=== PATIENT | female | born 2005 | race Caucasian/White ===

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

== ENCOUNTER 2024-06-30 17:25 | Emergency (ER) | payer OTHER, BC, SELFPAY ==
[2024-06-30 17:30] VITALS: BP 133/92; PULSE 93; TEMP 37.2; O2SAT 99; BMI 21.5
--- OUTSIDE RECORDS SUMMARY | 2024-06-30 17:31 | XMS_ITS | CCD ---
Author Organization [facility] Care Team Providers Care Conventions Reservationist Name Role Phone ALEISHA BROWNLEE Consulting Unavailable REQUEST, NONE LISTED Primary Care Unavailable ALEISHA BROWNLEE Admitting Unavailable ALEISHA BROWNLEE Attending Unavailable ALEISHA BROWNLEE Consulting Unavailable REQUEST, NONE LISTED Primary Care Unavailable ALEISHA BROWNLEE Admitting Unavailable ALEISHA BROWNLEE Attending Unavailable GILSON CANO Attending Unavailable REQUEST, NONE LISTED Primary Care Unavailable GILSON CANO Admitting Unavailable WOODROW VASQUEZ V Consulting Unavailable GILSON CANO Consulting Unavailable DELORES MORA Attending Unavailable ALEISHA BROWNLEE Primary Care Unavailable ALEISHA BROWNLEE Referring Unavailable DELORES MORA Attending Unavailable ALEISHA BROWNLEE Primary Care Unavailable ALEISHA BROWNLEE Referring Unavailable Medications Current Medications Medication Drug Class(es) Dates Sig (Normalized) Sig (Original) Levonorgest-Eth.Estr adiol-Iron (1 source) Progestin, Estrogen, Progestin-containin g Intrauterine Device Start: 03-27-2024 take 1 tablet by mouth once daily Levonorgest-Eth.E stradiol-Iron (Balcoltra) 0.1 mg-0.02 mg (21)/iron (7) tablet Active 1 TAB PO Daily March 27, 2024 12:00am midodrine hydrochloride 10 mg oral tablet (1 source) alpha-Adrenergic Agonist Start: 03-27-2024 take 10 mg by mouth three times daily Midodrine Active 10 MG PO Three times daily March 27, 2024 12:00am ondansetron 4 mg oral tablet (1 source) Serotonin-3 Receptor Antagonist Start: 04-06-2024 take 4 mg by mouth every eight hours Ondansetron Hcl Active 4 MG PO Every 8 hours April 06, 2024 12:00am sertraline 25 mg oral tablet (1 source) Serotonin Reuptake Inhibitor Start: 03-27-2024 take 25 mg by mouth once daily Sertraline Active 25 MG PO Daily March 27, 2024 12:00am Problems Problem Classification Problem Date Documented Da te Episodic/Chronic Abdominal pain (4 sources) Pelvic and perineal pain; Translations: [PELVIC AND PERINEAL PAIN] Onset: 02-07-2020 Diabetes mellitus without complication (4 sources) Impaired fasting glucose; Translations: [IMPAIRED FASTING GLUCOSE] Onset: 12-12-2020 Episodic Syncope (1 source) Syncope and collapse; Translations: [SYNCOPE AND COLLAPSE] Onset: 12-16-2020 Episodic Results Test Name Value Interpretation Reference Range Facil ity Progress Noteon 11-25-2023 Insurance Actuary Authentication Interface Message Text [facility] History of Present Illness Davion Umaña is a 18 y.o. female who has been followed in the heart center since 2020, for dizziness and syncope. Her clinical examination and ECG have been normal. She was diagnosed with dysautonomia and initially started on Florinef, which was then switched to midodrine due to no improvement. She is being seen today for follow up. Last visit: 09/23/23 Current cardiac medications: midodrine 2.5 mg TID Vitassium salt supplementation capsules (4 per day) Interim History: Midodrine was increased at last office visit. Since then, Davion has not been passing out as much. She continues with intermittent dizziness and syncope about 1-2 times per week. Her migraines have increased. She was evaluated by neurologist. Had MRI and EEG. Reported as normal. Neurologist suggested decreasing evening dose of midodrine back to 2.5 mg to see if improvement. She denies chest pain, palpitations or shortness of breath. No recent changes in medications. Goes to school at [email or web address] and lives on campus. Is doing well with her fluid intake. Eats well. Review of systems All other systems reviewed and are negative except as detailed above. Prior Cardiac Testing: ECG (07/02/22): normal ECHO (12/13/19-Osman Browning. Read by Gilbert rFanz MD): Normal 30-day loop monitor (03/02/21): Normal Past Medical/Surgical History: History reviewed. No pertinent past medical/surgical history. Patient Active Problem List Diagnosis Syncope and collapse Medications: Current Outpatient Medications Medication Instructions Cranberry-Vitamin C (AZO CRANBERRY URINARY TRACT PO) Oral Elastic Bandages & Supports (MEDICAL COMPRESSION STOCKINGS) MISC Waist high compression stockings 20mmHg-30mmHg. To be worn daily while upright. fludrocortisone (FLORINEF) 0.1 MG tablet TAKE 1 TABLET BY MOUTH EVERY DAY Levonorgest-Eth Estrad-Fe Bisg 0.1-20 MG-MCG(21) TABS Oral midodrine (PROAMATINE) 5 mg, Oral, 3 TIMES DAILY, Last dose to be taken before 5 pm ondansetron (ZOFRAN) 4 mg, Oral, EVERY 8 HOURS PRN Oral Electrolytes (THERMOTABS) TABS 2 Tablets, Oral, 2 TIMES DAILY sertraline (ZOLOFT) 25 MG tablet Oral, DAILY Allergies: No Known Allergies Family History: There is no known congenital heart disease, arrhythmia, sudden or SIDS on the maternal or the paternal side of the family. Social History: Freshman in college at [employer]. Studying education. Physical Exam: The Physical Exam is limited due to Telehealth General: Patient appears healthy, well developed, well nourished, non-toxic, and in no acute distress HEENT: atraumatic and normocephalic Chest: Respirations are easy, non-labored with symmetric chest rise. Skin: [place], without obvious rashes or lesions. Neuro: Awake and alert. Answering questions appropriately and following commands. Impression: Vasovagal syncope Orthostatic intolerance Dysautonomia Davion's syncope and dizziness have improved with increased midodrine, although her headaches have worsened. I am ok with trying to reduce midodrine dosage to see if this helps with headaches. She should continue to follow with neurology. Plan: Medications: Continue midodrine to 5mg 3x/daily, with last dose to be taken prior to 5pm. Can try reducing last dose to 2.5 mg as recommended by neurologist. Increase sodium intake to at least 4,000 milligrams (mg) per day. (1 tsp of table salt =2,325 mg of sodium) Continue Vitassium salt supplementation capsules Increase fluid intake to at least 100 ounces of water/caffeine free liquids per day Restrictions: None from a cardiology perspective Follow up: 6 months; discussed transition to adult care. Total encounter time: 30 minutes Delores Mora, DOCUMENTATION COORDINATOR-[employer]AP[employer] PADDER Pediatric Nurse Practitioner [facility] 11/25/2023 Normal [facility] Progress Noteon 09-23-2023 Insurance Actuary Authentication Interface Message Text [facility] History of Present Illness Davion Umaña is a 17 y.o. female who has been followed in the heart center since 2020, for dizziness and syncope. Her clinical examination and ECG have been normal. She was diagnosed with dysautonomia and initially started on Florinef, which was then switched to midodrine due to no improvement. She is being seen today for follow up. Current cardiac medications: midodrine 2.5 mg TID Vitassium salt supplementation capsules (4 per day) Interim History: Davion had been doing well with midodrine until 1 month ago. She describes current symptoms as: -nausea/vomiting -migraines/headaches (daily for the past 1-2 months, does not respond to ibuprofen) -blurred vision, typically accompanied by dizziness or increased migraine -dizziness (constant recently, does not improve when lying down, uses a cold rag) -syncope (increases more around menstrual cycles) 3-5 times per month. 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 Passed out. LOC < 2 minutes. No head injury. -shortness of breath when she feels like she is going to pass out -sweating without fever -fatigue/ lack of sleep. (Feels her head spinning) No recent changes in medications. Goes to school at [email or web address] and lives on campus. Is doing well with her fluid intake. Eats well. Review of systems All other systems reviewed and are negative except as detailed above. Prior Cardiac Testing: ECG (07/02/22): normal ECHO (12/13/19-Osman Browning. Read by Gilbert Franz MD): Normal 30-day loop monitor (03/02/21): Normal Past Medical/Surgical History: History reviewed. No pertinent past medical/surgical history. Patient Active Problem List Diagnosis Syncope and collapse Medications: Current Outpatient Medications Medication Instructions Cranberry-Vitamin C (AZO CRANBERRY URINARY TRACT PO) Oral Elastic Bandages & Supports (MEDICAL COMPRESSION STOCKINGS) MISC Waist high compression stockings 20mmHg-30mmHg. To be worn daily while upright. fludrocortisone (FLORINEF) 0.1 MG tablet TAKE 1 TABLET BY MOUTH EVERY DAY Levonorgest-Eth Estrad-Fe Bisg 0.1-20 MG-MCG(21) TABS Oral midodrine (PROAMATINE) 5 mg, Oral, 3 TIMES DAILY, Last dose to be taken before 5 pm ondansetron (ZOFRAN) 4 mg, Oral, EVERY 8 HOURS PRN Oral Electrolytes (THERMOTABS) TABS 2 Tablets, Oral, 2 TIMES DAILY sertraline (ZOLOFT) 25 MG tablet Oral, DAILY Allergies: No Known Allergies Family History: There is no known congenital heart disease, arrhythmia, sudden or SIDS on the maternal or the paternal side of the family. Social History: Freshman in college at [employer]. Physical Exam: 1. General: Alert, active, well developed, in no acute distress. 2. BP 113/74 (BP Site: Right Arm, Patient Position: Sitting, BP Cuff Size: Adult) Pulse 79 Resp 20 Ht 172 cm Wt 72.1 kg BMI 24.37 kg/m 3. Neck supple without masses or thyromegaly. 4. Cardiovascular: Regular rate and rhythm, normal S1 and S2 with normal splitting, no S3 or S4. No murmurs clicks, or rubs. No chest wall tenderness. Normal precordium. Upper and lower extremity pulses equal. 5. Respiratory: Lungs clear and equal. No retractions, wheezing, coughing,grunting, or nasal flaring. 6. Abdomen: Soft, non-tender, and non-distended. No hepatosplenomegaly. 7. Integumentary: Warm and well perfused, no clubbing/cyanosis/silvio ma. Pulses are 2+ and symmetric in the radial and dorsalis pedis locations. Impression: Vasovagal syncope Orthostatic intolerance Dysautonomia Davion's syncope has increased over the last 1-2 months. Initially saw great results with midodrine. Also, having increased headaches/migraines. I have recommended she see a neurologist. For now, she can start on Vitamin B2 and Magnesium for headache prevention. We reviewed red flags that would warrant a brain MRI. Davion or mom will call office with worsening symptoms. For syncope, we will increase midodrine to 5mg, TID. She should continue with increased fluid and salt supplementation capsules. We reviewed potential need for tilt table test in the future, if syncope does not respond to medication and potential consult for cardioneuroablation. Plan: Medications: Increase midodrine to 5mg 3x/daily, with last dose to be taken prior to 5pm. For headaches: Start riboflavin (Vitamin B2) 400 mg daily; Start magnesium 400mg every evening (these can be purchased over the counter) Increase sodium intake to at least 4,000 milligrams (mg) per day. (1 tsp of table salt =2,325 mg of sodium) Continue Vitassium salt supplementation capsules Increase fluid intake to at least 100 ounces of water/caffeine free liquids per day Restrictions: None from a cardiology perspective Follow up: 2 months via telehealth Total encounter time: 60 minutes Delores Mora, DOCUMENTATION COORDINATOR-[employer] Pediatric N (more content not included)... Normal [facility] CBC AUTO DIFFon 12-12-2020 Basophils (Bld) [#/Vol] 0.0 103/ul Normal 0.0-0.1 [facility] Comment on above: Performed By: #### C BC #### [facility] [place] [facility] [address], [place] [address] Steve Alyssia Basophils/100 WBC (Bld) 0.4 % Normal 0.2-2.0 [facility] [place] Comment on above: Performed By: #### C BC #### [facility] [place] [facility] [address], [place] [address] Steve Alyssia Eosinophils (Bld) [#/Vol] 0.1 103/ul Normal 0.0-0.7 [facility] [place] Comment on above: Performed By: #### C BC #### [facility] [place] [facility] [address], [place] [address] Steve Alyssia Eosinophils/100 WBC (Bld) 2.0 % Normal 0.9-7.0 [facility] [place] Comment on above: Performed By: #### C BC #### [facility] [place] [facility] [address], [place] [address] Steve Alyssia Erythrocyte distribution width (RBC) [Ratio] 14.6 % Normal 11.0-15.0 [facility] Comment on above: Performed By: #### C BC #### [facility] [place] [facility] [address] [id number] Steverosy Cade Hematocrit (Bld) [Volume fraction] 36.7 % Normal 36.0-48.0 [facility] [place] Comment on above: Performed By: #### C BC #### [facility] [place] [facility] [address] [place], [place] [address] Steve Alyssia Hemoglobin (Bld) [Mass/Vol] 11.5 g/dL Critically low 12.0-16.0 [facility] [place] Comment on above: Performed By: #### C BC #### [facility] [place] [facility] [address] [place], [place] [address] Steve Alyssia IG # 0.03 10e3/ul Normal 0.00-0.03 [facility] [place] Comment on above: Performed By: #### C BC #### [facility] [place] [facility] [address] [place] [address] Steve Alyssia IG % 0.4 % Normal 0.0-0.5 [facility] Comment on above: Performed By: #### C BC #### [facility] [place] [facility] [address] [place], [place] [address] Steve Alyssia Lymphocytes (Bld) [#/Vol] 2.1 103/ul Normal 1.2-3.8 [facility] [place] Comment on above: Performed By: #### C BC #### [facility] [place] [facility] [address] [place], [place] [address] Steve Alyssia Lymphocytes/100 WBC (Bld) 31.0 % Normal 20.5-60.0 [facility] [place] Comment on above: Performed By: #### C BC #### [facility] [place] [facility] [address] [place], [place] [address] Steve Cade MANUAL DIFF REQ NO Normal [facility] Comment on above: Performed By: #### C BC #### [facility] [place] [facility] [address] [place], [place] [address] Steve Guerraen MCH (RBC) [Entitic mass] 26.6 pg Critically low 26.7-34.0 [facility] [place] Comment on above: Performed By: #### C BC #### [facility] [place] [facility] [address] [place], [place] [address] Steve Alyssia MCHC (RBC) [Mass/Vol] 31.3 g/dL Normal 29.9-35.2 [facility] [place] Comment on above: Performed By: #### C BC #### [facility] [place] [facility] [address] [id number] Steve Alyssia MCV (RBC) [Entitic vol] 85.0 fL Normal 79.1-95.6 [facility] [place] Comment on above: Performed By: #### C BC #### [facility] [place] [facility] [address] [id number] Steve Alyssia Monocytes (Bld) [#/Vol] 0.5 103/ul Normal 0.3-0.8 [facility] [place] Comment on above: Performed By: #### C BC #### [facility] [place] [facility] [address] [place] [address] Steve Alyssia Monocytes/100 WBC (Bld) 7.6 % Normal 1.7-12.0 [facility] [place] Comment on above: Performed By: #### C BC #### [facility] [place] [facility] [address] [place] [address] Steve Alyssia Neutrophils (Bld) [#/Vol] 4.0 103/ul Normal 1.4-6.5 [facility] [place] Comment on above: Performed By: #### C BC #### [facility] [place] [facility] [address] [place] [address] Steve Alyssia Neutrophils/100 WBC (Bld) 58.6 % Normal 43.0-75.0 [facility] [place] Comment on above: Performed By: #### C BC #### [facility] [place] [facility] [address] [place], [place] [address] Steve Alyssia Platelet mean volume (Bld) [Entitic vol] 11.9 fL Normal 9.5-13.5 [facility] [place] Comment on above: Performed By: #### C BC #### [facility] [place] [facility] [address] [place], [place] [address] Steve Alyssia Platelets (Bld) [#/Vol] 300 103/ul Normal 150-450 [facility] [place] Comment on above: Performed By: #### C BC #### [facility] [place] [facility] [address] [place], [place] [address] Steve Alyssia RBC (Bld) [#/Vol] 4.32 106/ul Normal 3.40-5.30 [facility] Comment on above: Performed By: #### C BC #### [facility] [place] [facility] [address] [place], [place] [address] Steve Alyssia WBC (Bld) [#/Vol] 6.9 103/ul Normal 4.0-11.0 [facility] Comment on above: Performed By: #### C BC #### [facility] [place] [facility] [address] [place], [place] [address] Steve Alyssia GLYCOHEMOGLOBIN A1Con 2020 ADA RECOMMENDATION ADA THERAPEUTIC TARGET 6.0 - 7.0 ACTION SUGGESTED > 7.0 Normal [facility] Comment on above: Performed By: #### A 1C #### [facility] [place] [facility] [address] [place], [place] [address] Steve Alyssia Glucose [Mass/Vol] 117 mg/dL Normal [facility] Comment on above: Performed By: #### A 1C #### [facility] [place] [facility] [address] [place], [place] [address] Steve Alyssia HbA1c (Bld) [Mass fraction] 5.7 % Normal <=6.0 [facility] Comment on above: Performed By: #### A 1C #### [facility] [place] [facility] [address] [place], [place] [address] Steve Cade PROF CHEM 8 (BAS METB)on Anion gap [Moles/Vol] 13.2 mmol/L Normal [facility] Comment on above: Performed By: #### T DARRYL, BMP #### [facility] [place] [facility] [address] [place], [place] [address] Steve Alyssia Calcium [Mass/Vol] 9.0 mg/dL Normal 8.4-10.2 [facility] Comment on above: Performed By: #### T DARRYL, BMP #### [facility] [place] [facility] [address] [place], [place] [address] Steve Alyssia Chloride [Moles/Vol] 102 mmol/L Normal 98-107 [facility] [place] Comment on above: Performed By: #### T DARRYL, BMP #### [facility] [place] [facility] [address], [place] [address] Steve Alyssia CO2 [Moles/Vol] 28.1 mmol/L Normal 22.0-30.0 [facility] Comment on above: Performed By: #### T SH, BMP #### [facility] [place] [facility] [address] [id number] Steve Alyssia Creatinine [Mass/Vol] 0.70 mg/dL Normal 0.52-1.04 [facility] Comment on above: Performed By: #### T SH, BMP #### [facility] [place] [facility] [address] [id number] Steve Alyssia Glucose [Mass/Vol] 89 mg/dL Normal 74-106 [facility] Comment on above: Performed By: #### T SH, BMP #### [facility] [place] [facility] [address] [place] [address] Steve Alyssia Potassium [Moles/Vol] 4.3 mmol/L Normal 3.4-5.0 [facility] Comment on above: Performed By: #### T DARRYL, BMP #### [facility] [place] [facility] [address] [place], [place] [address] Steve Alyssia Sodium [Moles/Vol] 139 mmol/L Normal 137-145 [facility] Comment on above: Performed By: #### T DARRYL, BMP #### [facility] [place] [facility] [address] [id number] Steve Alyssia Urea nitrogen [Mass/Vol] 12.0 mg/dL Normal 6.4-19.3 [facility] Comment on above: Performed By: #### T SH, BMP #### [facility] [place] [facility] [address] [id number] Steve Alyssia Urea nitrogen/Creatinine [Mass ratio] 17.1 mg/mg Normal [facility] Comment on above: Performed By: #### T SH, BMP #### [facility] [place] [facility] [address], [place] [address] Steve Alyssia TSHon 12-12-2020 TSH Qn 0.468 uIU/mL Normal 0.430-3.750 [facility] Comment on above: Performed By: #### T DARRYL, NORBERT #### [facility] [place] [facility] [address], [place] [address] Steve Cade TSH Qn SEE BELOW Normal [facility] Comment on above: Result Comment: <0.3 4 UIU/ml HYPERTHYROID 0.34-5.60 UIU/ml EUTHYROID >5.60 UIU/ml HYPOTHYROID Performed By: #### T DARRYL, NORBERT #### [facility] [place] [facility] [address], [place] [address] Steve Cade US PELVISon 02-07-2020 US PELVIS EXAMINATION: US PELVIS HISTORY: Pelvic and perineal pain COMPARISON: No relevant comparison available. FINDINGS: Transabdominal images The uterus is normal in size, contour and myometrial echotexture with no focal mass. The uterus measures 6.6 x 3.5 x 5.0 cm a volume of 61.3 mL. The endometrium measures 7.6 mm, normal The right ovary is normal in size, contour and echotexture measuring 2.6 x 1.3 x 2.4 cm with a volume of 4.2 mL The left ovary is normal in size, contour and echotexture measuring 4.1 x 1.2 x 2.7 cm with a volume of 7.1 mL. No free fluid IMPRESSION: Normal transabdominal pelvic ultrasound Electronically authenticated by: WOODROW VASQUEZ Date: 2020-02-07 10:08 Normal [facility] Coding Summary.on 12-13-2019 Coding Summary. CODING DATE: 12/13/2019 FINAL [facility] STATUS: Home (Routine DC) PAYOR: [facility] [place] [facility] DESCRIPTION 5524 Level 4 Imaging without Contrast ADMIT DX: REASON FOR VISIT DX: R55 Syncope and collapse FINAL DX: PRINCIPAL: R55 Syncope and collapse SECONDARY: PYMT PROC APC STAT DESCRIPTION DOCTOR NAME DATE NOTE: The code number assigned matches the documented diagnosis and / or procedure in the patient's chart. However, the narrative phrase printed from the coding software may appear abbreviated, or result in slightly different terminology. Coded By: Sophie Rueda CphT Date Saved: 12/13/2019 09:32 am Normal [facility] EC Pediatric Echo Transthora cic Completeon 12-13-2019 EC Pediatric Echo Transthoracic Complete Echocardiology Procedure Exam Date/Time Accession # Ordering Dr. EC Pediatric Echo 12/12/2019 16:02 EST [id number] ALEISHA BROWNLEE MD Transthoracic Complete CPT code 98490 Reason for Exam ( Pediatric Echo Transthoracic Complete) R55 SYNCOPE AND COLLAPSE Report Patient Height: 67 (110 cm) Patient Weight: 120 (54 kg) Blood Pressure: 116/76 1. LVIDd 4.6 cm 2. LVIDs 3.1 cm 3. IVSd 0.75 cm 4. LVPWd 0.72 cm 5. LAs 3.0 cm 7. AOd Root (3.0-3.4cm) 2.6 cm 9. AO Sinus of Valsalva 2.4 cm 10. AO Sinotubular Junction 2.0 cm 11. Ascending Aorta 2.5 cm INDICATIONS : Syncope. M-MODE/2D/DOPPLER REPORT : Situs, veins, atria: Levocardia, atrial situs solitus with D looped ventricles and normally related great arteries. The SVC and IVC are seen connecting normally to the right atrium. One left and one right pulmonary vein are seen connecting normally to the left atrium. There is no evidence of a significant atrial septal defect. The atria are normal in size. AV valves: No tricuspid stenosis and trivial regurgitation. No mitral valve prolapse, stenosis or regurgitation. Ventricles: Normal right ventricular size, wall thickness and systolic function. Normal left ventricular size, wall thickness and systolic function. There is no evidence of a significant ventricular septal defect. Outflow tracts: The subaortic and subpulmonary outflow tracts are unobstructed. Tricommissural aortic valve with no stenosis or insufficiency. There is no pulmonary stenosis and trivial insufficiency. The coronary artery origin not well seen. Great arteries: Normal appearing aortic arch without coarctation. Normal appearing main pulmonary artery. No patent ductus arteriosus seen. Other: No pericardial effusion seen. SUMMARY/CONCLUSION: Echocardiology Report Normal segmental cardiac anatomy. Normal left and right ventricular size and systolic function. FINAL REPORT Signed (Electronic Signature): 12/13/2019 12:00 pm Signed by: Frederic Franz MD Transcribed by: elo Technologist: DAVIN Brewer [facility] Vital Signs Date Time Vital Sign Value Performing Clinician Faci lity 04-06-2024 10:150400 Body height 175.26 cm [facility] 04-06-2024 10:15-0400 Body mass index (BMI) [Percentile] Per age and sex 76.3 % [facility] 04-06-2024 10:15040 Body mass index (BMI) [Ratio] 24.5 kg/m2 [facility] 04-06-2024 10:15040 Body weight 75.46 kg [facility] 04-06-2024 10:15040 Diastolic blood pressure 79 mm[Hg] [facility] 04-06-2024 10:15040 Heart rate 70 /min [facility] 04-06-2024 10:15040 Systolic blood pressure 115 mm[Hg] [facility] Encounters Encounter Date Encounter Type Care Provider Facility Start: 04-06-2024 End: 04-06-2024 ambulatory [facility] Work Phone: Start: 04-06-2024 End: 04-06-2024 Patient encounter procedure Count Includes [facility] Physician [facility] Work Phone: Start: 03-27-2024 Non-patient / Non-visit Count Includes [facility] Physician [facility] Work Phone: Start: 11-25-2023 End: 11-25-2023 ambulatory [facility] Start: 09-23-2023 End: 09-23-2023 ambulatory [facility] Start: 12-19-2020 End: 12-20-2020 Patient encounter procedure ALEISHA BROWNLEE Facility:[facility] Start: 12-12-2020 End: 12-13-2020 Patient encounter procedure ALEISHA BROWNLEE Facility:[facility] Start: 02-07-2020 End: 02-08-2020 Patient encounter procedure GILSON CANO Facility:[facility] Immunizations Immunization Date Immunization Notes Care Provider Fa cili 06-07-2022 meningococcal oligosaccharide (groups A, C, Y and W-135) diphtheria toxoid conjugate vaccine (MCV4O) [facility] 06-06-2017 meningococcal oligosaccharide (groups A, C, Y and W-135) diphtheria toxoid conjugate vaccine (MCV4O) [facility] 02-09-2017 diphtheria, tetanus toxoids and acellular pertussis vaccine, unspecified formulation [facility] Payers Date Payer Category Payer Unknown [id number] 2005 Unknown [id number] 2004 Unknown [id number]. [id number] 1973 Unknown [id number] 1973 Unknown [id number] 1973 Unknown [id number] Unknown [id number] Social History Date Type Detail Facility Start: 04-06-2024 Tobacco smoking stat [facility] Never smoked tobacco (finding) [facility] Start: 2005 Sex Assigned At F [facility] Evaluation note Note Date & Type Note Facility Evaluation note No assessment information availa [facility] Work Phone: Summary Purpose Family History Relationship Condition Age at Onset Recorded Date/T yomi family member Hypertension Unknown grandparent Hypertension Unknown Malignant neoplasm Unknown Advance Directives Advance Directive Response Recorded Date/ Time Advance Directives No April 06 10:09am Chief Complaint and Reason for Visit Chief Complaint Amb Documentation wellness Additional Source Comments INFORMATION SOURCE (unrecogn ized section and content) DATE CREATED AUTHOR 12/13/2019 Brewer Trinean [facility] DATE CREATED AUTHOR AUTHOR'S ORGANIZ ATION 12/20/2020 [facility] DATE CREATED AUTHOR AUTHOR'S ORGANIZ ATION 11/28/2023 [facility] Care Teams (unrecognized sec tion and content) Team Status: Active Member Role Status Dates Aleisha Brownlee MD Primary Care Provider Active Team Status: Active Member Role Status Dates Aleisha Brownlee MD Primary Care Provider Active Start: March 27, 2024 Regina Jordan LPN Attending Provider Active St art: Magy 4th, 2024 Team Status: Inactive Member Role Status Dates Aleisha Brownlee MD Primary Care Provide r, Attending Provider Active Start: April 06, 2024 End: April 06, 2024 Goals (unrecognized section and content) Goals may be documented in a n alternate section FOR RECORDS PERTAINING TO PATIENTS WHO ARE OR HAVE BEEN ENROLLED IN A CHEMICAL DEPENDENCY/SUBSTANCEABUSE PROGRAM, SOME INFORMATION MAY BE OMITTED. This clinical summary was aggregated from multiple sources. Caution should be exercised in using it in the provision of clinical care. This summary normalizes information from multiple sources, and as a consequence, information in this document may materially change the coding, format and clinical context of patient data. In addition, data may be omitted in some cases. CLINICAL DECISIONS SHOULD BE BASED ON THE PRIMARY CLINICAL RECORDS. [facility] [employer] provides no warranty or guarantee of the accuracy or completeness of information in this document.
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
[2024-06-30 18:10] LABS: HCG Qualitative Urine* NEGATIVE (NEGATIVE); Internal Control Within Normal Limits
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
== END 2024-06-30 19:57 | disposition home or self-care (01) ==
PROVIDERS: Emergency Medicine; Emergency Provider Internal Medicine; PCP Family Medicine
DX: S40.012A Contusion of left shoulder, initial encounter (principal); S70.02XA Contusion of left hip, initial encounter; S00.83XA Contusion of other part of head, initial encounter; V43.52XA Car driver injured in collision with other type car in traffic accident, initial encounter
CPT/HCPCS: 70486; 73030; 73502; 84703; 99285

== ENCOUNTER 2024-08-13 07:56 | Outpatient (OUT) | payer BC, SELFPAY ==
--- NOTE | 2024-08-13 | ECG_ITS ---
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
--- OUTSIDE RECORDS SUMMARY | 2024-08-13 07:59 | XMS_ITS | CCD ---
Author Organization [facility] Care Team Providers Care Sonoscope Operator Name Role Phone ALEISHA ACKERMAN Consulting Unavailable REQUEST, NONE LISTED Primary Care Unavailable ALEISHA ACKERMAN Admitting Unavailable ALEISHA ACKERMAN Attending Unavailable ALEISHA ACKERMAN Consulting Unavailable REQUEST, NONE LISTED Primary Care Unavailable ALEISHA ACKERMAN Admitting Unavailable ALEISHA ACKERMAN Attending Unavailable GILSON CANO Attending Unavailable REQUEST, NONE LISTED Primary Care Unavailable GILSON CANO Admitting Unavailable WOODROW VASQUEZ V Consulting Unavailable GILSON CANO Consulting Unavailable DELORES MORA Attending Unavailable ALEISHA ACKERMAN Primary Care Unavailable ALEISHA ACKERMAN Referring Unavailable DELORES MORA Attending Unavailable ALEISHA ACKERMAN Primary Care Unavailable ALEISHA ACKERMAN Referring Unavailable PIPE TRAVIS Referring Unavailable PIPE TRAVIS Attending Unavailable Medications Current Medications Medication Drug Class(es) [...] Translations: [IMPAIRED FASTING GLUCOSE] Onset: 12-12-2020 Episodic Nervous system congenital anomalies (2 sources) 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]; Translations: [Familial dysautonomia (evette-day)] Onset: 07-02-2024 Chronic Other circulatory disease (2 sources) Postural orthostatic tachycardia syndrome ; Translations: [Postural orthostatic tachycardia syndrome (POTS)] Onset: 07-02-2024 Episodic Syncope (3 sources) Syncope and collapse; Translations: [SYNCOPE AND COLLAPSE] Onset: 12-16-2020 Episodic Results Test Name Value Interpretation Reference Range Facility 29on 07-02-2024 29 Addended by: PIPE TRAVIS on: 07/02/2024 11:16 AM Modules accepted: Orders Normal [facility] Documentationon 07-02-2024 Documentation [id number] Davion Umaña 2005 F Date Provider Department Center 07/02/2024 [id number], [facility] Spe Pha Comprehensiv Family History Problem Relation Age of Onset No Known Problems Mother Hypertension Father No Known Problems Mother's Sister Hypertension Maternal Grandfather Heart attack Paternal Grandmother Arrhythmia Paternal Grandmother Stroke Paternal Grandmother 40 Autoimmune disease Neg Hx Sudden Neg Hx Aneurysm Neg Hx Family Status - Relation Status Age at Mother Father Mother's Sister Maternal Grandfather Paternal Grandmother Neg Hx Reason for Visit and Comments: Specialty Pharmacy Note: ivabradine [Other] Normal [facility] Office Visiton 07-02-2024 Follow-up visit [id number] Davion Umaña 2005 F Date Provider Department Center 07/02/2024 135-PIPE TRAVIS HVC CARD [facility] Family History Problem Relation Age of Onset No Known Problems Mother Hypertension Father No Known Problems Mother's Sister Hypertension Maternal Grandfather Heart attack Paternal Grandmother Arrhythmia Paternal Grandmother Stroke Paternal Grandmother 40 Autoimmune disease Neg Hx Sudden Neg Hx Aneurysm Neg Hx Family Status - Relation Status Age at Mother Father Mother's Sister Maternal Grandfather Paternal Grandmother Neg Hx Level of Service:78979 HI OFFICE/OUTPATIENT NEW LOW MDM 30 MINUTES Reason for Visit and Comments: New Patient [632] - Patient in our office for Dysautonomia. Patient light headed, palpitations and edema when about to have episodes Normal [facility] Progress Noteon 11-25-2023 [employer] As[employer] Authentication Interface Message Text [facility]- Syncope Clinic History of Present [...] changes in medications. Goes to school at [employer] and lives on campus. Is doing well [...] family. Social History: Freshman in college at [employer]. Studying education. Physical Exam: The Physical Exam is limited due to Telehealth General: Patient appears healthy, well developed, well nourished, non-toxic, and in no acute distress HEENT: atraumatic and normocephalic Chest: Respirations are easy, non-labored with symmetric chest rise. Skin: [place], without obvious rashes or lesions. Neuro: Awake and alert. Answering questions appropriately and following commands. Impression: Vasovagal syncope Orthostatic intolerance Dysautonomia Kennethin's syncope and dizziness have improved with increased [...] Total encounter time: 30 minutes Delores Mora, GURJIT-CNC GRINDER Pediatric Nurse Practitioner [facility] 11/25/2023 Normal [facility] Progress Noteon 12-01-2023 [employer] As[employer]er Authentication Interface Message Text [facility]- Syncope Clinic History of Present [...] month. 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 Passed out. LOC < 2 minutes. No head injury. -shortness of breath when she feels like she is going to pass out -sweating without fever -fatigue/ lack of sleep. (Feels her head spinning) No recent changes in medications. Goes to school at [employer] and lives on campus. Is doing well with her fluid intake. Eats well. Review of systems All other systems reviewed and are negative except as detailed above. Prior Cardiac Testing: ECG (07/02/22): normal ECHO (12/13/19-[facility] [place]. Read by Gilbert Franz MD): Normal 30-day [...] family. Social History: Freshman in college at [employer]. Physical Exam: 1. General: Alert, active, well [...] 7. Integumentary: Warm and well perfused, no clubbing/cyanosis/[place]. Pulses are 2+ and symmetric in the [...] Total encounter time: 60 minutes Delores Mora, PICTURE FRAME MAKER-CNC GRINDER Pediatric N (more content not included)... Normal [facility] CBC AUTO DIFFon 12-12-2020 Basophils (Bld) [#/Vol] 0.0 103/ul Normal 0.0-0.1 [facility] Comment on above: Performed By: #### C BC #### [facility] [address] [place] [address] Steve Alyssia Basophils/100 WBC (Bld) 0.4 % Normal 0.2-2.0 [facility] Comment on above: Performed By: #### C BC #### [facility] [address] [place] [address]13 Steve Alyssia Eosinophils (Bld) [#/Vol] 0.1 103/ul Normal 0.0-0.7 [facility] Comment on above: Performed By: #### C BC #### [facility] [address] [place] [address]28 Steve Alyssia Eosinophils/100 WBC (Bld) 2.0 % Normal 0.9-7.0 [facility] Comment on above: Performed By: #### C BC #### [facility] [address] [place] [address]15 Steve Alyssia Erythrocyte distribution width (RBC) [Ratio] 14.6 % Normal 11.0-15.0 [facility] Comment on above: Performed By: #### C BC #### [facility] [address] [place] [address] 12761 Steve Alyssia Hematocrit (Bld) [Volume fraction] 36.7 % Normal 36.0-48.0 [facility] Comment on above: Performed By: #### C BC #### [facility] [address] [place] [address] Steve Cade Hemoglobin (Bld) [Mass/Vol] 11.5 g/dL Critically low 12.0-16.0 [facility] Comment on above: Performed By: #### C BC #### [facility] [address] [place] [address] Steverosy Cade IG # 0.03 10e3/ul Normal 0.00-0.03 [facility] Comment on above: Performed By: #### C BC #### [facility] [address] [place] [address] Steve Cade IG % 0.4 % Normal 0.0-0.5 [facility] Comment on above: Performed By: #### C BC #### [facility] [address] [place] [address] Steve Cade Lymphocytes (Bld) [#/Vol] 2.1 103/ul Normal 1.2-3.8 [facility] Comment on above: Performed By: #### C BC #### [facility] [address] [place] [address] Steve Cade Lymphocytes/100 WBC (Bld) 31.0 % Normal 20.5-60.0 [facility] Comment on above: Performed By: #### C BC #### [facility] [address] [place] [address] Steve Cade MANUAL DIFF REQ NO Normal [facility] Comment on above: Performed By: #### C BC #### [facility] [address] [place], [place] [id number] Steve Cade MCH (RBC) [Entitic mass] 26.6 pg Critically low 26.7-34.0 [facility] Comment on above: Performed By: #### C BC #### [facility] [address] [place] [address] Steve Cade MCHC (RBC) [Mass/Vol] 31.3 g/dL Normal 29.9-35.2 [facility] Comment on above: Performed By: #### C BC #### [facility] [address] [place], [place] [id number] Steve Alyssia MCV (RBC) [Entitic vol] 85.0 fL Normal 79.1-95.6 [facility] Comment on above: Performed By: #### C BC #### [facility] [address] [place], [place] [id number] Steve Alyssia Monocytes (Bld) [#/Vol] 0.5 103/ul Normal 0.3-0.8 [facility] Comment on above: Performed By: #### C BC #### [facility] [address] [place], [place] [id number] Steve Alyssia Monocytes/100 WBC (Bld) 7.6 % Normal 1.7-12.0 [facility] Comment on above: Performed By: #### C BC #### [facility] [address] [place], [place] [id number] Steve Alyssia Neutrophils (Bld) [#/Vol] 4.0 103/ul Normal 1.4-6.5 [facility] Comment on above: Performed By: #### C BC #### [facility] [address] [place], [place] [id number] Steve Alyssia Neutrophils/100 WBC (Bld) 58.6 % Normal 43.0-75.0 [facility] Comment on above: Performed By: #### C BC #### [facility] [address] [place], [place] [phone] Steve Alyssia Platelet mean volume (Bld) [Entitic vol] 11.9 fL Normal 9.5-13.5 [facility] Comment on above: Performed By: #### C BC #### [facility] [address] [place], [place] [id number] Steve Alyssia Platelets (Bld) [#/Vol] 300 103/ul Normal 150-450 [facility] Comment on above: Performed By: #### C BC #### [facility] [address] [place], [place] [address] Steve Alyssia RBC (Bld) [#/Vol] 4.32 106/ul Normal 3.40-5.30 [facility] Comment on above: Performed By: #### C BC #### [facility] [address] [place], [place] [phone] Steverosy Cade WBC (Bld) [#/Vol] 6.9 103/ul Normal 4.0-11.0 [facility] Comment on above: Performed By: #### C BC #### [facility] [address] [place], [place] [phone] Steve Cade GLYCOHEMOGLOBIN A1Con 2020 ADA RECOMMENDATION ADA THERAPEUTIC TARGET 6.0 - 7.0 ACTION SUGGESTED > 7.0 Normal [facility] Comment on above: Performed By: #### A 1C #### [facility] [address] [place] [address] Steve Alyssia Glucose [Mass/Vol] 117 mg/dL Normal [facility] Comment on above: Performed By: #### A 1C #### [facility] [address] [place] [address] Steverosy Cade HbA1c (Bld) [Mass fraction] 5.7 % Normal <=6.0 [facility] Comment on above: Performed By: #### A 1C #### [facility] [address] [place], [place] [phone] Steve Alyssia PROF CHEM 8 (BAS METB)on Anion gap [Moles/Vol] 13.2 mmol/L Normal [facility] Comment on above: Performed By: #### T DARRYL, BMP #### [facility] [address] [place] [address] Steve Alyssia Calcium [Mass/Vol] 9.0 mg/dL Normal 8.4-10.2 [facility] Comment on above: Performed By: #### T DARRYL, BMP #### [facility] [address] [place], [place] [id number] Steve Alyssia Chloride [Moles/Vol] 102 mmol/L Normal 98-107 [facility] Comment on above: Performed By: #### T DARRYL, BMP #### [facility] [address] [id number] Steve Alyssia CO2 [Moles/Vol] 28.1 mmol/L Normal 22.0-30.0 [facility] Comment on above: Performed By: #### T DARRYL, BMP #### [facility] [address] [id number] Steve Alyssia Creatinine [Mass/Vol] 0.70 mg/dL Normal 0.52-1.04 [facility] Comment on above: Performed By: #### T DARRYL, BMP #### [facility] [address] [id number] Steve Alyssia Glucose [Mass/Vol] 89 mg/dL Normal 74-106 [facility] Comment on above: Performed By: #### T DARRYL, BMP #### [facility] [address] [address] Steve Alyssia Potassium [Moles/Vol] 4.3 mmol/L Normal 3.4-5.0 [facility] Comment on above: Performed By: #### T DARRYL, BMP #### [facility] [address] [id number] Steve Alyssia Sodium [Moles/Vol] 139 mmol/L Normal 137-145 [facility] Comment on above: Performed By: #### T DARRYL, BMP #### [facility] [address] [address] Steve Alyssia Urea nitrogen [Mass/Vol] 12.0 mg/dL Normal 6.4-19.3 [facility] Comment on above: Performed By: #### T DARRYL, BMP #### [facility] [address] [address] Steve Alyssia Urea nitrogen/Creatinine [Mass ratio] 17.1 mg/mg Normal [facility] Comment on above: Performed By: #### T DARRYL, BMP #### [facility] [address] [place], [place] [address] Steve Alyssia TSHon 12-12-2020 TSH Qn 0.468 uIU/mL Normal 0.430-3.750 [facility] Comment on above: Performed By: #### T DARRYL, BMP #### [facility] [address] [place], [place] [address] Steve Cade TSH Qn SEE BELOW Normal [facility] Comment on above: Result Comment: <0.3 4 UIU/ml HYPERTHYROID 0.34-5.60 UIU/ml EUTHYROID >5.60 UIU/ml HYPOTHYROID Performed By: #### T DARRYL, NORBERT #### [facility] [address] [place], [place] [address] Steve Cade US PELVISon 02-07-2020 US PELVIS [...] 10:08 Normal [facility] Coding Summary.on 12-13-2019 Coding Summary. CODING DATE: 12/13/2019 FINAL [facility] STATUS: Home (Routine DC) PAYOR: [facility] [place] [facility] DESCRIPTION 5524 Level 4 Imaging without [...] CphT Date Saved: 12/13/2019 09:32 am Normal [facility] EC Pediatric Echo Transthora cic Completeon 12-13-2019 EC Pediatric Echo Transthoracic Complete Echocardiology Procedure Exam Date/Time Accession # Ordering Dr. GALVAN Pediatric Echo 12/12/2019 16:02 EST [id number] ALEISHA ACKERMAN MD Transthoracic Complete CPT code 94173 Reason for Exam ( Pediatric Echo Transthoracic [...] MD Transcribed by: elo Technologist: DAVIN Brewer [facility] Vital Signs Date Time Vital Sign Value Performing Clinician Rowena singh 04-06-2024 10:15-0400 Body height 175.26 cm [facility] 04-06-2024 10:15-0400 Body mass index (BMI) [Percentile] Per age and sex 76.3 % [facility] 04-06-2024 10:150400 Body mass index (BMI) [Ratio] 24.5 kg/m2 [facility] 04-06-2024 10:150400 Body weight 75.46 kg [facility] 04-06-2024 10:15-0400 Diastolic blood pressure 79 mm[Hg] [facility] 04-06-2024 10:150400 Heart rate 70 /min [facility] 04-06-2024 10:15-0400 Systolic blood pressure 115 mm[Hg] [facility] Encounters Encounter Date Encounter Type Care Provider Facility Start: 07-02-2024 End: 07-02-2024 ambulatory PIPE TRAVIS [facility] Start: [facility]-02[facility]: 04-06-2024 End: 04-06-2024 ambulatory [facility] Work Phone: Start: 04-06-2024 End: 04-06-2024 Patient encounter procedure [facility] Work Phone: Start: 03-27-2024 [facility] Start: 11-25-2023 End: 11-25-2023 ambulatory [facility] Start: 09-23-2023 End: 09-23-2023 ambulatory [facility] Start: 12-19-2020 End: 12-20-2020 Patient encounter procedure ALEISHA ACKERMAN Facility:[facility] Start: 12-12-2020 End: 12-13-2020 Patient encounter procedure ALEISHA ACKERMAN Facility:[facility] Start: 02-07-2020 End: 02-08-2020 Patient encounter procedure GILSON CANO Facility:[facility] Immunizations Immunization Date Immunization Notes Care Provider Fa cili 06-07-2022 meningococcal oligosaccharide (groups A, C, Y and W-135) diphtheria toxoid conjugate vaccine (MCV4O) [facility] 06-06-2017 meningococcal oligosaccharide (groups A, C, Y and W-135) diphtheria toxoid conjugate vaccine (MCV4O) [facility] 02-09-2017 diphtheria, tetanus toxoids and acellular pertussis vaccine, unspecified formulation [facility] Payers Date Payer Category Payer Unknown [id number] 2019 Unknown [id number] 2005 Unknown [id number] [id number]. [id number] 2004 Unknown [id number] 2.16. [id number] 1973 Unknown [id number] 2.16.84 [id number] 1973 Unknown [id number] 2.16.84 [id number] 1973 Unknown [id number] 2.16.84 [id number] Social History Date Type Detail Facility Start: 04-06-2024 Tobacco smoking stat us WVIS Never smoked tobacco (finding) [facility] Start: 2005 Sex Assigned At [facility] Clinical Notes 07-02-2024 Note Date & Type Note Facility 07-02-2024 Note Received representat ion forms for appeal. Scanning in faxes for que. Venu Kothari [facility]T [facility] 07/31/24 2:21 PM [facility] 07-02-2024 Note Prior Authorization for Corlanor Appeal has been denied. Case ID/Authorization Number:[id number] Called patient and LVM we will need signatures on representation forms in order to appeal any further if patient wants to pursue 2nd level appeal. Scanned in full denial and scanned appeal forms seperately as well. Venu Kothari CPhT [facility] 07/26/24 1:40 PM [facility] 07-02-2024 Note Insurance received t he appeal. F/U in 15 business days per document. Kanwal Morales PharmD, [facility] Outpatient Clinical Pharmacist [facility] [phone] 07/13/24 8:29 AM [facility] 07-02-2024 Note The prior authorizat ion for the ivabradine has been denied. We do have an option to appeal, but the patient will need to sign an Authorized Resource Development Manager Form before we can proceed. I have emailed the forms to the patient. The appeal letter has been written and is saved in the appeals folder. We will submit the appeal once we receive the signed forms back from the patient. Carley Gao [facility] 07/11/24 10:58 AM [facility] 07-02-2024 Note We received a new iv abradine prescription for this patient and it is requiring a prior authorization. Carley Gao [facility] 07/02/24 12:55 PM [facility] 07-02-2024 Note We received a fax st ating that [employer] has a received our appeal and it can take up to 15 days. Jenifer Farrell, [facility] 08/02/24 2:35 PM [facility] 07-02-2024 Note Submitted second lev el appeal to insurance with signed representation forms awaiting determination. M saying we are awaiting the determination and will call when we hear from insurance. Venu Kothari , [facility] 08/02/24 11:26 AM [facility] 07-02-2024 Note PA initiated via CMM . Called and spoke with pt. She is aware of PA process, will wait for updates from us. F/U upon determination. Parrish Calvin, [facility] [phone] 07/02/24 at 3:15 PM [facility] 07-02-2024 Note ------ Attestation signed by Tish Killian PharmD, ARJUNCP at 07/05/2024 1:28 PM Tish Killian PharmD, JENNIFER 07/05/24 1:28 PM [facility] [phone] ------ Checked on PA status, no response as of yet. Follow up early next week. LATESHA WesleyS PharmD Candidate 202407/05/24 10:51 AM [facility] [phone] [facility] 07-02-2024 Note LM for mom to make s ure she received our email with the consent forms. Asked she let us know if she didn't receive. Tish Killian PharmD, ARJUN 07/30/24 2:47 PM [facility] [phone] [facility] 07-02-2024 Note Consent forms emaile d to mom @ [email or web address] Fani Arroyo PharmD Outpatient Clinical Pharmacist [facility] [phone] 07/26/24 4:27 PM [facility] 07-02-2024 Note Mom called back- she would like to pursue 2nd level appeal. We will email consent forms to [email or web address]. Once signed and returned, we can submit 2nd level appeal. Fani Arroyo PharmD Outpatient Clinical Pharmacist [facility] [phone] 07/26/24 4:05 PM [facility] 07-02-2024 Note The appeal has been faxed to [employer]. We will continue to follow up for a determination. Also faxed with the appeal was the clinic note and Corlanor studies. I have the signatures saved in my email just in case insurance says they don't receive them and the one's scanned in are illegible. [facility] 07-02-2024 Note Called [employer] an d they stated that the appeal was received and has a determination date of 08/17. Follow up then for determination. 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 Mother, who attends the visit reports Davion Srivastava section . No delays, met all milestones. No childhood seizures, syncope. Good exercise tolerance. Travel softball.No migraines, asthma. Menses age 13. No PCOS no endometriosis. HPI: September 2019, very ill with Covid suspected illness. Cough caused severe rib subluxation. Viral pneumonia . Then developed lightheaded, short of breath. Trying out for softball, exercise intolerance, near syncope. Diagnostic evaluation: Osman Browning: child care provider: no evaluation. Then referred to Syncope Clinic. Echocardiogram, EKG reported normal. No tilt. Treated based on symptoms. Fludrocortisone: not effective Midodrine: headaches (continues the medication). Helped initially with syncope. Improved. Review of Systems Constitutional: Positive for malaise/fatigue. Cardiovascular: Positive for dyspnea on exertion, near-syncope and syncope. Bassam syncope several times a month, previous several days a week Triggers: menses, activity High heart rates. Sustained. Gastrointestinal: Positive for constipation. Genitourinary: Urgency. Neurological: Positive for dizziness and light-headedness. Brain fog Psychiatric/Behavioral: Negative for depression. The patient is not nervous/anxious. Lying HR 60-70bpm Upright; 190bpm High heart rates cause syncope. Objective Vitals reviewed. Cardiovascular: PMI at left midclavicular line. Normal rate. Regular rhythm. Normal S1. Normal S2. Murmurs: There is no murmur. No gallop. No click. No rub. Pulses: Intact distal pulses. Edema: Peripheral edema absent. Assessment/Plan The primary encounter diagnosis was Dysautonomia (CMS/HCC). Diagnoses of POTS (postural orthostatic tachycardia syndrome) and Syncope and collapse were also pertinent to this visit. Problem List Items Addressed This Visit Syncope and collapse Other Visit Diagnoses Dysautonomia (CMS/HCC) - Primary POTS (postural orthostatic tachycardia syndrome) The autonomic nervous system (ANS) is responsible for a number of body processes that are not under voluntary control including heart rate and blood pressure regulation, GI regulation, sweating, breathing, function and temperature regulation- to name the most important processes. With that said, we know a number of patients develop ANS dysregulation post exposure to pathogens including viruses, bacteria, sepsis, inoculations, surgeries, trauma. We believe this exposure likely results in an autoinflammatory or autoimmune type response which effects the ANS. Our research (Anup et. al, 2019 JAHA) and others have identified autoantibodies to autonomic receptors. Indeed, in the aforementioned study we evaluated 75 patients with postural orthostatic tachycardia syndrome (POTS), orthostatic intolerance (OI), dysautonomia and found that 92% of the sample had high circulating levels of a previously unidentified auto antibody to alpha-1 adrenergic smooth muscle receptors. In the positive participants, over 50% had ANS Mu receptor antibodies. We are currently enrolling patients with autonomic dysfunction (postural orthostatic tachycardia syndrome POTS/ orthostatic intolerance OI) which developed [id number] infection. We postulate that these patients possess similar autoantibodies to autonomic receptors. Likely these Covid long haulers develop an inflammatory/autoimmune response that effects the ANS. Additionally, we have recently reported in patients with POTS and exacerbation post Covid-19 infection and/ or post Covid vaccine. Results of the unpublished data demonstrate that apart from the respiratory symptoms from the infection, about 92.31% of them reported having worsening of their baseline POTS symptoms during active infection phase which were commonly syncope, palpitations, orthostatic dizziness and intolerance, inappropriate tachycardia and worsening of migraine. About 28 (57 %) of them experienced worsening of their dysautonomia symptoms for at least 6 months post infection, 15 (30.6%) of them for less than a month and only 6 (12.4%) for more than 6 months. We found no association to severity of their autonomic symptoms and the duration of their illness post infection to the duration of the POTS diagnosis and their underlying autoimmune disease. Nearly 76.92% of patients needed additional therapy for their symptom control and improvement. We discussed mechanisms and management of postural orthostatic tachycardia syndrome or POTS at length including fluids (2-3 liters/ 24 hours), sodium 3-5 grams/24 hours, recumbent reconditioning and weight training, compression (waist high compressi (more content not included)... [facility] Evaluation note No assessment information availa ble [facility] Work Phone: Summary Purpose Family History No Family History Records Found Relationship Condition Age at Onset Recorded Date/T yomi family member Hypertension Unknown grandparent Hypertension Unknown Malignant neoplasm Unknown Advance Directives No Advanced Directives Records Found Advance Directive Response Recorded Date/ Time Advance Directives No April 06 10:09am Chief Complaint and Reason for Visit Chief Complaint Amb Documentation wellness Additional Source Comments INFORMATION SOURCE (unrecogn ized section and content) DATE CREATED AUTHOR 12/13/2019 [facility] DATE CREATED AUTHOR AUTHOR'S ORGANIZ ATION [facility]20[facility] DATE CREATED AUTHOR AUTHOR'S ORGANIZ ATION 11/28/2023 [facility] DATE CREATED AUTHOR AUTHOR'S ORGANIZ ATION 08/09/2024 [facility] Care Teams (unrecognized sec tion and content) Team Status: Active Member Role Status Dates Aleisha Ackerman MD Primary Care Provider Active Team Status: Active Member Role Status Dates Aleisha Ackerman MD Primary Care Provider Active Start: March 27, 2024 Regina Jordan LPN Attending Provider Active St art: March 27, 2024 Team Status: Inactive Member Role Status Dates Aleisha Ackerman MD Primary Care Provide r, Attending Provider [...] BE BASED ON THE PRIMARY CLINICAL RECORDS. [employer] provides no warranty or guarantee of the accuracy or completeness of information in this document.
== END 2024-08-13 07:57 | disposition home or self-care (01) ==
LOC: CARD 07:57
PROVIDERS: PCP Family Medicine
DX: G90.A Postural orthostatic tachycardia syndrome [POTS] (principal)
CPT/HCPCS: 93005

== ENCOUNTER 2024-12-08 07:58 | Outpatient (OUT) | payer BC, SELFPAY ==
--- OUTSIDE RECORDS SUMMARY | 2024-12-08 08:08 | XMS_ITS | CCD ---
Author Organization [facility] Care Team Providers Care Kinesiology Professor Name Role Phone ALEISHA ACKERMAN Consulting Unavailable [...] Primary Care Unavailable ALEISHA ACKERMAN Referring Unavailable LAURA TRAVIS Referring Unavailable LAURA TRAVIS Attending Unavailable Medications Current Medications Medication [...] PO Daily March 27, 2024 12:00am Problems Active Problems Problem Classification Problem Date Documented Da te Episodic/Chronic Abdominal pain (4 sources) Pelvic and perineal pain; Translations: [PELVIC AND PERINEAL PAIN] Onset: 02-07-2020 Diabetes mellitus without complication (4 sources) Impaired fasting glucose; Translations: [IMPAIRED FASTING GLUCOSE] Onset: 12-12-2020 Episodic Nervous system congenital anomalies (2 sources) 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]; Translations: [Familial dysautonomia (evette-day)] Onset: 07-02-2024 Chronic Past or Other Problems Problem Classification Problem Date Documented Da te Episodic/Chronic Other circulatory disease (2 sources) Postural orthostatic tachycardia syndrome ; Translations: [Postural orthostatic tachycardia syndrome (POTS)] Onset: 07-02-2024 Episodic Syncope (3 sources) Syncope and collapse; Translations: [SYNCOPE AND COLLAPSE] Onset: 12-16-2020 Episodic Results Test Name Value Interpretation Reference Range Facility 29on 07-02-2024 29 Addended by: LAURA TRAVIS on: 07/02/2024 11:16 AM Modules accepted: Orders Normal [facility] Documentationon 07-02-2024 Documentation [id number] Davion Umaña 2005 F Date Provider Department Center 07/02/2024 [id number], [facility] Spe Pha Comprehensiv Family History Problem Relation [...] Comments: Specialty Pharmacy Note: ivabradine [Other] Normal [facility] Office Visiton 07-02-2024 Follow-up visit [id number] Davion Umaña 2005 F Date Provider Department Center 07/02/2024 135-LAURA TRAVIS C CARD [facility] Family History Problem Relation [...] Grandfather Paternal Grandmother Neg Hx Level of Service:87011 [place] OFFICE/OUTPATIENT NEW LOW MDM 30 MINUTES Reason for Visit and Comments: New Patient [632] - Patient in our office for Dysautonomia. Patient light headed, palpitations and edema when about to have episodes Normal [facility] Progress Noteon 11-25-2023 Paper Sorter And Counter Authentication Interface Message Text [facility] History of Present [...] changes in medications. Goes to school at [employer] and lives on campus. Is doing well [...] family. Social History: Freshman in college at [employer]. Studying education. Physical Exam: The Physical Exam is limited due to Telehealth General: Patient appears healthy, well developed, well nourished, non-toxic, and in no acute distress HEENT: atraumatic and normocephalic Chest: Respirations are easy, non-labored with symmetric chest rise. Skin: [place], without obvious rashes or lesions. Neuro: Awake [...] Total encounter time: 30 minutes Delores Mora, GURJIT-EDUCATIONAL TECHNOLOGIST Pediatric Nurse Practitioner [facility] 11/25/2023 Normal [facility] [place] Progress Noteon 09-23-2023 Paper Sorter And Counter Authentication Interface Message Text [facility] History of Present Illness [...] month. Last episode September 10, at work ([employer]). 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 Passed out. LOC < 2 minutes. No head injury. -shortness of breath when she feels like she is going to pass out -sweating without fever -fatigue/ lack of sleep. (Feels her head spinning) No recent changes in medications. Goes to school at [employer] and lives on campus. Is doing well [...] family. Social History: Freshman in college at [employer]. Physical Exam: 1. General: Alert, active, well [...] telehealth Total encounter time: 60 minutes Delores Mroa, FILLER SHREDDING MACHINE LOADER-EDUCATIONAL TECHNOLOGIST Pediatric N (more content not included)... Normal [facility] [place] CBC AUTO DIFFon 12-12-2020 Basophils (Bld) [#/Vol] 0.0 103/ul Normal 0.0-0.1 [facility] Comment on above: Performed By: #### C BC #### [facility] [address], [place] [address] Steve Alyssia Basophils/100 WBC (Bld) 0.4 % Normal 0.2-2.0 [facility] Comment on above: Performed By: #### C BC #### [facility] [address], [place] [address] Steve Alyssia Eosinophils (Bld) [#/Vol] 0.1 103/ul Normal 0.0-0.7 [facility] Comment on above: Performed By: #### C BC #### [facility] [address], [place] [address] Steve Alyssia Eosinophils/100 WBC (Bld) 2.0 % Normal 0.9-7.0 [facility] Comment on above: Performed By: #### C BC #### [facility] [address], [place] [address] Steve Alyssia Erythrocyte distribution width (RBC) [Ratio] 14.6 % Normal 11.0-15.0 [facility] Comment on above: Performed By: #### C BC #### [facility] [address] [place] [id number] Setve Alyssia Hematocrit (Bld) [Volume fraction] 36.7 % Normal 36.0-48.0 [facility] Comment on above: Performed By: #### C BC #### [facility] [address] [place], [place] [id number] Steve Alyssia Hemoglobin (Bld) [Mass/Vol] 11.5 g/dL Critically low 12.0-16.0 [facility] Comment on above: Performed By: #### C BC #### [facility] [address] [place], [place] [address] Steve Alyssia IG # 0.03 10e3/ul Normal 0.00-0.03 [facility] Comment on above: Performed By: #### C BC #### [facility] [address] [place] [address] Steve Alyssia IG % 0.4 % Normal 0.0-0.5 [facility] Comment on above: Performed By: #### C BC #### [facility] [address] [place], [place] [id number] Steve Alyssia Lymphocytes (Bld) [#/Vol] 2.1 103/ul Normal 1.2-3.8 [facility] Comment on above: Performed By: #### C BC #### [facility] [address] [place], [place] [address] Steve Alyssia Lymphocytes/100 WBC (Bld) 31.0 % Normal 20.5-60.0 [facility] Comment on above: Performed By: #### C BC #### [facility] [address] [place], [place] [address] Steve Guerraen MANUAL DIFF REQ NO Normal [facility] Comment on above: Performed By: #### C BC #### [facility] [address] [place], [place] [id number] Steve Alyssia MCH (RBC) [Entitic mass] 26.6 pg Critically low 26.7-34.0 [facility] Comment on above: Performed By: #### C BC #### [facility] [address] [place], [place] [id number] Steve Alyssia MCHC (RBC) [Mass/Vol] 31.3 g/dL Normal 29.9-35.2 [facility] Comment on above: Performed By: #### C BC #### [facility] [address] [place] [id number] Steverosy Guerraen MCV (RBC) [Entitic vol] 85.0 fL Normal 79.1-95.6 [facility] Comment on above: Performed By: #### C BC #### [facility] [address] [place] [id number] Steve Alyssia Monocytes (Bld) [#/Vol] 0.5 103/ul Normal 0.3-0.8 [facility] Comment on above: Performed By: #### C BC #### [facility] [address] [place], [place] [address] Steve Alyssia Monocytes/100 WBC (Bld) 7.6 % Normal 1.7-12.0 [facility] Comment on above: Performed By: #### C BC #### [facility] [address] [place], [place] [address] Steve Alyssia Neutrophils (Bld) [#/Vol] 4.0 103/ul Normal 1.4-6.5 [facility] Comment on above: Performed By: #### C BC #### [facility] [address] [place], [place] [address] Steve Alyssia Neutrophils/100 WBC (Bld) 58.6 % Normal 43.0-75.0 [facility] Comment on above: Performed By: #### C BC #### [facility] [address] [place], [place] [address] Steve Alyssia Platelet mean volume (Bld) [Entitic vol] 11.9 fL Normal 9.5-13.5 [facility] Comment on above: Performed By: #### C BC #### [facility] [address] [place], [place] [id number] Steve Alyssia Platelets (Bld) [#/Vol] 300 103/ul Normal 150-450 [facility] Comment on above: Performed By: #### C BC #### [facility] [address] [place] [address] Steve Alyssia RBC (Bld) [#/Vol] 4.32 106/ul Normal 3.40-5.30 [facility] Comment on above: Performed By: #### C BC #### [facility] [address] [place], [place] [address] Steve Alyssia WBC (Bld) [#/Vol] 6.9 103/ul Normal 4.0-11.0 [facility] Comment on above: Performed By: #### C BC #### [facility] [address] [place], [place] [address] Steve Alyssia GLYCOHEMOGLOBIN A1Con 2020 ADA RECOMMENDATION ADA THERAPEUTIC TARGET 6.0 - 7.0 ACTION SUGGESTED > 7.0 Normal [facility] Comment on above: Performed By: #### A 1C #### [facility] [address] [place], [place] [address] Steve Alyssia Glucose [Mass/Vol] 117 mg/dL Normal [facility] Comment on above: Performed By: #### A 1C #### [facility] [address] [place], [place] [address] Steve Alyssia HbA1c (Bld) [Mass fraction] 5.7 % Normal <=6.0 [facility] Comment on above: Performed By: #### A 1C #### [facility] [address] [place], [place] [address] Steverosy Cade PROF CHEM 8 (BAS METB)on Anion gap [Moles/Vol] 13.2 mmol/L Normal [facility] Comment on above: Performed By: #### T DARRYL BMP #### [facility] [address] [place], [place] [address] Steve Alyssia Calcium [Mass/Vol] 9.0 mg/dL Normal 8.4-10.2 [facility] Comment on above: Performed By: #### T DARRYL, BMP #### [facility] [address] [place], [place] [address] Steve Alyssia Chloride [Moles/Vol] 102 mmol/L Normal 98-107 [facility] Comment on above: Performed By: #### T DARRYL, BMP #### [facility] [address] [place], [place] [address] Steve Alyssia CO2 [Moles/Vol] 28.1 mmol/L Normal 22.0-30.0 [facility] Comment on above: Performed By: #### T SH, BMP #### [facility] [address] [place] [id number] Steve Alyssia Creatinine [Mass/Vol] 0.70 mg/dL Normal 0.52-1.04 [facility] Comment on above: Performed By: #### T SH, BMP #### [facility] [address] [place] [id number] Steve Alyssia Glucose [Mass/Vol] 89 mg/dL Normal 74-106 [facility] Comment on above: Performed By: #### T SH, BMP #### [facility] [address] [place] [address] Steve Alyssia Potassium [Moles/Vol] 4.3 mmol/L Normal 3.4-5.0 [facility] Comment on above: Performed By: #### T DARRYL, BMP #### [facility] [address] [place] [id number] Steve Alyssia Sodium [Moles/Vol] 139 mmol/L Normal 137-145 [facility] Comment on above: Performed By: #### T DARRYL, BMP #### [facility] [address] [place] [id number] Steve Alyssia Urea nitrogen [Mass/Vol] 12.0 mg/dL Normal 6.4-19.3 [facility] Comment on above: Performed By: #### T DARRYL, BMP #### [facility] [address] [place] [id number] Steve Alyssia Urea nitrogen/Creatinine [Mass ratio] 17.1 mg/mg Normal [facility] Comment on above: Performed By: #### T SH, BMP #### [facility] [address] [place], [place] [address] Steve Alyssia TSHon 12-12-2020 TSH Qn 0.468 uIU/mL Normal 0.430-3.750 [facility] Comment on above: Performed By: #### T DARRYL, BMP #### [facility] [address] [place], [place] [address] Steve Cade TSH Qn SEE BELOW Normal [facility] Comment on above: Result Comment: <0.3 4 UIU/ml HYPERTHYROID 0.34-5.60 UIU/ml EUTHYROID >5.60 UIU/ml HYPOTHYROID Performed By: #### T DARRYL, BMP #### [facility] [address] [place], [place] [address] Steve Cade US PELVISon 02-07-2020 US PELVIS [...] by: WOODROW VASQUEZ Date: 2020-02-07 10:08 Normal [facility] Coding Summary.on 12-13-2019 Coding Summary. CODING DATE: 12/13/2019 FINAL [facility] STATUS: Home (Routine DC) PAYOR: [facility] [place] [facility] DESCRIPTION 5524 Level 4 Imaging without [...] CphT Date Saved: 12/13/2019 09:32 am Normal [facility] EC Pediatric Echo Transthora cic Completeon 12-13-2019 EC Pediatric Echo Transthoracic Complete Echocardiology Procedure Exam Date/Time Accession # Ordering Dr. EC Pediatric Echo 12/12/2019 16:02 EST [id number] ALEISHA ACKERMAN MD Transthoracic Complete CPT code 74530 Reason for Exam ( Pediatric Echo Transthoracic [...] MD Transcribed by: elo Technologist: DAVIN Brewer [facility] Vital Signs Date Time Vital Sign Value Performing Clinician Faci lity 04-06-2024 10:15-0400 Body height 175.26 cm [facility] 04-06-2024 10:150400 Body mass index (BMI) [Percentile] Per age and sex 76.3 % [facility] 04-06-2024 10:15040 Body mass index (BMI) [Ratio] 24.5 kg/m2 [facility] 04-06-2024 10:15040 Body weight 75.46 kg [facility] 04-06-2024 10:150400 Diastolic blood pressure 79 mm[Hg] [facility] 04-06-2024 10:150400 Heart rate 70 /min [facility] 04-06-2024 10:15040 Systolic blood pressure 115 mm[Hg] [facility] Encounters Encounter Date Encounter Type Care Provider Facility Start: 07-02-2024 End: 07-02-2024 ambulatory LAURA TRAVIS [facility] Start: 07-02-2024 ambulatory LAURA TRAVIS [facility] Start: 04-06-2024 End: 04-06-2024 ambulatory [facility] Work Phone: Start: 04-06-2024 End: 04-06-2024 Patient encounter procedure [facility] Work Phone: Start: 03-27-2024 Non-patient / Non-visit [facility] Start: 11-25-2023 End: 11-25-2023 ambulatory [facility] Start: 09-23-2023 End: 09-23-2023 ambulatory [facility] Start: 12-19-2020 End: 12-20-2020 Patient encounter procedure ALEISHA ACKERMAN Facility:[facility]1 Start: 12-12-2020 End: 12-13-2020 Patient encounter procedure ALEISHA ACKERMAN Facility:[facility] Start: 02-07-2020 End: 02-08-2020 Patient encounter procedure GILSON CANO Facility:[facility]1 Immunizations Immunization Date Immunization Notes Care Provider [facility] 06-07-2022 meningococcal oligosaccharide (groups A, C, Y and W-135) diphtheria toxoid conjugate vaccine (MCV4O) [facility] 06-06-2017 meningococcal oligosaccharide (groups A, C, Y and W-135) diphtheria toxoid conjugate vaccine (MCV4O) [facility] 02-09-2017 diphtheria, tetanus toxoids and acellular pertussis vaccine, unspecified formulation [facility] Payers Date Payer Category Payer Unknown [id number] 2019 Unknown [id number] 2004 Unknown [id number] [id number] 2004 Unknown [id number] 2.16. [id number] 1973 Unknown [id number] 2.16.84 [id number] 1973 Unknown [id number] [id number] [id number] 1973 Unknown [id number] 2.16.84 [id number] Social History Date Type Detail Facility Start: 04-06-2024 Tobacco smoking stat us MNIS Never smoked tobacco (finding) [facility] Start: 2005 Sex Assigned At F [facility] Clinical Notes 07-02-2024 Note Date & Type Note Facility 07-02-2024 Note Received needed docu ments. Faxed to external review. Follow-up to make sure they received and for determination. Tish Killian, TrevorD, BCACP 09/11/24 4:27 PM [facility] [phone] [facility] 07-02-2024 Note I tried reaching the patient again to verify if she received the external review forms that we emailed her - no answer, LVMTCB. Carley Gao CPhT [facility] 08/24/24 2:57 PM [facility] 07-02-2024 Note Second level appeal for ivabradine has been denied due to not medically necessary, pt does not have heart failure (HFrEF). Case ID/Authorization Number:[id number] Filling out attached external review form, will need 3 pt signatures. Called pt, emailing form to pt at [email or web address]. Insurance company info: Fax [phone] F/U upon signed external review form, fax form with updated appeal packet in media tab, clinic notes, and [employer] literature. Parrish Calvin [facility] [id number] 08/17/24 at 9:22 AM [facility] 07-02-2024 Note Received representat ion forms for appeal. Scanning in faxes for que. Venu Kothari [facility] 07/31/24 2:21 PM [facility] 07-02-2024 Note Prior Authorization for [employer] Appeal has been denied. Case ID/Authorization Number:[id number] Called patient and LVM we will need signatures on representation forms in order to appeal any further if patient wants to pursue 2nd level appeal. Scanned in full denial and scanned appeal forms seperately as well. Venu Kothari [facility] 07/26/24 1:40 PM [facility] 07-02-2024 Note Insurance received t he appeal. F/U in 15 business days per document. Kanwal Morales, TrevorD, [facility] Outpatient Clinical Pharmacist [facility] [phone] 07/13/24 8:29 AM [facility] 07-02-2024 Note We received a new iv abradine prescription for this patient and it is requiring a prior authorization. Carley Gao, [facility] 07/02/24 12:55 PM [facility] 07-02-2024 Note We received a fax st ating that [employer] has a received our appeal and it can take up to 15 days. Jenifer Farrell [facility] 08/02/24 2:35 PM [facility] 07-02-2024 Note Submitted second lev el appeal to insurance with signed representation forms awaiting determination. LVM saying we are awaiting the determination and will call when we hear from insurance. Venu Kothari [facility] 08/02/24 11:26 AM [facility] 07-02-2024 Note PA initiated via CMM . Called and spoke with pt. She is aware of PA process, will wait for updates from us. F/U upon determination. Parrish Calvin, renewal specialist [facility] [phone] 07/02/24 at 3:15 PM [facility] 07-02-2024 Note ------ Attestation signed by Tish Killian PharmD, JENNIFER at 07/05/2024 1:28 PM Tish Killian PharmD, JENNIFER 07/05/24 1:28 PM [facility] [phone] ------ Checked on PA status, no response as of yet. Follow up early next week. BENITEZ Wesley PharmD Candidate 202407/05/24 10:51 AM [facility] [phone] [facility] 07-02-2024 Note We received a copy o f the letter that was sent to Laura Travis in the mail from the clinic. I wanted to attach it to the patient's note for record keeping purposes. Angela Armenta, TrevorD, ARJUNCP, CSP 11/08/24 11:11 AM [facility] [phone] [facility] 07-02-2024 Note I called Iftikhar shaikh nd was told our external review had been denied. I requested that they fax us the determination, but was told they can't because a separate company handled it. The provider service representative did read me the denial letter and the next step would be a lawsuit, which we do not handle. I contacted the patient and provided her an update. I advised that she reach out to the office to discuss obtaining the medication from [facility]. Carley Gao [facility] 11/01/24 3:38 PM [facility] 07-02-2024 Note I contacted the Janrain at to verify if our external review was received. I was told our external review has been received and a determination will be made by 10/26/2024. Carley Gao [facility] 09/18/24 3:17 PM [facility] 07-02-2024 Note Mom called to verify we had received the form. I told her we hadn't and gave her our fax and email. I told her to call to make sure they were received. Tish Killian PharmD, BCACP 09/10/24 4:25 PM [facility] [phone] [facility] 07-02-2024 Note I called the patient and left her the final message, we will no longer follow-up. Jenifer Farrell, [facility] 09/07/24 9:39 AM [facility] 07-02-2024 Note LVM to make sure pat ient received the e-mail with the form she needed to sign to proceed with external review, or if she had any issues getting it back to us. Follow up later in week. Cuco Livingston [facility] 08/21/24 11:05 AM [facility] 07-02-2024 Note Called [employer] an d they stated that the appeal was received and has a determination date of 08/17. Follow up then for determination. Cuco Livingston [facility] 08/07/24 1:10 PM [facility] 07-02-2024 Note LM for mom to make s ure she received our email with the consent forms. Asked she let us know if she didn't receive. Tish Killian PharmD, BCACP 07/30/24 2:47 PM [facility] [phone] [facility] 07-02-2024 Note Consent forms emaile d to mom @ [email or web address] Fani Arroyo PharmD Outpatient Clinical Pharmacist [facility] [phone] 07/26/24 4:27 PM [facility] 07-02-2024 Note Mom called back- she would like to pursue 2nd level appeal. We will email consent forms to [email or web address]. Once signed and returned, we can submit 2nd level appeal. Fani Arroyo PharmD Outpatient Clinical Pharmacist [facility] [phone] 07/26/24 4:05 PM [facility] 07-02-2024 Note The appeal has been faxed to [employer]. We will continue to follow up for a determination. Also faxed with the appeal was the clinic note and [employer] studies. I have the signatures saved in my email just in case insurance says they don't receive them and the one's scanned in are illegible. [facility] 07-02-2024 Note The prior authorizat ion for the ivabradine has been denied. We do have an option to appeal, but the patient will need to sign an Authorized Artist Color Separation Form before we can proceed. I have emailed the forms to the patient. The appeal letter has been written and is saved in the appeals folder. We will submit the appeal once we receive the signed forms back from the patient. Carley Gao CPhT [facility] 07/11/24 10:58 AM [facility] 07-02-2024 Note I contacted the Janrain at to check status. I was told a determination will be made by 10/26/2024. 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 Mother, who attends the visit reports Davion shaikh C section . No delays, met all milestones. No childhood seizures, syncope. Good exercise tolerance. Travel softball.No migraines, asthma. Menses age 13. No PCOS no endometriosis. HPI: September 2019, very ill with Covid suspected illness. Cough caused severe rib subluxation. Viral pneumonia . Then developed lightheaded, short of breath. Trying out for softball, exercise intolerance, near syncope. Diagnostic evaluation: Osman Browning: special agent [employer]: no evaluation. Then referred to Syncope Clinic. [...] ANS. Our research (Anup et. al, 2019 JA) and others have identified autoantibodies to autonomic [...] syndrome POTS/ orthostatic intolerance OI) which developed [id number] infection. We postulate that these patients possess [...] (waist high compressi (more content not included)... [facility] Evaluation note No assessment information availa [facility] Work Phone: Summary Purpose Family History No [...] section and content) DATE CREATED AUTHOR 12/13/2019 [employer] [facility] DATE CREATED AUTHOR AUTHOR'S ORGANIZ ATION 12/20/2020 [facility] DATE CREATED AUTHOR AUTHOR'S ORGANIZ ATION 11/28/2023 [facility] DATE CREATED AUTHOR AUTHOR'S ORGANIZ ATION 11/11/2024 [facility] Care Teams (unrecognized sec tion and content) [...] BE BASED ON THE PRIMARY CLINICAL RECORDS. [facility] [employer] provides no warranty or guarantee of the accuracy or completeness of information in this document.
[2024-12-08 08:34] LABS: Basophils Percent Auto 0.5 % (0.2-2.0); Eosinophils Absolute Auto 0.3 10^3/uL (0.0-0.7); Eosinophils Percent Auto 3.9 % (0.9-7.0); Hematocrit 42.4 % (36.0-48.0); Hemoglobin 14.2 g/dL (12.0-16.0); Immature Granulocytes Abs Auto 0.07 10^3/uL (0.00-0.03); Immature Granulocytes Pct Auto 0.9 % (0.0-0.5); Lymphocytes Absolute Auto 3.1 10^3/uL (1.2-3.8); Lymphocytes Percent Auto 38.6 % (20.5-60.0); Mean Corpuscular HGB Conc 33.5 g/dL (29.9-35.2); Mean Corpuscular Hemoglobin 29.7 pg (26.7-34.0); Mean Corpuscular Volume 88.7 fL (81.0-99.0); Mean Platelet Volume 11.5 fL (9.5-13.5); Monocytes Absolute Auto 0.6 10^3/uL (0.3-0.8); Monocytes Percent Auto 7.4 % (1.7-12.0); Neutrophils Percent Auto 48.7 % (43.0-75.0); Platelet Count 253 10^3/uL (150-450); Red Blood Count 4.78 10^6/uL (4.20-5.40); Red Cell Distribution Width 12.1 % (11.0-15.0); White Blood Count 8.1 10^3/uL (4.0-11.0)
[2024-12-08 08:44] LABS: Estimated Average Glucose 103 mg/dL; Glycohemoglobin A1C 5.2 % (4.5-6.2)
[2024-12-08 09:26] LABS: Free T4 0.95 ng/dL (0.76-1.46)
[2024-12-08 09:29] LABS: Calcium 9.4 mg/dL (8.5-10.1); Carbon Dioxide 26.6 mmol/L (21.0-32.0); Chloride 102 mmol/L (98-107); Glucose 90 mg/dL (74-106); Magnesium 1.8 mg/dL (1.8-2.4); Potassium 3.9 mmol/L (3.5-5.1); Sodium 139 mmol/L (136-145)
[2024-12-08 09:35] LABS: HCG Quantitative <1 mIU/mL
== END 2024-12-08 07:59 | disposition home or self-care (01) ==
LOC: LAB 08:04
PROVIDERS: PCP Family Medicine; Visit Provider Obstetrics & Gynecology
DX: E16.2 Hypoglycemia, unspecified (principal); G90.A Postural orthostatic tachycardia syndrome [POTS]
CPT/HCPCS: 36415; 82310; 82374; 82435; 82947; 83036; 83735; 84132; 84295; 84439; 84443; 84702; 85025

== ENCOUNTER 2024-12-25 09:43 | Outpatient (OUT) | payer BC, SELFPAY ==
--- OUTSIDE RECORDS SUMMARY | 2024-12-25 09:52 | XMS_ITS | CCD ---
Author Organization [facility] Care Team Providers Care Endocrinology Specialist Name Role Phone ALEISHA ACKERMAN Consulting Unavailable REQUEST, NONE LISTED Primary Care Unavailable ALEISHA ACKERMAN Admitting Unavailable ALEISHA ACKERMAN Attending Unavailable ALEISHA ACKERMAN Consulting Unavailable REQUEST, NONE LISTED Primary Care Unavailable ALEISHA ACKERMAN Admitting Unavailable ALEISHA ACKERMAN Attending Unavailable GILSON GARZA Attending Unavailable REQUEST, NONE LISTED Primary Care Unavailable GILSON GARZA Admitting Unavailable WOODROW VASQUEZ V Consulting Unavailable GILSON GARZA Consulting Unavailable DELORES MORA Attending Unavailable ALEISHA ACKERMAN Primary Care Unavailable ALEISHA ACKERMAN Referring Unavailable DELORES MORA Attending Unavailable ALEISHA ACKERMAN Primary Care Unavailable ALEISHA ACKERMAN Referring Unavailable LAURA TRAVIS Attending Unavailable LAURA TRAVIS Attending Unavailable LAURA TRAVIS Referring Unavailable Unavailable Primary Care Provider Unavailyuri villarreal Medications Current Medications Medication Drug Class(es) Dates Sig (Normalized) Sig (Original) Levonorgest-Eth.Es tradiol-Iron (2 sources) Progestin, Estrogen, Progestin-containin g Intrauterine Device Start: 03-27-2024 take 1 tablet by mouth once daily Levonorgest-Eth.E stradiol-Iron (Balcoltra) 0.1 mg-0.02 mg (21)/iron (7) tablet Active 1 TAB PO Daily March 26, 2024 11:00pm Start: 03-27-2024 take 1 tablet by kristie th once daily Levonorgest-Eth.Estradiol-Iron (Balcoltr a) 0.1 mg-0.02 mg (21)/iron (7) tablet Active 1 TAB PO Daily March 27, 2024 12:00am ivabradine 5 mg oral tablet (1 source) Hyperpolarization-activated Cyclic Nucleotide-gated Channel Hunter Start: 12-25-2024 take 1 tablet by mouth twice daily at mealtime Ivabradine 5 mg tablet Active 5 MG PO Twice daily December 25, 2024 12:00am must administer with a meal/food midodrine hydrochloride 10 mg oral tablet (2 sources) alpha-Adrenergic Agonist Start: 03-27-2024 take 1 tablet by mouth three times daily Midodrine 10 mg tablet Active 10 MG PO Three times daily March 26, 2024 11:00pm ondansetron 4 mg oral tablet (2 sources) Serotonin-3 Receptor Antagonist Start: 04-06-2024 take 1 tablet by mouth every eight hours Ondansetron Hcl 4 mg tablet Active 4 MG PO Every 8 hours April 05, 2024 11:00pm sertraline 25 mg oral tablet (5 sources) Serotonin Reuptake Inhibitor Start: 07-24-2024 End: 10-22-2024 take 1 tablet by mouth once daily Sertraline 25 mg tablet Active 0 .ROUTE .COMPLEX October 22, 2024 1:09pm TAKE 1 TABLET BY MOUTH EVERY DAY Start: 03-27-2024 End: 07-24-2024 take 1 tablet by mouth once daily Sertraline 25 mg tablet Discontinued 25 MG PO Daily April 23, 2024 8:34am July 24, 2024 9:58am Problems Active Problems Problem Classification Problem Date Documented Da te Episodic/Chronic Abdominal pain (4 sources) Pelvic and perineal pain; Translations: [PELVIC AND PERINEAL PAIN] Onset: 02-07-2020 Deficiency and other anemia (1 source) Anemia; Translations: [Anemia, unspecified] 12-25-2024 Episodic Deficiency and other anemia (1 source) Anemia, unspecified; Translations: [Anemia, unspecified] 12-25-2024 Episodic Diabetes mellitus without complication (4 sources) Impaired fasting glucose; Translations: [IMPAIRED FASTING GLUCOSE] Onset: 12-12-2020 Episodic Malaise and fatigue (2 sources) Fatigue; Translations: [Other fatigue] 12-25-2024 Episodic Nervous system congenital anomalies (4 sources) Familial dysautonomia []; Translations: [Disorder of autonomic nervous system] Onset: 07-02-2024 Chronic Syncope (4 sources) Syncope and collapse; Translations: [Syncope] Onset: 12-16-2020 Episodic Past or Other Problems Problem Classification Problem Date Documented Da te Episodic/Chronic Other circulatory disease (2 sources) Postural orthostatic tachycardia syndrome ; Translations: [Postural orthostatic tachycardia syndrome (POTS)] Onset: 07-02-2024 Episodic Results Test Name Value Interpretation Reference Range Facility ALL CBC WITH AUTO DIFFon BASOPHILS ABSOLUTE AUTO 0 [facility] Basophils/100 WBC (Bld) 0.5 % 0.2 - 2.0 % [facility] Eosinophils/100 WBC (Bld) 3.9 % 0.9 - 7.0 % [facility] Erythrocyte distribution width (RBC) [Ratio] 12.1 % 11.0 - 15.0 % [facility] Hematocrit (Bld) [Volume fraction] 42.4 % 36.0 - 48.0 % [facility] (Bld) [Mass/Vol] 14.2 g/dL 12.0 - 16.0 g/dL [facility] IMMATURE GRANULOCYTES ABS AUTO 0.07 High [facility] Immature granulocytes/100 WBC (Bld) 0.9 % High 0.0 - 0.5 % [facility] Interpretation and review of laboratory results Abnormal [facility] LYMPHOCYTES ABSOLUTE AUTO 3.1 [facility] Lymphocytes/100 WBC (Bld) 38.6 % 20.5 - 60.0 % [facility] MCH (RBC) [Entitic mass] 29.7 pg 26.7 - 34.0 pg [facility] MCHC (RBC) [Mass/Vol] 33.5 g/dL 29.9 - 35.2 g/dL [facility] MCV (RBC) [Entitic vol] 88.7 fL 81.0 - 99.0 fL [facility] MONOCYTES ABSOLUTE AUTO 0.6 [facility] Monocytes/100 WBC (Bld) 7.4 % 1.7 - 12.0 % [facility] NEUTROPHILS ABSOLUTE AUTO 4 [facility] Neutrophils/100 WBC (Bld) 48.7 % 43.0 - 75.0 % [facility] Platelet mean volume (Bld) [Entitic vol] 11.5 fL 9.5 - 13.5 fL [facility] PLT 253 [facility] TB RBC 4.78 [facility] TB WBC 8.1 [facility] Basophils Auto (Bld) [#/Vol] on 12-08-2024 Basophils (Bld) [#/Vol] Automated basophil count 0.0-0.1 [facility] Basophils/100 WBC Auto (Bld) on 12-08-2024 Basophils/100 WBC (Bld) Automated basophil % 0.2-2.0 [facility] Eosinophils/100 WBC Auto (Bl d)on 12-08-2024 Eosinophils/100 WBC (Bld) Automated eosinophil % 0.9-7.0 [facility] Erythrocyte distribution wid th Auto (RBC) [Ratio]on 12-08-2024 Erythrocyte distribution width (RBC) [Ratio] Erythrocyte distribution width [Ratio] by Automated count 11.0-15.0 [facility] Glucose mean value [Mass/vol ume] in Blood Estimated from glycated hemoglobinon 12-08-2024 Average glucose Estimated from glycated hemoglobin (Bld) [Mass/Vol] Glucose mean value [Mass/volume] in Blood Estimated from glycated hemoglobin [facility] Hematocrit Auto (Bld) [Volum e fraction]on 12-08-2024 Hematocrit (Bld) [Volume fraction] Hematocrit [Volume Fraction] of Blood by Automated count 36.0-48.0 [facility] Hemoglobin A1c percentageon 12-08-2024 HbA1c (Bld) [Mass fraction] Hemoglobin A1c percentage 4.5-6.2 [facility] Comment on above: ADA RECOMMENDED LIMI T 4.0 - 6.0ADA THERAPEUTIC TARGET < 7.0ACTION SUGGESTED> 7.0 Hemoglobin [Mass/volume] in Bloodon 12-08-2024 Hemoglobin (Bld) [Mass/Vol] Hemoglobin [Mass/volume] in Blood 12.0-16.0 [facility] Laboratory - Chemistry and C hemistry - challengeon 12-08-2024 Calcium [Mass/Vol] 9.4 mg/dL 8.5-10.1 [facility] Chloride [Moles/Vol] 102 mmol/L 98-107 [facility] [place] CO2 [Moles/Vol] 26.6 mmol/L 21.0-32.0 [facility] Free T4 [Mass/Vol] 0.95 ng/dL 0.76-1.46 [facility] Glucose [Mass/Vol] 90 mg/dL 74-106 [facility] Magnesium [Mass/Vol] 1.8 mg/dL 1.8-2.4 [facility] [place] Potassium [Moles/Vol] 3.9 mmol/L 3.5-5.1 [facility] Sodium [Moles/Vol] 139 mmol/L 136-145 [facility] TSH Qn 1.090 m[IU]/L 0.358-3.740 [facility] Laboratory - Hematology and Cell countson 12-08-2024 Immature granulocytes/100 WBC (Bld) 0.9 % High 0.0-0.5 [facility] Leukocytes [#/volume] correc arnel for nucleated erythrocytes in Blood by Automated counon 12-08-2024 WBC corrected for nucl RBC Auto (Bld) [#/Vol] Leukocytes [#/volume] corrected for nucleated erythrocytes in Blood by Automated coun 4.0-11.0 [facility] Lymphocytes Auto (Bld) [#/Vo l]on 12-08-2024 Lymphocytes (Bld) [#/Vol] Lymphocytes [#/volume] in Blood by Automated count 1.2-3.8 [facility] Lymphocytes/100 WBC Auto (Bl d)on 12-08-2024 Lymphocytes/100 WBC (Bld) Lymphocytes/100 leukocytes in Blood by Automated count 20.5-60.0 [facility] MCH Auto (RBC) [Entitic mass ]on 12-08-2024 MCH (RBC) [Entitic mass] MCH [Entitic mass] by Automated count 26.7-34.0 [facility] MCHC Auto (RBC) [Mass/Vol]on 12-08-2024 MCHC (RBC) [Mass/Vol] MCHC [Mass/volume] by Automated count 29.9-35.2 [facility] MCV Auto (RBC) [Entitic vol] on 12-08-2024 MCV (RBC) [Entitic vol] MCV [Entitic volume] by Automated count 81.0-99.0 [facility] Monocytes Auto (Bld) [#/Vol] on 12-08-2024 Monocytes (Bld) [#/Vol] Automated blood monocyte count 0.3-0.8 [facility] Monocytes/100 WBC Auto (Bld) on 12-08-2024 Monocytes/100 WBC (Bld) Automated monocyte % 1.7-12.0 [facility] Neutrophils Auto (Bld) [#/Vo l]on 12-08-2024 Neutrophils (Bld) [#/Vol] Neutrophils [#/volume] in Blood by Automated count 1.4-6.5 [facility] Neutrophils/100 WBC Auto (Bl d)on 12-08-2024 Neutrophils/100 WBC (Bld) Automated neutrophil % 43.0-75.0 [facility] No Panel Informationon 12-08 Eosinophils # (Auto) 0.3 10 3/uL 0.0-0.7 [facility] Human Chorionic Gonadotropin, Quant <1 mIU/mL [facility] Comment on above: 5-50 0.2-1 [id number] 0 1-2 CYVCF495-8,000 2-3 DYZVU674-14,000 3-4 WEEKS1,000-50,000 4-5 WEEKS10,000-100,000 5-6 WEEKS15,000-200,000 6-8 WEEKS10,000-100,000 2-3 MONTHS Immature Granulocyte # (Auto) 0.07 10 3/uL High 0.00-0.03 [facility] Platelet mean volume Auto (B ld) [Entitic vol]on 12-08-2024 Platelet mean volume (Bld) [Entitic vol] Platelet mean volume [Entitic volume] in Blood by Automated count 9.5-13.5 [facility] Platelets Auto (Bld) [#/Vol] on 12-08-2024 Platelets (Bld) [#/Vol] Platelets [#/volume] in Blood by Automated count 150-450 [facility] RBC Auto (Bld) [#/Vol]on RBC (Bld) [#/Vol] Erythrocytes [#/volume] in Blood by Automated count 4.20-5.40 [facility] Patient Messageon 11-27-2024 Patient Message [id number] ChasidyRoneltal Villarreal 2005 F Date Provider Department Center 11/27/2024 LAURA VALLADARES [facility] Family History Problem Relation Age of Onset No Known Problems Mother Hypertension Father No Known Problems Mother's Sister Hypertension Maternal Grandfather Heart attack Paternal Grandmother Arrhythmia Paternal Grandmother Stroke Paternal Grandmother 40 Autoimmune disease Neg Hx Sudden Neg Hx Aneurysm Neg Hx Family Status - Relation Status Age at Mother Father Mother's Sister Maternal Grandfather Paternal Grandmother Neg Hx Normal [facility] Telemedicineon 11-16-2024 Telemedicine [id number] Davion Umaña 2005 Provider Department Center 11/16/2024 LAURA VALLADARES [facility] Family History Problem Relation [...] Grandfather Paternal Grandmother Neg Hx Level of Service:72737 CT OFFICE/OUTPATIENT ESTABLISHED SF MDM 10 MIN Reason for Visit and Comments: Telehealth Audio/video Visit [871] [facility] 29on 07-02-2024 29 Addended by: LAURA TRAVIS on: 07/02/2024 11:16 AM Modules accepted: Orders Normal [facility] Documentationon 07-02-2024 Documentation [id number] Davion Umaña 2005 Provider Department Center 07/02/2024 [id number], [facility]ARY [facility] Spe Pha Comprehensiv Family History Problem [...] and Comments: Specialty Pharmacy Note: ivabradine [Other] [facility] Office Visiton 07-02-2024 Follow-up visit [id number] Davion Umaña 2005 Provider Department Center 07/02/2024 LAURA VALLADARES [facility] Family History Problem Relation [...] Grandfather Paternal Grandmother Neg Hx Level of Service:21246 CT OFFICE/OUTPATIENT NEW LOW MDM 30 MINUTES Reason for Visit and Comments: New Patient [632] - Patient in our office for Dysautonomia. Patient light headed, palpitations and edema when about to have episodes Normal [facility] Progress Noteon 11-25-2023 Spd Tech Authentication Interface Message Text [facility] History [...] changes in medications. Goes to school at [employer] and lives on campus. Is doing well [...] family. Social History: Freshman in college at [employer]. Studying education. Physical Exam: The Physical Exam is limited due to Telehealth General: Patient appears healthy, well developed, well nourished, non-toxic, and in no acute distress HEENT: atraumatic and normocephalic Chest: Respirations are easy, non-labored with symmetric chest rise. Skin: [place], without obvious rashes or lesions. Neuro: Awake and alert. Answering questions appropriately and following commands. Impression: Vasovagal syncope Orthostatic intolerance Dysautonomia Ronelckin's syncope and dizziness have improved with increased [...] Total encounter time: 30 minutes Delores Mora, COMMERCIAL HVAC TECHNICIAN-POND TENDER Pediatric Nurse Practitioner [facility] 11/25/2023 [facility] Progress Noteon 09-23-2023 Spd Tech Authentication Interface Message Text [facility] History [...] month. 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 Passed out. LOC < 2 minutes. No head injury. -shortness of breath when she feels like she is going to pass out -sweating without fever -fatigue/ lack of sleep. (Feels her head spinning) No recent changes in medications. Goes to school at [employer] and lives on campus. Is doing well with her fluid intake. Eats well. Review of systems All other systems reviewed and are negative except as detailed above. Prior Cardiac Testing: ECG (07/02/22): normal ECHO (12/13/19-Brewer Nma. Read by Gilbert Franz MD): Normal 30-day [...] family. Social History: Freshman in college at [employer]. Physical Exam: 1. General: Alert, active, well [...] Total encounter time: 60 minutes Delores Mora, COMMERCIAL HVAC TECHNICIAN-POND TENDER Pediatric N (more content not included)... Normal [facility] CBC AUTO DIFFon 12-12-2020 Basophils (Bld) [#/Vol] 0.0 103/ul Normal 0.0-0.1 [facility] Comment on above: Performed By: #### C BC #### [facility] [address] [place], [place] [id number] Steve Alyssia Basophils/100 WBC (Bld) 0.4 % Normal 0.2-2.0 [facility] Comment on above: Performed By: #### C BC #### [facility] [address] [place] [id number] Steve Alyssia Eosinophils (Bld) [#/Vol] 0.1 103/ul Normal 0.0-0.7 [facility] Comment on above: Performed By: #### C BC #### [facility] [address] [place], [place] [id number] Steve Alyssia Eosinophils/100 WBC (Bld) 2.0 % Normal 0.9-7.0 [facility] Comment on above: Performed By: #### C BC #### [facility] [address] [place], [place] [id number] Steve Alyssia Erythrocyte distribution width (RBC) [Ratio] 14.6 % Normal 11.0-15.0 [facility] Comment on above: Performed By: #### C BC #### [facility] [address] [place], [place] [id number] Steev Alyssia Hematocrit (Bld) [Volume fraction] 36.7 % Normal 36.0-48.0 [facility] Comment on above: Performed By: #### C BC #### [facility] [address] [place], [place] [id number] Steve Cade Hemoglobin (Bld) [Mass/Vol] 11.5 g/dL Critically low 12.0-16.0 [facility] Comment on above: Performed By: #### C BC #### [facility] [address] [place], [place] [id number] Steverosy Cade IG # 0.03 10e3/ul Normal 0.00-0.03 [facility] Comment on above: Performed By: #### C BC #### [facility] [address] [place] [address] Steve Cade IG % 0.4 % Normal 0.0-0.5 [facility] Comment on above: Performed By: #### C BC #### [facility] [address] [place] [address] Steve Cade Lymphocytes (Bld) [#/Vol] 2.1 103/ul Normal 1.2-3.8 [facility] Comment on above: Performed By: #### C BC #### [facility] [address] [place], [place] [id number] Steve Cade Lymphocytes/100 WBC (Bld) 31.0 % Normal 20.5-60.0 [facility] Comment on above: Performed By: #### C BC #### [facility] [address] [place], [place] [id number] Steve Cade MANUAL DIFF REQ NO Normal [facility] Comment on above: Performed By: #### C BC #### [facility] [address] [place], [place] [id number] Steve Cade MCH (RBC) [Entitic mass] 26.6 pg Critically low 26.7-34.0 [facility] Comment on above: Performed By: #### C BC #### [facility] [address] [place], [place] [id number] Steve Cade MCHC (RBC) [Mass/Vol] 31.3 g/dL Normal 29.9-35.2 [facility] Comment on above: Performed By: #### C BC #### [facility] [address] [id number] Steve Alyssia MCV (RBC) [Entitic vol] 85.0 fL Normal 79.1-95.6 [facility] Comment on above: Performed By: #### C BC #### [facility] [address] [place], [place] [id number] Steve Alyssia Monocytes (Bld) [#/Vol] 0.5 103/ul Normal 0.3-0.8 [facility] Comment on above: Performed By: #### C BC #### [facility] [address] [place], [place] [id number] Steve Alyssia Monocytes/100 WBC (Bld) 7.6 % Normal 1.7-12.0 [facility] Comment on above: Performed By: #### C BC #### [facility] [address] [place] [address] Steve Alyssia Neutrophils (Bld) [#/Vol] 4.0 103/ul Normal 1.4-6.5 [facility] Comment on above: Performed By: #### C BC #### [facility] [address] [place], [place] [id number] Steve Alyssia Neutrophils/100 WBC (Bld) 58.6 % Normal 43.0-75.0 [facility] Comment on above: Performed By: #### C BC #### [facility] [address] [place], [place] [id number] Steve Alyssia Platelet mean volume (Bld) [Entitic vol] 11.9 fL Normal 9.5-13.5 [facility] Comment on above: Performed By: #### C BC #### [facility] [address] [place], [place] [id number] Steve Alyssia Platelets (Bld) [#/Vol] 300 103/ul Normal 150-450 [facility] Comment on above: Performed By: #### C BC #### [facility] [address] [place], [place] [id number] Steve Alyssia RBC (Bld) [#/Vol] 4.32 106/ul Normal 3.40-5.30 [facility] Comment on above: Performed By: #### C BC #### [facility] [address] [place] [address] Steverosy Cade WBC (Bld) [#/Vol] 6.9 103/ul Normal 4.0-11.0 [facility] Comment on above: Performed By: #### C BC #### [facility] [address] [place], [place] [id number] Steverosy Cade GLYCOHEMOGLOBIN A1Con 2020 ADA RECOMMENDATION ADA THERAPEUTIC TARGET 6.0 - 7.0 ACTION SUGGESTED > 7.0 Normal [facility] Comment on above: Performed By: #### A 1C #### [facility] [address] [place] [address] Steve Alyssia Glucose [Mass/Vol] 117 mg/dL Normal [facility] Comment on above: Performed By: #### A 1C #### [facility] [address] [place] [address] Steve Alyssia HbA1c (Bld) [Mass fraction] 5.7 % Normal <=6.0 [facility] Comment on above: Performed By: #### A 1C #### [facility] [address] [place] [address] Steve Alyssia PROF CHEM 8 (BAS METB)on Anion gap [Moles/Vol] 13.2 mmol/L Normal [facility] Comment on above: Performed By: #### T DARRYL, BMP #### [facility] [address] [place] [address] Steve Alyssia Calcium [Mass/Vol] 9.0 mg/dL Normal 8.4-10.2 [facility] Comment on above: Performed By: #### T DARRYL, BMP #### [facility] [address] [place] [address] Steve Alyssia Chloride [Moles/Vol] 102 mmol/L Normal 98-107 [facility] Comment on above: Performed By: #### T DARRYL, BMP #### [facility] [address] [address] Steve Alyssia CO2 [Moles/Vol] 28.1 mmol/L Normal 22.0-30.0 [facility] Comment on above: Performed By: #### T DARRYL, BMP #### [facility] [address] [address] Steve Alyssia Creatinine [Mass/Vol] 0.70 mg/dL Normal 0.52-1.04 [facility] Comment on above: Performed By: #### T DARRYL, BMP #### [facility] [address] [id number] Steve Aylssia Glucose [Mass/Vol] 89 mg/dL Normal 74-106 [facility] Comment on above: Performed By: #### T DARRYL, BMP #### [facility] [address] [address] Steve Alyssia Potassium [Moles/Vol] 4.3 mmol/L Normal 3.4-5.0 [facility] Comment on above: Performed By: #### T DARRYL, BMP #### [facility] [address] [place] [address] Steve Alyssia Sodium [Moles/Vol] 139 mmol/L Normal 137-145 [facility] Comment on above: Performed By: #### T DARRYL, BMP #### [facility] [address] [place] [address] Steve Alyssia Urea nitrogen [Mass/Vol] 12.0 mg/dL Normal 6.4-19.3 [facility] Comment on above: Performed By: #### T DARRYL, BMP #### [facility] [address] [place] [address] Steve Alyssia Urea nitrogen/Creatinine [Mass ratio] 17.1 mg/mg Normal [facility] Comment on above: Performed By: #### T DARRYL, BMP #### [facility] [address] [place], [place] [id number] Steve Alyssia TSHon 12-12-2020 TSH Qn 0.468 uIU/mL Normal 0.430-3.750 [facility] [place] [facility] Comment on above: Performed By: #### T DARRYL, BMP #### [facility] [address] [place], [place] [address] Steve Cade TSH Qn SEE BELOW Normal [facility] Comment on above: Result Comment: <0.3 4 UIU/ml HYPERTHYROID 0.34-5.60 UIU/ml EUTHYROID >5.60 UIU/ml HYPOTHYROID Performed By: #### T , [facility] #### [facility] [address] [place], [place] [address] Steve Cade US PELVISon 02-07-2020 US PELVIS [...] by: WOODROW VASQUEZ Date: 2020-02-07 10:08 Normal [facility] Coding Summary.on 12-13-2019 Coding Summary. CODING DATE: 12/13/2019 [facility] STATUS: Home (Routine DC) PAYOR: Medical [facility] APC DESCRIPTION 5524 Level 4 Imaging without [...] CphT Date Saved: 12/13/2019 09:32 am Normal [facility] EC Pediatric Echo Transthora cic Completeon 12-13-2019 EC Pediatric Echo Transthoracic Complete Echocardiology Procedure Exam Date/Time Accession # Ordering Dr. GALVAN Pediatric Echo 12/12/2019 16:02 EST [id number] ALEISHA ACKERMAN MD Transthoracic Complete CPT code 46851 Reason for Exam ( Pediatric Echo Transthoracic [...] MD Transcribed by: elo Technologist: DAVIN Brewer [facility] Vital Signs Date Time Vital Sign Value Performing Clinician Faci francisco 12-25-2024 09:02-0500 Body height 175.26 cm [facility] 12-25-2024 09:02-0500 Body mass index (BMI) [Ratio] 26.7 kg/m2 [facility] 12-25-2024 09:02-0500 Body weight 82.1 kg [facility] 12-25-2024 09:02-0500 Diastolic blood pressure 79 mm[Hg] [facility] 12-25-2024 09:02-0500 Heart rate 79 /min [facility] 12-25-2024 09:02-0500 Systolic blood pressure 118 mm[Hg] [facility] 04-06-2024 10:15-0400 Body height 175.26 cm [facility] 04-06-2024 10:15-0400 Body mass index (BMI) [Percentile] Per age and sex 76.3 % [facility] 04-06-2024 10:15-0400 Body mass index (BMI) [Ratio] 24.5 kg/m2 [facility] 04-06-2024 10:15-0400 Body weight 75.46 kg [facility] 04-06-2024 10:15-0400 Diastolic blood pressure 79 mm[Hg] [facility] 04-06-2024 10:15-0400 Heart rate 70 /min [facility] 04-06-2024 10:15-0400 Systolic blood pressure 115 mm[Hg] [facility] Encounters Encounter Date Encounter Type Care Provider Facility Start: 12-25-2024 End: 12-25-2024 ambulatory [facility] Work Phone: Start: 12-25-2024 End: 12-25-2024 Patient encounter procedure [facility] Work Phone: Start: 12-08-2024 End: 12-08-2024 Clinis[facility] Result Encounter Gilson Kyala DO Work Phone: [facility] External [facility] Unsolicited Start: 12-08-2024 End: 12-08-2024 Clinisync Result Encounter Gilson Kayla DO Work Phone: [facility] External Department Unsolicited Start: 12-08-2024 Non-patient / Non-visit [facility] Work Phone: Start: 11-16-2024 End: 11-16-2024 ambulatory [facility] Start: 07-02-2024 End: 07-02-2024 ambulatory [facility] Start: 07-02-2024 ambulatory LAURACHRISTEN TRAVIS [facility] Start: 04-06-2024 End: 04-06-2024 ambulatory [facility] Work Phone: Start: 04-06-2024 End: 04-06-2024 Patient encounter procedure [facility] Work Phone: Start: 03-27-2024 Non-patient / [facility] Phone: Start: 11-25-2023 End: 11-25-2023 ambulatory [facility] Start: 09-23-2023 End: 09-23-2023 ambulatory [facility] Start: 12-19-2020 End: 12-20-2020 Patient encounter procedure ALEISHA ACKERMAN Facility:[facility]1 Start: 12-12-2020 End: 12-13-2020 Patient encounter procedure ALEISHA ACKERMAN Facility:[facility] Start: 02-07-2020 End: 02-08-2020 Patient encounter procedure GILSON GARZA Facility:[facility]1 Procedures Date Procedure Procedure Detail Performing Clinician Start: 12-08-2024 ALL CBC WITH AUTO DIFF Gilson Garza DO Work Phone: Plan of Treatment Date Care Activity Detail Author Cefuroxime free [Mas s/volume] in Serum or Plasma [facility] enter Insulin [Units/volum e] in Serum or Plasma [facility] enter [facility] Immunizations Immunization Date Immunization Notes Care Provider Fa edda 06-07-2022 meningococcal oligosaccharide (groups A, C, Y and W-135) diphtheria toxoid conjugate vaccine (MCV4O) [facility] 06-06-2017 meningococcal oligosaccharide (groups A, C, Y and W-135) diphtheria toxoid conjugate vaccine (MCV4O) [facility] 02-09-2017 diphtheria, tetanus toxoids and acellular pertussis vaccine, unspecified formulation [facility] Payers Date Payer Category Payer Unknown [id number] 2019 Unknown [id number] 2004 Unknown [id number] [id number] 2004 Unknown [id number] 2.16. [id number] 1973 Unknown [id number] [id number] [id number] 1973 Unknown [id number] 2.16.84 [id number] 1973 Unknown [id number] 2.16.84 [id number] Social History Date Type Detail Facility Start: 04-06-2024 End: 12-04-2024 Tobacco smoking status SDIS Never smoked tobacco (finding) [facility] Start: 2005 Sex Assigned At [facility] Tobacco smoking status [facility] Tobacco smoking consumption unknown [facility] Start: 2005 Sex assigned at Not on file [facility] Start: 12-25-2024 Sex Female (finding) [facility] Start: 2005 Sex Assigned At Female [facility] Clinical Notes 07-02-2024 to 11-16-2024 Note Date & Type Note Facility 11-16-2024 Note Davion Umaña is a pleasant 19 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 I copied and pasted my last visit with patient several months ago: Mother, who attends the visit reports Davion [...] intolerance, near syncope. 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 Then referred to [facility]. Echocardiogram, EKG reported normal. No tilt. Treated based on symptoms. Fludrocortisone: not effective Midodrine: headaches (continues the medication). Helped initially with syncope. Improved. Chief Complaint: Telemedicine visit. Patient located in [place], [place]. Telemed follow up for ivabradine. Added last visit. Alisson has worked wonders . Only 4 episodes of syncope since June. Previous multiple times weekly. No side effects. Four episodes from stress, menses . LOC brief. No trauma. Last episode mid September 2025. [facility] Attends all classes. 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 Review of Systems Constitutional: Negative for malaise/fatigue. Cardiovascular: Positive for syncope. Marked reduction in syncope frequency with Corlanor 5mg bid. No side effects. Respiratory: Negative. Neurological: Positive for dizziness and light-headedness. Negative for headaches. Objective Constitutional: Appearance: Healthy appearance. Not in distress. Neurological: Mental Status: Alert and oriented to person, place and time. Assessment/Plan The primary encounter diagnosis was Syncope and collapse. A diagnosis of POTS (postural orthostatic tachycardia syndrome) was also pertinent to this visit. Problem List Items Addressed This Visit Syncope and collapse - Primary Other Visit Diagnoses POTS (postural orthostatic tachycardia syndrome) Date of Telehealth Visit: 11/16/2024 The visit was conducted [id number] with the use of audio and video technology using HIPAA approved L3EX between patient and the provider for a virtual visit. Verbal consent to provide and bill this service was obtained on: 11/10/24 Patient Location: Patient Home I spent 15 minutes of total time on the day of the visit. This time was spent preparing for the visit, obtaining and reviewing any outside history/data, taking a history, performing an exam/evaluation, counseling and educating patient/family about the diagnosis and plan, performing medical decision making, referring to and communicating with other health care referrals, independently interpreting results and documenting in the EMR, and coordinating care. Please see the additional documentation in this note for specific details. 1. Syncope and collapse Chronic. Stable. Marked reduction in episodes with Corlanor. Continue present dose. No driving. Last episode September 2024- February 2025. Discussed. } Discussed no with Corlanor. 2. POTS (postural orthostatic tachycardia syndrome) Continue midodrine. Midodrine is a potent alpha-1 adrenergic agonist used for BP augmentation. It has a quick mechanism of action and short duration of action thus is usually given at least three times daily. This medication should be given while upright in the am, noon and dinner. It should not be given four hours before lying supine. Precaution is for supine hypertension. Patient should monitor orthostatic HR and BP in seated and standing positions (5 minutes each) and note any excessive BP response. Dosing begins at 2.5mg tid to 20mg tid. Most patients typically titrate to 5-10mg tid. Side effects include scalp goosebumps , headaches, nausea. Some patients use this PRN prior to upright activity or exercise. A patient should be instructed to carry this medication with them to use if they experience sudden episodes of hypotension. Laura Travis APRN PhD [facility] Nurse Practitioner Division of Cardiovascular Medicine [facility]. [facility] 07-02-2024 Note Received needed docu ments. Faxed to external review. Follow-up to make sure they received and for determination. Tish Killian, TrevorD, BCACP 09/11/24 4:27 PM [facility] [phone] [facility] 07-02-2024 Note I tried reaching the patient again to verify if she received the external review forms that we emailed her - no answer, LVMTCB. Carley Radha [facility]ao [facility] 08/24/24 2:57 PM [facility] 07-02-2024 Note Second level appeal for ivabradine has been denied due to not medically necessary, pt does not have heart failure (HFrEF). Case ID/Authorization Number:[id number] Filling out attached external review form, will need 3 pt signatures. Called pt, emailing form to pt at [email or web address]. Insurance company info: Fax [phone] F/U upon signed external review form, fax form with updated appeal packet in media tab, clinic notes, and Corlanor literature. Parrish Calvin [facility] [id number] 08/17/24 at 9:22 AM [facility] 07-02-2024 Note Received representat ion forms for appeal. Scanning in faxes for que. Venu Kothari [facility] 07/31/24 2:21 PM [facility] 07-02-2024 Note Prior Authorization for Corlanor Appeal has been denied. Case ID/Authorization Number:[id number] Called patient and LVM we will need signatures on representation forms in order to appeal any further if patient wants to pursue 2nd level appeal. Scanned in full denial and scanned appeal forms seperately as well. Venu Kothari [facility] 07/26/24 1:40 PM [facility] 07-02-2024 Note Insurance received t he appeal. F/U in 15 business days per document. Kanwal Morales, TrevorD, [facility] Outpatient Clinical Pharmacist [facility] [phone] 07/13/24 8:29 AM [facility] 07-02-2024 Note We received a new iv abradine prescription for this patient and it is requiring a prior authorization. Carley Gao, [facility] 07/02/24 12:55 PM [facility] 07-02-2024 Note We received a fax st ating that [employer] has a received our appeal and it can take up to 15 days. Jenifer Farrell [facility] 08/02/24 2:35 PM [facility] 07-02-2024 Note Submitted second lev el appeal to insurance with signed representation forms awaiting determination. LVM saying we are awaiting the determination and will call when we hear from insurance. Venu Kothari [facility] 08/02/24 11:26 AM [facility] 07-02-2024 Note PA initiated via CMM . Called and spoke with pt. She is aware of PA process, will wait for updates from us. F/U upon determination. Parrish Calvin [facility] [phone] 07/02/24 at 3:15 PM [facility] 07-02-2024 Note ------ Attestation signed by Tish Killian PharmD, JENNIFER at 07/05/2024 1:28 PM Tish Killian PharmD, JENNIFER 07/05/24 1:28 PM [facility] [phone] ------ Checked on PA status, no response as of yet. Follow up early next week. BENITEZ Wesley PharmD Candidate 202407/05/24 10:51 AM [facility] [phone] [facility] 07-02-2024 Note The appeal has been faxed to [employer]. We will continue to follow up for a determination. Also faxed with the appeal was the clinic note and Corlanor studies. I have the signatures saved in my email just in case insurance says they don't receive them and the one's scanned in are illegible. [facility] 07-02-2024 Note We received a copy o f the letter that was sent to Laura Travis in the mail from the clinic. I wanted to attach it to the patient's note for record keeping purposes. Angela Armenta, Kathi, ARJUNCP, CSP 11/08/24 11:11 AM [facility] [phone] [facility] 07-02-2024 Note I called [employer] a nd was told our external review had been denied. I requested that they fax us the determination, but was told they can't because a separate company handled it. The videotape sales representative did read me the denial letter and the next step would be a lawsuit, which we do not handle. I contacted the patient and provided her an update. I advised that she reach out to the office to discuss obtaining the medication from [facility]. Carely Gao [facility] 11/01/24 3:38 PM [facility] 07-02-2024 Note I contacted the [employer] at to verify if our external review was received. I was told our external review has been received and a determination will be made by 10/26/2024. Carley Gao [facility] 09/18/24 3:17 PM [facility] 07-02-2024 Note Mom called to verify we had received the form. I told her we hadn't and gave her our fax and email. I told her to call to make sure they were received. Tish Killian PharmD, ARJUNCP 09/10/24 4:25 PM [facility] [phone] [facility] 07-02-2024 Note I called the patient and left her the final message, we will no longer follow-up. Jenifer Farrell [facility] 09/07/24 9:39 AM [facility] 07-02-2024 Note LVM to make sure pat ient received the e-mail with the form she needed to sign to proceed with external review, or if she had any issues getting it back to us. Follow up later in week. Cuco Livingston [facility] 08/21/24 11:05 AM [facility] 07-02-2024 Note Called [employer] an d they stated that the appeal was received and has a determination date of 08/17. Follow up then for determination. Cuco Livingston [facility] 08/07/24 1:10 PM [facility] 07-02-2024 Note LM for mom to make s ure she received our email with the consent forms. Asked she let us know if she didn't receive. Tish Killian PharmD, BCACP 07/30/24 2:47 PM [facility] [phone] [facility] 07-02-2024 Note Consent forms emaile d to mom @ [email or web address] Fani Arroyo PharmD Outpatient Clinical Pharmacist [facility] [phone] 07/26/24 4:27 PM [facility] 07-02-2024 Note Mom called back- she would like to pursue 2nd level appeal. We will email consent forms to [email or web address]. Once signed and returned, we can submit 2nd level appeal. Fani Arroyo PharmD Outpatient Clinical Pharmacist [facility] [phone] 07/26/24 4:05 PM [facility] 07-02-2024 Note The prior authorizat ion for the ivabradine has been denied. We do have an option to appeal, but the patient will need to sign an Authorized Embedded Systems Developer Form before we can proceed. I have emailed the forms to the patient. The appeal letter has been written and is saved in the appeals folder. We will submit the appeal once we receive the signed forms back from the patient. Carley Gao CPhT [facility] 07/11/24 10:58 AM [facility] 07-02-2024 Note I contacted the [employer] at to check status. I was told a determination will be made by 10/26/2024. 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 Mother, who [...] intolerance, near syncope. 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 Then referred to Syncope Clinic. [...] syndrome POTS/ orthostatic intolerance OI) which developed [id number] infection. We postulate that these patients possess [...] (waist high compressi (more content not included)... [facility] Evaluation note No assessment information availa [facility] Work Phone: Evaluation note Diagnosis Onset Date Resolution Anemia acute December 25 8:54am Dysautonomia acute December 25 025 8:54am Fatigue acute December 25 8:54am [facility] Work Phone: Summary Purpose Family History Relationship Condition Age at Onset Recorded Date/T yomi family member Hypertension Unknown grandparent Hypertension Unknown Malignant neoplasm Unknown Relationship Condition Age at Onset Recorded Date/T yomi aunt Hypertension Unknown grandparent Hypertension Unknown Malignant neoplasm Unknown Advance Directives Advance Directive Response Recorded Date/ Time Advance Directives No April 06 10:09am Advance Directive Response Recorded Date/ Time Advance Directives No November 1:22pm Chief Complaint and Reason for Visit Chief Complaint Amb Documentation wellness Chief Complaint Admit Date POTS/Low Blood Sugar December 25, 2024 8:5 4am Reason for Visit Admit Date Anemia December 25, 2024 8:54 am Dysautonomia December 25, 2024 8:54 am Fatigue December 25, 2024 8:54 am Additional Source Comments INFORMATION SOURCE (unrecogn ized section and content) DATE CREATED AUTHOR 12/13/2019 [facility] DATE CREATED AUTHOR AUTHOR'S ORGANIZ ATION 12/20/2020 [facility] DATE CREATED AUTHOR AUTHOR'S ORGANIZ ATION 11/28/2023 [facility] DATE CREATED AUTHOR AUTHOR'S ORGANIZ ATION 12/08/2024 [facility] Care Teams (unrecognized sec tion and [...] April 06, 2024 End: April 06, 2024 Team Status: Active Member Role Status Dates Aleisha Ackerman MD Primary Care Provider Active Start: December 08, 2024 Gilson Garza DO Attending Provider Active Start : December 08, 2024 Team Status: Inactive Member Role Status Dates Aleisha Ackerman MD Primary Care Provide r, Attending Provider Active Start: December 25, 2024 End: December 25, 2024 Goals (unrecognized section and content) Goals may be documented in a n alternate sectionGoals may be documented in an alternate section FOR RECORDS PERTAINING TO PATIENTS [...] BE BASED ON THE PRIMARY CLINICAL RECORDS. [facility] [employer] provides no warranty or guarantee of the accuracy or completeness of information in this document.
[2024-12-25 10:43] LABS: Anion Gap 11.3; BUN Creatinine Ratio 9.1; Calcium 9.3 mg/dL (8.5-10.1); Carbon Dioxide 28.1 mmol/L (21.0-32.0); Chloride 103 mmol/L (98-107); Estimated GFR (African America >60 (>=60 mL/min/1.73m^2); Estimated GFR (Non-African Ame >60 (>=60 mL/min/1.73m^2); Glucose 87 mg/dL (74-106); Potassium 4.4 mmol/L (3.5-5.1); Sodium 138 mmol/L (136-145)
[2024-12-25 10:46] LABS: Internal Control Within Normal Limits; Mono Screen NEGATIVE (NEGATIVE)
[2024-12-26 02:08] LABS: Vitamin B12 340 pg/mL (232-1245)
[2024-12-26 03:07] LABS: Insulin 16.7 uIU/mL (2.6-24.9)
[2024-12-26 15:08] LABS: ANA Direct Negative (Negative)
== END 2024-12-25 09:44 | disposition home or self-care (01) ==
LOC: LAB 09:45
PROVIDERS: PCP Family Medicine; Visit Provider Family Medicine
DX: R53.83 Other fatigue (principal); D64.9 Anemia, unspecified; G90.1 Familial dysautonomia [Riley-Day]
CPT/HCPCS: 36415; 80048; 82607; 82728; 82746; 83525; 85598; 85610; 85613; 85670; 85730; 85732; 86038; 86146; 86147; 86308

== ENCOUNTER 2025-01-21 07:55 | Outpatient (RCR) | payer BC, SELFPAY | END 2025-03-28 15:20 | disposition home or self-care (01) | LOC: OT 07:55 | PROVIDERS: PCP Family Medicine; Visit Provider Family Medicine | DX: G90.A Postural orthostatic tachycardia syndrome [POTS] (principal) | CPT/HCPCS: 97140; 97166 ==

== ENCOUNTER 2025-01-22 07:28 | Outpatient (RCR) | payer BC, SELFPAY | END 2025-01-23 08:03 | disposition home or self-care (01) | LOC: HEMC 07:28 | PROVIDERS: PCP Family Medicine; Visit Provider Internal Medicine Hematology & Oncology | DX: D68.62 Lupus anticoagulant syndrome (principal); G90.A Postural orthostatic tachycardia syndrome [POTS] | CPT/HCPCS: G0463 ==

== ENCOUNTER 2025-03-13 09:25 | Outpatient (OUT) | payer BC, SELFPAY ==
--- NOTE | 2025-03-13 09:30 | US_ITS ---
The [place] [id number] Patient Name: DEB VILLA MRN: [id number] date: 2005 Sex: F Assigned Patient Location: US Current Patient Location: [place] Accession/Order Number: [id number] Exam Date: 03/13/2025 10:23 Report Date: 03/13/2025 10:26 At the request of: SUKHDEEP BARLOW MD Procedure: US abdomen limited LIMITED ULTRASOUND - LUMBOSACRAL REGION: CLINICAL HISTORY: Lump in the midline lumbosacral region for the past 5 months. COMPARISON: None Real-time ultrasound evaluation of the area of patient's lump was performed. The available images show no cystic or solid subcutaneous masses. US/US abdomen limited IMPRESSION: NO ULTRASOUND ABNORMALITIES IN THE AREA OF PALPABLE CONCERN. CLINICAL FOLLOW-UP IS RECOMMENDED. IF ADDITIONAL IMAGING EVALUATION IS STILL WARRANTED, CT COULD BE CONSIDERED. Impression dictated by: Alyssia Oliva M.D. 03/13/2025 10:26 AM Dictation Location: [place] [address] Electronically authenticated by: [id number] Y Date: 03/13/2025 10:26
--- OUTSIDE RECORDS SUMMARY | 2025-03-13 09:31 | XMS_ITS | CCD ---
Author Organization [facility] Care Team Providers Care Forensic Locksmith Name Role Phone JUAN JOSE ACKERMAN Consulting Unavailable REQUEST, NONE LISTED Primary Care Unavailable JUAN JOSE ACKERMAN Admitting Unavailable JUAN JOSE ACKERMAN Attending Unavailable JUAN JOSE ACKERMAN Consulting Unavailable REQUEST, NONE LISTED Primary Care Unavailable JUAN JOSE ACKERMAN Admitting Unavailable JUAN JOSE ACKERMAN Attending Unavailable PAPITO GARZA Attending Unavailable REQUEST, NONE LISTED Primary Care Unavailable PAPITO GARZA Admitting Unavailable WOODROW VASQUEZ V Consulting Unavailable PAPITO GARZA Consulting Unavailable DELORES MORA Attending Unavailable JUAN JOSE ACKERMAN Primary Care Unavailable JUAN JOSE ACKERMAN Referring Unavailable DELORES MORA Attending Unavailable JUAN JOSE ACKERMAN Primary Care Unavailable JUAN JOSE ACKERMAN Referring Unavailable Unavailable Primary Care Provider UnavailJUAN JOSE Cordova Primary Care Physician Fredi BARLOW Attending Unavailable PIPE TRAVIS Attending Unavailable PIPE TRAVIS Referring Unavailable PIPE TRAVIS Referring Unavailable PIPE TRAVIS Attending Unavailable PIPE TRAVIS Attending Unavailable Allergies Allergy Classification Reported Allergen(s) Allergy Type Date of Onset Reaction(s) Facility (1 source) No Known Medication Allergies; Translations: [No Known Medication Allergies] Propensity to adverse reactions (disorder) [facility] Repository Medications Current Medications Medication Drug Class(es) Dates Sig (Normalized) Sig (Original) Blood-Glucose Meter,Continuous misc (1 source) Start: 01-21-2025 Blood-Glucose Meter,Continuous misc Active 0 .Route January 21, 2025 12:00am As directed Blood-Glucose Sensor (Dexcom G7 Sensor) device (1 source) Start: 01-25-2025 Blood-Glucose Sensor (Dexcom G7 Sensor) device Active 0 .Route January 25, 2025 12:00am As directed Levonorgest-Eth.Es tradiol-Iron (4 sources) Progestin, Estrogen, Progestin-containin g Intrauterine Device [...] Daily March 27, 2024 12:00am midodrine hydrochloride 5 mg oral tablet (5 sources) alpha-Adrenergic Agonist Start: 03-01-2025 take 1 tablet by mouth three times daily midodrine 5 mg Tab 5 mg = 1 tab(s), Oral, TID, Refills(s) 0 Start Date: 03/01/25 Status: Ordered Repeat number: 1 Start: 03-27-2024 take 1 tablet by kristie th three times daily Midodrine 10 mg tablet Active 10 MG PO Three times daily March 27, 2024 12:00am ondansetron 4 mg oral tablet (4 sources) Serotonin-3 Receptor Antagonist Start: 04-06-2024 take 1 tablet by mouth every eight hours Ondansetron Hcl 4 mg tablet Active 4 MG PO Every 8 hours April 06, 2024 12:00am sertraline 25 mg oral tablet (16 sources) Serotonin Reuptake Inhibitor Start: 03-01-2025 take 1 tablet by mouth once daily sertraline 25 mg Tab 25 mg = 1 tab(s), Oral, Daily, Refills(s) 0 Start Date: 03/01/25 Status: Ordered Repeat number: 1 Start: 07-24-2024 End: 01-21-2025 take 1 tablet by mouth once daily Sertraline 25 mg tablet Discontinued 0 .ROUTE .COMPLEX October 22, 2024 2:09pm January 21, 2025 9:28am TAKE 1 TABLET BY MOUTH EVERY DAY Start: 03-27-2024 End: 07-24-2024 take 1 tablet by mouth once daily Sertraline 25 mg tablet Discontinued 25 MG PO Daily April 23, 2024 9:34am July 24, 2024 10:58am {21 (ethinyl estradiol 0.02 MG / levonorgestrel 0.1 MG Oral Tablet) / 7 (inert ingredients 1 MG Oral Tablet) } Pack [Joyeaux 28 Day] (1 source) Start: 03-01-2025 take 1 tablet by mouth once daily Joyeaux with iron 20 mcg-100 mcg oral tablet 1 tab(s), Oral, Daily, Refill(s) 0 Start Date: 03/01/25 Status: Ordered Repeat number: 1 Completed/Discontinued Medications Medication Drug Class(es) Dates Sig (Normalized) Sig (Original) Blood-Glucose,Rece iver,Cont (Dexcom G7 Filter Changer) misc (1 source) Start: 01-25-2025 End: 02-19-2025 Blood-Glucose,Recei pavel,Cont (Dexcom G7 Filter Changer) misc Discontinued 0 .Route 1 January 25, 2025 12:00am February 19, 2025 9:22am As directed Blood-Glucose,Rece iver,Cont misc (1 source) Start: 01-21-2025 End: 01-23-2025 Blood-Glucose,Recei pavel,Cont misc Discontinued 0 .Route 1 January 21, 2025 12:00am January 23, 2025 11:03am As directed ivabradine 5 mg oral tablet (3 sources) Hyperpolarization -activated Cyclic Nucleotide-gated Channel Hunter Start: 12-25-2024 End: 01-21-2025 take 1 tablet by mouth twice daily at mealtime Ivabradine 5 mg tablet Discontinued 5 MG PO Twice daily December 25, 2024 1:00am January 21, 2025 9:26am must administer with a meal/food Problems Active Problems Problem Classification Problem Date Documented Date Episodic/Chronic Abdominal pain (4 sources) Pelvic and perineal pain; Translations: [PELVIC AND PERINEAL PAIN] Onset: 02-07-2020 Anxiety disorders (2 sources) Anxiety; Translations: [Anxiety disorder, unspecified] 01-21-2025 Chronic Cardiac dysrhythmias (2 sources) Postural orthostatic tachycardia syndrome ; Translations: [Postural orthostatic tachycardia syndrome] 02-19-2025 Chronic Coagulation and hemorrhagic disorders (2 sources) Lupus anticoagulant syndrome; Translations: [Lupus anticoagulant syndrome] Onset: 01-24-2025 Chronic Deficiency and other anemia (3 sources) Anemia; Translations: [Anemia, unspecified] 12-25-2024 Episodic Deficiency and other anemia (3 sources) Anemia, unspecified; Translations: [Anemia, unspecified] 12-25-2024 Episodic Diabetes mellitus without complication (4 sources) Impaired fasting glucose; Translations: [IMPAIRED FASTING GLUCOSE] Onset: 12-12-2020 Episodic Malaise and fatigue (6 sources) Fatigue; Translations: [Other fatigue] 12-25-2024 Episodic Nervous system congenital anomalies (11 sources) Disorder of autonomic nervous system; 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]] Onset: 07-02-2024 04-13-2024 Chronic Other endocrine disorders (2 sources) Hypoglycemia; Translations: [Hypoglycemia, unspecified] 01-21-2025 Chronic Other endocrine disorders (2 sources) Hypoglycemia, unspecified; Translations: [Hypoglycemia, unspecified] 01-21-2025 Chronic Other lower respiratory disease (2 sources) Shortness of breath; Translations: [Shortness of breath] Onset: 03-06-2025 Episodic Other nutritional; endocrine; and metabolic disorders (1 source) Overweight 03-06-2025 Episodic Other nutritional; endocrine; and metabolic disorders (1 source) Overweight in adulthood with body mass index of 25 or more but less than 30 03-06-2025 Episodic Other screening for suspected conditions (not mental disorders or infectious disease) (2 sources) Coag./bleeding tests abnormal; Translations: [Abnormal coagulation profile] 01-11-2025 Episodic Other skin disorders (1 source) Mass of trunk; Translations: [Localized swelling, mass and lump, trunk] Onset: 03-06-2025 Episodic Other skin disorders (1 source) Mass of subcutaneous tissue of back 03-06-2025 Episodic Past or Other Problems Problem Classification Problem Date Documented Da te Episodic/Chronic Other circulatory disease (3 sources) Postural orthostatic tachycardia syndrome ; Translations: [Postural orthostatic tachycardia syndrome (POTS)] Onset: 11-16-2024 03-06-2025 Episodic Syncope (8 sources) Syncope and collapse; Translations: [Syncope] Onset: 12-16-2020 04-13-2024 Episodic Results Test Name Value Interpretation Reference Range Facility Ambulatory Visit Summaryon 0 03-06-2025 Ambulatory Visit Summary Ambulatory Visit Summary TRAVIS UMAÑA:2005 Visit Date:03/06/2025 Ambulatory Visit Instructions Your Diagnosis Mass of subcutaneous tissue of back Your Care Team Attending Physician - CAIN PATRICK, Fredi Metcalf Primary Care Physician - TYRON PATRICK, JUAN JOSE This Is Your Medications List Contact prescribing physician if questions or concerns ethinyl estradiol-levonorgestrel (Joyeaux with iron 20 mcg-100 mcg oral tablet) midodrine (midodrine 5 mg Tab) sertraline (sertraline 25 mg Tab) Procedures Performed Tonsillectomy and adenoidectomy. Discharge Vitals Heart Rate (Peripheral) 72 Respiratory Rate 16 Blood Pressure 126/76 Height 177.8 cm Height 70 in Weight 86.7 kg Weight 191.141 lb BMI 27.43 Medications What How Much When Instructions Unchanged ethinyl estradiol-levonorgestrel (Joyeaux with iron 20 mcg-100 mcg oral tablet) 1 Tablets By Mouth Every day Contact prescribing physician if questions or concerns Unchanged midodrine (midodrine 5 mg Tab) 1 Tablets By Mouth 3 times a day Contact prescribing physician if questions or concerns Unchanged sertraline (sertraline 25 mg Tab) 1 Tablets By Mouth Every day Contact prescribing physician if questions or concerns Allergies No Known Allergies No Known Medication Allergies Problems Ongoing - Any problem that you are currently receiving treatment for. BMI 27.0-27.9,adult Mass of subcutaneous tissue of back Overweight POTS (postural orthostatic tachycardia syndrome) Patient Survey You may receive a survey via text or e-mail asking about your office visit. Please share your experience with us by completing your survey. We appreciate your feedback and thank you for choosing us for your care. Normal [facility] BETA-2 GLYCOPROTEIN ANTIBODY IGG AND IGMon 01-24-2025 BETA 2 GLYCOPROTEIN 1 IGG AB (SGU) IN SERUM 1.0 SGU Normal <=19.9 [facility] Comment on above: Performed By: #### L [id number] ####[facility] (KRISTA)[address] [place] [address] BETA 2 GLYCOPROTEIN 1 IGM ANTIBODY (SMU) IN SERUM 12.1 SMU Normal <=19.9 [facility] Comment on above: Performed By: #### L [id number] ####[facility] (BEAKER)[address] [facility] [place] [address] CARDIOLIPIN ANTIBODY, IGG AN D IGMon 01-24-2025 ANTICARDIOLIPIN IGG ANTIBODY 6.0 GPL Normal <=22.9 [facility] Comment on above: Performed By: #### L [id number] ####[facility] (BEAKER)[address] [facility] [address] ANTICARDIOLIPIN IGM ANTIBODY 11.0 MPL High <10.9 [facility] Comment on above: Performed By: #### L [id number] ####[facility] (BEAKER)[address] [place] [address] LUPUS ANTICOAGULANTon 2024 LUPUS ANTICOAGULANT Negative Normal Negative Unive [facility] Comment on above: Order Comment: Posit titus results should be repeated after 12 weeks to confirm persistence of LA. The presence of DOAC drugs such as apixaban or rivaroxaban, or Vitamin K antagonists, heparin, and acute phase proteins at time of sample collection may interfere with the validity of results. Performed By: #### L [id number] #### [facility] (BEAKER) [address] [place] [address] Labon 01-24-2025 Lab [id number] Dell Umaña 2005 F Date Provider Department Center 01/24/2025 2[facility] LAB RESOURCE [facility] Medical C Family History Problem Relation Age of Onset No Known Problems Mother Hypertension Father No Known Problems Mother's Sister Hypertension Maternal Grandfather Heart attack Paternal Grandmother Arrhythmia Paternal Grandmother Stroke Paternal Grandmother 40 Diabetes type I Other Comments: paternal great uncle. Autoimmune disease Neg Hx Sudden Neg Hx Aneurysm Neg Hx Family Status - Relation Status Age at Mother Father Mother's Sister Maternal Grandfather Paternal Grandmother Other Alive Neg Hx Normal [facility] PHOSPHATIDYLSERINE ANTIBODIE Son 01-24-2025 PHOSPHATIDYLSERINE ANTIBODY IGG 0 GPS Normal 0-15 [facility] Comment on above: Result Comment: INTE RPRETIVE INFORMATION: Phosphatidylserine Ab, IgG IgG and/or IgM antibodies to phosphatidylserine (aPS) may be associated with a positive test for anti-cardiolipin autoantibodies (aCL) and risk for obstetric antiphospholipid syndrome (APS). Strong clinical correlation is recommended in the absence of lupus anticoagulant, IgG and/or IgM cardiolipin and/or beta2 glycoprotein antibodies. Isolated presence of IgM or IgG antibodies to aPS may have questionable clinical significance for APS and/or SLE. If results are positive, repeat testing with two or more specimens drawn at least 12 weeks apart to demonstrate persistence of antibodies. Results should not be used alone for diagnosis and must be interpreted in light of APS-specific clinical manifestations and/or other criteria phospholipid antibody tests. Performed By: #### L [id number] ####[facility] (Infor)[address] [place] [address] PHOSPHATIDYLSERINE ANTIBODY IGM 6 MPS Normal 0-21 [facility] Comment on above: Result Comment: INTE RPRETIVE INFORMATION: Phosphatidylserine Ab, IgM The presence of IgG and/or IgM antibodies to phosphatidylserine (aPS) may be associated with a positive test for anti-cardiolipin autoantibodies (aCL) and risk for obstetric antiphospholipid syndrome (APS). Strong clinical correlation is recommended in the absence of lupus anticoagulant, IgG and/or IgM cardiolipin and/or beta2 glycoprotein antibodies. Isolated presence of IgM or IgG antibodies to aPS may have questionable clinical significance for APS and/or SLE. If results are positive, repeat testing with two or more specimens drawn at least 12 weeks apart to demonstrate persistence of antibodies. Results should not be used alone for diagnosis and must be interpreted in light of APS-specific clinical manifestations and/or other criteria phospholipid antibody tests. Performed By: [employer] [address] [place] [address] [facility] Specialist: Asa Tiwari MD, PhD CLIA Number: [id number] Performed By: #### L [id number] ####[facility] (Infor)[address] [place] [address] Telemedicineon 01-16-2025 Telemedicine [id number] Dell Umaña 2005 F Date Provider Department Center 01/16/2025 PIPE VALLADARES [facility] Family History Problem Relation Age of Onset No Known Problems Mother Hypertension Father No Known Problems Mother's Sister Hypertension Maternal Grandfather Heart attack Paternal Grandmother Arrhythmia Paternal Grandmother Stroke Paternal Grandmother 40 Diabetes type I Other Comments: paternal great uncle. Autoimmune disease Neg Hx Sudden Neg Hx Aneurysm Neg Hx Family Status - Relation Status Age at Mother Father Mother's Sister Maternal Grandfather Paternal Grandmother Other Alive Neg Hx Level of Service:80934 [place] OFFICE/OUTPATIENT ESTABLISHED LOW MDM 20 MIN Reason for Visit and Comments: Telehealth Audio/video Visit [871] Normal [facility] Estimated glomerular filtrat ion rate (GFR) non- Americanon 12-25-2024 GFR/1.73 sq M.predicted among non-blacks MDRD (S/P/Bld) [Vol rate/Area] Estimated glomerular filtration rate (GFR) non- >=60 mL/min/1.73 m 2 [facility] Laboratory - Chemistry and C hemistry - challengeon 12-25-2024 Calcium [Mass/Vol] 9.3 mg/dL 8.5-10.1 [facility] Chloride [Moles/Vol] 103 mmol/L 98-107 [facility] CO2 [Moles/Vol] 28.1 mmol/L 21.0-32.0 [facility] Cobalamin (Vitamin B12) [Mass/Vol] 340 pg/mL [id number] [facility] Comment on above: Performed at: [place] [id number] Director: Tristan Dean PhD, Phone: [phone] Creatinine [Mass/Vol] 0.77 mg/dL 0.55-1.02 [facility] Ferritin [Mass/Vol] 17.0 ng/mL 8.0-252.0 [facility] GFR/1.73 sq M.predicted MDRD (S/P/Bld) [Vol rate/Area] mL/min/{1.73_m2} >=60 mL/min/1.73 m 2 [facility] Glucose [Mass/Vol] 87 mg/dL 74-106 [facility] Potassium [Moles/Vol] 4.4 mmol/L 3.5-5.1 [facility] Sodium [Moles/Vol] 138 mmol/L 136-145 [facility] Urea nitrogen [Mass/Vol] 7.0 mg/dL 7.0-18.0 [facility] Urea nitrogen/Creatinine [Mass ratio] 9.1 mg/mg [facility] No Panel Informationon 12-25 Folate 17.50 ng/mL 8.60-58.90 [facility] Miscellaneous Test COMMENT . [facility] Comment on above: Test Ordered: [id number] Lupus Anticoag/Cardiolipin AbProthrombin Time 10.3 sec UY Reference Range: .Reference Range:18 years and older: 9.1 - 12.0INR 0.9 ratio UY Reference Range: .Reference Range:>1 month: 0.9 - 1.2APTT 28.7 sec UY Reference Range: .This test has not been validated for monitoringunfractionated heparin therapy. aPTT-based therapeuticranges for unfractionated heparin therapy have not beenestablished. Consider ordering Heparin anti-Xa(unfractionated).Reference Range:18 years and older: 22.9 - 30.2APTT 1:1 DIRECTOR OF VOCATIONAL GUIDANCE sec UY Reference Range: .Testing Not IndicatedThis test was developed and its performance characteristicsdetermined by [employer]. It has not been cleared or approvedby the [place] Food and Drug Administration.APTT 1:1 Saline sec UY Reference Range: .Testing Not IndicatedThis test was developed and its performance characteristicsdetermined by [employer]. It has not been cleared or approvedby the [place] Food and Drug Administration.Thrombin Time 17.0 sec UY Reference Range: .Reference Range:0.0 - 23.0DRVVT Screen Seconds 57.2 [H ] sec UY Reference Range: .Reference Range:<= 47.0DRVVT Confirm Seconds 33.6 sec UY Reference Range: .DRVVT Ratio 1.6 [H ] ratio UY Reference Range: .Testing while the patient is on anticoagulant therapy,including warfarin, dabigatran, or a direct Xa inhibitor maycause a false positive result.Reference Range:0.8 - 1.2Hexagonal Phospholipid Neutral 9 sec UY Reference Range: .This value is NEGATIVE.This is a qualitative assay and is therefore reported aspositive for lupus anticoagulant or negative. Thequantitative value is provided as an aid in diagnosis.Reference Range:0 - 11Anticardiolipin Ab, IgG <10 GPL UY Reference Range: .Reference Range:Negative: <15Indeterminate: 15 - 20Low to medium positive: >20 - 80High positive: >80Anticardiolipin Ab, IgM <10 MPL UY Reference Range: .Reference Range:Negative: <13Indeterminate: 13 - 20Low to medium positive: >20 - 80High positive: >80Beta-2 Glycoprotein I, IgG <10 SGU UY Reference Range: .The reference interval reflects a 3SD or 99th percentileinterval.Reference Range:Negative: <21Beta-2 Glycoprotein I, IgM <10 SMU UY Reference Range: .The reference interval reflects a 3SD or 99th percentileinterval.Reference Range:Negative: <33Beta-2 Glycoprotein I, IgA <10 KARLI UY Reference Range: .The reference interval reflects a 3SD or 99th percentileinterval.Reference Range:Negative: <26LAC Interpretation Comment UY Reference Range: .A lupus anticoagulant is detected. This interpretation ismade based on ISTH guidelines for LA diagnosis (J ThrombHaemost. 2009; 7: 1737-40). Laboratory testing does notsuggest interference from anticoagulant therapy andclinical correlation is recommended. Repeat evaluation in12 or more weeks to confirm or refute persistence should beconsidered. All REBECCA-based antiphospholipid antibodiesevaluated are normal. Please contact [employer] Coagulationif further clarification is needed.Performed at: [id number] [id number] Director: Nabil Corrales MD, Phone: [phone] at: CB - [facility] [address] [id number] Director: Tristan Dean PhD, Phone: [phone] Monoscreen Negative NEGATIVE [facility] Serum or plasma anion gap de terminationon 12-25-2024 Anion gap [Moles/Vol] Serum or plasma anion gap determination [facility] Serum or plasma free cefurox yomi measurement (mass/volume)on 12-25-2024 Cefuroxime free [Mass/Vol] Serum or plasma free cefuroxime measurement (mass/volume) Negative [facility] Comment on above: Performed at: CB - L joni [address] [id number] Director: Tristan Dean PhD, Phone: [phone] Serum or plasma insulin marina urement (units/volume)on 12-25-2024 Insulin Qn Serum or plasma insu jaz measurement (units/volume) 2.6-24.9 [facility] Comment on above: Performed at: - [address] [id number] Director: Tristan Dean PhD, Phone: [phone] ALL CBC WITH AUTO DIFFon BASOPHILS ABSOLUTE AUTO 0 [facility] Basophils/100 WBC (Bld) 0.5 % 0.2 - 2.0 % [facility] Eosinophils/100 WBC (Bld) 3.9 % 0.9 - 7.0 % [facility] Erythrocyte distribution width (RBC) [Ratio] 12.1 % 11.0 - 15.0 % [facility] Hematocrit (Bld) [Volume fraction] 42.4 % 36.0 - 48.0 % [facility] Hemoglobin (Bld) [Mass/Vol] 14.2 g/dL 12.0 - 16.0 g/dL [facility] IMMATURE GRANULOCYTES ABS AUTO 0.07 High [facility] Immature granulocytes/100 WBC (Bld) 0.9 % High 0.0 - 0.5 % [facility] Interpretation and review of laboratory results Abnormal [facility] LYMPHOCYTES ABSOLUTE AUTO 3.1 [facility] Lymphocytes/100 WBC (Bld) 38.6 % 20.5 - 60.0 % [facility] MCH (RBC) [Entitic mass] 29.7 pg 26.7 - 34.0 pg [facility] MCHC (RBC) [Mass/Vol] 33.5 g/dL 29.9 - 35.2 g/dL [facility] MCV (RBC) [Entitic vol] 88.7 fL 81.0 - 99.0 fL [facility] MONOCYTES ABSOLUTE AUTO 0.6 [facility] Monocytes/100 WBC (Bld) 7.4 % 1.7 - 12.0 % [facility] NEUTROPHILS ABSOLUTE AUTO 4 [facility] Neutrophils/100 WBC (Bld) 48.7 % 43.0 - 75.0 % [facility] Platelet mean volume (Bld) [Entitic vol] 11.5 fL 9.5 - 13.5 fL [facility] TBH EO # 0.3 [facility] TBH PLT 253 [facility] TB RBC 4.78 [facility] TBH WBC 8.1 [facility] Basophils Auto (Bld) [#/Vol] on 12-08-2024 Basophils (Bld) [#/Vol] Automated basophil count 0.0-0.1 [facility] Basophils/100 WBC Auto (Bld) on 12-08-2024 Basophils/100 WBC (Bld) Automated basophil % 0.2-2.0 [facility] Eosinophils/100 WBC Auto (Bl d)on 12-08-2024 Eosinophils/100 WBC (Bld) Automated eosinophil % 0.9-7.0 [facility] Erythrocyte distribution wid th Auto (RBC) [Ratio]on 12-08-2024 Erythrocyte distribution width (RBC) [Ratio] Erythrocyte distribution width [Ratio] by Automated count 11.0-15.0 [facility] Glucose mean value [Mass/vol ume] in Blood Estimated from glycated hemoglobinon 12-08-2024 Average glucose Estimated from glycated hemoglobin (Bld) [Mass/Vol] Glucose mean value [Mass/volume] in Blood Estimated from glycated hemoglobin [facility] Hematocrit Auto (Bld) [Volum e fraction]on 12-08-2024 Hematocrit (Bld) [Volume fraction] Hematocrit [Volume Fraction] of Blood by Automated count 36.0-48.0 [facility] Hemoglobin A1c percentageon 12-08-2024 HbA1c (Bld) [Mass fraction] Hemoglobin A1c percentage 4.5-6.2 [facility] Comment on above: ADA RECOMMENDED LIMI T 4.0 - 6.0ADA THERAPEUTIC TARGET < 7.0ACTION SUGGESTED> 7.0 Hemoglobin [Mass/volume] in Bloodon 12-08-2024 Hemoglobin (Bld) [Mass/Vol] Hemoglobin [Mass/volume] in Blood 12.0-16.0 [facility] Laboratory - Chemistry and C hemistry - challengeon 12-08-2024 Calcium [Mass/Vol] 9.4 mg/dL 8.5-10.1 [facility] Chloride [Moles/Vol] 102 mmol/L 98-107 [facility] CO2 [Moles/Vol] 26.6 mmol/L 21.0-32.0 [facility] Free T4 [Mass/Vol] 0.95 ng/dL 0.76-1.46 [facility] Glucose [Mass/Vol] 90 mg/dL 74-106 [facility] Magnesium [Mass/Vol] 1.8 mg/dL 1.8-2.4 [facility] Potassium [Moles/Vol] 3.9 mmol/L 3.5-5.1 [facility] Sodium [Moles/Vol] 139 mmol/L 136-145 [facility] TSH Qn 1.090 m[IU]/L 0.358-3.740 [facility] Laboratory - Hematology and Cell countson 12-08-2024 Immature granulocytes/100 WBC (Bld) 0.9 % High 0.0-0.5 [facility] Leukocytes [#/volume] correc arnel for nucleated erythrocytes in Blood by Automated counon 12-08-2024 WBC corrected for nucl RBC Auto (Bld) [#/Vol] Leukocytes [#/volume] corrected for nucleated erythrocytes in Blood by Automated coun 4.0-11.0 [facility] Lymphocytes Auto (Bld) [#/Vo l]on 12-08-2024 Lymphocytes (Bld) [#/Vol] Lymphocytes [#/volume] in Blood by Automated count 1.2-3.8 [facility] Lymphocytes/100 WBC Auto (Bl d)on 12-08-2024 Lymphocytes/100 WBC (Bld) Lymphocytes/100 leukocytes in Blood by Automated count 20.5-60.0 [facility] MCH Auto (RBC) [Entitic mass ]on 12-08-2024 MCH (RBC) [Entitic mass] MCH [Entitic mass] by Automated count 26.7-34.0 [facility] MCHC Auto (RBC) [Mass/Vol]on 12-08-2024 MCHC (RBC) [Mass/Vol] MCHC [Mass/volume] by Automated count 29.9-35.2 [facility] MCV Auto (RBC) [Entitic vol] on 12-08-2024 MCV (RBC) [Entitic vol] MCV [Entitic volume] by Automated count 81.0-99.0 [facility] Monocytes Auto (Bld) [#/Vol] on 12-08-2024 Monocytes (Bld) [#/Vol] Automated blood monocyte count 0.3-0.8 [facility] Monocytes/100 WBC Auto (Bld) on 12-08-2024 Monocytes/100 WBC (Bld) Automated monocyte % 1.7-12.0 [facility] Neutrophils Auto (Bld) [#/Vo l]on 12-08-2024 Neutrophils (Bld) [#/Vol] Neutrophils [#/volume] in Blood by Automated count 1.4-6.5 [facility] Neutrophils/100 WBC Auto (Bl d)on 12-08-2024 Neutrophils/100 WBC (Bld) Automated neutrophil % 43.0-75.0 [facility] No Panel Informationon 12-08 Eosinophils # (Auto) 0.3 10 3/uL 0.0-0.7 [facility] Human Chorionic Gonadotropin, Quant <1 mIU/mL [facility] Comment on above: 5-50 0.2-1 EVDZ52-17 0 1-2 EZLAZ443-0,000 2-3 PWHDB143-29,000 3-4 WEEKS1,000-50,000 4-5 WEEKS10,000-100,000 5-6 WEEKS15,000-200,000 6-8 WEEKS10,000-100,000 2-3 MONTHS Immature Granulocyte # (Auto) 0.07 10 3/uL High 0.00-0.03 [facility] Platelet mean volume Auto (B ld) [Entitic vol]on 12-08-2024 Platelet mean volume (Bld) [Entitic vol] Platelet mean volume [Entitic volume] in Blood by Automated count 9.5-13.5 [facility] Platelets Auto (Bld) [#/Vol] on 12-08-2024 Platelets (Bld) [#/Vol] Platelets [#/volume] in Blood by Automated count 150-450 [facility] RBC Auto (Bld) [#/Vol]on RBC (Bld) [#/Vol] Erythrocytes [#/volu me] in Blood by Automated count 4.20-5.40 [facility] Patient Messageon 11-27-2024 Patient Message [id number] Dell Umaña E 2005 F Date Provider Department Center 11/27/2024 PIPE VALLADARES [facility] HeartVAS Family History Problem Relation Age of Onset No Known Problems Mother Hypertension Father No Known Problems Mother's Sister Hypertension Maternal Grandfather Heart attack Paternal Grandmother Arrhythmia Paternal Grandmother Stroke Paternal Grandmother 40 Autoimmune disease Neg Hx Sudden Neg Hx Aneurysm Neg Hx Family Status - Relation Status Age at Mother Father Mother's Sister Maternal Grandfather Paternal Grandmother Neg Hx Normal [facility] Telemedicineon 11-16-2024 Telemedicine [id number] Dell Umaña E 2005 F Date Provider Department Center 11/16/2024 PIPE VALLADARES [facility] [place] HeartVAS Family History Problem Relation Age of Onset No Known Problems Mother Hypertension Father No Known Problems Mother's Sister Hypertension Maternal Grandfather Heart attack Paternal Grandmother Arrhythmia Paternal Grandmother Stroke Paternal Grandmother 40 Autoimmune disease Neg Hx Sudden Neg Hx Aneurysm Neg Hx Family Status - Relation Status Age at Mother Father Mother's Sister Maternal Grandfather Paternal Grandmother Neg Hx Level of Service:39273 [place] OFFICE/OUTPATIENT ESTABLISHED [facility] 10 MIN Reason for Visit and Comments: Telehealth Audio/video Visit [871] [facility] 29on 07-02-2024 29 Addended by: PIPE TRAVIS on: 07/02/2024 11:16 AM Modules accepted: Orders Normal [facility] Documentationon 07-02-2024 Documentation [id number] Dell Umaña Tricia 2005 F Date Provider Department Center 07/02/2024 [id number], JANUARY [facility] Spe Pha Comprehensiv Family History Problem [...] Comments: Specialty Pharmacy Note: ivabradine [Other] Normal [facility] Office Visiton 07-02-2024 Follow-up visit [id number] Dell Umaña 2005 F Date Provider Department Center 07/02/2024 ZoeCHRISSIEPIPE Sullivan [facility] [place] HeartVAS Family History Problem [...] Grandfather Paternal Grandmother Neg Hx Level of Service:72658 [place] OFFICE/OUTPATIENT NEW LOW MDM 30 MINUTES Reason for Visit and Comments: New Patient [632] - Patient in our office for Dysautonomia. Patient light headed, palpitations and edema when about to have episodes Normal [facility] Progress Noteon 11-25-2023 Cherry Cutter Authentication Interface Message Text [facility] [place] History of Present Illness Davion [...] changes in medications. Goes to school at [employer] and lives on campus. Is doing well with her fluid intake. Eats well. Review of systems All other systems reviewed and are negative except as detailed above. Prior Cardiac Testing: ECG (07/02/22): normal ECHO (12/13/19-[place]. Read by Gilbert Franz MD): Normal 30-day loop monitor (03/02/21): Normal Past Medical/Surgical History: History reviewed. No pertinent past medical/surgical history. Patient Active Problem List Diagnosis Syncope and collapse Medications: Current Outpatient Medications Medication Instructions Cranberry-Vitamin C (AZO CRANBERRY URINARY TRACT PO) Oral Elastic Bandages & Supports (MEDICAL COMPRESSION STOCKINGS) [facility] Waist high compression stockings 20mmHg-30mmHg. To be [...] family. Social History: Freshman in college at [employer]. Studying education. Physical Exam: The Physical Exam is limited due to Telehealth General: Patient appears healthy, well developed, well nourished, non-toxic, and in no acute distress HEENT: atraumatic and normocephalic Chest: Respirations are easy, non-labored with symmetric chest rise. Skin: [place], without obvious rashes or lesions. Neuro: Awake [...] care. Total encounter time: 30 minutes Delores Mora APRN-FRONT DESK ASSISTANT Pediatric Nurse Practitioner [facility] 11/25/2023 Normal [facility] Progress Noteon 09-23-2023 Cherry Cutter Authentication Interface Message Text [facility] History of Present Illness Davion Umaña is a 17 y.o. female who has been followed in [facility] [place] since 2020, for dizziness and syncope. Her [...] month. 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 Passed out. LOC < 2 minutes. No head injury. -shortness of breath when she feels like she is going to pass out -sweating without fever -fatigue/ lack of sleep. (Feels her head spinning) No recent changes in medications. Goes to school at [employer] and lives on campus. Is doing well [...] Elastic Bandages & Supports (MEDICAL COMPRESSION STOCKINGS) [facility] Waist high compression stockings 20mmHg-30mmHg. To be [...] family. Social History: Freshman in college at [employer]. Physical Exam: 1. General: Alert, active, well [...] 7. Integumentary: Warm and well perfused, no clubbing/cyanosis/edema. Pulses are 2+ and symmetric in the radial and dorsalis pedis locations. Impression: Vasovagal syncope Orthostatic intolerance Dysautonomia Kennethin's syncope has increased over the last 1-2 [...] Total encounter time: 60 minutes Delores Mora, CLIENT ADVISOR-FRONT DESK ASSISTANT Pediatric N (more content not included)... Normal [facility] CBC AUTO DIFFon 12-12-2020 Basophils (Bld) [#/Vol] 0.0 103/ul Normal 0.0-0.1 [facility] Comment on above: Performed By: #### C BC #### [facility] [address] [place] [address] Steve Alyssia Basophils/100 WBC (Bld) 0.4 % Normal 0.2-2.0 [facility] Comment on above: Performed By: #### C BC #### [facility] [address], [place] [address] Steve Alyssia Eosinophils (Bld) [#/Vol] 0.1 103/ul Normal 0.0-0.7 [facility] Comment on above: Performed By: #### C BC #### [facility] [address], [place] [address] Steve Alyssia Eosinophils/100 WBC (Bld) 2.0 % Normal 0.9-7.0 [facility] Comment on above: Performed By: #### C BC #### [facility] [address], [place] [address] Steve Alyssia Erythrocyte distribution width (RBC) [Ratio] 14.6 % Normal 11.0-15.0 [facility] Comment on above: Performed By: #### C BC #### [facility] [address] [place] [address] Steve Cade Hematocrit (Bld) [Volume fraction] 36.7 % Normal 36.0-48.0 [facility] Comment on above: Performed By: #### C BC #### [facility] [address] [place] [address] Steve Alyssia Hemoglobin (Bld) [Mass/Vol] 11.5 g/dL Critically low 12.0-16.0 [facility] Comment on above: Performed By: #### C BC #### [facility] [address] [place] [address] Steverosy Cade IG # 0.03 10e3/ul Normal 0.00-0.03 [facility] Comment on above: Performed By: #### C BC #### [facility] [address] [place] [address] Steve Alyssia IG % 0.4 % Normal 0.0-0.5 [facility] Comment on above: Performed By: #### C BC #### [facility] [address] [place] [address] Steverosy Cade Lymphocytes (Bld) [#/Vol] 2.1 103/ul Normal 1.2-3.8 [facility] Comment on above: Performed By: #### C BC #### [facility] [address] [place] [address] Steve Cade Lymphocytes/100 WBC (Bld) 31.0 % Normal 20.5-60.0 [facility] Comment on above: Performed By: #### C BC #### [facility] [address] [place], [place] [address] Steve Cade MANUAL DIFF REQ NO Normal [facility] Comment on above: Performed By: #### C BC #### [facility] [address] [place], [place] [address] Steve Cade MCH (RBC) [Entitic mass] 26.6 pg Critically low 26.7-34.0 [facility] Comment on above: Performed By: #### C BC #### [facility] [address] [place], [place] [address] Steverosy Guerraen MCHC (RBC) [Mass/Vol] 31.3 g/dL Normal 29.9-35.2 [facility] Comment on above: Performed By: #### C BC #### [facility] [address] [place], [place] [address] Steve Alyssia MCV (RBC) [Entitic vol] 85.0 fL Normal 79.1-95.6 [facility] Comment on above: Performed By: #### C BC #### [facility] [address] [place], [place] [address] Steve Alyssia Monocytes (Bld) [#/Vol] 0.5 103/ul Normal 0.3-0.8 [facility] Comment on above: Performed By: #### C BC #### [facility] [address] [place], [place] [address] Steve Alyssia Monocytes/100 WBC (Bld) 7.6 % Normal 1.7-12.0 [facility] Comment on above: Performed By: #### C BC #### [facility] [address] [place], [place] [address] Steve Alyssia Neutrophils (Bld) [#/Vol] 4.0 103/ul Normal 1.4-6.5 [facility] Comment on above: Performed By: #### C BC #### [facility] [address] [place], [place] [address] Steve Alyssia Neutrophils/100 WBC (Bld) 58.6 % Normal 43.0-75.0 [facility] Comment on above: Performed By: #### C BC #### [facility] [address] [place], [place] [address] Steve Alyssia Platelet mean volume (Bld) [Entitic vol] 11.9 fL Normal 9.5-13.5 [facility] Comment on above: Performed By: #### C BC #### [facility] [address] [place], [place] [address] Steve Alyssia Platelets (Bld) [#/Vol] 300 103/ul Normal 150-450 [facility] Comment on above: Performed By: #### C BC #### [facility] [address] [place] [address] Steve Cade RBC (Bld) [#/Vol] 4.32 106/ul Normal 3.40-5.30 [facility] Comment on above: Performed By: #### C BC #### [facility] [address] [place], [place] [address] Steve Cade WBC (Bld) [#/Vol] 6.9 103/ul Normal 4.0-11.0 [facility] Comment on above: Performed By: #### C BC #### [facility] [address] [place], [place] [address] Steve Cade GLYCOHEMOGLOBIN A1Con 2020 ADA RECOMMENDATION ADA THERAPEUTIC TARG ET 6.0 - 7.0 ACTION SUGGESTED > 7.0 Normal [facility] Comment on above: Performed By: #### A 1C #### [facility] [address] [place] [address] Steve Alyssia Glucose [Mass/Vol] 117 mg/dL Normal [facility] Comment on above: Performed By: #### A 1C #### [facility] [address] [place] [address] Steve Cade HbA1c (Bld) [Mass fraction] 5.7 % Normal <=6.0 [facility] Comment on above: Performed By: #### A 1C #### [facility] [address] [place], [place] [address] Steve Cade PROF CHEM 8 (BAS METB)on Anion gap [Moles/Vol] 13.2 mmol/L Normal [facility] Comment on above: Performed By: #### T DARRYL, BMP #### [facility] [address] [place] [address] Steve Cade Calcium [Mass/Vol] 9.0 mg/dL Normal 8.4-10.2 [facility] Comment on above: Performed By: #### T DARRYL, BMP #### [facility] [address] [id number] Steve Alyssia Chloride [Moles/Vol] 102 mmol/L Normal 98-107 [facility] Comment on above: Performed By: #### T DARRYL, BMP #### [facility] [address] [id number] Steve Alyssia CO2 [Moles/Vol] 28.1 mmol/L Normal 22.0-30.0 [facility] Comment on above: Performed By: #### T DARRYL, BMP #### [facility] [address] [id number] Steve Alyssia Creatinine [Mass/Vol] 0.70 mg/dL Normal 0.52-1.04 [facility] Comment on above: Performed By: #### T DARRYL, BMP #### [facility] [address] [address] Steve Alyssia Glucose [Mass/Vol] 89 mg/dL Normal 74-106 [facility] Comment on above: Performed By: #### T DARRYL, BMP #### [facility] [address] [address] Steve Alyssia Potassium [Moles/Vol] 4.3 mmol/L Normal 3.4-5.0 [facility] Comment on above: Performed By: #### T DARRYL, BMP #### [facility] [address] [id number] Steve Alyssia Sodium [Moles/Vol] 139 mmol/L Normal 137-145 [facility] Comment on above: Performed By: #### T DARRYL, BMP #### [facility] [address] [address] Steve Alyssia Urea nitrogen [Mass/Vol] 12.0 mg/dL Normal 6.4-19.3 [facility] Comment on above: Performed By: #### T DARRYL, BMP #### [facility] [address] [address] Steve Alyssia Urea nitrogen/Creatinine [Mass ratio] 17.1 mg/mg Normal [facility] Comment on above: Performed By: #### T DARRYL, BMP #### [facility] [address], [place] [address] Steve Cade TSHon 12-12-2020 TSH Qn 0.468 uIU/mL Normal 0.430-3.750 [facility] Comment on above: Performed By: #### T SH, NORBERT #### [facility] [address], [place] [address] Steve Cade TSH Qn SEE BELOW Normal [facility] Comment on above: Result Comment: <0.3 4 UIU/ml HYPERTHYROID 0.34-5.60 UIU/ml EUTHYROID >5.60 UIU/ml HYPOTHYROID Performed By: #### T DARRYL, NORBERT #### [facility] [address] [phone] Steve Cade US PELVISon 02-07-2020 US PELVIS EXAMINATION: US PELV IS HISTORY: Pelvic and perineal pain COMPARISON: No [...] by: WOODROW VASQUEZ Date: 2020-02-07 10:08 Normal [facility] Vital Signs Date Time Vital Sign Value Performing Clinician Faci lity 03-06-2025 15:01-0400 Blood Pressure Location Fredi BARLOW [facility] 03-06-2025 15:01-0400 Diastolic blood pressure 76 mm[Hg] Fredi BARLOW [facility] 03-06-2025 15:01-0400 Heart rate 72 /min [facility] 03-06-2025 15:01-0400 Respiratory rate 16 /min Fredi BARLOW [facility] [place] 03-06-2025 15:01-0400 Systolic blood pressure 126 mm[Hg] Fredi BARLOW [facility] [place] 02-19-2025 09:05-0400 Body height 175.26 cm [facility] 02-19-2025 09:05-0400 Body mass index (BMI) [Ratio] 27.8 kg/m2 [facility] 02-19-2025 09:05-0400 Body weight 85.72 kg [facility] 02-19-2025 09:05-0400 Diastolic blood pressure 81 mm[Hg] [facility] 02-19-2025 09:05-0400 Heart rate 73 /min [facility] 02-19-2025 09:05-0400 Systolic blood pressure 126 mm[Hg] [facility] 01-21-2025 09:06-0400 Body height 175.26 cm [facility] 01-21-2025 09:06-0400 Body mass index (BMI) [Ratio] 27.3 kg/m2 [facility] 01-21-2025 09:06-0400 Body weight 83.91 kg [facility] 01-21-2025 09:06-0400 Diastolic blood pressure 81 mm[Hg] [facility] 01-21-2025 09:06-0400 Heart rate 81 /min [facility] 01-21-2025 09:06-0400 Systolic blood pressure 123 mm[Hg] [facility] 12-25-2024 09:02-0500 Body height 175.26 cm [facility] 12-25-2024 09:02-0500 Body mass index (BMI) [Ratio] 26.7 kg/m2 [facility] 12-25-2024 09:02-0500 Body weight 82.1 kg [facility] 12-25-2024 09:02-0500 Diastolic blood pressure 79 mm[Hg] [facility] 12-25-2024 09:02-0500 Heart rate 79 /min [facility] 12-25-2024 09:02-0500 Systolic blood pressure 118 mm[Hg] [facility] 04-06-2024 10:15-0400 Body height 175.26 cm [facility] 04-06-2024 10:15-0400 Body mass index (BMI) [Percentile] Per age and sex 76.3 % [facility] 04-06-2024 10:15-0400 Body mass index (BMI) [Ratio] 24.5 kg/m2 [facility] 04-06-2024 10:15-0400 Body weight 75.46 kg [facility] 04-06-2024 10:15-0400 Diastolic blood pressure 79 mm[Hg] [facility] 04-06-2024 10:15-0400 Heart rate 70 /min [facility] 04-06-2024 10:15-0400 Systolic blood pressure 115 mm[Hg] [facility] Encounters Encounter Date Encounter Type Care Provider Facility Start: 03-06-2025 End: 03-06-2025 ambulatory Fredi BARLOW Facility:[facility] Start: 03-06-2025 End: 03-06-2025 Patient encounter procedure Fredi BARLOW [facility] [place] Start: 03-06-2025 End: 03-06-2025 ambulatory PIPE TRAVIS [facility] Start: 03-04-2025 ambulatory Fredi BARLOW Facility:[facility] Start: 02-19-2025 End: 02-19-2025 ambulatory [facility] Work Phone: Start: 02-19-2025 End: 02-19-2025 [facility] encounter [facility] Work Phone: Start: 01-24-2025 ambulatory PIPE TRAVIS [facility] Start: 01-21-2025 End: 01-21-2025 ambulatory [facility] Work Phone: Start: 01-21-2025 End: 01-21-2025 Patient encounter procedure [facility] Work Phone: Start: 01-16-2025 Non-patient / Non-visit [facility] Work Phone: Start: 01-16-2025 End: 01-16-2025 ambulatory [facility] Start: 12-25-2024 End: 12-25-2024 ambulatory [facility] Work Phone: Start: 12-25-2024 End: 12-25-2024 Patient encounter procedure [facility] Work Phone: Start: 12-08-2024 End: 12-08-2024 Clinisync Result Encounter Papito Kayla DO Work Phone: [facility] External [facility] Unsolicited Start: 12-08-2024 End: 12-08-2024 Clinisync Result Encounter Papito Kayla DO Work Phone: [facility] External [facility] Unsolicited Start: 12-08-2024 Non-patient / Non-visit [facility] Work Phone: Start: 11-16-2024 End: 11-16-2024 ambulatory [facility] Start: 07-02-2024 End: 07-02-2024 ambulatory [facility] Start: 07-02-2024 ambulatory [facility] Start: 04-06-2024 End: 04-06-2024 ambulatory [facility] Work Phone: Start: 04-06-2024 End: 04-06-2024 Patient encounter procedure [facility] Work Phone: Start: 03-27-2024 Non-patient / Non-visit [facility] Work Phone: Start: 11-25-2023 End: 11-25-2023 ambulatory [facility] Start: 09-23-2023 End: 09-23-2023 ambulatory [place] Jana [facility] Start: 12-19-2020 End: 12-20-2020 Patient encounter procedure JUAN JOSEJSOS ACEKRMAN Facility:[facility] Start: 12-12-2020 End: 12-13-2020 Patient encounter procedure JUAN JOSE Tricia TYRON Facility:[facility] Start: 02-07-2020 End: 02-08-2020 Patient encounter procedure PAPITO GARZA Facility:[facility] Procedures Date Procedure Procedure Detail Performing Clinician Start: 12-08-2024 ALL CBC WITH AUTO DIFF Papito Garza DO Work Phone: Tonsillectomy and adenoidectomy Fredi BARLOW Plan of Treatment Date Care Activity Detail Author Start: 02-19-2025 Patient referral [facility] Work Phone: Cefuroxime free [Mas s/volume] in Serum or Plasma [facility] Insulin [Units/volum e] in Serum or Plasma [facility] Patient referral [facility] Work Phone: [facility] Immunizations Immunization Date Immunization Notes Care Provider Fa cility 06-07-2022 meningococcal oligosaccharide (groups A, C, Y and W-135) diphtheria toxoid conjugate vaccine (MCV4O) [facility] 06-06-2017 meningococcal oligosaccharide (groups A, C, Y and W-135) diphtheria toxoid conjugate vaccine (MCV4O) [facility] 02-09-2017 diphtheria, tetanus toxoids and acellular pertussis vaccine, unspecified formulation [facility] Payers Date Payer Category Payer Unknown [id number] 2022 Unknown [id number] 2019 Unknown [id number] 2004 Unknown [id number] 2.16. [id number] 2004 Unknown [id number] 2.16. [id number] 2004 Unknown [id number] 2.16.8 [id number] 1973 Unknown [id number] 2.16.84 [id number] 1973 Unknown [id number] 2.16.84 [id number] 1973 Unknown [id number] 2.16.84 [id number] Social History Date Type Detail Facility Start: 04-06-2024 End: 03-06-2025 Tobacco smoking status NJIS Never smoked tobacco (finding) [facility] Start: 2005 Sex Assigned At F [facility] Tobacco smoking stat [facility] Tobacco smoking consumption unknown [facility] Start: 2005 Sex assigned at Not on file N [facility] Start: 12-07-2019 End: 12-25-2024 Sex Female (finding) [facility] Start: 2005 Sex Assigned At Female F [facility] Tobacco smoking status [facility] [place] Sexual Orientation [facility] [place] Functional Status Date Assessment Result Facility 03-06-2025 Functional Status N/A [facility] General Surgery [place] Clinical Notes 07-02-2024 to 03-06-2025 Note Date & Type Note Facility 03-06-2025 Note General Surgery Offi ce/Clinic Note Chief Complaint consultation for soft tissue mass HPI Staff 19 year old female presents on self referral consultation for soft tissue mass. Reports noting mass to central lower back several months ago. Reports gradual increase in size of mass. Denies soreness but reports mass feels numb when pressure is applied. No imaging completed. History of Present Illness 19 yo female with h/o POTS, presents for evaluation of subcutaneous mass in sacral area; began several months ago, increasing in size; no injury to area, no skin changes, ecchymosis or erythema, nontender; no h/o other similar swellings; no imaging; no tobacco use. Review of Systems PHQ Score Initial Depression Screen Score: 0 SCORE ROS - Provider Constitutional: no fever, no sweats, no weight loss. Eyes: no glasses, no blurred vision, no visual loss. ENMT: no dentures, no hoarseness, no swallowing difficulties, no hearing loss, no ear infection(s), no nose bleeds. Cardiovascular: normal blood pressure, no chest pain, regular heartbeat, no heart murmur. Respiratory: no shortness of breath, no cough, no asthma, no wheezing. Gastrointestinal: no nausea, no vomiting, no diarrhea, no constipation, no blood in stool, no change in bowel habits, no abdominal pain, no hepatitis. Genitourinary: no kidney stones, no urine infection, no dysuria. Musculoskeletal: no pain, no weakness. Skin: no changing moles, no rash, no skin lumps. Neurologic: no seizures, no epilepsy, no headache. Psychiatric: no emotional or psychiatric problem. Heme/Lymph: no bleeding problems, no anemia, no blood clots, no transfusions. Allergy/Immunologic: no swollen lymph nodes/glands, no IV drug abuse. Other: Additional ROS info: Except as noted in the above Review of Systems and in the History of Present Illness, all other systems have been reviewed and are negative or noncontributory. Physical Exam Vitals & Measurements HR: 72(Peripheral) RR: 16 BP: 126/76 HT: 177.8 cm HT: 70 in WT: 191.141 lb WT: 86.7 kg BMI: 27.43 skin: lower midline back with subcutaneous fullness, soft, nonmobile, 7 cm diameter, nontender, no overlying skin changes. Assessment/Plan 1. Mass of subcutaneous tissue of back (R22.2: Localized swelling, mass and lump, trunk) unclear etiology, may be deep lipoma; will obtain US of area for further evaluation; will call patient with results, call sooner if problems/questions. Ordered: US Chest or Upper Back, Limited Follow-up No qualifying data available Problem List/Past Medical History Ongoing BMI 27.0-27.9,adult Mass of subcutaneous tissue of back Overweight POTS (postural orthostatic tachycardia syndrome) Historical No qualifying data Procedure/Surgical History Tonsillectomy and adenoidectomy. Medications Joyeaux with iron 20 mcg-100 mcg oral tablet, 1 tab(s), Oral, Daily midodrine 5 mg Tab, 5 mg= 1 tab(s), Oral, TID sertraline 25 mg Tab, 25 mg= 1 tab(s), Oral, Daily Allergies No Known Allergies No Known Medication Allergies Social History Alcohol - Denies Alcohol Use, 03/06/2025 Substance Abuse - Denies Substance Abuse, 03/06/2025 Tobacco Never (less than 100 in lifetime) Tobacco Use:. Never Smokeless Tobacco Use:., 03/06/2025 Family History Hypertension: Father. 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 She had commenced ivabradine and a marked reduction in syncope. Chief Complaint: Last evaluated in October 2024. More recently complained of bradycardia with HR dropping into the 40's with entire body going numb . We decreased the dose in November 2024. Continues midodrine 5mg tid and ivabradine 2.5mg bid. Since November: numbness, chronic joint pain, headaches, short of breath. Syncope once to twice weekly. Feel like my body is attacking itself HR now is OK HR 60-70's. ED visit last . Bloodwork. Lupus antibodies high. Lupus testing negative . PCP visit on Tuesday and the registered nursing professor (January 29, 2025). SRIKANTH negative. Possible drug induced lupus? Objective Constitutional: Appearance: Healthy appearance. Not in distress. Neurological: Mental Status: Alert and oriented to person, place and time. Assessment/Plan Diagnoses of POTS (postural orthostatic tachycardia syndrome), Syncope and collapse, and Shortness of breath were pertinent to this visit. Problem List Items Addressed This Visit Syncope and collapse Other Visit Diagnoses POTS (postural orthostatic tachycardia syndrome) Shortness of breath Relevant Orders Transthoracic Echo (TTE) Complete Date of Telehealth Visit: 01/16/2025 The visit was conducted [id number] with the use of audio and video technology using HIPAA approved Dropcam WebEX between patient and the provider for a virtual visit. Verbal consent to provide and bill this service was obtained on: 01/16/25 Patient Location: Patient Home I spent 15 [...] in this note for specific details. 1. POTS (postural orthostatic tachycardia syndrome) POTS. Chronic. Unstable. Possible underlying illness. 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 We reviewed this note found on line: While ivabradine is generally not known as a common cause of drug-induced lupus (DIL), some reports suggest a lupus-like syndrome or drug fever with prolonged use, and the FDA has updated labeling for ivabradine to include this possibility. Drug-induced lupus (DIL) is an autoimmune phenomenon where a drug exposure leads to the development of systemic lupus erythematosus (SLE) like clinical features. DIL is a clear example of an environmental trigger leading to the development of lupus in a genetically susceptible individual. Will stop ivabradine for now. The data and management suggests to remove offending agent. She has been on ivabradine as a new medication for one month, about the time her symptoms started. 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 Dr. Rodrigues, January, She will call registered nursing professor to determine if any monitoring for now. SOB. Will order echocardiogram to r/o pericarditis. 2. Syncope and collapse Chronic. Unstable. Possible underlying illness. Rtc one month Pipe Travis APRN PhD [facility] Nurse Practitioner Division of Cardiovascular Medicine [facility]. ' [facility] 12-25-2024 Evaluation note Diagnosis Onset Date Resolution Anemia acute December 25 8:54am Dysautonomia acute December 25, 025 8:54am Fatigue acute December 25 8:54am Dysautonomia acute January 21, 2025 9:06am Hypoglycemia acute January 21, 2025 9:06am Syncopal episodes acute December 242024 9:06am [facility] Work Phone: 1(613) 495-866003-04-2025 Evaluation note* Diagnosis Onset Date Resolution Status Admit Date Anemia acute December 25 8:54am Dysautonomia acute December 25, 2 025 8:54am Fatigue acute December 25 8:54am Anxiety acute January 21 9:06am Dysautonomia acute January 21, 2025 9:06am Hypoglycemia acute January 21, 2025 9:06am Syncopal episodes acute December 242024 9:06am Dysautonomia acute February 19, 2025 8:56am POTS (postural orthostatic tachycardia syndrome) acute January 8:56am [facility] Work Phone: 1(462) 674-815801-24-2025 Vickie Umaña is a pleasant 19 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 I copied and pasted my last visit with patient several months ago: Mother, who attends the visit reports Kenenthin a C section . No delays, met all milestones. No childhood seizures, syncope. Good exercise tolerance. Travel softball.No migraines, asthma. Menses age 13. No PCOS no endometriosis. HPI: September 2019, very ill with Covid suspected illness. Cough caused severe rib subluxation. Viral pneumonia . Then developed lightheaded, short of breath. Trying out for softball, exercise intolerance, near syncope. 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 Then referred to [facility]. Echocardiogram, EKG reported normal. No tilt. Treated based on symptoms. Fludrocortisone: not effective Midodrine: headaches (continues the medication). Helped initially with syncope. Improved. Chief Complaint: Telemedicine visit. Patient located in [place], [place]. Telemed follow up for ivabradine. Added last visit. Alisson has worked wonders . Only 4 episodes of syncope since June. Previous multiple times weekly. No side effects. Four episodes from stress, menses . LOC brief. No trauma. Last episode mid September 2025. Replaced By [facility]. Attends all classes. 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 Pipe Travis APRN PhD [facility] Nurse Practitioner Division of Cardiovascular Medicine [facility] 07-02-2024 Umair received a new ivabradine prescription for this patient and it is requiring a prior authorization. Carley Gao [facility] 07/02/24 12:55 PMUnAvita Health System09-09-2024 Umair received a copy of the letter that was sent to Pipe Travis in the mail from the clinic. I wanted to attach it to the patient's note for record keeping purposes. Angela Armenta, Kathi, JENNIFER, [facility] 11/08/24 11:11 AM [place] [facility] [id number] Health System09-09-2024 NotePA initiated via CM. Called and spoke with pt. She is aware of PA process, will wait for updates from us. F/U upon determination. Parrish Calvin [facility] [id number] 07/02/24 at 3:15 PMUnAvita Health System09-09-2024 Note Attestation signed by Tish Killian PharmD, JENNIFER at 07/05/2024 1:28 PM Tish Killian PharmD, BCACP 07/05/24 1:28 PM [facility] [phone] Checked on PA status, no response as of yet. Follow up early next week. BENITEZ Wesley PharmD Candidate 202407/05/24 10:51 AM [facility] [phone] [facility]09-09-2024 NoteI called [employer] and was told our external review had been denied. I requested that they fax us the determination, but was told they can't because a separate company handled it. The data entry representative did read me the denial letter and the next step would be a lawsuit, which we do not handle. I contacted the patient and provided her an update. I advised that she reach out to the office to discuss obtaining the medication from Carla. Carley Gao [facility] 11/01/24 3:38 PM[facility]09-09-2024 NoteMom called to verify we had received the form. I told her we hadn't and gave her our fax and email. I told her to call to make sure they were received. Tish Killian PharmD, ARJUN 09/10/24 4:25 PM [facility] [phone] Medical Specialty Hospital [facility]09-09-2024 NoteI called the patient and left her the final message, we will no longer follow-up. Jenifer Farrell, [facility] 09/07/24 9:39 AM[facility]-2024 NoteLM for mom to make sure she received our email with the consent forms. Asked she let us know if she didn't receive. Tish Killian PharmD, BCACP 07/30/24 2:47 PM [facility] [phone] Medical Specialty Hospital [facility]09-09-2024 NoteConsent forms emailed to mom @ [email or web address] Fani Arroyo PharmD Outpatient Clinical Pharmacist [facility] [phone] 07/26/24 4:27 PM[facility]09-09-2024 NoteMom called back- she would like to pursue 2nd level appeal. We will email consent forms to [email or web address]. Once signed and returned, we can submit 2nd level appeal. Fani Arroyo PharmD Outpatient Clinical Pharmacist [facility] [phone] 07/26/24 4:05 PMUnAvita Health System09-09-2024 NoteThe appeal has been faxed to [employer]. We will continue to follow up for a determination. Also faxed with the appeal was the clinic note and Corlanor studies. I have the signatures saved in my email just in case insurance says they don't receive them and the one's scanned in are illegible.[facility] 07-02-2024 NoteThe prior authorization for the ivabradine has been denied. We do have an option to appeal, but the patient will need to sign an Authorized Window Machine Operator Form before we can proceed. I have emailed the forms to the patient. The appeal letter has been written and is saved in the appeals folder. We will submit the appeal once we receive the signed forms back from the patient. Carley Gao [facility] 07/11/24 10:58 [facility]09-09-2024 NoteI contacted the insurance company at to verify if our external review was received. I was told our external review has been received and a determination will be made by 10/26/2024. Carley Gao [facility] 09/18/24 3:17 PM[facility]09-09-2024 NoteReceived needed documents. Faxed to external review. Follow-up to make sure they received and for determination. Tish Killian PharmD, BCA 09/11/24 4:27 PM [facility] [phone] Medical Specialty Hospital [facility]09-09-2024 NoteLVM to make sure patient received the e-mail with the form she needed to sign to proceed with external review, or if she had any issues getting it back to us. Follow up later in week. Cuco Livingston, [facility] 08/21/24 11:05 [facility]09-09-2024 NoteSecond level appeal for ivabradine has been denied due to not medically necessary, pt does not have heart failure (HFrEF). Case ID/Authorization Number:[id number] Filling out attached external review form, will need 3 pt signatures. Called pt, emailing form to pt at [email or web address]. Insurance company info: Fax [phone] F/U upon signed external review form, fax form with updated appeal packet in media tab, clinic notes, and Corlanor literature. Parrish Calvin, [facility] [id number] 08/17/24 at 9:22 [facility]09-09-2024 NoteCalled [employer] and they stated that the appeal was received and has a determination date of 08/17. Follow up then for determination. Cuco Livingston, [facility] 08/07/24 1:10 PM[facility]09-09-2024 NoteReceived representation forms for appeal. Scanning in faxes for que. Venu Kothari [facility] 07/31/24 2:21 [facility]09-09-2024 NotePrior Authorization for Cor[employer]or Appeal has been denied. Case ID/Authorization Number:[id number] Called patient and LVM we will need signatures on representation forms in order to appeal any further if patient wants to pursue 2nd level appeal. Scanned in full denial and scanned appeal forms seperately as well. Venu Kothari [facility] 07/26/24 1:40 PM[facility]09-09-2024 NoteInsurance received the appeal. F/U in 15 business days per document. Kanwal Morales PharmD, [facility] Outpatient Clinical Pharmacist [facility] [id number] 07/13/24 8:29 [facility]09-09-2024 NoteI contacted the insurance company at to check status. I was told a determination will be made by 10/26/2024. Saige Santizo PharmD, [facility] Outpatient Clinical Pharmacist [place] [facility] [id number] 10/02/24 4:06 PM[facility]09-09-2024 NoteI tried reaching the patient again to verify if she received the external review forms that we emailed her - no answer, LVMTCB. Carley Gao, [facility] 08/24/24 2:57 PM[facility]09-09-2024 NoteWe received a fax stating that [employer] has a received our appeal and it can take up to 15 days. Jeniferkailash Farrell, [facility] 08/02/24 2:35 PM[facility]09-09-2024 NoteSubmitted second level appeal to insurance with signed representation forms awaiting determination. LVM saying we are awaiting the determination and will call when we hear from insurance. 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 Mother, who attends the visit reports Breckin a C section . No delays, met all milestones. No childhood seizures, syncope. Good exercise tolerance. Travel softball.No migraines, asthma. Menses age 13. No PCOS no endometriosis. HPI: September 2019, very ill with Covid suspected illness. Cough caused severe rib subluxation. Viral pneumonia . Then developed lightheaded, short of breath. Trying out for softball, exercise intolerance, near syncope. 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 Then referred to [facility]. [...] syndrome POTS/ orthostatic intolerance OI) which developed [id number] infection. We postulate that these patients possess [...] compression (waist high compressi (more content not included)...[facility] Evaluation + Plan note No data available for this section [facility] [place] Evaluation noteNo assessment information available [facility] Work Phone: Evaluation note* Diagnosis Onset Date Resolution Status Admit Date Anemia acute December 25 8:54am Dysautonomia acute December 25, 2 025 8:54am Fatigue acute December 25 8:54am [facility] Work Phone: Hospital Discharge instructionsAmbulatory Orders* Referral to Cardiology Location: None Selected * Referral to Cardiology Location: None Selected [facility] Work Phone: Hospital Discharge instructions No data available for this section [facility] Progress note No data available for this section [facility] Summary Purpose Family History No Family History [...] Response Recorded Date/ Time Advance Directives No February 11th , 2025 1:22pm Advance Directive Response Recorded Date/ Time Advance Directives No November 2:22pm Advance Directive Response Recorded Date/ Time Advance Directives No February 11 9:54am Chief Complaint and Reason for Visit Chief Complaint Amb Documentation wellness Chief Complaint Admit Date POTS/Low Blood Sugar December 25, 2024 8:5 4am Reason for Visit Admit Date Anemia December 25, 2024 8:54 am Dysautonomia December 25, 2024 8:54 am Fatigue December 25, 2024 8:54 am Chief Complaint Admit Date POTS/Low Blood Sugar December 25, 2024 8:5 4am Amb Documentation January 16, 2025 11: 40am BG ER/POTS January 21, 2025 9:0 6am Reason for Visit Admit Date Anemia December 25, 2024 8:54 am Dysautonomia December 25, 2024 8:54 am Fatigue December 25, 2024 8:54 am Dysautonomia January 21, 2025 9:0 6am Hypoglycemia January 21, 2025 9:0 6am Syncopal episodes January 21, 2025 9:0 6am Chief Complaint Admit Date POTS/Low Blood Sugar December 25, 2024 8:5 4am Amb Documentation January 16, 2025 11: 40am BG ER/POTS January 21, 2025 9:0 6am POTS, referrals, Blood Sugar February 19, 2025 8:56am Reason for Visit Admit Date Anemia December 25, 2024 8:54 am Dysautonomia December 25, 2024 8:54 am Fatigue December 25, 2024 8:54 am Anxiety January 21, 2025 9:0 6am Dysautonomia January 21, 2025 9:0 6am Hypoglycemia January 21, 2025 9:0 6am Syncopal episodes January 21, 2025 9:0 6am Dysautonomia February 19, 2025 8:5 6am POTS (postural orthostatic tachycardia s yndrome) February 19, 2025 8:56am Additional Source Comments INFORMATION SOURCE (unrecogn ized section and content) DATE CREATED AUTHOR 12/20/2020 [facility] DATE CREATED AUTHOR AUTHOR'S ORGANIZ ATION 11/28/2023 [facility] DATE CREATED AUTHOR AUTHOR'S ORGANIZ ATION 03/08/2025 [facility] DATE CREATED AUTHOR AUTHOR'S ORGANPOLLO ATION 03/10/2025 [facility] Care Teams (unrecognized sec tion and content) Team Status: Active Member Role Status Dates Juan Jose Ackerman MD Primary Care Provider Active Team Status: Active Member Role Status Dates Juan Jose Ackerman MD Primary Care Provider Active Start: March 27, 2024 Regina Jordan LPN Attending Provider Active St art: March 27, 2024 Team Status: Inactive Member Role Status Dates Juan Jose Ackerman MD Primary Care Provide r, Attending Provider Active Start: April 06, 2024 End: April 06, 2024 Team Status: Active Member Role Status Dates Juan Jose Ackerman MD Primary Care Provider Active Start: December 08, 2024 Papito Garza DO Attending Provider Active Start : December 08, 2024 Team Status: Inactive Member Role Status Dates Juan Jose Ackerman MD Primary Care Provide r, Attending Provider Active Start: December 25, 2024 End: December 25, 2024 Team Status: Active Member Role Status Dates Juan Jose Ackerman MD Primary Care Provider Active Start: January 16, 2025 Iman Merrill CMA Attending Provider Active Start: January 16, 2025 Team Status: Inactive Member Role Status Dates Juan Jose Ackerman MD Primary Care Provide r, Attending Provider Active Start: January 21, 2025 End: January 21, 2025 Team Status: Inactive Member Role Status Dates Juan Jose Ackerman MD Primary Care Provide r, Attending Provider Active Start: February 19, 2025 End: February 19, 2025 Goals (unrecognized section and content) Goals may be documented in a n alternate sectionGoals may be documented in an alternate sectionGoals may be documented in an alternate sectionGoals may be documented in an alternate section No data available for this section FOR RECORDS PERTAINING TO PATIENTS WHO [...] BE BASED ON THE PRIMARY CLINICAL RECORDS. [facility] [employer] [facility]. provides no warranty or guarantee of the accuracy or completeness of information in this document.
== END 2025-03-13 09:26 | disposition home or self-care (01) ==
LOC: US 09:26
PROVIDERS: PCP Family Medicine; Visit Provider Surgery
DX: R22.2 Localized swelling, mass and lump, trunk (principal)
CPT/HCPCS: 76705

== ENCOUNTER 2025-04-02 09:22 | Outpatient (RCR) | payer BC, SELFPAY | END 2025-04-03 08:08 | disposition home or self-care (01) | LOC: HEMC 09:22 | PROVIDERS: PCP Family Medicine; Visit Provider Internal Medicine Hematology & Oncology | DX: D68.62 Lupus anticoagulant syndrome (principal); G90.A Postural orthostatic tachycardia syndrome [POTS] | CPT/HCPCS: G0463 ==

== ENCOUNTER 2025-04-03 07:22 | Outpatient (OUT) | payer BC, SELFPAY ==
--- OUTSIDE RECORDS SUMMARY | 2025-03-12 09:15 | XMS_ITS ---
Author Organization [facility] [place] Address [address] [place] [address] Care Team Providers Care Concession Stand Attendant Name Role Phone Aleisha Brownlee Primary Care Provider UnavailKyra Garcia Unavailable [phone] REASON FOR VISIT MD Encounters Encounter Location Date Provider Diagnosis [facility] [address] [place] [address] 03/12/2025 Kyra Rodrigues Plan Of Treatment Next Appt Details Provider Name:Marli Pascal, 04/24/2025 10:15:00 AM, [address] [place] [address], [phone], Progress Notes * CARLOS VILLAISABELINDOB: 4 (19 yo F)Acc No.[id number]:03/12/2025 UNLOCKED PROGRESS NOTE Progress Notes Patient: DEB SMITH Provider: Lizbeth Rodrigues M.D. :2005 A ge:19 Y S ex:Female Date:03/12/2025 Address:[address] [place], [place] [id number] Pcp:Aleisha Brownlee Subjective: * Chief Complaints: * 1 . MD. * Medical History: Objective: * Vitals: Assessment: Plan: * Treatment: * * Electronic signature of Leslie Rodrigues MD, [id number] on 04/03/2025 at 07:27 AM EDT Sign off status: Pending Visit Status: C ANC (Cancelled) * Provider: Lizbeth Rodrigues M.D. Date: 0 03/12/2025 Generated for Jane Lilly/Renetta on: 0 04/03/2025 07:27 AM EDT
--- OUTSIDE RECORDS SUMMARY | 2025-03-26 04:45 | XMS_ITS ---
Author Organization The [facility] in [place] Address [address] [place] [address] Care Team Providers Care Assistant Front Desk Manager Name Role Phone Aleisha Brownlee Primary Care Provider UnavailKyra Garcia Unavailable [phone] REASON FOR VISIT MD Encounters Encounter Location Date Provider Diagnosis [facility] Oncology [address] [place] [address] 03/26/2025 Kyra Rodrigues Plan Of Treatment Next Appt Details Provider Name:Marli Pascal, 04/24/2025 10:15:00 AM, [address] [place] [address], [phone], Progress Notes * CARLSO VILLAISABELINDOB: 4 (19 yo F)Acc No.[id number]:03/26/2025 UNLOCKED PROGRESS NOTE Progress Notes Patient: DEB SMITH Provider: Lizbeth Rodrigues M.D. :2005 A ge:19 Y S ex:Female Date:03/26/2025 Address:[address] [place], [place] [id number] Pcp:Aleisha Brownlee Subjective: * Chief Complaints: * 1 . MD. * Medical History: Objective: * Vitals: Assessment: Plan: * Treatment: * * Electronic signature of Leslie Rodrigues MD, [id number] on 04/03/2025 at 07:27 AM EDT Sign off status: Pending Visit Status: C ANC (Cancelled) * Provider: Lizbeth Rodrigues M.D. Date: 03/26/2025 Generated for Jane Lilly/Renetta on: 04/03/2025 07:27 AM EDT
--- OUTSIDE RECORDS SUMMARY | 2025-03-26 14:30 | XMS_ITS | Encounter Summary ---
Author Organization [facility] Address [address] [place] [address] Care Team Providers Care Fishing Tool Supervisor Name Role Phone Aleisha Brownlee MD Unavailable [phone] Source Comments In the event this information is protected by the Federal Confidentiality of Alcohol and Drug AbusePatient Records regulations: The Federal rules restrict any use of the information to criminally investigate or prosecute any alcohol or drug abuse patient.[facility] Reason for Visit * Reason Comments New Patient Encounter Details Date Type Department Care Team (Late st Contact Info) Description 03/26/2025 2:30 PM EDT Office Visit Endocrinology [address] [place] [address] Jane Hastings MD [address] [place] [address] Autonomic dysfunction (Primary Dx); Hyperglycemia; Malaise and fatigue; Arthralgia, unspecified joint Social History Tobacco Use Types Packs/Day Years Used Date Smoking Tobacco: Never Assessed Area Deprivation Index Answer Date Keon rded National Score (1-100), lower number is lower ri sk 59 03/26/2025 State Score (1-10), lower number is lower risk 4 03/26/2025 Data from: https://www.neighborhoodatlas.[facility]/. Last address used for calculation [address] [address] 03/26/2025 Comments Unknown Sex and Gender Information Value Date Recorded Sex Assigned at Not on file Legal Sex Female 10:10 AM EDT Gender Identity Not on file Sexual Orientation Not on file documented as of this encounter Last Filed Vital Signs Vital Sign Reading Time Taken Comments Blood Pressure 132/76 03/26/2025 2:16 PM EDT Pulse 80 03/26/2025 2:16 PM EDT Temperature - - Respiratory Rate - - Oxygen Saturation - - Inhaled Oxygen Concentration - - Weight 87.1 kg (192 lb 0.3 oz) 03/26/2025 2:16 P M EDT Height - - Body Mass Index - - documented in this encounter Progress Notes * Jane Hastings MD - 03/26/2025 3:06 PM EDT This note was created using NoteWriter. Subjective Davion Umaña is a 19 year old female present for hyperglycemia concerns HPI Hypoglycemic Episodes: - Diagnosed with POTS in 2020, with symptoms reportedly starting after a COVID- 19 infection. - Previously managed with Midodrine 5 mg TID, Florinef, and salt tablets. - Recent episodes of hypoglycemia, with the lowest recorded blood glucose level at 80 mg/dL after consuming a full-sugar Coke. - Highest recorded blood glucose level was 198 mg/dL, often occurring at night. - Noted fluctuations in blood glucose levels during periods of stress. - Family history of type 1 diabetes in paternal uncle and cousin. - Currently taking multiple vitamins and supplements, including vitamin B2, electrolytes, fish oil,vitamin C, biotin, vitamin D3, probiotic, magnesium, Claritin, vitamin B1, and vitamin B12. I personally reviewed her CGM from 03/13-03/26 TIR 99 % Low 1 % Fatigue: - Significant decrease in energy levels since October, with difficulty walking to class and experiencing dyspnea. - Reports severe brain fog and difficulty concentrating. - Previously able to predict and manage POTS symptoms, but now experiencing more frequent and severe episodes. Joint Pain: - Onset of joint pain in October, with episodes occurring monthly. - Reports numbness and tingling in fingers. - Recently started wearing compression leggings to work, with no significant improvement in symptoms. - Taking riboflavin for migraines, which have been severe. Menstrual Irregularities: - On oral contraceptives since 2019, with regular menstrual cycles until recently. - Missed last menstrual period, which is unusual for Davion. - Reports that POTS symptoms were previously cyclic with menstrual cycle. Review of Systems Objective BP 132/76 Pulse 80 Wt 87.1 kg (192 lb 0.3 oz) Physical Exam Constitutional: Appearance: Normal appearance. Cardiovascular: Rate and Rhythm: Normal rate and regular rhythm. Pulmonary: Effort: Pulmonary effort is normal. Breath sounds: Normal breath sounds. Neurological: General: No focal deficit present. Mental Status: She is alert. Psychiatric: Mood and Affect: Mood normal. Assessment and Plan 1. Autonomic dysfunction (G90.9) - Diagnosed with POTS in 2020, symptoms previously manageable with Midodrine 5 mg TID. - Recent exacerbation of symptoms including syncope, joint pain, and severe fatigue since October. - Previous treatments included Fludrocortisone and Ivabradine; both discontinued due to side effects. - Wearing compression stockings; advised to continue. -follows at [facility] TFT and TPO ordered 2. Hyperglycemia (R73.9) - Noted fluctuations in blood glucose levels, with highs up to 198 mg/dL, particularly at night andduring stress. - Discussed dietary modifications to stabilize blood glucose: recommended complex carbohydrates, protein-rich snacks, and avoiding simple sugars. -- Advised to maintain a food and glucose journal to identify patterns. - Ordered morning fasting insulin and glucose levels - check cortisol , ACTH - GENIE and islet antibodies ordered * Jane Hastings MD - 03/26/2025 2:38 PM EDT documented in this encounter Plan of Treatment Scheduled Orders Name Type Priority Associated Diagnoses Orde r Schedule CORTISOL, SERUM Lab Routine Autonomic dysfunction Hyperglycemia Malaise and fatigue Arthralgia, unspecified joint Expected: 03/26/2025, Expires: 06/25/2025 ACTH BLD Lab Routine Autonomic dysfunction Hyperglycemia Malaise and fatigue Arthralgia, unspecified joint Expected: 03/26/2025, Expires: 06/25/2025 DHEA-S BLD Lab Routine Autonomic dysfunction Hyperglycemia Malaise and fatigue Arthralgia, unspecified joint Expected: 03/26/2025, Expires: 06/25/2025 INSULIN, TOTAL, SERUM Lab Routine Autonomic dysfunction Hyperglycemia Malaise and fatigue Arthralgia, unspecified joint Expected: 03/26/2025, Expires: 06/25/2025 GLUCOSE, FASTING Lab Routine Autonomic dysfunction Hyperglycemia Malaise and fatigue Arthralgia, unspecified joint Expected: 03/26/2025, Expires: 06/25/2025 ISLET CELL AB Lab Routine Autonomic dysfunction Hyperglycemia Malaise and fatigue Arthralgia, unspecified joint Expected: 03/26/2025, Expires: 06/25/2025 THYROID STIMULATING HORMONE Lab Routine Autonomic dysfunction Hyperglycemia Malaise and fatigue Arthralgia, unspecified joint Expected: 03/26/2025, Expires: 06/25/2025 T4 FREE/FREE THYROXINE Lab Routine Autonomic dysfunction Hyperglycemia Malaise and fatigue Arthralgia, unspecified joint Expected: 03/26/2025, Expires: 06/25/2025 THYROID PEROXIDASE ANTIBODY Lab Routine Autonomic dysfunction Hyperglycemia Malaise and fatigue Arthralgia, unspecified joint Expected: 03/26/2025, Expires: 06/25/2025 GLUTAMIC AC DECARBOXYLASE AB Lab Routine Autonomic dysfunction Hyperglycemia Malaise and fatigue Arthralgia, unspecified joint Expected: 03/26/2025, Expires: 06/25/2025 documented as of this encounter Procedures Procedure Name Priority Date/Time Associated Diagnosis Comments HEMOGLOBIN A1C (POC) Routine 03/26/2025 2:26 PM EDT Autonomic dysfunction Hyperglycemia documented in this encounter Results * HEMOGLOBIN A1C (POC) (03/26/2025 2:26 PM EDT) [facility] Signature Hemoglobin A1C (POCT) 5.4 4.3 - 5.6 % [facility] Comment: Location:[facility], [address] [place] [address], [address] Point of care (POC) Hemoglobin A1c (HGBA1C) testing is intended to assess glucose control and provide a management tool for patients known to have diabetes and their healthcare providers. Target HGBA1C levels may depend on specific clinical circumstances. POC HGBA1C is not intended for use as a diagnostic or screening test; laboratory-based testing should be used for diagnostic purposes. The following information is supplemental and may not be applicable to specific diabetes management situations: The POC device director motion picture provides a normal range of 4.2% to 6.5% for the HGBA1C POC test. However, the [place] [employer] guidelines indicate that patients with HGBA1C in the range of 5.7% to 6.4% are at increased risk for development of diabetes and that intervention by lifestyle modification may be beneficial. A HGBA1C level greater than or equal to 6.5% is considered diagnostic of diabetes, pending confirmatory testing. Use of HGBA1C testing to evaluate glucose control may not be appropriate for patients with hemoglobin variants or other conditions (e.g. anemia) that alter red blood cell lifespan. 03/26/2025 2:26 PM EDT us Jane Hastings MD POC TESTING Final Result [facility] POINT OF CARE [address] documented in this encounter Visit Diagnoses Diagnosis Autonomic dysfunction- Primary Unspecified disorder of autonomic nervous system Hyperglycemia Other abnormal glucose Malaise and fatigue Other malaise and fatigue Arthralgia, unspecified joint documented in this encounter Care Teams Fishing Tool Supervisor Relationship Specialty Start Date End Date Aleisha Brownlee MD [address] [place] [address] Referring Family Medicine 02/22/25 documented as of this encounter
--- OUTSIDE RECORDS SUMMARY | 2025-04-02 09:30 | XMS_ITS ---
Author Organization [facility] in [place] Address [address] [place] [address] Care Team Providers Care Linderman Machine Operator Name Role Phone Aleisha Brownlee Primary Care Provider UnavailKyra Garcia Unavailable [phone] REASON FOR VISIT MD Encounters Encounter Location Date Provider Diagnosis [facility] On[facility] [address] [place] [address] 04/02/2025 Kyra Rodrigues Plan Of Treatment Next Appt Details Provider Name:Marli Pascal, 04/24/2025 10:15:00 AM, [address] [place] [address], [phone], Progress Notes * CARLOS VILLAISABELINDOB: 4 (19 yo F)Acc No.[id number]:04/02/2025 UNLOCKED PROGRESS NOTE Progress Notes Patient: DEB SMITH Provider: Lizbeth Rodrigues M.D. :2005 A ge:19 Y S ex:Female Date:04/02/2025 Address:[address] [place], [place] [phone] Pcp:Aleisha Brownlee Subjective: * Chief Complaints: * 1 . MD. * Medical History: Objective: * Vitals: Assessment: Plan: * Treatment: * * Electronic signature of Leslie Rodrigues MD, [id number] on 04/03/2025 at 07:27 AM EDT Sign off status: Pending Visit Status: A [facility] (Voice) * Provider: Lizbeth Rodrigues M.D. Date: 0 04/02/2025 Generated for Jane yost/Hussein/Renetta on: 04/03/2025 07:27 AM EDT
--- OUTSIDE RECORDS SUMMARY | 2025-04-03 07:27 | XMS_ITS | Patient Health Record ---
Author Organization The [facility] in [place] Address [address] [place] [address] Care Team Providers Care Market Research Analyst Name Role Phone Aleisha Brownlee Primary Care Provider Kyra Salinas Unavailable [phone] Reason For Referral No Information Encounters Encounter Location Date Provider Diagnosis [facility] On[facility] [address] [place] [address] 01/22/2025 Kyra Rodrigues [facility] Oncology [address] [place] [address] 04/02/2025 Kyra Rodrigues Plan Of Treatment Next Appt Details Provider Name:Marli Pascal, 04/24/2025 10:15:00 AM, [address] [place] [address], [phone], Insurance Providers Payer Name Payer Address Payer Phone Subscriber Number Group Number Insured Name Patient Relationship to Insured Coverage Start Date Coverage End Date BCBS OUT OF STATE [address] [place] [address] [id number] [id number] WU Parent
--- OUTSIDE RECORDS SUMMARY | 2025-04-03 07:27 | XMS_ITS | Clinical Summary ---
Author Organization [facility] Address [address] [place] [address] Care Team Providers Care Senior Asic Engineer Name Role Phone Unavailable Primary Care Provider Unavailabl e Social History Tobacco Use Types Packs/Day Years Used Date Smoking Tobacco: Never Assessed Comments Unknown Sex and Gender Information Value Date Recorded Sex Assigned at Not on file Legal Sex Female 10:31 AM EST Gender Identity Not on file Sexual Orientation Not on file Plan of Treatment Not on file Insurance [employer]
--- OUTSIDE RECORDS SUMMARY | 2025-04-03 07:27 | XMS_ITS | Encounter Summary ---
Author Organization [facility] Address [address] [place] [address] Care Team Providers Care Scientific Research Associate Name Role Phone Unavailable Primary Care Provider Unavailabl e Encounter Details Date Type Department Care Team (Late st Contact Info) Description 03/09/2024 Abstract [facility] [address] [place] [id number] Shell Mcmahan LPN [address] [place] [address] [place] [address] Social History Tobacco Use Types Packs/Day Years Used Date Smoking Tobacco: Never Assessed Comments Unknown Sex and Gender Information Value Date Recorded Sex Assigned at Not on file Legal Sex Female 7:02 PM EDT Gender Identity Not on file Sexual Orientation Not on file documented as of this encounter Plan of Treatment Not on file documented as of this encounter Visit Diagnoses Not on filedocumented in this encounter
--- OUTSIDE RECORDS SUMMARY | 2025-04-03 07:27 | XMS_ITS | Encounter Summary ---
Author Organization [facility] Address [address] [place] [address] Care Team Providers Care Middle School History Teacher Name Role Phone Aleisha Brownlee MD Unavailable [phone] Source Comments In the event this information is protected by the Federal Confidentiality of Alcohol and Drug AbusePatient Records regulations: The Federal rules restrict any use of the information to criminally investigate or prosecute any alcohol or drug abuse patient.[facility] Encounter Details Date Type Department Care Team (Latest Contact Info) Description 03/26/2025 Travel Social History Tobacco Use Types Packs/Day Years Used Date Smoking Tobacco: Never Assessed Area Deprivation Index Answer Date Keon rded National Score (1-100), lower number is lower ri sk 59 03/26/2025 State Score (1-10), lower number is lower risk 4 03/26/2025 Data from: https://www.neighborhoodatlas.medicine.[facility].edu/. Last address used for calculation [address] [...] Diagnoses Not on filedocumented in this encounter Care Teams Middle School History Teacher Relationship Specialty Start Date End Date Aleisha Brownlee MD [address] [place] [address] Referring Family Medicine 02/22/25 documented as of this encounter
--- OUTSIDE RECORDS SUMMARY | 2025-04-03 07:27 | XMS_ITS | CCD ---
Author Organization [facility] Care Team Providers Care Kiln Maintenance Name Role Phone JUAN JOSE ACKERMAN Consulting [...] ACKERMAN Referring Unavailable Unavailable Primary Care Provider JUAN JOSE Louis Primary Care Physician Fredi BARLOW Attending Unavailable PIPE TRAVIS Attending Unavailable PIPE TRAVIS Referring Unavailable PIPE TRAVIS Referring Unavailable PIPE TRAVIS Attending Unavailable PIPE TRAVIS Attending Unavailable OMID HASTINGS Attending Unavailable JUAN JOSE ACKERMAN Referring Unavailable Allergies Allergy Classification Reported Allergen(s) Allergy Type Date of Onset Reaction(s) Facility (1 source) No Known Medication Allergies; Translations: [No Known Medication Allergies] Propensity to adverse reactions (disorder) [facility] Repository Medications Current Medications Medication Drug Class(es) Dates Sig (Normalized) Sig (Original) Blood-Glucose Meter,Continuous misc (1 source) Start: 01-21-2025 Blood-Glucose Meter,Continuous misc Active 0 .Route 1 January 21, 2025 12:00am As directed Blood-Glucose Sensor (Dexcom G7 Sensor) device (2 sources) Start: 01-25-2025 Blood-Glucose Sensor (Dexcom G7 Sensor) device Active 0 .Route 3 January 25, 2025 12:00am As directed Levonorgest-Eth.Es tradiol-Iron (5 sources) Progestin, Estrogen, Progestin-containin g Intrauterine Device [...] 12:00am midodrine hydrochloride 5 mg oral tablet (6 sources) alpha-Adrenergic Agonist Start: 03-01-2025 take 1 [...] 2024 12:00am ondansetron 4 mg oral tablet (5 sources) Serotonin-3 Receptor Antagonist Start: 04-06-2024 take 1 tablet by mouth every eight hours Ondansetron Hcl 4 mg tablet Active 4 MG PO Every 8 hours April 06, 2024 12:00am sertraline 25 mg oral tablet (20 sources) Serotonin Reuptake Inhibitor Start: 03-01-2025 take 1 tablet by mouth once daily sertraline 25 mg Tab 25 mg = 1 tab(s), Oral, Daily, Refills(s) 0 Start Date: 03/01/25 Status: Ordered Repeat number: 1 Start: 07-24-2024 End: 01-21-2025 take 1 tablet by mouth once daily Sertraline 25 mg tablet Discontinued 0 .ROUTE .COMPLEX 90 October 22, 2024 2:09pm January 21, 2025 9:28am TAKE 1 TABLET BY MOUTH EVERY DAY Start: 03-27-2024 End: 07-24-2024 take 1 tablet by mouth once daily Sertraline 25 mg tablet Discontinued 25 MG PO Daily 90 April 23, 2024 9:34am July 24, 2024 10:58am {21 (ethinyl estradiol 0.02 MG / levonorgestrel 0.1 MG Oral Tablet) / 7 (inert ingredients 1 MG Oral Tablet) } Pack [[place]airayeaux 28 Day] (1 source) Start: 03-01-2025 take 1 tablet by mouth once daily Joyeaux with iron 20 mcg-100 mcg oral tablet 1 tab(s), Oral, Daily, Refill(s) 0 Start Date: 03/01/25 Status: Ordered Repeat number: 1 Completed/Discontinued Medications Medication Drug Class(es) Dates Sig (Normalized) Sig (Original) Blood-Glucose,Rece iver,Cont (Dexcom G7 Pricing Clerk) misc (2 sources) Start: 01-25-2025 End: 02-19-2025 Blood-Glucose,Recei pavel,Cont (Dexcom G7 Pricing Clerk) misc Discontinued 0 .Route 1 January 25, 2025 12:00am February 19, 2025 9:22am As directed Blood-Glucose,Rece iver,Cont misc (2 sources) Start: 01-21-2025 End: 01-23-2025 Blood-Glucose,Recei pavel,Cont misc Discontinued 0 .Route 1 January 21, 2025 12:00am January 23, 2025 11:03am As directed ivabradine 5 mg oral tablet (4 sources) Hyperpolarization -activated Cyclic Nucleotide-gated Channel Hunter [...] AND PERINEAL PAIN] Onset: 02-07-2020 Anxiety disorders (4 sources) Anxiety; Translations: [Anxiety disorder, unspecified] 01-21-2025 Chronic Cardiac dysrhythmias (4 sources) Postural orthostatic tachycardia syndrome ; Translations: [Postural orthostatic tachycardia syndrome] 02-19-2025 Chronic Coagulation and hemorrhagic disorders (2 sources) Lupus anticoagulant syndrome; Translations: [Lupus anticoagulant syndrome] Onset: 01-24-2025 Chronic Deficiency and other anemia (4 sources) Anemia; Translations: [Anemia, unspecified] 12-25-2024 Episodic Deficiency and other anemia (4 sources) Anemia, unspecified; Translations: [Anemia, unspecified] 12-25-2024 Episodic Diabetes mellitus without complication (8 sources) Impaired fasting glucose; Translations: [Hyperglycemia] Onset: 12-12-2020 02-19-2025 Episodic Malaise and fatigue (10 sources) Fatigue; Translations: [Other fatigue] Onset: 03-26-2025 12-25-2024 Episodic Nervous system congenital anomalies (15 sources) Disorder of autonomic nervous system; 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]] Onset: 07-02-2024 04-13-2024 Chronic Other endocrine disorders (3 sources) Hypoglycemia; Translations: [Hypoglycemia, unspecified] 01-21-2025 Chronic Other endocrine disorders (4 sources) Hypoglycemia, unspecified; Translations: [Hypoglycemia, unspecified] 01-21-2025 Chronic Other lower respiratory disease (2 sources) Shortness of breath; Translations: [Shortness of breath] Onset: 03-06-2025 Episodic Other nervous system disorders (1 source) Disorder of the autonomic nervous system, unspecified; Translations: [Autonomic dysfunction] Onset: 03-26-2025 Chronic Other non-traumatic joint disorders (1 source) Pain in unspecified joint; Translations: [Arthralgia, unspecified joint] Onset: 03-26-2025 Episodic Other nutritional; endocrine; and metabolic disorders (1 source) Overweight 03-06-2025 Episodic Other nutritional; endocrine; and metabolic disorders (1 source) Overweight in adulthood with body mass index of 25 or more but less than 30 03-06-2025 Episodic Other screening for suspected conditions (not mental disorders or infectious disease) (3 sources) Coag./bleeding tests abnormal; Translations: [Abnormal coagulation profile] 01-11-2025 Episodic Other skin disorders (1 source) Mass of trunk; Translations: [Localized swelling, mass and lump, trunk] Onset: 03-06-2025 Episodic Other skin disorders (1 source) Mass of subcutaneous tissue of back 05-14-2025 Episodic Syncope (10 sources) Syncope and collapse; Translations: [Syncope] Onset: 12-16-2020 04-13-2024 Episodic Past or Other Problems Problem Classification Problem Date Documented Da te Episodic/Chronic Other circulatory disease (3 sources) Postural orthostatic tachycardia syndrome ; Translations: [Postural orthostatic tachycardia syndrome (POTS)] Onset: 11-16-2024 03-06-2025 Episodic Results Test Name Value Interpretation Reference [facility] (ENDOLN ) DAVION UMAÑA ([id number]) 3 F Date Time Provider Department 03/26/25 2:30 PM OMID HASTINGS ENDOLN During your visit today, we recorded the following information about you: Pulse Blood pressure Weight 80/minute 132/76 87.1 kg Omid Hastings MD 03/26/2025 3:14 PM Signed Omid Hastings MD 03/26/2025 3:14 PM Signed This note was created using NoteWriter. Subjective Davion Umaña is a 19 year old female present for hyperglycemia concerns HPI Hypoglycemic Episodes: - Diagnosed with POTS in 2020, with symptoms reportedly starting after a COVID-19 infection. - Previously managed with Midodrine 5 [...] and supplements, including vitamin B2, electrolytes, fish oil, vitamin C, biotin, vitamin D3, probiotic, magnesium, Claritin, [...] compression stockings; advised to continue. -follows at [facility] TFT and TPO ordered 2. Hyperglycemia (R73.9) - Noted fluctuations in blood glucose levels, with highs up to 198 mg/dL, particularly at night and during stress. - Discussed dietary modifications to stabilize blood glucose: recommended complex carbohydrates, protein-rich snacks, and avoiding simple sugars. -- Advised to maintain a food and glucose journal to identify patterns. - Ordered morning fasting insulin and glucose levels - check cortisol , ACTH - GENIE and islet antibodies ordered Referring Provider: JUAN JOSE ACKERMAN [[id number]] Allergies As of Date: 03/26/2025 (Not on File) Date Reviewed: Never Reviewed Reason for Visit: New Patient [172] Primary Visit Diagnosis:Autonomic dysfunction [G90.9] Other Visit Diagnoses:Hyperglycemia [R73.9] Malaise and fatigue [R53.81, R53.83] Arthralgia, unspecified joint [M25.50] Order(s):HEMOGLOBIN A1C (POC) [0182041] Order #: [id number]. #:[id number] -LAB CORTISOL, SERUM [SQCOR] Order #: [id number] FUTURE ACTH BLD [SQACTH] Order #: [id number] FUTURE DHEA-S BLD [SQDHEAS] Order #: [id number] FUTURE INSULIN, TOTAL, SERUM [SQINSULN] Order #: [id number] FUTURE GLUCOSE, FASTING [SQGLF] Order #: [id number] FUTURE ISLET CELL AB [SQISLET] Order #: [id number] FUTURE THYROID STIMULATING HORMONE [SQTSH] Order #: [id number] FUTURE T4 FREE/FREE THYROXINE [SQFT4] Order #: [id number] FUTURE THYROID PEROXIDASE ANTIBODY [SQMICRO] Order #: [id number] FUTURE GLUTAMIC AC DECARBOXYLASE AB [SQGADCAB] Order #: [id number] FUTURE Prescriptions as of 03/26/2025 - Bookigee G7 SENSOR jose as directed. - sertraline (ZOLOFT) 25 mg tablet Take 25 mg by mouth once daily. - JOYEAUX 0.1 mg-0.02 mg (21)/iron (7) tab take 1 tablet by mouth daily for 28 days Problem List As Of Date: 03/26/2025 (None) Level of Service: OFFICE/OUTPATIENT NEW MODERATE MDM (more content not included)... Normal [facility] Ambulatory Visit Summaryon 0 03-06-2025 Ambulatory Visit Summary Ambulatory Visit Summary TRAVIS UMAÑA :2005 Visit Date:03/06/2025 Ambulatory Visit Instructions Your Diagnosis Mass of subcutaneous tissue of back Your Care Team Attending Physician - CAIN PATRICK, Fredi Metcalf Primary Care Physician - JUAN JOSE ACKERMAN MD This Is Your Medications List Contact prescribing [...] for choosing us for your care. Normal [facility] BETA-2 GLYCOPROTEIN ANTIBODY IGG AND IGMon 01-24-2025 BETA 2 GLYCOPROTEIN 1 IGG AB (SGU) IN SERUM 1.0 SGU Normal <=19.9 [facility] Comment on above: Performed By: #### L [id number] ####[facility] ([facility])[address] [place] [address] BETA 2 GLYCOPROTEIN 1 IGM ANTIBODY (SMU) IN SERUM 12.1 SMU Normal <=19.9 [facility] Comment on above: Performed By: #### L [id number] ####[facility] ([facility])[address] [place] [address] CARDIOLIPIN ANTIBODY, IGG AN D IGMon 01-24-2025 ANTICARDIOLIPIN IGG ANTIBODY 6.0 GPL Normal <=22.9 [facility] Comment on above: Performed By: #### L [id number] ####[facility] ([facility])[address] [place] [address] ANTICARDIOLIPIN IGM ANTIBODY 11.0 MPL High <10.9 [facility] Comment on above: Performed By: #### L [id number] ####[facility] ([facility])[address] [place] [address] LUPUS ANTICOAGULANTon 2024 LUPUS ANTICOAGULANT Negative Normal Negative Unive [facility] Comment on above: Order Comment: Posit titus results should be repeated after 12 weeks to confirm persistence of LA. The presence of DOAC drugs such as apixaban or rivaroxaban, or Vitamin K antagonists, heparin, and acute phase proteins at time of sample collection may interfere with the validity of results. Performed By: #### L [id number] #### [facility] ([facility]) [address] [place] [address] Labon 01-24-2025 Lab [id number] Dell Umaña E 2005 F Date Provider Department Center 01/24/2025 2245-[facility] OPD LAB RESOURCE [facility]PD [place] Medical C Family History Problem Relation Age [...] Paternal Grandmother Other Alive Neg Hx Normal [facility] PHOSPHATIDYLSERINE ANTIBODIE Son 01-24-2025 PHOSPHATIDYLSERINE ANTIBODY IGG 0 GPS Normal 0-15 [facility] Comment on above: Result Comment: INTE RPRETIVE [...] phospholipid antibody tests. Performed By: #### L [id number] ####[facility] ([facility])[address] [place] [address] PHOSPHATIDYLSERINE ANTIBODY IGM 6 MPS Normal 0-21 [facility] Comment on above: Result Comment: INTE RPRETIVE [...] other criteria phospholipid antibody tests. Performed By: [facility] [address] [place] [address] Warehouse Director: Asa Tiwari MD, PhD CLIA Number: [id number] Performed By: #### L [id number] ####[facility] ([facility]AKER)[address] [place] [address] Telemedicineon 01-16-2025 Telemedicine [id number] Ronel Umañasánchez kin E 2005 F Date Provider Department Center 01/16/2025 PIPE VALLADARES [facility] [place] [facility] Family History Problem Relation [...] Grandmother Other Alive Neg Hx Level of Service:90224 DE OFFICE/OUTPATIENT ESTABLISHED LOW MDM 20 MIN Reason for Visit and Comments: Telehealth Audio/video Visit [871] Normal [facility] Estimated glomerular filtrat ion rate (GFR) non- Americanon 12-25-2024 GFR/1.73 sq M.predicted among non-blacks MDRD (S/P/Bld) [Vol rate/Area] Estimated glomerular filtration rate (GFR) non- >=60 mL/min/1.73 m 2 [facility] Laboratory - Chemistry and C hemistry - challengeon 12-25-2024 Calcium [Mass/Vol] 9.3 mg/dL 8.5-10.1 [facility] Chloride [Moles/Vol] 103 mmol/L 98-107 [facility] CO2 [Moles/Vol] 28.1 mmol/L 21.0-32.0 [facility] Cobalamin (Vitamin B12) [Mass/Vol] 340 pg/mL 232-1245 [facility] Comment on above: Performed at: [facility] [address] [id number] Director: Tristan Dean PhD, Phone: [phone] Creatinine [Mass/Vol] 0.77 mg/dL 0.55-1.02 [facility] Ferritin [Mass/Vol] 17.0 ng/mL 8.0-252.0 [facility] GFR/1.73 sq M.predicted MDRD (S/P/Bld) [Vol rate/Area] mL/min/{1.73_m2} >=60 mL/min/1.73 m 2 [facility] Glucose [Mass/Vol] 87 mg/dL 74-106 [facility] Potassium [Moles/Vol] 4.4 mmol/L 3.5-5.1 [facility] Sodium [Moles/Vol] 138 mmol/L 136-145 [facility] Urea nitrogen [Mass/Vol] 7.0 mg/dL 7.0-18.0 [facility] Urea nitrogen/Creatinine [Mass ratio] 9.1 mg/mg [facility] No Panel Informationon 12-25 Folate 17.50 ng/mL 8.60-58.90 [facility] Miscellaneous Test COMMENT . [facility] Comment on above: Test Ordered: [id number] Lupus Anticoag/Cardiolipin AbProthrombin Time 10.3 sec UY [...] years and older: 22.9 - 30.2APTT 1:1 IV TECHNICIAN sec UY Reference Range: .Testing Not IndicatedThis test was developed and its performance characteristicsdetermined by [facility] [facility]. It has not been cleared or approvedby the [place] Food and Drug Administration.APTT 1:1 Saline sec UY Reference Range: .Testing Not IndicatedThis test was developed and its performance characteristicsdetermined by [employer]. It has not been cleared or approvedby [...] REBECCA-based antiphospholipid antibodiesevaluated are normal. Please contact [facility] Coagulationif further clarification is needed.Performed at: [facility] [place] [address] [id number] Director: Nabil Corrales MD, Phone: [phone] at: [facility] [address] [id number] Director: Tristan Dean PhD, Phone: [phone] Monoscreen Negative NEGATIVE [facility] Serum or plasma anion gap de terminationon 12-25-2024 Anion gap [Moles/Vol] Serum or plasma anion gap determination [facility] Serum or plasma free cefurox yomi measurement (mass/volume)on 12-25-2024 Cefuroxime free [Mass/Vol] Serum or plasma free cefuroxime measurement (mass/volume) Negative [facility] Comment on above: Performed at: [facility] [address] [id number] Director: Tristan Dean PhD, Phone: [phone] Serum or plasma insulin marina urement (units/volume)on 12-25-2024 Insulin Qn Serum or plasma insu jaz measurement (units/volume) 2.6-24.9 [facility] Comment on above: Performed at: [facility] [address] [id number] Director: Tristan Dean PhD, Phone: [phone] ALL CBC WITH AUTO DIFFon BASOPHILS ABSOLUTE AUTO 0 [facility] Basophils/100 WBC (Bld) 0.5 % 0.2 - 2.0 % [facility] Eosinophils/100 WBC (Bld) 3.9 % 0.9 - 7.0 % [facility] Erythrocyte distribution width (RBC) [Ratio] 12.1 % 11.0 - 15.0 % [facility] Hematocrit (Bld) [Volume fraction] 42.4 % 36.0 - 48.0 % [facility] Hemoglobin (Bld) [Mass/Vol] 14.2 g/dL 12.0 - 16.0 g/dL [facility] IMMATURE GRANULOCYTES ABS AUTO 0.07 High [facility] Immature granulocytes/100 WBC (Bld) 0.9 % High 0.0 - 0.5 % [facility] Interpretation and review of laboratory results Abnormal [facility] LYMPHOCYTES ABSOLUTE AUTO 3.1 [facility] Lymphocytes/100 WBC (Bld) 38.6 % 20.5 - 60.0 % [facility] MCH (RBC) [Entitic mass] 29.7 pg 26.7 - 34.0 pg [facility] MCHC (RBC) [Mass/Vol] 33.5 g/dL 29.9 - 35.2 g/dL [facility] MCV (RBC) [Entitic vol] 88.7 fL 81.0 - 99.0 fL [facility] MONOCYTES ABSOLUTE AUTO 0.6 [facility] Monocytes/100 WBC (Bld) 7.4 % 1.7 - 12.0 % [facility] NEUTROPHILS ABSOLUTE AUTO 4 [facility] Neutrophils/100 WBC (Bld) 48.7 % 43.0 - 75.0 % [facility] Platelet mean volume (Bld) [Entitic vol] 11.5 fL 9.5 - 13.5 fL [facility] RBC 4.78 [facility] WBC 8.1 [facility] Basophils Auto (Bld) [#/Vol] on 12-08-2024 Basophils (Bld) [#/Vol] Automated basophil count 0.0-0.1 [facility] Basophils/100 WBC Auto (Bld) on 12-08-2024 Basophils/100 WBC (Bld) Automated basophil % 0.2-2.0 [facility] Eosinophils/100 WBC Auto (Bl d)on 12-08-2024 Eosinophils/100 WBC (Bld) Automated eosinophil % 0.9-7.0 [facility] Erythrocyte distribution wid th Auto (RBC) [Ratio]on 12-08-2024 Erythrocyte distribution width (RBC) [Ratio] Erythrocyte distribution width [Ratio] by Automated count 11.0-15.0 [facility] Glucose mean value [Mass/vol ume] in Blood Estimated from glycated hemoglobinon 12-08-2024 Average glucose Estimated from glycated hemoglobin (Bld) [Mass/Vol] Glucose mean value [Mass/volume] in Blood Estimated from glycated hemoglobin [facility] Hematocrit Auto (Bld) [Volum e fraction]on 12-08-2024 Hematocrit (Bld) [Volume fraction] Hematocrit [Volume Fraction] of Blood by Automated count 36.0-48.0 [facility] Hemoglobin A1c percentageon 12-08-2024 HbA1c (Bld) [Mass fraction] Hemoglobin A1c percentage 4.5-6.2 [facility] Comment on above: ADA RECOMMENDED LIMI T 4.0 - 6.0ADA THERAPEUTIC TARGET < 7.0ACTION SUGGESTED> 7.0 Hemoglobin [Mass/volume] in Bloodon 12-08-2024 Hemoglobin (Bld) [Mass/Vol] Hemoglobin [Mass/volume] in Blood 12.0-16.0 [facility] Laboratory - Chemistry and C hemistry - challengeon 12-08-2024 Calcium [Mass/Vol] 9.4 mg/dL 8.5-10.1 [facility] Chloride [Moles/Vol] 102 mmol/L 98-107 [facility] CO2 [Moles/Vol] 26.6 mmol/L 21.0-32.0 [facility] Free T4 [Mass/Vol] 0.95 ng/dL 0.76-1.46 [facility] Glucose [Mass/Vol] 90 mg/dL 74-106 [facility] Magnesium [Mass/Vol] 1.8 mg/dL 1.8-2.4 [facility] Potassium [Moles/Vol] 3.9 mmol/L 3.5-5.1 [facility] Sodium [Moles/Vol] 139 mmol/L 136-145 [facility] TSH Qn 1.090 m[IU]/L 0.358-3.740 [facility] Laboratory - Hematology and Cell countson 12-08-2024 Immature granulocytes/100 WBC (Bld) 0.9 % High 0.0-0.5 [facility] Leukocytes [#/volume] correc arnel for nucleated erythrocytes in Blood by Automated counon 12-08-2024 WBC corrected for nucl RBC Auto (Bld) [#/Vol] Leukocytes [#/volume] corrected for nucleated erythrocytes in Blood by Automated coun 4.0-11.0 [facility] Lymphocytes Auto (Bld) [#/Vo l]on 12-08-2024 Lymphocytes (Bld) [#/Vol] Lymphocytes [#/volume] in Blood by Automated count 1.2-3.8 [facility] Lymphocytes/100 WBC Auto (Bl d)on 12-08-2024 Lymphocytes/100 WBC (Bld) Lymphocytes/100 leukocytes in Blood by Automated count 20.5-60.0 [facility] MCH Auto (RBC) [Entitic mass ]on 12-08-2024 MCH (RBC) [Entitic mass] MCH [Entitic mass] by Automated count 26.7-34.0 [facility] MCHC Auto (RBC) [Mass/Vol]on 12-08-2024 MCHC (RBC) [Mass/Vol] MCHC [Mass/volume] by Automated count 29.9-35.2 [facility] MCV Auto (RBC) [Entitic vol] on 12-08-2024 MCV (RBC) [Entitic vol] MCV [Entitic volume] by Automated count 81.0-99.0 [facility] Monocytes Auto (Bld) [#/Vol] on 12-08-2024 Monocytes (Bld) [#/Vol] Automated blood monocyte count 0.3-0.8 [facility] Monocytes/100 WBC Auto (Bld) on 12-08-2024 Monocytes/100 WBC (Bld) Automated monocyte % 1.7-12.0 [facility] Neutrophils Auto (Bld) [#/Vo l]on 12-08-2024 Neutrophils (Bld) [#/Vol] Neutrophils [#/volume] in Blood by Automated count 1.4-6.5 [facility] Neutrophils/100 WBC Auto (Bl d)on 12-08-2024 Neutrophils/100 WBC (Bld) Automated neutrophil % 43.0-75.0 [facility] No Panel Informationon 12-08 Eosinophils # (Auto) 0.3 10 3/uL 0.0-0.7 [facility] Human Chorionic Gonadotropin, Quant <1 mIU/mL [facility] Comment on above: 5-50 0.2-1 AZXB75-94 0 1-2 TQXCC662-7,000 2-3 ROAGL928-36,000 3-4 WEEKS1,000-50,000 4-5 WEEKS10,000-100,000 5-6 WEEKS15,000-200,000 6-8 WEEKS10,000-100,000 2-3 MONTHS Immature Granulocyte # (Auto) 0.07 10 3/uL High 0.00-0.03 [facility] Platelet mean volume Auto (B ld) [Entitic vol]on 12-08-2024 Platelet mean volume (Bld) [Entitic vol] Platelet mean volume [Entitic volume] in Blood by Automated count 9.5-13.5 [facility] Platelets Auto (Bld) [#/Vol] on 12-08-2024 Platelets (Bld) [#/Vol] Platelets [#/volume] in Blood by Automated count 150-450 [facility] RBC Auto (Bld) [#/Vol]on RBC (Bld) [#/Vol] Erythrocytes [#/volu me] in Blood by Automated count 4.20-5.40 [facility] Patient Messageon 11-27-2024 Patient Message [id number] Dell Umaña kin E 2005 F Date Provider Department Center 11/27/2024 PIPE VALLADARES [facility] Family History Problem Relation Age of Onset No Known Problems Mother Hypertension Father No Known Problems Mother's Sister Hypertension Maternal Grandfather Heart attack Paternal Grandmother Arrhythmia Paternal Grandmother Stroke Paternal Grandmother 40 Autoimmune disease Neg Hx Sudden Neg Hx Aneurysm Neg Hx Family Status - Relation Status Age at Mother Father Mother's Sister Maternal Grandfather Paternal Grandmother Neg Hx Normal [facility] Telemedicineon 11-16-2024 Telemedicine [id number] Dell Umaña E 2005 F Date Provider Department Center 11/16/2024 PIPE VALLADARES [facility] Family History Problem Relation [...] Grandfather Paternal Grandmother Neg Hx Level of Service:79408 DE OFFICE/OUTPATIENT ESTABLISHED SF MDM 10 MIN Reason for Visit and Comments: Telehealth Audio/video Visit [871] [facility] 29on 07-02-2024 29 Addended by: PIPE TRAVIS on: 07/02/2024 11:16 AM Modules accepted: Orders [facility] Documentationon 07-02-2024 Documentation [id number] Dell Umaña E 2005 F Date Provider Department Center 07/02/2024 [facility] Spe Pha Comprehensiv Family History Problem [...] Comments: Specialty Pharmacy Note: ivabradine [Other] Normal [facility] Office Visiton 07-02-2024 Follow-up visit [id number] Dell Umaña E 2005 F Date Provider Department Center 07/02/2024 135-PIPE TRAVIS [facility] Family History Problem Relation [...] Grandfather Paternal Grandmother Neg Hx Level of Service:86360 DE OFFICE/OUTPATIENT NEW LOW MDM 30 MINUTES Reason for Visit and Comments: New Patient [632] - Patient in our office for Dysautonomia. Patient light headed, palpitations and edema when about to have episodes Normal [facility] Progress Noteon 11-25-2023 Customer Trainer Authentication Interface Message Text [facility] History of Present [...] changes in medications. Goes to school at [employer] and lives on campus. Is doing well [...] family. Social History: Freshman in college at [employer]. Studying education. Physical Exam: The Physical Exam is limited due to Telehealth General: Patient appears healthy, well developed, well nourished, non-toxic, and in no acute distress HEENT: atraumatic and normocephalic Chest: Respirations are easy, non-labored with symmetric chest rise. Skin: [place], without obvious rashes or lesions. Neuro: Awake [...] Total encounter time: 30 minutes Delores Mora, ASSEMBLER INSTALLER STRUCTURES-BALING MACHINE OPERATOR Pediatric Nurse Practitioner [facility] 11/25/2023 Normal [facility] Progress Noteon 09-23-2023 Customer Trainer Authentication Interface Message Text [facility] History of Present [...] month. Last episode September 10, at work ([email or web address]). 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 Passed out. LOC < 2 minutes. No head injury. -shortness of breath when she feels like she is going to pass out -sweating without fever -fatigue/ lack of sleep. (Feels her head spinning) No recent changes in medications. Goes to school at [employer] and lives on campus. Is doing well [...] Elastic Bandages & Supports (MEDICAL COMPRESSION STOCKINGS) [facility] Waist high compression stockings 20mmHg-30mmHg. To be [...] family. Social History: Freshman in college at [employer]. Physical Exam: 1. General: Alert, active, well [...] Total encounter time: 60 minutes Delores Mora, ASSEMBLER INSTALLER STRUCTURES-BALING MACHINE OPERATOR Pediatric N (more content not included)... Normal [facility] CBC AUTO DIFFon 12-12-2020 Basophils (Bld) [#/Vol] 0.0 103/ul Normal 0.0-0.1 [facility] Comment on above: Performed By: #### C BC #### [facility] [address] [place], [place] [id number] Steve Alyssia Basophils/100 WBC (Bld) 0.4 % Normal 0.2-2.0 [facility] Comment on above: Performed By: #### C BC #### [facility] [address] [place] [address] Steve Alyssia Eosinophils (Bld) [#/Vol] 0.1 103/ul Normal 0.0-0.7 [facility] Comment on above: Performed By: #### C BC #### [facility] [address] [place], [place] [id number] Steve Alyssia Eosinophils/100 WBC (Bld) 2.0 % Normal 0.9-7.0 [facility] Comment on above: Performed By: #### C BC #### [facility] [address] [place], [place] [id number] Steve Alyssia Erythrocyte distribution width (RBC) [Ratio] 14.6 % Normal 11.0-15.0 [facility] Comment on above: Performed By: #### C BC #### [facility] [address] [place], [place] [id number] Steve Alyssia Hematocrit (Bld) [Volume fraction] 36.7 % Normal 36.0-48.0 [facility] Comment on above: Performed By: #### C BC #### [facility] [address] [place], [place] [id number] Steve Alyssia Hemoglobin (Bld) [Mass/Vol] 11.5 g/dL Critically low 12.0-16.0 [facility] Comment on above: Performed By: #### C BC #### [facility] [address] [place], [place] [address] Steve Alysisa IG # 0.03 10e3/ul Normal 0.00-0.03 [facility] Comment on above: Performed By: #### C BC #### [facility] [address] [place], [place] [address] Steve Alyssia IG % 0.4 % Normal 0.0-0.5 [facility] Comment on above: Performed By: #### C BC #### [facility] [address] [place], [place] [id number] Steve Alyssia Lymphocytes (Bld) [#/Vol] 2.1 103/ul Normal 1.2-3.8 [facility] Comment on above: Performed By: #### C BC #### [facility] [address] [place] [address] Steve Alyssia Lymphocytes/100 WBC (Bld) 31.0 % Normal 20.5-60.0 [facility] Comment on above: Performed By: #### C BC #### [facility] [address] [place], [place] [id number] Steve Alyssia MANUAL DIFF REQ NO [facility] Comment on above: Performed By: #### C BC #### [facility] [address] [place], [place] [id number] Steve Alyssia MCH (RBC) [Entitic mass] 26.6 pg Critically low 26.7-34.0 [facility] Comment on above: Performed By: #### C BC #### [facility] [address] [place], [place] [id number] Steve Alyssia MCHC (RBC) [Mass/Vol] 31.3 g/dL Normal 29.9-35.2 [facility] Comment on above: Performed By: #### C BC #### [facility] [address] [place], [place] [id number] Steve Alyssia MCV (RBC) [Entitic vol] 85.0 fL Normal 79.1-95.6 [facility] Comment on above: Performed By: #### C BC #### [facility] [address], [place] [address] Steve Alyssia Monocytes (Bld) [#/Vol] 0.5 103/ul Normal 0.3-0.8 [facility] Comment on above: Performed By: #### C BC #### [facility] [address], [place] [address] Steve Alyssia Monocytes/100 WBC (Bld) 7.6 % Normal 1.7-12.0 [facility] Comment on above: Performed By: #### C BC #### [facility] [address], [place] [address] Steve Alyssia Neutrophils (Bld) [#/Vol] 4.0 103/ul Normal 1.4-6.5 [facility] Comment on above: Performed By: #### C BC #### [facility] [address], [place] [address] Steve Alyssia Neutrophils/100 WBC (Bld) 58.6 % Normal 43.0-75.0 [facility] Comment on above: Performed By: #### C BC #### [facility] [address], [place] [address] Steve Alyssia Platelet mean volume (Bld) [Entitic vol] 11.9 fL Normal 9.5-13.5 [facility] Comment on above: Performed By: #### C BC #### [facility] [address], [place] [address] Steve Alyssia Platelets (Bld) [#/Vol] 300 103/ul Normal 150-450 [facility] Comment on above: Performed By: #### C BC #### [facility] [address], [place] [address] Steve Alyssia RBC (Bld) [#/Vol] 4.32 106/ul Normal 3.40-5.30 [facility] Comment on above: Performed By: #### C BC #### [facility] [address], [place] [address] Steve Alyssia WBC (Bld) [#/Vol] 6.9 103/ul Normal 4.0-11.0 [facility] Comment on above: Performed By: #### C BC #### [facility] [address] [place], [place] [id number] Steve Alyssia GLYCOHEMOGLOBIN A1Con 2020 ADA RECOMMENDATION ADA THERAPEUTIC TARG ET 6.0 - 7.0 ACTION SUGGESTED > 7.0 Normal [facility] Comment on above: Performed By: #### A 1C #### [facility] [address] [place], [place] [id number] Steve Alyssia Glucose [Mass/Vol] 117 mg/dL Normal [facility] Comment on above: Performed By: #### A 1C #### [facility] [address] [place], [place] [id number] Steve Alyssia HbA1c (Bld) [Mass fraction] 5.7 % Normal <=6.0 [facility] Comment on above: Performed By: #### A 1C #### [facility] [address] [place] [address] Steverosy Guerraen PROF CHEM 8 (BAS METB)on Anion gap [Moles/Vol] 13.2 mmol/L Normal [facility] Comment on above: Performed By: #### T DARRYL, BMP #### [facility] [address] [place] [address] Steve Alyssia Calcium [Mass/Vol] 9.0 mg/dL Normal 8.4-10.2 [facility] Comment on above: Performed By: #### T DARRYL, BMP #### [facility] [address] [place] [address] Steve Alyssia Chloride [Moles/Vol] 102 mmol/L Normal 98-107 [facility] Comment on above: Performed By: #### T DARRYL, BMP #### [facility] [address] [place], [place] [address] Steve Alyssia CO2 [Moles/Vol] 28.1 mmol/L Normal 22.0-30.[address] [facility] Comment on above: Performed By: #### T DARRYL, BMP #### [facility] [address] [place], [place] [address] Steve Alyssia Creatinine [Mass/Vol] 0.70 mg/dL Normal 0.52-1.04 [facility] Comment on above: Performed By: #### T DARRYL, BMP #### [facility] [address] [address] Steve Alyssia Glucose [Mass/Vol] 89 mg/dL Normal 74-106 [facility] Comment on above: Performed By: #### T DARRYL, BMP #### [facility] [address] [address] Steve Alyssia Potassium [Moles/Vol] 4.3 mmol/L Normal 3.4-5.0 [facility] Comment on above: Performed By: #### T DARRYL, BMP #### [facility] [address] [place] [address] Steve Alyssia Sodium [Moles/Vol] 139 mmol/L Normal 137-145 [facility] Comment on above: Performed By: #### Jeremy ANDREWS, BMP #### [facility] [address] [address] Steve Alyssia Urea nitrogen [Mass/Vol] 12.0 mg/dL Normal 6.4-19.3 [facility] Comment on above: Performed By: #### Jeremy ANDREWS, BMP #### [facility] [address] [place] [address] Steve Alyssia Urea nitrogen/Creatinine [Mass ratio] 17.1 mg/mg Normal [facility] Comment on above: Performed By: #### Jeremy ANDREWS, BMP #### [facility] [address] [place] [address] Steve Alyssia TSHon 12-12-2020 TSH Qn 0.468 uIU/mL Normal 0.430-3.750 [facility] Comment on above: Performed By: #### Jeremy ANDREWS, BMP #### [facility] [address] [place] [address] Steve Alyssia TSH Qn SEE BELOW Normal [facility] Comment on above: Result Comment: <0.3 4 UIU/ml HYPERTHYROID 0.34-5.60 UIU/ml EUTHYROID >5.60 UIU/ml HYPOTHYROID Performed By: #### T , [facility] #### [facility] [address] [place] [address] Steve Cade US PELVISon 02-07-2020 US PELVIS [...] WOODROW VASQUEZ Date: 2020-02-07 10:08 Normal [facility] Vital Signs Date Time Vital Sign Value Performing Clinician Rowena singh 03-06-2025 15:01-0400 Blood Pressure Location [email or web address] [facility] [place] 03-06-2025 15:01-0400 Diastolic blood pressure 76 mm[Hg] Fredi STUARTL [facility] [place] 03-06-2025 15:01-0400 Heart rate 72 /min Fredi STUARTL [facility] [place] 03-06-2025 15:01-0400 Respiratory rate 16 /min Fredi STUARTL [facility] [place] 03-06-2025 15:01-0400 Systolic blood pressure 126 mm[Hg] Fredi STUARTL [facility] [place] 02-19-2025 09:05-0400 Body height 175.26 cm [facility] 02-19-2025 09:05-0400 Body mass index (BMI) [Ratio] 27.8 kg/m2 [facility] 02-19-2025 09:05-0400 Body weight 85.72 kg [facility] 02-19-2025 09:05-0400 Diastolic blood pressure 81 mm[Hg] [facility] 02-19-2025 09:05-0400 Heart rate 73 /min [facility] 02-19-2025 09:05-0400 Systolic blood pressure 126 mm[Hg] [facility] 01-21-2025 09:06-0400 Body height 175.26 cm [facility] 01-21-2025 09:06-0400 Body mass index (BMI) [Ratio] 27.3 kg/m2 [facility] 01-21-2025 09:06-0400 Body weight 83.91 kg [facility] 01-21-2025 09:06-0400 Diastolic blood pressure 81 mm[Hg] [facility] 01-21-2025 09:06-0400 Heart rate 81 /min [facility] 01-21-2025 09:06-0400 Systolic blood pressure 123 mm[Hg] [facility] 12-25-2024 09:02-0500 Body height 175.26 cm [facility] 12-25-2024 09:02-0500 Body mass index (BMI) [Ratio] 26.7 kg/m2 [facility] 12-25-2024 09:02-0500 Body weight 82.1 kg [facility] 12-25-2024 09:02-0500 Diastolic blood pressure 79 mm[Hg] [facility] 12-25-2024 09:02-0500 Heart rate 79 /min [facility] 12-25-2024 09:02-0500 Systolic blood pressure 118 mm[Hg] [facility] 04-06-2024 10:15-0400 Body height 175.26 cm [facility] 04-06-2024 10:15-0400 Body mass index (BMI) [Percentile] Per age and sex 76.3 % [facility] 04-06-2024 10:15-0400 Body mass index (BMI) [Ratio] 24.5 kg/m2 [facility] 04-06-2024 10:15-0400 Body weight 75.46 kg [facility] 04-06-2024 10:15-0400 Diastolic blood pressure 79 mm[Hg] [facility] 04-06-2024 10:15-0400 Heart rate 70 /min [facility] 04-06-2024 10:15-0400 Systolic blood pressure 115 mm[Hg] [facility] Encounters Encounter Date Encounter Type Care Provider Facility Start: 03-26-2025 End: 03-26-2025 ambulatory OMID HASTINGS Facility:[facility] Start: 03-20-2025 End: 03-20-2025 ambulatory [facility] Work Phone: Start: 03-20-2025 End: 03-20-2025 Patient encounter procedure [facility] Work Phone: Start: 03-06-2025 End: 03-06-2025 ambulatory Fredi STUARTL Facility:[facility] Start: 03-06-2025 End: 03-06-2025 Patient encounter procedure Fredi STUARTL [facility] Start: 03-06-2025 End: 03-06-2025 ambulatory PIPE TRAVIS [facility] Start: 03-04-2025 ambulatory Fredi STUARTL Facility:[facility] Start: 02-19-2025 End: 02-19-2025 ambulatory [facility] Work Phone: Start: 02-19-2025 End: 02-19-2025 [facility]: Start: 01-24-2025 ambulatory PIPE TRAVIS [facility] Start: 01-21-2025 End: 01-21-2025 ambulatory [facility] Work Phone: Start: 01-21-2025 End: 01-21-2025 Patient encounter procedure [facility] Work Phone: Start: 01-16-2025 Non-patient / Non-visit [facility] Work Phone: Start: 01-16-2025 End: 01-16-2025 ambulatory [facility] Start: 12-25-2024 End: 12-25-2024 ambulatory [facility] Work Phone: Start: 12-25-2024 End: 12-25-2024 Patient encounter procedure [facility] Work Phone: Start: 12-08-2024 End: 12-08-2024 Clinisync Result Encounter Papito Kayla DO Work Phone: [facility] External Department Unsolicited Start: 12-08-2024 End: 12-08-2024 Clinisync Result Encounter Papito Kayla DO Work Phone: [facility] External Department Unsolicited Start: 12-08-2024 Non-patient / Non-visit [facility] Work Phone: Start: 11-16-2024 End: 11-16-2024 ambulatory [facility] Start: 07-02-2024 End: 07-02-2024 ambulatory [facility] Start: 07-02-2024 ambulatory [facility] Start: 04-06-2024 End: 04-06-2024 ambulatory [facility] Work Phone: Start: 04-06-2024 End: 04-06-2024 Patient encounter procedure [facility] Work Phone: Start: 03-27-2024 Non-patient / Non-visit [facility] Work Phone: Start: 11-25-2023 End: 11-25-2023 ambulatory DELORES MORA [facility] Start: 09-23-2023 End: 09-23-2023 ambulatory DELORES MORA [facility] Start: 12-19-2020 End: 12-20-2020 Patient encounter procedure JUAN JOSE Tricia TYRON Facility:[facility] Start: 12-12-2020 End: 12-13-2020 Patient encounter procedure JUAN JOSE E TYRON Facility:[facility] Start: 02-07-2020 End: 02-08-2020 Patient encounter procedure PAPITO GARZA Facility:[facility] Procedures Date Procedure Procedure Detail Performing Clinician Start: 12-08-2024 ALL CBC WITH AUTO DIFF Papito Garza DO Work Phone: Tonsillectomy and adenoidectomy Fredi STUARTArthur Plan of Treatment Date Care Activity Detail Author Start: 02-19-2025 Patient referral [facility] Work Phone: Cefuroxime free [Mas s/volume] in Serum or Plasma [facility] Insulin [Units/volum e] in Serum or Plasma [facility] Patient referral [facility] Work Phone: [facility] Immunizations Immunization Date Immunization Notes Care Provider Fa edda 06-07-2022 meningococcal oligosaccharide (groups A, C, Y and W-135) diphtheria toxoid conjugate vaccine (MCV4O) [facility] 06-06-2017 meningococcal oligosaccharide (groups A, C, Y and W-135) diphtheria toxoid conjugate vaccine (MCV4O) [facility] 02-09-2017 diphtheria, tetanus toxoids and acellular pertussis vaccine, unspecified formulation [facility] Payers Date Payer Category Payer Unknown [id number] 2022 Unknown [id number] 2019 Unknown [id number] 2004 Unknown [id number] 2.16. [id number] 2004 Unknown [id number] 2.16. [id number] 2004 Unknown [id number] [id number] 1973 Unknown [id number] [id number] [id number] 1973 Unknown [id number] [id number] [id number] 1973 Unknown [id number] [id number] [id number] Social History Date Type Detail Facility Start: 04-06-2024 End: 02-11-2025 Tobacco smoking status CAIS Never smoked tobacco (finding) [facility] Start: 2005 Sex Assigned At F [facility] Tobacco smoking stat us CAIS Tobacco smoking consumption unknown [facility] Start: 2004 Sex assigned at Not on file N [facility] Start: 12-25-2024 End: 03-20-2025 Sex Female (finding) [facility] Start: 2005 Sex Assigned At Female F [facility] Tobacco smoking status Never [facility] [place] Sexual Orientation [facility] [place] Functional Status Date Assessment Result Facility 03-06-2025 Functional Status N/A [facility] [place] Clinical Notes 07-02-2024 to 03-26-2025 Note Date & Type Note Facility 03-26-2025 Note HNO ID: [id number] Author: OMID HASTINGS MD Service: ? Author Type: Physician Type: Progress Notes Filed: 03/26/2025 15:14 Note Text: This note was created using YES.TAPriter. Hortensia Umaña is a 19 year old female present for hyperglycemia concerns HPI Hypoglycemic Episodes: - Diagnosed with POTS in 2020, with symptoms reportedly starting after a COVID-19 infection. - Previously managed with Midodrine 5 [...] and supplements, including vitamin B2, electrolytes, fish oil, vitamin C, biotin, vitamin D3, probiotic, magnesium, Claritin, [...] compression stockings; advised to continue. -follows at [facility] TFT and TPO ordered 2. Hyperglycemia (R73.9) - Noted fluctuations in blood glucose levels, with highs up to 198 mg/dL, particularly at night and during stress. - Discussed dietary modifications to stabilize blood glucose: recommended complex carbohydrates, protein-rich snacks, and avoiding simple sugars. -- Advised to maintain a food and glucose journal to identify patterns. - Ordered morning fasting insulin and glucose levels - check cortisol , ACTH - GENIE and islet antibodies ordered [facility] 03-26-2025 Note HNO ID: [id number] Author: OMID HASTINGS MD Service: ? Author Type: Physician Type: Progress Notes Filed: 03/26/2025 15:14 Note Text: [facility] 03-06-2025 Note General Surgery Offi ce/Clinic Note [...] Tobacco Use:., 03/06/2025 Family History Hypertension: Father. 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 She had commenced ivabradine and a marked [...] . PCP visit on Tuesday and the recording clerk (January 29, 2025). SRIKANTH negative. Possible drug [...] Telehealth Visit: 01/16/2025 The visit was conducted [id number] with the use of audio and video technology using HIPAA approved Int[employer] between patient and the provider for a [...] the time her symptoms started. Follow with recording clerk. Dr. Rodrigues, January, She will call recording clerk to determine if any monitoring for now. SOB. Will order echocardiogram to r/o pericarditis. 2. Syncope and collapse Chronic. Unstable. Possible underlying illness. Rtc one month Pipe Travis APRN PhD [facility] Nurse Practitioner Division of Cardiovascular Medicine [facility]. ' [facility] 12-25-2024 Evaluation note Diagnosis Onset Date Resolution Anemia acute December 25 8:54am Dysautonomia acute December 25 8:54am Fatigue acute December 25 8:54am Dysautonomia acute January 21, 2025 9:06am Hypoglycemia acute January 21, 2025 9:06am Syncopal episodes acute December 242024 9:06am [facility] Work Phone: 1([phone]) 650-587803-04-2025 Evaluation note* Diagnosis Onset Date Resolution Status Admit Date Anemia acute December 25 8:54am Dysautonomia acute December 25 025 8:54am Fatigue acute December 25 8:54am Anxiety acute January 21 9:06am Dysautonomia acute January 21, 2025 9:06am Hypoglycemia acute January 21, 2025 9:06am Syncopal episodes acute December 242024 9:06am Dysautonomia acute February 19, 2025 8:56am POTS (postural orthostatic tachycardia syndrome) acute January 8:56am [facility] Work Phone: 1(342) 624-128103-04-2025 Evaluation note* Diagnosis Onset Date Resolution Status Admit Date Anemia acute December 25 8:54am Dysautonomia acute December 25 025 8:54am Fatigue acute December 25 8:54am Anxiety acute January 21 9:06am Dysautonomia acute January 21, 2025 9:06am Hypoglycemia acute January 21, 2025 9:06am Syncopal episodes acute December 242024 9:06am Dysautonomia acute February 19, 2025 8:56am Hyperglycemia acute February 19, 2025 8:56am POTS (postural orthostatic tachycardia syndrome) acute January 8:56am Hyperglycemia acute March 20, 2 025 12:49pm Hypoglycemia acute March 20 12:49pm [facility] Work Phone: 1(187) 610-783701-24-2025 Vickie Umaña is a pleasant 19 year old female 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 I copied and pasted my last visit with patient several months ago: Mother, who attends the visit reports Davion a C section . No delays, met all milestones. No childhood seizures, syncope. Good exercise tolerance. Travel softball.No migraines, asthma. Menses age 13. No PCOS no endometriosis. HPI: September 2019, very ill with Covid suspected illness. Cough caused severe rib subluxation. Viral pneumonia . Then developed lightheaded, short of breath. Trying out for softball, exercise intolerance, near syncope. Diagnostic evaluation: Osman Browning: backside grinder: no evaluation. Then referred to [facility]ope [facility]. Echocardiogram, EKG reported normal. No tilt. Treated based on symptoms. Fludrocortisone: not effective Midodrine: headaches (continues the medication). Helped initially with syncope. Improved. Chief Complaint: Telemedicine visit. Patient located in [place], [place]. Telemed follow up for ivabradine. Added last visit. Alisson has worked wonders . Only 4 episodes of syncope since June. Previous multiple times weekly. No side effects. Four episodes from stress, menses . LOC brief. No trauma. Last episode mid September 2025. [facility]ly [employer]. Attends all classes. Secondary Education Major, [...] Telehealth Visit: 11/16/2024 The visit was conducted [id number] with the use of audio and video technology using HIPAA approved [employer] WebEX between patient and the provider for [...] Clinic Nurse Practitioner Division of Cardiovascular Medicine [facility] 07-02-2024 Umair received a new ivabradine prescription for this patient and it is requiring a prior authorization. Carley Kent CPhT [facility] 07/02/24 12:55 PM[facility]09[facility]24 Umair received a copy of the letter that was sent to Pipe Travis in the mail from the clinic. I wanted to attach it to the patient's note for record keeping purposes. Angela Armenta, Kathi, BCACP, [facility] 11/08/24 11:11 AM [facility] [id number] [facility] Hospital09-09-2024 NotePA initiated via CM. Called and spoke with pt. She is aware of PA process, will wait for updates from us. F/U upon determination. Parrish Calvin [facility] [id number] 07/02/24 at 3:15 PM[facility]09[facility]2024 Note Attestation signed by Tish Killian PharmD, JENNIFER at 07/05/2024 1:28 PM Tsih Killian PharmD, JENNIFER 07/05/24 1:28 PM [facility] [phone] Checked on PA status, no response as of yet. Follow up early next week. BENITEZ Wesley PharmRuddy Candidate 202407/05/24 10:51 AM [facility] [phone] Memorial Hospital09-09-2024 Oleg called [facility] and was told our external review had been denied. I requested that they fax us the determination, but was told they can't because a separate company handled it. The event representative did read me the denial letter and the next step would be a lawsuit, which we do not handle. I contacted the patient and provided her an update. I advised that she reach out to the office to discuss obtaining the medication from [facility]la. Carley Kent, [facility] 11/01/24 3:38 PM[facility]09-09-2024 NoteMom called to verify we had received the form. I told her we hadn't and gave her our fax and email. I told her to call to make sure they were received. Tish Killian PharmD, ARJUNCP 09/10/24 4:25 PM [facility] [phone] [facility] Hospital09-09-2024 NoteI called the patient and left her the final message, we will no longer follow-up. Jenifer Farrell, [facility] 09/07/24 9:39 [facility]09-09-2024 NoteLM for mom to make sure she received our email with the consent forms. Asked she let us know if she didn't receive. Tish Killian PharmD, ARJUNCP 07/30/24 2:47 PM [facility] [phone] Memorial Hospital09-09-2024 NoteConsent forms emailed to mom @ [email or web address] Fani Arroyo PharmD Outpatient Clinical Pharmacist [facility] [phone] 07/26/24 4:27 PM[facility]09-09-2024 NoteMom called back- she would like to pursue 2nd level appeal. We will email consent forms to [email or web address]. Once signed and returned, we can submit 2nd level appeal. Fani Arroyo PharmD Outpatient Clinical Pharmacist [facility] [phone] 07/26/24 4:05 PM[facility]09-09-2024 NoteThe appeal has been faxed to [employer] We will continue to follow up for a determination. Also faxed with the appeal was the clinic note and Corlanor studies. I have the signatures saved in my email just in case insurance says they don't receive them and the one's scanned in are illegible.[facility] 07-02-2024 NoteThe prior authorization for the ivabradine has been denied. We do have an option to appeal, but the patient will need to sign an Authorized Supervisor [employer] Form before we can proceed. I have emailed the forms to the patient. The appeal letter has been written and is saved in the appeals folder. We will submit the appeal once we receive the signed forms back from the patient. Carley Kent [facility] 07/11/24 10:58 [facility]09-09-2024 NoteI contacted the insurance company at to verify if our external review was received. I was told our external review has been received and a determination will be made by 10/26/2024. Carley Kent [facility] 09/18/24 3:17 PM[facility]09-09-2024 NoteReceived needed documents. Faxed to external review. Follow-up to make sure they received and for determination. Tish Killian, TrevorD, BCACP 09/11/24 4:27 PM [facility] [phone] Memorial Hospital09-09-2024 NoteLVM to make sure patient received the e-mail with the form she needed to sign to proceed with external review, or if she had any issues getting it back to us. Follow up later in week. Cuco Livingston [facility] 08/21/24 11:05 [facility]09-09-2024 NoteSecond level appeal for ivabradine has been denied due to not medically necessary, pt does not have heart failure (HFrEF). Case ID/Authorization Number:[id number] Filling out attached external review form, will need 3 pt signatures. Called pt, emailing form to pt at [email or web address]. Insurance company info: Fax [phone] F/U upon signed external review form, fax form with updated appeal packet in media tab, clinic notes, and Corlan[employer] literature. Parrish Calvin, [facility] [id number] 08/17/24 at 9:22 [facility]09-09-2024 NoteCalled [employer] and they stated that the appeal was received and has a determination date of 08/17. Follow up then for determination. Cuco Livingston, [facility] 08/07/24 1:10 PM[facility]09-09-2024 NoteReceived representation forms for appeal. Scanning in faxes for que. Venu Kothari , [facility] 07/31/24 2:21 PM[facility]09-09-2024 NotePrior Authorization for [employer] Appeal has been denied. Case ID/Authorization Number:[id number] Called patient and LVM we will need signatures on representation forms in order to appeal any further if patient wants to pursue 2nd level appeal. Scanned in full denial and scanned appeal forms seperately as well. Venu Kothari , [facility] 07/26/24 1:40 PM[facility]09-09-2024 NoteInsurance received the appeal. F/U in 15 business days per document. Kanwal Morales PharmD, [facility] Outpatient Clinical Pharmacist [place] [facility] [id number] 07/13/24 8:29 [facility]09-09-2024 NoteI contacted the insurance company at to check status. I was told a determination will be made by 10/26/2024. Saige Santizo PharmD, [facility] Outpatient Clinical Pharmacist [place] [facility] [id number] 10/02/24 4:06 [facility]09-09-2024 NoteI tried reaching the patient again to verify if she received the external review forms that we emailed her - no answer, LVMTCB. Carley Kent, [facility] 08/24/24 2:57 PM[facility]09-09-2024 NoteWe received a fax stating that [employer] has a received our appeal and it can take up to 15 days. Jenifer Farrell, [facility] 08/02/24 2:35 PM[facility]09-09-2024 NoteSubmitted second level appeal to insurance with signed representation forms awaiting determination. LVM saying we are awaiting the determination and will call when we hear from insurance. 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 Mother, [...] intolerance, near syncope. Diagnostic evaluation: Osman Browning: backside grinder: no evaluation. Then referred to [facility]ope Clinic. [...] syndrome POTS/ orthostatic intolerance OI) which developed [id number] infection. We postulate that these patients possess [...] compression (waist high compressi (more content not included)...[facility] Evaluation + Plan note No data available for this section [facility] [place] Evaluation noteNo assessment information available [facility] Work Phone: Evaluation note* Diagnosis Onset Date Resolution Status Admit Date Anemia acute December 25 8:54am Dysautonomia acute December 25 025 8:54am Fatigue acute December 25 8:54am [facility] Work Phone: Hospital Discharge instructionsAmbulatory Orders* Referral to Cardiology Location: None Selected * Referral to Cardiology Location: None Selected [facility] Work Phone: Hospital Discharge instructions No data available for this section [facility] [place] Progress note No data available for this section [facility] [place] Summary Purpose Family History No Family History [...] Date/ Time Advance Directives No November 1:22pm Advance Directive Response Recorded Date/ Time [...] tachycardia s yndrome) February 19, 2025 8:56am Reason for Visit Admit Date Anemia December 25, 2024 8:54 am Dysautonomia December 25, 2024 8:54 am Fatigue December 25, 2024 8:54 am Anxiety January 21, 2025 9:0 6am Dysautonomia January 21, 2025 9:0 6am Hypoglycemia January 21, 2025 9:0 6am Syncopal episodes January 21, 2025 9:0 6am Dysautonomia February 19, 2025 8:5 6am Hyperglycemia February 19, 2025 8:5 6am POTS (postural orthostatic tachycardia s yndrome) February 19, 2025 8:56am Hyperglycemia March 20, 2025 12:49 pm Hypoglycemia March 20, 2025 12:49 pm Additional Source Comments INFORMATION SOURCE (unrecogn ized section and content) DATE CREATED AUTHOR 12/20/2020 [facility] DATE CREATED AUTHOR AUTHOR'S ORGANIZ ATION 11/28/2023 [facility] DATE CREATED AUTHOR AUTHOR'S ORGANIZ ATION 03/08/2025 Osman Browning [facility] DATE CREATED AUTHOR AUTHOR'S ORGANIZ ATION 03/10/2025 [facility] DATE CREATED AUTHOR AUTHOR'S ORGANIZ ATION 03/27/2025 [facility] Care Teams (unrecognized sec tion and content) Team Status: Active Member Role Status Dates Juan Jose Ackerman MD Primary Care Provider Active Team Status: Inactive Member Role Status Dates [...] February 19, 2025 End: February 19, 2025 Team Status: Inactive Member Role Status Dates Juan Jose Ackerman MD Primary Care Provider Active Start: March 20, 2025 End: March 20, 2025 Vaughn Warren RN Attending Provider Active St art: March 20, 2025 End: March 20, 2025 Team Status: Active Member Role Status Dates [...] Provider Active Start : December 08, 2024 Goals (unrecognized section and content) Goals may be documented in a n alternate sectionGoals may be documented in an alternate sectionGoals may be documented in an alternate sectionGoals may be documented in an alternate section No data available for this sectionGoals may be documented in an alternate [...] BE BASED ON THE PRIMARY CLINICAL RECORDS. [facility]. provides no warranty or guarantee of the accuracy or completeness of information in this document.
--- OUTSIDE RECORDS SUMMARY | 2025-04-03 07:27 | XMS_ITS | Clinical Summary ---
Author Organization [facility] Address [address] [place] [id number] Care Team Providers Care State'S Attorney Name Role Phone Aleisha Brownlee MD Unavailable [phone] Medications DEXCOM G7 SENSOR jose as directed. 03/11/2025 Active sertraline (ZOLOFT) 25 mg tablet Take 25 mg by mouth once daily. Active JOYEAUX 0.1 mg-0.02 mg (21)/iron (7) tab take 1 tablet by mouth daily for 28 days Active Encounters Date Type Department Care Team Description 03/26/2025 2:30 PM EDT Office Visit Endocrinology [address] [phone] Jane Hastings MD Autonomic dysfunction (Primary Dx); Hyperglycemia; Malaise and fatigue; Arthralgia, unspecified joint 03/26/2025 Travel from Last 3 Months Social History Tobacco Use Types Packs/Day Years Used Date Smoking Tobacco: Never Assessed Area Deprivation Index Answer Date Keon rded National Score (1-100), lower number is lower ri sk 59 03/26/2025 State Score (1-10), lower number is lower risk 4 03/26/2025 Data from: https://www.neighborhoodatlas.medicine.[facility].edu/. Last address used for calculation [address] [address] 03/26/2025 Comments Unknown Sex and Gender Information Value Date Recorded Sex Assigned at Not on file Legal Sex Female 10:10 AM EDT Gender Identity Not on file Sexual Orientation Not on file Last Filed Vital Signs Vital Sign Reading Time Taken Comments Blood Pressure 132/76 03/26/2025 2:16 PM EDT Pulse 80 03/26/2025 2:16 PM EDT Temperature - - Respiratory Rate - - Oxygen Saturation - - Inhaled Oxygen Concentration - - Weight 87.1 kg (192 lb 0.3 oz) 03/26/2025 2:16 P M EDT Height - - Body Mass Index - - Plan of Treatment Health Maintenance Due Date Last Done Comments Peds To Adult Transition Initial Discussion 2016 Peds To Adult Transition Annual Assessment 2018 HPV Vaccine (1 - 3-dose series) 2019 Meningococcal B Vaccine (1 of 2 - Standard) 2020 Anxiety Screening 2022 Chlamydia Screening (18-24) 2022 Depression Screening 2022 GC (Gonorrhea) Screening (18-24) 2022 HIV Screening 2022 Hepatitis C Screening 2022 DTaP,Tdap,Td Vaccine (1 - Tdap) 2023 Hepatitis B Vaccine (1 of 3 - 19+ 3-dose series) 10/07 Covid-19 Vaccine ( - season) 2024 Influenza Vaccine (Season Ended) 2025 Procedures Procedure Name Priority Date/Time Associated Diagnosis Comments HEMOGLOBIN A1C (POC) Routine 03/26/2025 2:26 PM EDT Autonomic dysfunction Hyperglycemia from Last 3 Months Results * HEMOGLOBIN A1C (POC) (03/26/2025 2:26 PM EDT) Hemoglobin A1C (POCT) 5.4 4.3 - 5.6 % [facility] Comment: Location:[facility], [address] [place] [address], [facility] Point of care (POC) Hemoglobin A1c (HGBA1C) [...] specific diabetes management situations: The POC device ward nurse provides a normal range of 4.2% to 6.5% for the HGBA1C POC test. However, the [place] [employer] guidelines indicate that patients with [...] Jane Hastings MD POC TESTING Final Result [facility] POINT OF CARE [facility] [address] [place], [place] from Last 3 Months Insurance [id number] PPO Care Teams State'S Attorney Relationship Specialty Start Date End Date Aleisha Brownlee MD [address] [place] [address] Referring Family Medicine 02/22/25
--- OUTSIDE RECORDS SUMMARY | 2025-04-03 07:27 | XMS_ITS | Clinical Summary ---
Author Organization [facility] Address [address] [place] [address] Care Team Providers Care Machine Zipper Trimmer Name Role Phone Unavailable Primary Care Provider Unavailabl e Encounters Date Type Department Care Team Description 01/18/2025 Refill [facility] [address] [place] [phone] Papito Garza, Encounter for surveillance of contraceptive pills from Last 3 Months Social History Tobacco Use Types Packs/Day Years Used Date Smoking Tobacco: Never Assessed Comments Unknown Sex and Gender Information Value Date Recorded Sex Assigned at Not on file Legal Sex Female 7:02 PM EDT Gender Identity Not on file Sexual Orientation Not on file Plan of Treatment Not on file
--- OUTSIDE RECORDS SUMMARY | 2025-04-03 07:27 | XMS_ITS | Encounter Summary ---
Author Organization [facility] Address [address] [place] [address] Care Team Providers Care Warning Coordination Meteorologist Name Role Phone Unavailable Primary Care Provider Unavailabl e Encounter Details Date Type Department Care Team (Late st Contact Info) Description 03/09/2024 Abstract [facility] [address] [place] [phone] Shell Mcmahan LPN [address] [place] [address] [place] [address] Social History Tobacco Use Types [...]
--- OUTSIDE RECORDS SUMMARY | 2025-04-03 07:27 | XMS_ITS | Encounter Summary ---
Author Organization [facility] Address [address] [place] [address] Care Team Providers Care Livestock Dealer Name Role Phone Unavailable Primary Care Provider Unavailabl e Encounter Details Date Type Department Care Team (Late st Contact Info) Description 03/09/2024 Abstract [facility] [address] [place] [phone] Shell Mcmahan LPN [address] [place] [address] Social History Tobacco Use Types [...]
--- OUTSIDE RECORDS SUMMARY | 2025-04-03 07:28 | XMS_ITS | Clinical Summary ---
Author Organization [facility] Address [address] [place] [address] Care Team Providers Care Car Examiner Name Role Phone Aleisha Brownlee MD Primary Care Provider [phone] Kyra Rodrigues MD Unavailable [phone] Allergies No known active allergies Medications sertraline (Zoloft) 25 mg tablet Take 25 mg by mouth in the morning. Active Joyeaux 0.1 mg-0.02 mg (21)/iron (7) tablet TAKE 1 TABLET BY MOUTH DAILY FOR 28 DAYS Active sod.chlorid-pota ssium chloride 287-180-15 mg tablet Take 2 tablets by mouth twice a day. 06/30/2022 Active magnesium aspart,citrate,o xide (Triple Magnesium Complex) 400 mg magnesium capsule Take by mouth. Active riboflavin (Vitamin B2) tablet Take 200 mg by mouth in the morning. Active cranberry fruit extract (CRANBERRY CONCENTRATE ORAL) Take by mouth once daily as directed. Active midodrine (Proamatine) 5 mg tabletIndication s:POTS (postural orthostatic tachycardia syndrome) Take 1 tablet (5 mg) by mouth three times daily. Every breakfast, noon and dinner time. Do not lie flat four hours after dose. 270 tablet 3 11/16/2024 11/16/19 26 Active Active Problems Problem Noted Date Diagnosed Date Syncope and collapse 01/28/2021 07/01/2024 Encounters Date Type Department Care Team Description 03/06/2025 9:05 AM EDT - 03/06/2025 11:59 PM EDT Hospital Encounter [facility] Vascular [facility] Heart Station [address] [place] [phone] Shortness of breath Discharge Disposition: Home or Self Care (01) 01/24/2025 8:10 AM EDT Lab [facility] Outpatient Draw Station [address] [place] [phone] Lupus anticoagulant disorder (Primary Dx) 01/16/2025 1:30 PM EDT Telemedicine [facility] Cardiology Clinic [address] [place] [phone] Laura Travis CNP POTS (postural orthostatic tachycardia syndrome); Syncope and collapse; Shortness of breath from Last 3 Months Family History Medical History Relation Name Comments Hypertension Father Hypertension Maternal Grandfather Teofilo Meeks No Known Problems Mother No Known Problems Mother's Sister Diabetes type I Other paternal gre at uncle. Arrhythmia Paternal Grandmother Karen Umaña Heart attack Paternal Grandmother Karen Umaña Stroke Paternal Grandmother Karen Umaña Aneurysm Neg Hx Autoimmune disease Neg Hx Sudden Neg Hx Relation Name Status Comments Father Maternal Grandfather Teofilo Meeks Mother Mother's Sister Other Alive Paternal Grandmother Karen Umaña Social History Tobacco Use Types Packs/Day Years Used Date Smoking Tobacco: Never Passive Smoke Exposure: Never Smokeless Tobacco: Never Tobacco Cessation:Counseling Given: Not Answered Alcohol Use Standard Drinks/Week Comments Never 0 (1 standard drink = 0.6 oz pur e alcohol) Humiliation, Afraid, Rape, and Kick questionnair e Answer Date Recorded Within the last year, have y ou been afraid of your partner or ex-partner? No 01/16/2025 Within the last year, have y ou been humiliated or emotionally abused in other ways by your partner or ex-partner? No Within the last year, have y ou been kicked, hit, slapped, or otherwise physically hurt by your partner or ex-partner? No 01/16/2025 Within the last year, have y ou been raped or forced to have any kind of sexual activity by your partner or ex-partner? No 01/16/2025 PHQ-2 Answer Date Recorded Patient Health Questionnaire-2 Score 0 01/16/2025 Comments Unknown Sex and Gender Information Value Date Recorded Sex Assigned at Female 07/28/2024 10:55 PM EDT Legal Sex Female 12:35 AM EDT Gender Identity Female 07/28/2024 10:55 PM EDT Sexual Orientation Heterosexual or Straight 02/2024 10:55 PM EDT Last Filed Vital Signs Vital Sign Reading Time Taken Comments Blood Pressure 115/69 07/02/2024 10:08 AM EDT Pulse 68 07/02/2024 10:08 AM EDT Temperature - - Respiratory Rate - - Oxygen Saturation - - Inhaled Oxygen Concentration - - Weight 79.4 kg (175 lb) 01/16/2025 11:36 AM EDT Height 177.8 cm (5' 10 ) 01/16/2025 11:36 AM EDT Body Mass Index 25.11 01/16/2025 11:36 AM EDT Plan of Treatment Health Maintenance Due Date Last Done Comments Chlamydia Screening 2004 DTaP/Tdap/Td Vaccines (1 - Tdap) 2011 Varicella Vaccines (1 of 2 - 13+ 2-dose series) 2017 HPV Vaccines (1 - 3-dose series) 2019 Meningococcal B Vaccine (1 o f 2 - Standard) 2020 Influenza Vaccine (Season Ended) 2025 Depression Screening 01/16/2026 01/16/2025 Zoster Vaccines (1 of 2) 2054 HIB Vaccines Aged Out No longer eligi ble based on patient's age to complete this topic IPV Vaccines Aged Out No longer eligi ble based on patient's age to complete this topic Meningococcal Vaccine Aged Out No vinicio yasmine eligible based on patient's age to complete this topic Pneumococcal Vaccine: Pediat rics (0 to 5 Years) and At-Risk Patients (6 to 64 Years) Aged Out No longer eligi ble based on patient's age to complete this topic Rotavirus Vaccines Aged Out No longer eligible based on patient's age to complete this topic Procedures Procedure Name Priority Date/Time Associated Diagnosis Comments COMPLETE ECHO (TTE) Routine 03/06/2025 9 :40 AM EDT Shortness of breath LUPUS ANTICOAGULANT Routine 01/24/2025 8:16 AM EDT Lupus anticoagulant disorder PHOSPHATIDYLSERINE ANTIBODIES Routine 01/24/2025 8:16 AM EDT Lupus anticoagulant disorder CARDIOLIPIN ANTIBODY, IGG AND IGM Routine 01/24/2025 8:16 AM EDT Lupus anticoagulant disorder BETA-2 GLYCOPROTEIN ANTIBODY IGG AND IGM Routine 01/24/2025 8:16 AM EDT Lupus anticoagulant disorder from Last 3 Months Results * COMPLETE ECHO (TTE) (03/06/2025 9:40 AM EDT) Anatomical Region Laterality Modality Other 03/06/2025 9:22 AM EDT Narrative 03/06/2025 3:48 PM EDT 1 1 [facility] Heart Station [address] [place] [address] [phone] (fax) Echocardiogram-[facility] Name: DAVION UMAÑA Study Date: 03/06/2025 09:22 AM B/P: 121 mmHg/75 mmHg HR: Date of : 2005 Location: [facility] Height: 70 in. Age: 19 year(s) Patient Room: Weight: 175 lb. Gender: Female Patient Status: OutPt BSA: 1.97 m2 Indication: Shortness of Breath, POTS Examination: Echocardiogram (Complete) Image Quality: Technically Difficult study in the apical views Patient Consent: Procedure explained to patient Conclusions Left Ventricle: The left ventricle is normal size. Global left ventricular systolic function is normal. The EF is 60 % visually. Left ventricular wall thickness is normal. No regional wall motion abnormality. Normal diastolic function. Right Ventricle: The right ventricle is normal in size. Normal right ventricular systolic function. Unable to assess right sided pressures due to lack of measurable tricuspid regurgitation. Left Atrium: The left atrium is normal in size. Overall Conclusions: No significant valvular abnormalities Measurements Left Ventricle Label Value Normal Value LVOTd 2 cm (18cm - 20cm) LVOT VTI 19.6 cm (18cm - 22cm) LVOT PGmax 4 mmHg LVEF visual 60 % LVDd, 2D 4.57 cm (3.9cm - 5.3cm) LVDs, 2D 3.12 cm (2.1cm - 4cm) IVSd, 2D 0.8 cm (0.6cm - 1.1cm) LVPWd, 2D 0.84 cm (0.6cm - 0.9cm) LV Mass, 2D ASE 120.44 g LV Mass Index, 2D ASE 61.1 g/m?? (44g/m?? - 88.4g/m??) RWT, MM 0.37 (0 - 0.42) LVSVI, 2D 28.9 ml/m2 LVOT PGmean 2 mmHg LVSV_LVOT 62 ml Right Ventricle Label Value Normal Value RVDd, 2D 2.77 cm (1.9cm - 3.8cm) TAPSE 2.4 cm Left Atrium Label Value Normal Value LA Volume, BP 26 ml (22ml - 52ml) LADs, 2D 3.9 cm (2.7cm - 3.8cm) LAESV index, BP 13.2 ml/m?? Right Atrium Label Value Normal Value RA Area 7.6 cm?? Aortic Valve Label Value Normal Value AV DVI 0.88 AV VTI 23.8 cm Mitral Valve Label Value Normal Value MV E Vmax 0.99 m/s MV A Vmax 0.39 m/s MV E/A 2.54 MV E/E' lateral 4.5 MV E' lateral 0.22 m/s Aorta Label Value Normal Value AoAsc 2.5 cm AoRoot, 2D 3.1 cm (1.4cm - 3.8cm) Great Vessels Label Value Normal Value IVC 1.5 cm (1.2cm - 2.3cm) Valvular Assessment LVOT 0.7 - 1.1 m/sec Aortic Valve 1.0 - 1.7 m/sec Mitral Valve 0.6 - 1.3 m/sec Tricuspid Valve 0.3 - 0.7 m/sec Pulmonic Valve 0.6 - 0.9 m/sec Regurgitation No No No No Stenosis No No No No Max Velocity 1.06 m/sec 1.21 m/s 0.99 m/sec 1.11 m/s Max Gradient 6.00 mmHg 5.00 mmHg Mean Gradient 3.00 mmHg Valve Area 2.8 cm?? Findings Left Ventricle: The left ventricle is normal size. Global left ventricular systolic function is normal. The EF is 60 % visually. Left ventricular wall thickness is normal. No regional wall motion abnormality. Normal diastolic function. Right Ventricle: The right ventricle is normal in size. Normal right ventricular systolic function. Unable to assess right sided pressures due to lack of measurable tricuspid regurgitation. Left Atrium: The left atrium is normal in size. Right Atrium: The right atrium is normal in size. Mitral Valve: The mitral valve is normal in mobility and thickness. No mitral regurgitation. No mitral valve stenosis. Aortic Valve: The aortic valve is normal. No aortic valve regurgitation. No aortic valve stenosis. Tricuspid Valve: Normal tricuspid valve. No tricuspid regurgitation. No tricuspid valve stenosis. Pulmonic Valve: Normal pulmonary valve. No pulmonary regurgitation. No pulmonic valve stenosis. Aorta: The aortic root exhibits normal size. The ascending aorta measures 2.50 cm. Great Vessels: IVC: Normal size and course of the IVC. Pericardium: No pericardial effusion. Procedure Staff Reading Group: [facility] Software Sales Representative: Noel Li RDCS Ordering Physician: LAURA TRAVIS Procedure Note Lea Billy MD - 03/06/2025 1 1 [facility] Heart Station [address] [place] [address] [phone] (fax) Echocardiogram-[facility] Name: DAVION UMAÑA Study Date: 03/06/2025 09:22 AM B/P: 121 mmHg/75 mmHg HR: Date of : 2005 Location: [facility] Height: 70 in. Age: 19 year(s) Patient Room: Weight: 175 lb. Gender: Female Patient Status: OutPt BSA: 1.97 m2 Indication: Shortness of Breath, POTS Examination: Echocardiogram (Complete) Image Quality: Technically Difficult study in the apical views Patient Consent: Procedure explained to patient Conclusions Left Ventricle: The left ventricle is normal size. Global left ventricular systolic function is normal. The EF is 60 % visually. Left ventricular wall thickness is normal. No regional wall motion abnormality. Normal diastolic function. Right Ventricle: The right ventricle is normal in size. Normal right ventricular systolic function. Unable to assess right sided pressures due to lack of measurable tricuspid regurgitation. Left Atrium: The left atrium is normal in size. Overall Conclusions: No significant valvular abnormalities Measurements Left Ventricle Label Value Normal Value LVOTd 2 cm (18cm - 20cm) LVOT VTI 19.6 cm (18cm - 22cm) LVOT PGmax 4 mmHg LVEF visual 60 % LVDd, 2D 4.57 cm (3.9cm - 5.3cm) LVDs, 2D 3.12 cm (2.1cm - 4cm) IVSd, 2D 0.8 cm (0.6cm - 1.1cm) LVPWd, 2D 0.84 cm (0.6cm - 0.9cm) LV Mass, 2D ASE 120.44 g LV Mass Index, 2D ASE 61.1 g/m?? (44g/m?? - 88.4g/m??) RWT, MM 0.37 (0 - 0.42) LVSVI, 2D 28.9 ml/m2 LVOT PGmean 2 mmHg LVSV_LVOT 62 ml Right Ventricle Label Value Normal Value RVDd, 2D 2.77 cm (1.9cm - 3.8cm) TAPSE 2.4 cm Left Atrium Label Value Normal Value LA Volume, BP 26 ml (22ml - 52ml) LADs, 2D 3.9 cm (2.7cm - 3.8cm) LAESV index, BP 13.2 ml/m?? Right Atrium Label Value Normal Value RA Area 7.6 cm?? Aortic Valve Label Value Normal Value AV DVI 0.88 AV VTI 23.8 cm Mitral Valve Label Value Normal Value MV E Vmax 0.99 m/s MV A Vmax 0.39 m/s MV E/A 2.54 MV E/E' lateral 4.5 MV E' lateral 0.22 m/s Aorta Label Value Normal Value AoAsc 2.5 cm AoRoot, 2D 3.1 cm (1.4cm - 3.8cm) Great Vessels Label Value Normal Value IVC 1.5 cm (1.2cm - 2.3cm) Valvular Assessment LVOT 0.7 - 1.1 m/sec Aortic Valve 1.0 - 1.7 m/sec Mitral Valve 0.6 - 1.3 m/sec Tricuspid Valve 0.3 - 0.7 m/sec Pulmonic Valve 0.6 - 0.9 m/sec Regurgitation No No No No Stenosis No No No No Max Velocity 1.06 m/sec 1.21 m/s 0.99 m/sec 1.11 m/s Max Gradient 6.00 mmHg 5.00 mmHg Mean Gradient 3.00 mmHg Valve Area 2.8 cm?? Findings Left Ventricle: The left ventricle is normal size. Global left ventricular systolic function is normal. The EF is 60 % visually. Left ventricular wall thickness is normal. No regional wall motion abnormality. Normal diastolic function. Right Ventricle: The right ventricle is normal in size. Normal right ventricular systolic function. Unable to assess right sided pressures due to lack of measurable tricuspid regurgitation. Left Atrium: The left atrium is normal in size. Right Atrium: The right atrium is normal in size. Mitral Valve: The mitral valve is normal in mobility and thickness. No mitral regurgitation. No mitral valve stenosis. Aortic Valve: The aortic valve is normal. No aortic valve regurgitation. No aortic valve stenosis. Tricuspid Valve: Normal tricuspid valve. No tricuspid regurgitation. No tricuspid valve stenosis. Pulmonic Valve: Normal pulmonary valve. No pulmonary regurgitation. No pulmonic valve stenosis. Aorta: The aortic root exhibits normal size. The ascending aorta measures 2.50 cm. Great Vessels: IVC: Normal size and course of the IVC. Pericardium: No pericardial effusion. Procedure Staff Reading Group: [facility] Software Sales Representative: Noel Li RDCS Ordering Physician: LAURA TRAVIS us Laura Travis [facility] CV ECHO PROCEDURES Final Res ult * (ABNORMAL) Cardiolipin antibody, IgG and IgM (01/24/2025 8:16 AM EDT) Anticardiolipin IgG 6.0 <=22.9 GPL 01/29/2025 10:[address] [facility] ([facility]) Anticardiolipin IgM 11.0(H) <10.9 MPL 01/29 10:[address] [facility] ([facility]) Blood Venous blood specimen / Unknown Venipuncture / Unknown 01/24/2025 8:16 AM EDT 01/24/2025 8:40 AM EDT us Kyra Rodrigues MD LAB BLOOD ORDERABLES Final Res ult [facility] ([place]) [address] [place] [address] * Phosphatidylserine antibodies (01/24/2025 8:16 AM EDT) Phosphatidylserine Antibody IgG 0 0 - 15 GPS 01/28/2025 7:48 PM EDT [facility] ([place]) Comment: INTERPRETIVE INFORMATION: Phosphatidylserine Ab, IgG IgG and/or IgM [...] manifestations and/or other criteria phospholipid antibody tests. Phosphatidylserine Antibody IgM 6 0 - 21 MPS 01/28/2025 7:48 PM EDT [facility] ([facility]) Comment: INTERPRETIVE INFORMATION: Phosphatidylserine Ab, IgM The presence of [...] other criteria phospholipid antibody tests. Performed By: [facility] [address] [place] [id number] Pricing Clerk: Asa Tiwari MD, PhD CLIA Number: [id number] Blood Venous blood specimen / Unknown Venipuncture / Unknown 01/24/2025 8:16 AM EDT 01/24/2025 8:40 AM EDT us Kyra Rodrigues MD LAB BLOOD ORDERABLES Final Res ult [facility] ([place]) [address] [place] [address] * Beta-2 glycoprotein antibody IgG and IgM (01/24/2025 8:16 AM EDT) Beta-2 Glyco 1 IgG 1.0 <=19.9 SGU 01/25/2025 12:[address] [facility] ([facility]) Beta 2 Glyco 1 IgM 12.1 <=19.9 SMU 01/25/2025 12:[address] [facility] ([facility]) Blood Venous blood specimen / Unknown Venipuncture / Unknown 01/24/2025 8:16 AM EDT 01/24/2025 8:40 AM EDT us Kyra Rodrigues MD LAB BLOOD ORDERABLES Final Res ult [facility] ([facility]) [address] [place] [address] * Lupus anticoagulant (01/24/2025 8:16 AM EDT) LA Negative Negative 01/28/2025 10:[address] [facility] ([facility]) Blood Venous blood specimen / Unknown Venipuncture / Unknown 01/24/2025 8:16 AM EDT 01/24/2025 8:36 AM EDT Narrative [facility] ([facility]) - 01/28/2025 10:34 AM EDT Positive results should be repeated after 12 weeks to confirm persistence of LA. The presence of DOAC drugs such as apixaban or rivaroxaban, or Vitamin K antagonists, heparin, and acute phase proteins at time of sample collection may interfere with the validity of results. Kyra Rodrigues MD LAB BLOOD ORDERABLES Final Res ult [facility] ([place]) [address] [place] [address] from Last 3 Months Insurance [facility] Care Teams Car Examiner Relationship Specialty Start Date End Date Aleisha Brownlee MD [address] [facility] #A PCP - General 07/02/24 Kyra Rodrigues MD [address] [place] [address] Consulting Physician Oncology 01/24/25
--- OUTSIDE RECORDS SUMMARY | 2025-04-03 07:28 | XMS_ITS | Referral Summary ---
Author Organization [facility] Address [address] [place] [address] Care Team Providers Care Dried Yeast Supervisor Name Role Phone Aleisha Brownlee MD Primary Care Provider [phone] Kyra Rodrigues MD Unavailable [phone] Encounters Date Type Department Care Team Description 03/06/2025 9:05 AM EDT - 03/06/2025 11:59 PM EDT Hospital Encounter [facility] Heart and Vascular Center Heart Station [address] [place] [address] Shortness of breath Discharge Disposition: Home or Self Care (01) 01/24/2025 8:10 AM EDT Lab [facility] Outpatient Draw Station [address] [place] [address] Lupus anticoagulant disorder (Primary Dx) 01/16/2025 1:30 PM EDT Telemedicine [facility] Cardiology Clinic [address] [place] [address] Laura Travis CNP POTS (postural orthostatic tachycardia syndrome); Syncope and collapse; Shortness of breath from Last 3 Months Allergies No known active allergies Medications sertraline [...] after dose. 270 tablet 3 11/16/2024 11/16/19 Active Active Problems Problem Noted Date Diagnosed Date Syncope and collapse 01/28/2021 07/01/2024 Social History Tobacco Use Types Packs/Day Years [...] 01/16/2025 11:36 AM EDT Plan of Treatment Not on file Procedures Procedure Name Priority Date/Time Associated Diagnosis Comments COMPLETE ECHO (TTE) Routine 03/06/2025 9 :40 AM EDT Shortness of breath LUPUS ANTICOAGULANT Routine 01/24/2025 8 :16 AM EDT Lupus anticoagulant disorder PHOSPHATIDYLSERINE ANTIBODIES [...] Narrative 03/06/2025 3:48 PM EDT 1 1 [place] [facility] Heart Station [address] [place] [address] [phone] (fax) Echocardiogram-[facility] Name: DAVION UMAÑA Study Date: 03/06/2025 09:22 AM B/P: 121 mmHg/75 mmHg HR: Date of : 2005 Location: [facility] Height: 70 in. Age: 19 year(s) [...] No pericardial effusion. Procedure Staff Reading Group: [facility] Motor Bus Driver: Noel Li RDCS Ordering Physician: LAURA TRAVIS Procedure Note Lea Billy MD - 03/06/2025 1 1 [facility] Heart Station [address] [place] [address] [phone] (fax) Echocardiogram-[facility] Name: DAVION UMAÑA Study Date: 03/06/2025 09:22 AM B/P: 121 mmHg/75 mmHg HR: Date of : 2005 Location: [facility] Height: 70 in. Age: 19 year(s) [...] No pericardial effusion. Procedure Staff Reading Group: [facility] Motor Bus Driver: Noel Li RDCS Ordering Physician: LAURA TRAVIS Laura Travis [facility] CV ECHO PROCEDURES Final Res ult * (ABNORMAL) Cardiolipin antibody, IgG and IgM (01/24/2025 8:16 AM EDT) Anticardiolipin IgG 6.0 <=22.9 GPL 01/29/2025 10:00 AM EDT [facility] ([facility] Anticardiolipin IgM 11.0(H) <10.9 MPL 01/29 10:00 AM EDT [facility] ([facility] Blood Venous blood specimen / Unknown Venipuncture / Unknown 01/24/2025 8:16 AM EDT 01/24/2025 8:40 AM EDT us Kyra Rodrigues MD LAB BLOOD ORDERABLES Final Res ult [facility] ([facility] [address] [place] [address] * Phosphatidylserine antibodies (01/24/2025 8:16 AM EDT) Phosphatidylserine Antibody IgG 0 0 - 15 GPS 01/28/2025 7:48 PM EDT [facility] ([facility] Comment: INTERPRETIVE INFORMATION: Phosphatidylserine Ab, IgG IgG [...] - 21 MPS 01/28/2025 7:48 PM EDT [facility] ([facility] Comment: INTERPRETIVE INFORMATION: Phosphatidylserine Ab, IgM The [...] other criteria phospholipid antibody tests. Performed By: [facility] [address] [place] [address] Union Organiser: Asa Tiwari MD, PhD CLIA Number: [id number] Blood Venous blood specimen / Unknown Venipuncture / Unknown 01/24/2025 8:16 AM EDT 01/24/2025 8:40 AM EDT Kyra Rodrigues MD LAB BLOOD ORDERABLES Final Res ult Performing Organization Address City/[facility]/ZIP Co de Phone Number [facility] [address] [place] [address] * Beta-2 glycoprotein antibody IgG and IgM (01/24/2025 8:16 AM EDT) Pathologist [facility] Beta-2 Glyco 1 IgG 1.0 <=19.9 SGU 01/25/2025 12:16 PM EDT [facility] ([facility] Beta 2 Glyco 1 IgM 12.1 <=19.9 SMU 01/25/2025 12:16 PM EDT [facility] ([facility] Blood Venous blood specimen / Unknown Venipuncture / Unknown 01/24/2025 8:16 AM EDT 01/24/2025 8:40 AM EDT Kyra Rodrigues MD LAB BLOOD ORDERABLES Final Res ult [facility] ([facility] [address] [place] [address] * Lupus anticoagulant (01/24/2025 8:16 AM EDT) LA Negative Negative 01/28/2025 10:34 AM EDT [facility] ([facility]) Blood Venous blood specimen / Unknown Venipuncture / Unknown 01/24/2025 8:16 AM EDT 01/24/2025 8:36 AM EDT Narrative [facility] ([place]) - 01/28/2025 10:34 AM EDT Positive results should be repeated after 12 weeks to confirm persistence of LA. The presence of DOAC drugs such as apixaban or rivaroxaban, or Vitamin K antagonists, heparin, and acute phase proteins at time of sample collection may interfere with the validity of results. us Kyra Rodrigues MD LAB BLOOD ORDERABLES Final Res ult [facility] ([place]) [address] [place] [address] from Last 3 Months Insurance [facility] Care Teams Dried Yeast Supervisor Relationship Specialty Start Date End Date Aleisha Brownlee MD [address] [facility] #A PCP - General 07/02/24 Kyra Rodrigues MD [address] [place] [address] Consulting Physician Oncology 01/24/25
[2025-04-03 08:32] LABS: Glucose 99 mg/dL (74-106); Thyroid Stimulating Hormone 0.742 uIU/mL (0.358-3.740)
[2025-04-03 09:02] LABS: Free T4 1.03 ng/dL (0.76-1.46)
[2025-04-04 03:07] LABS: Insulin 23.2 uIU/mL (2.6-24.9)
[2025-04-04 04:07] LABS: Thyroid Peroxidase (TPO) Ab 16 IU/mL (0-34)
[2025-04-08 08:19] LABS: BOX Test Reference Lab Cleveland Clinic; BOX Test Sent Out YES
== END 2025-04-03 07:23 | disposition home or self-care (01) ==
LOC: LAB 07:25
PROVIDERS: PCP Family Medicine
DX: R53.81 Other malaise (principal); G90.9 Disorder of the autonomic nervous system, unspecified; R73.9 Hyperglycemia, unspecified; R53.83 Other fatigue; M25.50 Pain in unspecified joint
CPT/HCPCS: 36415; 82024; 82533; 82627; 82947; 83525; 84439; 84443; 86341; 86376

== ENCOUNTER 2025-04-10 08:36 | Outpatient (OUT) | payer BC, SELFPAY ==
--- OUTSIDE RECORDS SUMMARY | 2025-03-12 09:15 | XMS_ITS ---
Author Organization [facility] [place] Address [address] [place] [address] Care Team Providers Care Mine Deputy Name Role Phone Aleisha Brownlee Primary Care Provider UnavailKyra Garcia Unavailable [phone] REASON FOR VISIT MD Encounters Encounter Location Date Provider Diagnosis [facility] [address] [place] [address] 03/12/2025 Kyra Rodrigues Plan Of Treatment Next Appt Details Provider Name:Marli Pascal, 04/24/2025 10:15:00 AM, [address] [place] [address], [phone], Progress Notes * CARLOS VILLAISABELINDOB: 4 (19 yo F)Acc No.[id number]:03/12/2025 UNLOCKED PROGRESS NOTE Progress Notes Patient: DEB SMITH Provider: Lizbeth Rodrigues M.D. :2005 A ge:19 Y S ex:Female Date:03/12/2025 Address:[address] [place], [place] [id number] Pcp:Aleisha Brownlee Subjective: * Chief Complaints: * 1 . MD. * Medical History: Objective: * Vitals: Assessment: Plan: * Treatment: * * Electronic signature of Leslie Rodrigues MD, [id number] on 04/10/2025 at 08:40 AM EDT Sign off status: Pending Visit Status: C ANC (Cancelled) * Provider: Lizbeth Rodrigues M.D. Date: 0 03/12/2025 Generated for Jane yost/Hussein/Renetta on: 0 04/10/2025 08:40 AM EDT
--- OUTSIDE RECORDS SUMMARY | 2025-03-26 04:45 | XMS_ITS ---
Author Organization The [facility] in [place] Address [address] [place] [address] Care Team Providers Care Pulp Roller Name Role Phone Aleisha Brownlee Primary Care Provider UnavailKyra Garcia Unavailable [phone] REASON FOR VISIT MD Encounters Encounter Location Date Provider Diagnosis [facility] Oncology [address] [place] [address] 03/26/2025 Kyra Rodrigues Plan Of Treatment Next Appt Details Provider Name:Marli Pascal, 04/24/2025 10:15:00 AM, [address] [place] [address], [phone], Progress Notes * CARLOS VILLAISABELINDOB: 4 (19 yo F)Acc No.[id number]:03/26/2025 UNLOCKED PROGRESS NOTE Progress Notes Patient: DEB SMITH Provider: Lizbeth Rodrigues M.D. :2005 A ge:19 Y S ex:Female Date:03/26/2025 Address:[address] [place], [place] [phone] Pcp:Aleisha Brownlee Subjective: * Chief Complaints: * 1 . MD. * Medical History: Objective: * Vitals: Assessment: Plan: * Treatment: * * Electronic signature of Leslie Rodrigues MD, [id number] on 04/10/2025 at 08:39 AM EDT Sign off status: Pending Visit Status: C ANC (Cancelled) * Provider: Lizbeth Rodrigues M.D. Date: 03/26/2025 Generated for Jane yost/Hussein/Renetta on: 04/10/2025 08:39 AM EDT
--- OUTSIDE RECORDS SUMMARY | 2025-04-02 09:30 | XMS_ITS ---
Author Organization [facility] in [place] Address [address] [place] [address] Care Team Providers Care Conservation Policy Analyst Name Role Phone Aleisha Brownlee Primary Care Provider UnavailKyra Garcia Unavailable [phone] REASON FOR VISIT MD Encounters Encounter Location Date Provider Diagnosis [facility] Oncology [address] [place] [address] 04/02/2025 Kyra Rodrigues Plan Of Treatment Next Appt Details Provider Name:Marli Pascal, 04/24/2025 10:15:00 AM, [address] [place] [address], [phone], Progress Notes * CARLOS VILLAISABELINDOB: 4 (19 yo F)Acc No.[id number]:04/02/2025 UNLOCKED PROGRESS NOTE Progress Notes Patient: DEB SMITH Provider: Lizbeth Rodrigues M.D. :2005 A ge:19 Y S ex:Female Date:04/02/2025 Address:[address] [place], [place] [phone] Pcp:Aleisha Brownlee Subjective: * Chief Complaints: * 1 . MD. * Medical History: Objective: * Vitals: Assessment: Plan: * Treatment: * * Electronic signature of Leslie Rodrigues MD, [id number] on 04/10/2025 at 08:39 AM EDT Sign off status: Pending Visit Status: A [facility] (Voice) * Provider: Lizbeth Rodrigues M.D. Date: 0 04/02/2025 Generated for Jane yost/Hussein/Renetta on: 04/10/2025 08:39 AM EDT
--- OUTSIDE RECORDS SUMMARY | 2025-04-10 08:39 | XMS_ITS | Clinical Summary ---
Author Organization [facility] Address [address] [place] [address] Care Team Providers Care Tank Farm Operator Name Role Phone Unavailable Primary Care Provider Unavailabl e Encounters Date Type Department Care Team Description 01/18/2025 Refill [facility] [address] [place] [id number] Papito Garza, Encounter for surveillance of contraceptive [...]
--- OUTSIDE RECORDS SUMMARY | 2025-04-10 08:39 | XMS_ITS | Encounter Summary ---
Author Organization [facility] Address [address] [place] [address] Care Team Providers Care Data Analyst Etl Developer Name Role Phone Aleisha Brownlee MD Unavailable [phone] Source Comments In the event this information is protected by the Federal Confidentiality of Alcohol and Drug AbusePatient Records regulations: The Federal rules restrict any use of the information to criminally investigate or prosecute any alcohol or drug abuse patient.[facility] Encounter Details Date Type Department Care Team (Late st Contact Info) Description 04/03/2025 Lab Requisition [facility] [address] [place] [address] Jane Hastings MD [address] [facility] [place] [address] Disorder of the autonomic nervous system, unspecified; Hyperglycemia, unspecified; Other malaise; Other fatigue; Pain in unspecified joint Social History Tobacco Use Types Packs/Day Years Used Date Smoking Tobacco: Never Assessed Area Deprivation Index Answer Date Keon rded National Score (1-100), lower number is lower ri sk 59 03/26/2025 State Score (1-10), lower number is lower risk 4 03/26/2025 Data from: https://www.neighborhoodatlas.medicine.[facility]/. Last address used for calculation [address] [address] 03/26/2025 Comments Unknown Sex and Gender Information Value Date Recorded Sex Assigned at Not on file Legal Sex Female 10:10 AM EDT Gender Identity Not on file Sexual Orientation Not on file documented as of this encounter Plan of Treatment Not on file documented as of this encounter Procedures Procedure Name Priority Date/Time Associated Diagnosis Comments ISLET CELL AB Routine 04/03/2025 7:48 AM EDT Disorder of the autonomic nervous system, unspecified Hyperglycemia, unspecified Other malaise Other fatigue Pain in unspecified joint documented in this encounter Results * ISLET CELL AB (04/03/2025 7:48 AM EDT) Islet Cell Ab <1:4 <1:4 04/07/2025 12:12 AM EDT [facility] Comment: INTERPRETIVE INFORMATION: Islet Cell Ab, IgG Islet cell antibodies (ICAs) are associated with type 1 diabetes (TID), an autoimmune endocrine disorder. ICAs may be present years before the onset of clinical symptoms. To calculate Juvenile Diabetes Foundation (JDF) units: multiply the titer x 5 (1:8 8 x 5 = 40 JDF Units). This test was developed and its performance characteristics determined by [facility]. It has not been cleared or approved by the US Food and Drug Administration. This test was performed in a CLIA certified laboratory and is intended for clinical purposes. Performed By: [facility] [address] [place] [address] Curb And Gutter Laborer: Asa Tiwari MD, PhD CLIA Number: [id number] Blood BLOOD SPECIMEN / Unknown 04/03/2025 7:48 AM EDT 04/03/2025 11:16 PM EDT Jane Hastings MD LABORATORY Final Result [facility] [address] [place] [address] documented in this encounter Visit Diagnoses Diagnosis Disorder of the autonomic nervous system, unspecified Hyperglycemia, unspecified Other malaise Other fatigue Pain in unspecified joint documented in this encounter Care Teams Data Analyst Etl Developer Relationship Specialty Start Date End Date Aleisha Brownlee MD [address] [place] [address] Referring Family Medicine 02/22/25 documented as of this encounter
--- OUTSIDE RECORDS SUMMARY | 2025-04-10 08:39 | XMS_ITS | Encounter Summary ---
Author Organization [facility] Address [address] [place] [address] Care Team Providers Care Depositing Machine Operator Name Role Phone Unavailable Primary Care Provider Unavailabl e Encounter Details Date Type Department Care Team (Late st Contact Info) Description 03/09/2024 Abstract [facility] [address] [place] [place] [id number] Shell Mcmahan LPN [address] [place] [address] Social History Tobacco Use Types [...]
--- OUTSIDE RECORDS SUMMARY | 2025-04-10 08:39 | XMS_ITS | Patient Health Record ---
Author Organization [facility] [place] Address [address] [place] [address] Care Team Providers Care Food Production Manager Name Role Phone Aleisha Brownlee Primary Care Provider Kyra Salinas Unavailable [phone] Reason For Referral No Information Encounters Encounter Location Date Provider Diagnosis [facility] Oncology [address] [place] [address] 04/02/2025 Kyra Rodrigues [facility] Oncology [address] [place] [address] 01/22/2025 Kyra Rodrigues Plan Of Treatment Next Appt Details Provider Name:Marli Pascal, 04/24/2025 10:15:00 AM, [address] [place] [address], [phone], Insurance Providers Payer Name Payer Address Payer Phone Subscriber Number Group Number Insured Name Patient Relationship to Insured Coverage Start Date Coverage End Date BCBS OUT OF STATE [address] [place] [address] [id number] [id number] UW Parent
--- OUTSIDE RECORDS SUMMARY | 2025-04-10 08:40 | XMS_ITS | Encounter Summary ---
Author Organization [facility] Address [address] [place] [address] Care Team Providers Care Boxing Machine Operator Name Role Phone Aleisha Brownlee MD Unavailable [phone] Source Comments In the event this information is protected by the Federal Confidentiality of Alcohol and Drug AbusePatient Records regulations: The Federal rules restrict any use of the information to criminally investigate or prosecute any alcohol or drug abuse patient.[facility] Encounter Details Date Type Department Care Team (Late st Contact Info) Description 04/08/2025 Results Follow-Up Endocrinology [address] [facility] [place] [address] Jane Hastings MD [address] [place] [address] Social History Tobacco Use Types Packs/Day Years Used Date Smoking Tobacco: Never Assessed Area Deprivation Index Answer Date Keon rded National Score (1-100), lower number is lower ri sk 59 03/26/2025 State Score (1-10), lower number is lower risk 4 03/26/2025 Data from: https://www.neighborhoodatlas.medicine.[facility].edu/. Last address used for calculation [address] [...] on filedocumented in this encounter Care Teams Boxing Machine Operator Relationship Specialty Start Date End Date Aleisha Brownlee MD [address] [place] [address] Referring Family Medicine 02/22/25 documented as of this encounter
--- OUTSIDE RECORDS SUMMARY | 2025-04-10 08:40 | XMS_ITS | Encounter Summary ---
Author Organization [facility] Address [address] [place] [address] Care Team Providers Care Cobbler Mckay Name Role Phone Unavailable Primary Care Provider Unavailabl e Encounter Details Date Type Department Care Team (Late st Contact Info) Description 03/09/2024 Abstract [facility] [address] [place] [phone] Shell Mcmahan LPN [address] [place] [address] Social History Tobacco Use Types [...]
--- OUTSIDE RECORDS SUMMARY | 2025-04-10 08:40 | XMS_ITS | Encounter Summary ---
Author Organization [facility] Address [address] [place] [address] Care Team Providers Care Assistant Business Manager Name Role Phone Unavailable Primary Care Provider Unavailabl e Encounter Details Date Type Department Care Team (Late st Contact Info) Description 03/09/2024 Abstract [facility] [address] [place] [phone] Shell Mcmahan LPN [address] [address] Social History Tobacco Use Types [...]
--- OUTSIDE RECORDS SUMMARY | 2025-04-10 08:40 | XMS_ITS | Clinical Summary ---
Author Organization [facility] Address [address] [place] [address] Care Team Providers Care Rounding Machine Tender Name Role Phone Unavailable Primary Care Provider [...]
--- OUTSIDE RECORDS SUMMARY | 2025-04-10 08:40 | XMS_ITS | Clinical Summary ---
Author Organization [facility] Address [address] [place] [address] Care Team Providers Care Bag Machine Set Up Operator Name Role Phone Aleisha Brownlee MD Primary Care Provider [phone] Kyra Rodrigues MD Unavailable [phone] Allergies No known active allergies Medications sertraline [...] - 03/06/2025 11:59 PM EDT Hospital Encounter [facility] Heart and Vascular Center Heart Station [address] [place] [address] Shortness of breath Discharge Disposition: Home or Self Care (01) 01/24/2025 8:10 AM EDT Lab [facility] Outpatient Draw Station [address] [place] [address] Lupus anticoagulant disorder (Primary Dx) 01/16/2025 1:30 PM EDT Telemedicine [facility] and Vascular Center Cardiology Clinic [address] [place] [address] Laura Travis CNP POTS (postural orthostatic tachycardia [...] Narrative 03/06/2025 3:48 PM EDT 1 1 [place] [facility] Heart Station [address] [place] [address] [phone] (fax) Echocardiogram-[facility] Name: DAVION UMAÑA Study Date: 03/06/2025 09:22 AM B/P: 121 mmHg/75 mmHg HR: Date of : 2005 Location: [facility] Height: 70 in. Age: 19 year(s) Patient [...] No pericardial effusion. Procedure Staff Reading Group: [facility] Dry Color Tester: Noel Li RDCS Ordering Physician: LAURA TRAVIS Procedure Note Lea Billy MD - 03/06/2025 1 1 [place] [facility] Heart Station [address] [facility] [place] [address] [phone] (fax) Echocardiogram-[facility] Name: DAVION UMAÑA Study Date: 03/06/2025 09:22 AM B/P: 121 mmHg/75 mmHg HR: Date of : 2005 Location: [facility] Height: 70 in. Age: 19 year(s) Patient [...] No pericardial effusion. Procedure Staff Reading Group: [facility] Dry Color Tester: Noel Li RDCS Ordering Physician: LAURA TRAVIS us Laura Travis [facility] CV ECHO PROCEDURES Final Res ult * (ABNORMAL) Cardiolipin antibody, IgG and IgM (01/24/2025 8:16 AM EDT) Anticardiolipin IgG 6.0 <=22.9 GPL 01/29/2025 10:00 AM EDT [facility] ([facility]ER) Anticardiolipin IgM 11.0(H) <10.9 MPL 01/29 10:00 AM EDT [facility] ([facility]) Blood Venous blood specimen / Unknown Venipuncture / Unknown 01/24/2025 8:16 AM EDT 01/24/2025 8:40 AM EDT us Kyra Rodrigues MD LAB BLOOD ORDERABLES Final Res ult [facility] ([facility]STA) [address] [place] [address] * Phosphatidylserine antibodies (01/24/2025 8:16 AM EDT) Phosphatidylserine Antibody IgG 0 0 - 15 GPS 01/28/2025 7:48 PM EDT [facility] ([facility]) Comment: INTERPRETIVE INFORMATION: Phosphatidylserine [...] - 21 MPS 01/28/2025 7:48 PM EDT [facility] ([facility]) Comment: INTERPRETIVE INFORMATION: Phosphatidylserine [...] other criteria phospholipid antibody tests. Performed By: [facility] [address] [place] [address] Management Coordinator: Asa Tiwari MD, PhD CLIA Number: [id number] Blood Venous blood specimen / Unknown Venipuncture / Unknown 01/24/2025 8:16 AM EDT 01/24/2025 8:40 AM EDT us Kyra Rodrigues MD LAB BLOOD ORDERABLES Final Res ult [facility] ([facility]ANDI) [address] [place] [address] * Beta-2 glycoprotein antibody IgG and IgM (01/24/2025 8:16 AM EDT) Beta-2 Glyco 1 IgG 1.0 <=19.9 SGU 01/25/2025 12:16 PM EDT [facility] ([facility]) Beta 2 Glyco 1 IgM 12.1 <=19.9 SMU 01/25/2025 12:16 PM EDT [facility] ([facility]) Blood Venous blood specimen / Unknown Venipuncture / Unknown 01/24/2025 8:16 AM EDT 01/24/2025 8:40 AM EDT us Kyra Rodrigues MD LAB BLOOD ORDERABLES Final Res ult [facility] ([facility]) [address] [place] [address] * Lupus anticoagulant (01/24/2025 8:16 AM EDT) LA Negative Negative 01/28/2025 10:34 AM EDT [facility] ([facility]) Blood Venous blood specimen / Unknown Venipuncture / Unknown 01/24/2025 8:16 AM EDT 01/24/2025 8:36 AM EDT Narrative [facility] ([facility]) - 01/28/2025 10:34 AM EDT Positive results should be repeated after 12 weeks to confirm persistence of LA. The presence of DOAC drugs such as apixaban or rivaroxaban, or Vitamin K antagonists, heparin, and acute phase proteins at time of sample collection may interfere with the validity of results. Kyra Rodrigues MD LAB BLOOD ORDERABLES Final Res ult [facility] ([facility]) [address] [place] [address] from Last [address] [facility] Care Teams Bag Machine Set Up Operator Relationship Specialty Start Date End Date Aleisha Brownlee MD [address] [facility] #A PCP - General 07/02/24 Kyra Rodrigues MD [address] [place] [address] Consulting Physician Oncology 01/24/25
--- OUTSIDE RECORDS SUMMARY | 2025-04-10 08:40 | XMS_ITS | Referral Summary ---
Author Organization [facility] Address [address] [place] [address] Care Team Providers Care Kosher Dietary Service Manager Name Role Phone Aleisha Brownlee MD Primary Care Provider [phone] Kyra Rodrigues MD Unavailable Encounters Date Type Department Care Team Description 03/06/2025 9:05 AM EDT - 03/06/2025 11:59 PM EDT Hospital Encounter [facility] Heart and Vascular Center Heart Station [address] [place] [address] Shortness of breath Discharge Disposition: Home or Self Care (01) 01/24/2025 8:10 AM EDT Lab [facility] Outpatient Draw Station [address] [place] [address] Lupus anticoagulant disorder (Primary Dx) 01/16/2025 1:30 PM EDT Telemedicine [facility] Cardiology Clinic [address] [place] [address] Laura Travis CNP POTS (postural orthostatic tachycardia [...] Narrative 03/06/2025 3:48 PM EDT 1 1 [place] [facility] Heart Station [address] [place] [address] [phone] (fax) Echocardiogram-[facility] Name: DAVION UMAÑA [...] No pericardial effusion. Procedure Staff Reading Group: [facility] Heavy Cleaner: Noel Li RDCS Ordering Physician: LAURA TRAVIS Procedure Note Lea Billy MD - 03/06/2025 1 1 [place] [facility] Heart Station [address] [place] [address] [phone] (fax) Echocardiogram-[facility] Name: DAVION UMAÑA [...] No pericardial effusion. Procedure Staff Reading Group: [facility] Heavy Cleaner: Noel Li RDCS Ordering Physician: LAURA TRAVIS Laura Travis [facility] CV ECHO PROCEDURES Final Res ult * (ABNORMAL) Cardiolipin antibody, IgG and IgM (01/24/2025 8:16 AM EDT) Anticardiolipin IgG 6.0 <=22.9 GPL 01/29/2025 10:00 AM EDT [facility] ([facility]) Anticardiolipin IgM 11.0(H) <10.9 MPL 01/29 10:00 AM EDT [facility] ([facility]) Blood Venous blood specimen / Unknown Venipuncture / Unknown 01/24/2025 8:16 AM EDT 01/24/2025 8:40 AM EDT us Kyra Rodrigues MD LAB BLOOD ORDERABLES Final Res ult [facility] ([facility]) [address] [place] [address] * Phosphatidylserine antibodies (01/24/2025 8:16 AM EDT) Phosphatidylserine Antibody IgG 0 0 - 15 GPS 01/28/2025 7:48 PM EDT [facility] ([facility]) Comment: INTERPRETIVE INFORMATION: Phosphatidylserine Ab, IgG IgG [...] - 21 MPS 01/28/2025 7:48 PM EDT [facility] ([facility]) Comment: INTERPRETIVE INFORMATION: Phosphatidylserine Ab, IgM The [...] other criteria phospholipid antibody tests. Performed By: [facility] [address] [place] [address] Plating Tank Operator Apprentice: Asa Tiwari MD, PhD CLIA Number: [id number] Blood Venous blood specimen / Unknown Venipuncture / Unknown 01/24/2025 8:16 AM EDT 01/24/2025 8:40 AM EDT Kyra Rodrigues MD LAB BLOOD ORDERABLES Final Res ult Performing Organization Address City/[facility]/ZIP Co de Phone Number [facility] [address] [place] [address] * Beta-2 glycoprotein antibody IgG and IgM (01/24/2025 8:16 AM EDT) Pathologist [facility] Beta-2 Glyco 1 IgG 1.0 <=19.9 SGU 01/25/2025 12:16 PM EDT [facility] ([facility]) Beta 2 Glyco 1 IgM 12.1 <=19.9 SMU 01/25/2025 12:16 PM EDT [facility] ([facility]) Blood Venous blood specimen / Unknown Venipuncture / Unknown 01/24/2025 8:16 AM EDT 01/24/2025 8:40 AM EDT Kyra Rodrigues MD LAB BLOOD ORDERABLES Final Res ult [facility] ([facility]) [address] [place] [address] * Lupus anticoagulant (01/24/2025 8:16 AM EDT) LA Negative Negative 01/28/2025 10:34 AM EDT [facility] ([facility]) Blood Venous blood specimen / Unknown Venipuncture / Unknown 01/24/2025 8:16 AM EDT 01/24/2025 8:36 AM EDT Narrative [facility] ([facility]) - 01/28/2025 10:34 AM EDT Positive results should be repeated after 12 weeks to confirm persistence of LA. The presence of DOAC drugs such as apixaban or rivaroxaban, or Vitamin K antagonists, heparin, and acute phase proteins at time of sample collection may interfere with the validity of results. us Kyra Rodrigues MD LAB BLOOD ORDERABLES Final Res ult [facility] ([facility]) [address] [place] [address] from Last 3 Months Insurance [facility] Care Teams Kosher Dietary Service Manager Relationship Specialty Start Date End Date Aleisha Brownlee MD [address] [facility] #A PCP - General 07/02/24 Kyra Rodrigues MD [address] [place] [address] Consulting Physician Oncology 01/24/25
--- OUTSIDE RECORDS SUMMARY | 2025-04-10 08:40 | XMS_ITS | Clinical Summary ---
Author Organization [facility] Address [address] [place] [address] Care Team Providers Care Key Entry Operator Name Role Phone Aleisha Brownlee MD Unavailable [phone] Medications DEXCOM G7 SENSOR jose as directed. 03/11/2025 Active sertraline (ZOLOFT) 25 mg tablet Take 25 mg by mouth once daily. Active JOYEAUX 0.1 mg-0.02 mg (21)/iron (7) tab take 1 tablet by mouth daily for 28 days Active Encounters Date Type Department Care Team Description 04/08/2025 Results Follow-Up Endocrinology [address] [place] [address] Jane Hastings MD 04/05/2025 Get Medical Advice Endocrinology [address] [place] [address] Provider, [facility] Dra[facility] 04/03/2025 Lab Requisition [facility] [address] [place] [address] Jane Hastings MD Disorder of the autonomic nervous system, unspecified; Hyperglycemia, unspecified; Other malaise; Other fatigue; Pain in unspecified joint 03/26/2025 2:30 PM EDT Office Visit [facility]ocr[facility] [address] [facility] [place] [address] Jane Hastings MD Autonomic dysfunction (Primary Dx); Hyperglycemia; Malaise and fatigue; Arthralgia, unspecified joint 03/26/2025 Travel from Last 3 Months Social History Tobacco Use Types Packs/Day Years Used Date Smoking Tobacco: Never Assessed Area Deprivation Index Answer Date Keon rded National Score (1-100), lower number is lower ri sk 59 03/26/2025 State Score (1-10), lower number is lower risk 4 03/26/2025 Data from: https://www.neighborhoodatlas.medicine.[facility]/. Last address used for calculation [address] [...] - 19+ 3-dose series) 10/07 Covid-19 Vaccine (1 - season) 2024 Influenza Vaccine (Season Ended) 2025 Procedures Procedure Name Priority Date/Time Associated Diagnosis Comments ISLET CELL AB Routine 04/03/2025 7:48 AM EDT Disorder of the autonomic nervous system, unspecified Hyperglycemia, unspecified Other malaise Other fatigue Pain in unspecified joint HEMOGLOBIN A1C (POC) Routine 03/26/2025 2:26 PM EDT Autonomic dysfunction Hyperglycemia from Last 3 Months Results * ISLET CELL AB (04/03/2025 7:48 AM EDT) Pathologist [facility] Islet Cell Ab <1:4 <1:4 04/07/2025 12:12 AM EDT [facility] Comment: INTERPRETIVE INFORMATION: Islet Cell Ab, IgG Islet cell antibodies (ICAs) are associated with type 1 diabetes (TID), an autoimmune endocrine disorder. ICAs may be present years before the onset of clinical symptoms. To calculate Juvenile Diabetes Foundation (JDF) units: multiply the titer x 5 (1:8 8 x 5 = 40 JDF Units). This test was developed and its performance characteristics determined by [employer]. It has not been cleared or approved by the US Food and Drug Administration. This test was performed in a CLIA certified laboratory and is intended for clinical purposes. Performed By: [facility] [address] [place] [address] Retail Store Manager: Asa Tiwari MD, PhD CLIA Number: [id number] Blood BLOOD SPECIMEN / Unknown 04/03/2025 7:48 AM EDT 04/03/2025 11:16 PM EDT Jane Hastings MD LABORATORY Final Result [facility] [address] [place] [address] * HEMOGLOBIN A1C (POC) (03/26/2025 2:26 PM EDT) [facility] Hemoglobin A1C (POCT) 5.4 4.3 - 5.6 % [facility] Comment: Location:[facility], [address] [place] [address], [facility] Point of care (POC) Hemoglobin A1c (HGBA1C) [...] specific diabetes management situations: The POC device statistical developer provides a normal range of 4.2% to 6.5% for the HGBA1C POC test. However, the [place] [employer] guidelines indicate that patients with [...] Jane Hastings MD POC TESTING Final Result [facility] POINT OF CARE [facility] [address] [place] [address] from Last 3 Months Insurance [employer] PPO Care Teams Key Entry Operator Relationship Specialty Start Date End Date Aleisha Brownlee MD [address] [place] [address] Referring Family Medicine 02/22/25
--- OUTSIDE RECORDS SUMMARY | 2025-04-10 08:40 | XMS_ITS | Encounter Summary ---
Author Organization [facility] Address [address] [place] [id number] Care Team Providers Care [facility] Name Role Phone Aleisha Brownlee MD Unavailable [phone] Source Comments In the event this information is protected by the Federal Confidentiality of Alcohol and Drug AbusePatient Records regulations: The Federal rules restrict any use of the information to criminally investigate or prosecute any alcohol or drug abuse patient.[facility] Encounter Details Date Type Department Care Team (Late st Contact Info) Description 04/05/2025 Get Medical Advice Endocrinology [address] [place], [place] [id number] Provider, [facility] Social History Tobacco Use Types Packs/Day Years Used Date Smoking Tobacco: Never Assessed Area Deprivation Index Answer Date Keon rded National Score (1-100), lower number is lower ri sk 59 03/26/2025 State Score (1-10), lower number is lower risk 4 03/26/2025 Data from: https://www.neighborhoodatlas.medicine.[facility].edu/. Last address used for calculation [address] [address] 03/26/2025 Comments Unknown Sex and Gender Information Value Date Recorded Sex Assigned at Not on file Legal Sex Female 10:10 AM EDT Gender Identity Not on file Sexual Orientation Not on file documented as of this encounter Miscellaneous Notes * Telephone Encounter - Saige Reyes RN - 04/09/2025 2:49 PM EDT See later encounter. Had more blood drawn yesterday. documented in this encounter Plan of Treatment Not on file documented as of this encounter Visit Diagnoses Not on filedocumented in this encounter Care Teams [facility] Relationship Specialty Start Date End Date Aleisha Brownlee MD [address] [place] [address] Referring Family Medicine 02/22/25 documented as of this encounter
--- OUTSIDE RECORDS SUMMARY | 2025-04-10 09:00 | XMS_ITS | CCD ---
Author Organization [facility] Care Team Providers Care Shipping Point Inspector Name Role Phone JUAN JOSE ACKERMAN Consulting [...] Provider UnavailJUAN JOSE Cordova Primary Care Physician [phone] Fredi BARLOW Attending Unavailable PIPE TRAVIS Attending Unavailable PIPE TRAVIS Referring Unavailable PIPE TRAVIS Referring Unavailable PIPE TRAVIS Attending Unavailable PIPE TRAVIS Attending Unavailable Juan Jose Ackerman MD Unavailable OMID HASTINGS Attending Unavailable JUAN JOSE ACKERMAN Referring Unavailable Allergies Allergy Classification Reported Allergen(s) Allergy Type Date of Onset Reaction(s) Facility (1 source) No Known Medication Allergies; Translations: [No Known Medication Allergies] Propensity to adverse reactions (disorder) [facility] Repository Medications Current Medications Medication Drug Class(es) Dates Sig (Normalized) Sig (Original) Blood-Glucose Meter,Continuous misc (1 source) Start: 01-21-2025 Blood-Glucose Meter,Continuous misc Active 0 .Route 1 January 21, 2025 12:00am As directed Blood-Glucose Sensor (Dexcom G7 Sensor) device (2 sources) Start: 01-25-2025 Blood-Glucose Sensor (Dexcom G7 Sensor) device Active 0 .Route January 25, 2025 12:00am As directed DEXCOM G7 SENSOR jose (2 sources) Start: 03-11-2025 DEXCOM G7 SENSOR jose as directed. 03/11/2025 Active Levonorgest-Eth.Es tradiol-Iron (5 sources) Progestin, Estrogen, Progestin-containin g Intrauterine Device Start: 03-27-2024 take 1 tablet by mouth once daily Levonorgest-Eth.E stradiol-Iron (Balcoltra) 0.1 mg-0.02 mg (21)/iron (7) tablet Active 1 TAB PO Daily March 26, 2024 11:00pm Start: 03-27-2024 take 1 tablet by kristie once daily Levonorgest-Eth.Estradiol-Iron (Balcoltr a) 0.1 mg-0.02 mg (21)/iron (7) tablet Active 1 TAB PO Daily March 27, 2024 12:00am JOYEAUX 0.1 mg-0.02 mg (21)/iron (7) tab (2 sources) take 1 tablet by mouth once daily JOYEAUX 0.1 mg-0.02 mg (21)/iron (7) tab take 1 tablet by mouth daily for 28 days Active midodrine hydrochloride 5 mg oral tablet (6 sources) alpha-Adrenergic Agonist Start: 03-01-2025 take 1 tablet by mouth three times daily midodrine 5 mg Tab 5 mg = 1 tab(s), Oral, TID, Refills(s) 0 Start Date: 03/01/25 Status: Ordered Repeat number: 1 Start: 03-27-2024 take 1 tablet by kristie three times daily Midodrine 10 mg tablet [...] 1 MG Oral Tablet) } Pack [Joyeaux Day] (1 source) Start: 03-01-2025 take 1 tablet by mouth once daily Joyeaux with iron 20 mcg-100 mcg oral tablet 1 tab(s), Oral, Daily, Refill(s) 0 Start Date: 03/01/25 Status: Ordered Repeat number: 1 Completed/Discontinued Medications Medication Drug Class(es) Dates Sig (Normalized) Sig (Original) Blood-Glucose,Rece iver,Cont (Dexcom G7 Ergonomic Specialist) misc (2 sources) Start: 01-25-2025 End: 02-19-2025 Blood-Glucose,Recei pavel,Cont (Dexcom G7 Ergonomic Specialist) misc Discontinued 0 .Route January 25, 2025 12:00am February 19, 2025 9:22am As directed Blood-Glucose,Rece iver,Cont misc (2 sources) Start: 01-21-2025 End: 01-23-2025 Blood-Glucose,Recei pavel,Cont misc Discontinued 0 .Route January 21, 2025 12:00am January 23, 2025 [...] unspecified] 12-25-2024 Episodic Diabetes mellitus without complication (9 sources) Impaired fasting glucose; Translations: [Hyperglycemia] Onset: 12-12-2020 02-19-2025 Episodic Malaise and fatigue (11 sources) Fatigue; Translations: [Other fatigue] Onset: 03-26-2025 12-25-2024 Episodic Nervous system congenital anomalies (16 sources) Disorder of autonomic nervous system; Translations: [...] Chronic Other non-traumatic joint disorders (1 source) Joint pain; Translations: [Pain in unspecified joint] 03-26-2025 Episodic Other non-traumatic joint disorders (1 source) Pain [...] of subcutaneous tissue of back 03-06-2025 Episodic Syncope (10 sources) Syncope and collapse; Translations: [Syncope] Onset: 12-16-2020 04-13-2024 Episodic Past or Other Problems Problem Classification Problem Date Documented Da te Episodic/Chronic Other circulatory disease (3 sources) Postural orthostatic tachycardia syndrome ; Translations: [Postural orthostatic tachycardia syndrome (POTS)] Onset: 11-16-2024 03-06-2025 Episodic Results Test Name Value Interpretation Reference Range Facility ISLET CELL ABon 04-03-2025 ISLET CELL AB <1:4 Normal <1:4 [facility] Comment on above: Order Comment: Speci men Type: BLOOD SPECIMEN Ordering Facility: [facility] Address: ATTN: [facility], [place] [address] Result Comment: INTE RPRETIVE INFORMATION: Islet Cell Ab, IgG Islet cell antibodies (ICAs) are associated with type 1 diabetes (TID), an autoimmune endocrine disorder. ICAs may be present years before the onset of clinical symptoms. To calculate Juvenile Diabetes Foundation (JDF) units: multiply the titer x 5 (1:8 8 x 5 = 40 JDF Units). This test was developed and its performance characteristics determined by [facility]. It has not been cleared or approved by the US Food and Drug Administration. This test was performed in a CLIA certified laboratory and is intended for clinical purposes. Performed By: [facility] [address] [place] [address] Autocad Technician: Asa Tiwari MD, PhD CLIA Number: [id number] Performed By: #### I SLET #### [facility] CLIA [id number] [address] [place] [address] CNOVon 03-26-2025 CNOV Office Visit (ENDOLN ) DAVION UMAÑA ([id number]) 3 F Date Time Provider Department 03/26/25 [...] compression stockings; advised to continue. -follows at [facility] TFT and TPO ordered 2. Hyperglycemia [...] antibodies ordered Referring Provider: JUAN JOSE ACKERMAN [[id number]] Allergies As of Date: 03/26/2025 (Not on File) Date Reviewed: Never Reviewed Reason for Visit: New Patient [172] Primary Visit Diagnosis:Autonomic dysfunction [G90.9] Other Visit Diagnoses:Hyperglycemia [R73.9] Malaise and fatigue [R53.81, R53.83] Arthralgia, unspecified joint [M25.50] Order(s):HEMOGLOBIN A1C (POC) [7062775] Order #: [id number]. #:[id number] -LAB CORTISOL, SERUM [SQCOR] Order #: [id number] FUTURE ACTH BLD [SQACTH] Order #: [id number] FUTURE DHEA-S BLD [SQDHEAS] Order #: [id number] FUTURE INSULIN, TOTAL, SERUM [SQINSULN] Order #: [id number] FUTURE GLUCOSE, FASTING [SQGLF] Order #: [id number] FUTURE ISLET CELL AB [SQISLET] Order #: [id number] FUTURE THYROID STIMULATING HORMONE [SQTSH] Order #: [id number] FUTURE T4 FREE/FREE THYROXINE [SQFT4] Order #: [id number] FUTURE THYROID PEROXIDASE ANTIBODY [SQMICRO] Order #: [id number] FUTURE GLUTAMIC AC DECARBOXYLASE AB [SQGADCAB] Order #: [id number] FUTURE Prescriptions as of 03/26/2025 - PriceMe G7 SENSOR jose as directed. - sertraline (ZOLOFT) 25 mg tablet Take 25 mg by mouth once daily. - JOYEAUX 0.1 mg-0.02 mg (21)/iron (7) tab take 1 tablet by mouth daily for 28 days Problem List As Of Date: 03/26/2025 (None) Level of Service: OFFICE/OUTPATIENT [facility] (more content not included)... Normal [facility] HEMOGLOBIN A1C (POC)on 03-26 HbA1c (Bld) [Mass fraction] 5.4 % 4.3 - 5.6 % [facility] Comment on above: Location:[facility] [place], [place], [facility] Point of care (POC) Hemoglobin A1c (HGBA1C) [...] specific diabetes management situations: The POC device senior program analyst provides a normal range of 4.2% to 6.5% for the HGBA1C POC test. However, the [place] [employer] guidelines indicate that patients with [...] anemia) that alter red blood cell lifespan. [facility] Ambulatory Visit Summaryon 0 03-06-2025 Ambulatory [...] for choosing us for your care. Normal [facility] BETA-2 GLYCOPROTEIN ANTIBODY IGG AND IGMon 01-24-2025 BETA 2 GLYCOPROTEIN 1 IGG AB (SGU) IN SERUM 1.0 SGU Normal <=19.9 [facility] Comment on above: Performed By: #### L [id number] ####[facility] (BEAKER)[address] [place] [address] BETA 2 GLYCOPROTEIN 1 IGM ANTIBODY (SMU) IN SERUM 12.1 SMU Normal <=19.9 [facility] Comment on above: Performed By: #### L [id number] ####[facility] LAB (BEAKER)[address] [place] [address] CARDIOLIPIN ANTIBODY, IGG AN D IGMon 01-24-2025 ANTICARDIOLIPIN IGG ANTIBODY 6.0 GPL Normal <=22.9 [facility] Comment on above: Performed By: #### L [id number] ####[facility] (BEAKER)[address] [place] [address] ANTICARDIOLIPIN IGM ANTIBODY 11.0 MPL High <10.9 [facility] Comment on above: Performed By: #### L [id number] ####[facility] (BEAKER)[address] [place] [address] LUPUS ANTICOAGULANTon 2024 LUPUS ANTICOAGULANT Negative Normal Negative [facility] Comment on above: Order Comment: Posit titus results should be repeated after 12 weeks to confirm persistence of LA. The presence of DOAC drugs such as apixaban or rivaroxaban, or Vitamin K antagonists, heparin, and acute phase proteins at time of sample collection may interfere with the validity of results. Performed By: #### L [id number] #### [facility] (BEAKER) [address] [place] [address] Labon 01-24-2025 Lab [id number] Dell Umaña E 2005 F Date Provider Department Center 01/24/2025 2245-[facility] OPD LAB RESOURCE [facility]PD [place] [facility] Family History Problem Relation Age [...] Paternal Grandmother Other Alive Neg Hx Normal [facility] PHOSPHATIDYLSERINE ANTIBODIE Son 01-24-2025 PHOSPHATIDYLSERINE ANTIBODY IGG 0 GPS Normal 0-15 [facility] Comment on above: Result Comment: INTE [...] phospholipid antibody tests. Performed By: #### L [id number] ####[facility])[address] [place], [place] [id number] PHOSPHATIDYLSERINE ANTIBODY IGM 6 MPS Normal 0-21 [facility] Comment on above: Result Comment: INTE [...] other criteria phospholipid antibody tests. Performed By: [facility] [address] [place] [address] Autocad Technician: Asa Tiwari MD, PhD CLIA Number: [id number] Performed By: #### L [id number] ####[facility])[address] [place] [address] Telemedicineon 01-16-2025 Telemedicine [id number] Ronel Umañasánchez kin E 2005 F Date Provider Department Center 01/16/2025 PPIE VALLADARES [facility] CARD [facility] Family History [...] Grandmother Other Alive Neg Hx Level of Service:65497 IN OFFICE/OUTPATIENT ESTABLISHED LOW MDM 20 MIN Reason for Visit and Comments: Telehealth Audio/video Visit [871] Normal [facility] Estimated glomerular filtrat ion rate (GFR) non- Americanon 12-25-2024 GFR/1.73 sq M.predicted among non-blacks MDRD (S/P/Bld) [Vol rate/Area] Estimated glomerular filtration rate (GFR) non- >=60 mL/min/1.73 m 2 [facility] Laboratory - Chemistry and C hemistry - challengeon 12-25-2024 Calcium [Mass/Vol] 9.3 mg/dL 8.5-10.1 [facility] Chloride [Moles/Vol] 103 mmol/L 98-107 [facility] CO2 [Moles/Vol] 28.1 mmol/L 21.0-32.0 [facility] Cobalamin (Vitamin B12) [Mass/Vol] 340 pg/mL 232-1245 [facility] Comment on above: Performed at: - [address] [id number] Director: Tristan Dean PhD, Phone: [phone] Creatinine [Mass/Vol] 0.77 mg/dL 0.55-1.02 [facility] Ferritin [Mass/Vol] 17.0 ng/mL 8.0-252.0 [facility] GFR/1.73 sq M.predicted MDRD (S/P/Bld) [Vol rate/Area] mL/min/{1.73_m2} >=60 mL/min/1.73 m 2 [facility] Glucose [Mass/Vol] 87 mg/dL 74-106 [facility] Potassium [Moles/Vol] 4.4 mmol/L 3.5-5.1 [facility] Sodium [Moles/Vol] 138 mmol/L 136-145 [facility] Urea nitrogen [Mass/Vol] 7.0 mg/dL 7.0-18.0 [facility] Urea nitrogen/Creatinine [Mass ratio] 9.1 mg/mg [facility] No Panel Informationon 12-25 Folate 17.50 ng/mL 8.60-58.90 [facility] Miscellaneous Test COMMENT . [facility] Comment on above: Test Ordered: [id number] Lupus Anticoag/Cardiolipin AbProthrombin Time 10.3 sec UY [...] years and older: 22.9 - 30.2APTT 1:1 ALLERGIST/IMMUNOLOGIST sec UY Reference Range: .Testing Not IndicatedThis test was developed and its performance characteristicsdetermined by [employer]. It has not been cleared or approvedby the US Food and Drug Administration.APTT 1:1 Saline sec UY Reference Range: .Testing Not IndicatedThis test was developed and its performance characteristicsdetermined by [facility]. It has not been cleared or approvedby [...] REBECCA-based antiphospholipid antibodiesevaluated are normal. Please contact [facility] Coagulationif further clarification is needed.Performed at: [facility] [id number] [id number] Director: Nabil Corrales MD, Phone: [phone] at: - [facility] [address] [id number] Director: Tristan Dean PhD, Phone: [phone] Monoscreen Negative NEGATIVE [facility] Serum or plasma anion gap de terminationon 12-25-2024 Anion gap [Moles/Vol] Serum or plasma anion gap determination [facility] Serum or plasma free cefurox yomi measurement (mass/volume)on 12-25-2024 Cefuroxime free [Mass/Vol] Serum or plasma free cefuroxime measurement (mass/volume) Negative [facility] Comment on above: Performed at: [facility] [address] [id number] Director: Tristan Dean PhD, Phone: [phone] Serum or plasma insulin marina urement (units/volume)on 12-25-2024 Insulin Qn Serum or plasma insu jaz measurement (units/volume) 2.6-24.9 [facility] Comment on above: Performed at: [facility] [address] [id number] Director: Tristan Dean PhD, Phone: [phone] ALL CBC WITH AUTO DIFFon BASOPHILS ABSOLUTE AUTO 0 [facility] Basophils/100 WBC (Bld) 0.5 % 0.2 - 2.0 % [facility] Eosinophils/100 WBC (Bld) 3.9 % 0.9 - 7.0 % [facility] Erythrocyte distribution width (RBC) [Ratio] 12.1 % 11.0 - 15.0 % [facility] Hematocrit (Bld) [Volume fraction] 42.4 % 36.0 - 48.0 % [facility] Hemoglobin (Bld) [Mass/Vol] 14.2 g/dL 12.0 - 16.0 g/dL [facility] IMMATURE GRANULOCYTES ABS AUTO 0.07 High [facility] Immature granulocytes/100 WBC (Bld) 0.9 % High 0.0 - 0.5 % [facility] Interpretation and review of laboratory results Abnormal [facility] LYMPHOCYTES ABSOLUTE AUTO 3.1 [facility] Lymphocytes/100 WBC (Bld) 38.6 % 20.5 - 60.0 % [facility] MCH (RBC) [Entitic mass] 29.7 pg 26.7 - 34.0 pg [facility] MCHC (RBC) [Mass/Vol] 33.5 g/dL 29.9 - 35.2 g/dL [facility] MCV (RBC) [Entitic vol] 88.7 fL 81.0 - 99.0 fL [facility] MONOCYTES ABSOLUTE AUTO 0.6 [facility] Monocytes/100 WBC (Bld) 7.4 % 1.7 - 12.0 % [facility] NEUTROPHILS ABSOLUTE AUTO 4 [facility] Neutrophils/100 WBC (Bld) 48.7 % 43.0 - 75.0 % [facility] Platelet mean volume (Bld) [Entitic vol] 11.5 fL 9.5 - 13.5 fL [facility] EO # 0.3 [facility] PLT 253 [facility] RBC 4.78 [facility] WBC 8.1 [facility] Basophils Auto (Bld) [#/Vol] on 12-08-2024 Basophils (Bld) [#/Vol] Automated basophil count 0.0-0.1 [facility] Basophils/100 WBC Auto (Bld) on 12-08-2024 Basophils/100 WBC (Bld) Automated basophil % 0.2-2.0 [facility] Eosinophils/100 WBC Auto (Bl d)on 12-08-2024 Eosinophils/100 WBC (Bld) Automated eosinophil % 0.9-7.0 [facility] Erythrocyte distribution wid th Auto (RBC) [Ratio]on 12-08-2024 Erythrocyte distribution width (RBC) [Ratio] Erythrocyte distribution width [Ratio] by Automated count 11.0-15.0 [facility] Glucose mean value [Mass/vol ume] in Blood Estimated from glycated hemoglobinon 12-08-2024 Average glucose Estimated from glycated hemoglobin (Bld) [Mass/Vol] Glucose mean value [Mass/volume] in Blood Estimated from glycated hemoglobin [facility] Hematocrit Auto (Bld) [Volum e fraction]on 12-08-2024 Hematocrit (Bld) [Volume fraction] Hematocrit [Volume Fraction] of Blood by Automated count 36.0-48.0 [facility] Hemoglobin A1c percentageon 12-08-2024 HbA1c (Bld) [Mass fraction] Hemoglobin A1c percentage 4.5-6.2 [facility] Comment on above: ADA RECOMMENDED LIMI T 4.0 - 6.0ADA THERAPEUTIC TARGET < 7.0ACTION SUGGESTED> 7.0 Hemoglobin [Mass/volume] in Bloodon 12-08-2024 Hemoglobin (Bld) [Mass/Vol] Hemoglobin [Mass/volume] in Blood 12.0-16.0 [facility] Laboratory - Chemistry and C hemistry - challengeon 12-08-2024 Calcium [Mass/Vol] 9.4 mg/dL 8.5-10.1 [facility] Chloride [Moles/Vol] 102 mmol/L 98-107 [facility] CO2 [Moles/Vol] 26.6 mmol/L 21.0-32.0 [facility] Free T4 [Mass/Vol] 0.95 ng/dL 0.76-1.46 [facility] Glucose [Mass/Vol] 90 mg/dL 74-106 [facility] Magnesium [Mass/Vol] 1.8 mg/dL 1.8-2.4 [facility] Potassium [Moles/Vol] 3.9 mmol/L 3.5-5.1 [facility] Sodium [Moles/Vol] 139 mmol/L 136-145 [facility] TSH Qn 1.090 m[IU]/L 0.358-3.740 [facility] Laboratory - Hematology and Cell countson 12-08-2024 Immature granulocytes/100 WBC (Bld) 0.9 % High 0.0-0.5 [facility] Leukocytes [#/volume] correc arnel for nucleated erythrocytes in Blood by Automated counon 12-08-2024 WBC corrected for nucl RBC Auto (Bld) [#/Vol] Leukocytes [#/volume] corrected for nucleated erythrocytes in Blood by Automated coun 4.0-11.0 [facility] Lymphocytes Auto (Bld) [#/Vo l]on 12-08-2024 Lymphocytes (Bld) [#/Vol] Lymphocytes [#/volume] in Blood by Automated count 1.2-3.8 [facility] Lymphocytes/100 WBC Auto (Bl d)on 12-08-2024 Lymphocytes/100 WBC (Bld) Lymphocytes/100 leukocytes in Blood by Automated count 20.5-60.0 [facility] MCH Auto (RBC) [Entitic mass ]on 12-08-2024 MCH (RBC) [Entitic mass] MCH [Entitic mass] by Automated count 26.7-34.0 [facility] MCHC Auto (RBC) [Mass/Vol]on 12-08-2024 MCHC (RBC) [Mass/Vol] MCHC [Mass/volume] by Automated count 29.9-35.2 [facility] MCV Auto (RBC) [Entitic vol] on 12-08-2024 MCV (RBC) [Entitic vol] MCV [Entitic volume] by Automated count 81.0-99.0 [facility] Monocytes Auto (Bld) [#/Vol] on 12-08-2024 Monocytes (Bld) [#/Vol] Automated blood monocyte count 0.3-0.8 [facility] Monocytes/100 WBC Auto (Bld) on 12-08-2024 Monocytes/100 WBC (Bld) Automated monocyte % 1.7-12.0 [facility] Neutrophils Auto (Bld) [#/Vo l]on 12-08-2024 Neutrophils (Bld) [#/Vol] Neutrophils [#/volume] in Blood by Automated count 1.4-6.5 [facility] Neutrophils/100 WBC Auto (Bl d)on 12-08-2024 Neutrophils/100 WBC (Bld) Automated neutrophil % 43.0-75.0 [facility] No Panel Informationon 12-08 Eosinophils # (Auto) 0.3 10 3/uL 0.0-0.7 [facility] Human Chorionic Gonadotropin, Quant <1 mIU/mL [facility] Comment on above: 5-50 0.2-1 XEJI51-28 0 1-2 ACWLN896-9,000 2-3 SDESZ827-84,000 3-4 WEEKS1,000-50,000 4-5 WEEKS10,000-100,000 5-6 WEEKS15,000-200,000 6-8 WEEKS10,000-100,000 2-3 MONTHS Immature Granulocyte # (Auto) 0.07 10 3/uL High 0.00-0.03 [facility] Platelet mean volume Auto (B ld) [Entitic vol]on 12-08-2024 Platelet mean volume (Bld) [Entitic vol] Platelet mean volume [Entitic volume] in Blood by Automated count 9.5-13.5 [facility] Platelets Auto (Bld) [#/Vol] on 12-08-2024 Platelets (Bld) [#/Vol] Platelets [#/volume] in Blood by Automated count 150-450 [facility] RBC Auto (Bld) [#/Vol]on RBC (Bld) [#/Vol] Erythrocytes [#/volu me] in Blood by Automated count 4.20-5.40 [facility] Patient Messageon 11-27-2024 Patient Message [id number] Dell Umaña E 2005 Date Provider Department Center 11/27/2024 PIPE VALLADARES H[facility] CARD [facility] Family History Problem [...] Maternal Grandfather Paternal Grandmother Neg Hx Normal [facility] Telemedicineon 11-16-2024 Telemedicine [id number] Dell Umaña E 2005 Date Provider Department Center 11/16/2024 PIPE VALLADARES HVC CARD [facility] Family History Problem [...] Grandfather Paternal Grandmother Neg Hx Level of Service:38622 IN OFFICE/OUTPATIENT ESTABLISHED SF MDM 10 MIN Reason for Visit and Comments: Telehealth Audio/video Visit [871] [facility] 29on 07-02-2024 29 Addended by: PIPE TRAVIS on: 07/02/2024 11:16 AM Modules accepted: Orders Normal [facility] Documentationon 07-02-2024 Documentation [id number] Dell Umaña E 2005 F Date Provider Department Center 07/02/20243975-January [facility] Spe Pha Comprehensiv Family History Problem [...] Comments: Specialty Pharmacy Note: ivabradine [Other] Normal [facility] Office Visiton 07-02-2024 Follow-up visit [id number] Dell Umaña 2005 F Date Provider Department Center 07/02/2024 HeavenCLEMENCIALaurie PIPE [facility] Family History [...] Grandfather Paternal Grandmother Neg Hx Level of Service:99141 IN OFFICE/OUTPATIENT NEW LOW MDM 30 MINUTES Reason for Visit and Comments: New Patient [632] - Patient in our office for Dysautonomia. Patient light headed, palpitations and edema when about to have episodes Normal [facility] Progress Noteon 11-25-2023 Instrument Specialist Authentication Interface Message Text [facility] [employer] [facility] History of Present Illness Davion [...] changes in medications. Goes to school at [employer] and lives on campus. Is doing well [...] family. Social History: Freshman in college at [employer]. Studying education. Physical Exam: The Physical Exam is limited due to Telehealth General: Patient appears healthy, well developed, well nourished, non-toxic, and in no acute distress HEENT: atraumatic and normocephalic Chest: Respirations are easy, non-labored with symmetric chest rise. Skin: [place], without obvious rashes or lesions. Neuro: Awake [...] Total encounter time: 30 minutes Delores Mora APRN-BIOLOGY LECTURER Pediatric Nurse Practitioner [facility] 11/25/2023 Normal [facility] Progress Noteon 09-23-2023 Instrument Specialist Authentication Interface Message Text [facility] History of Present Illness Davion Umaña is a 17 y.o. female who has been followed in the [facility] [place] since 2020, for dizziness and syncope. Her [...] month. 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 Passed out. LOC < 2 minutes. No head injury. -shortness of breath when she feels like she is going to pass out -sweating without fever -fatigue/ lack of sleep. (Feels her head spinning) No recent changes in medications. Goes to school at [employer] and lives on campus. Is doing well [...] Elastic Bandages & Supports (MEDICAL COMPRESSION STOCKINGS) [facility] Waist high compression stockings 20mmHg-30mmHg. To be [...] family. Social History: Freshman in college at [employer]. Physical Exam: 1. General: Alert, active, well [...] locations. Impression: Vasovagal syncope Orthostatic intolerance Dysautonomia Breckin's syncope has increased over the last 1-2 [...] Total encounter time: 60 minutes Delores Mora, FARM MANAGEMENT AGENT-BIOLOGY LECTURER Pediatric N (more content not included)... Normal [facility] CBC AUTO DIFFon 12-12-2020 Basophils (Bld) [#/Vol] 0.0 103/ul Normal 0.0-0.1 [facility] Comment on above: Performed By: #### C BC #### [facility] [address], [place] [address] Steve Alyssia Basophils/100 WBC (Bld) 0.4 % Normal 0.2-2.0 [facility] Comment on above: Performed By: #### C BC #### [facility] [address], [place] [address] Steve Alyssia Eosinophils (Bld) [#/Vol] 0.1 103/ul Normal 0.0-0.7 [facility] Comment on above: Performed By: #### C BC #### [facility] [address], [place] [address] Steve Alyssia Eosinophils/100 WBC (Bld) 2.0 % Normal 0.9-7.0 [facility] Comment on above: Performed By: #### C BC #### [facility] [address] [place] [address] Steve Alyssia Erythrocyte distribution width (RBC) [Ratio] 14.6 % Normal 11.0-15.0 [facility] Comment on above: Performed By: #### C BC #### [facility] [address] [place], [place] [id number] Steve Alyssia Hematocrit (Bld) [Volume fraction] 36.7 % Normal 36.0-48.0 [facility] Comment on above: Performed By: #### C BC #### [facility] [address] [place] [address] Steve Alyssia Hemoglobin (Bld) [Mass/Vol] 11.5 g/dL Critically low 12.0-16.0 [facility] Comment on above: Performed By: #### C BC #### [facility] [address] [place] [address] Steve Alyssia IG # 0.03 10e3/ul Normal 0.00-0.03 [facility] Comment on above: Performed By: #### C BC #### [facility] [address] [place] [address] Steve Alyssia IG % 0.4 % Normal 0.0-0.5 [facility] Comment on above: Performed By: #### C BC #### [facility] [address] [place] [address] Steve Alyssia Lymphocytes (Bld) [#/Vol] 2.1 103/ul Normal 1.2-3.8 [facility] Comment on above: Performed By: #### C BC #### [facility] [address] [place], [place] [id number] Steve Alyssia Lymphocytes/100 WBC (Bld) 31.0 % Normal 20.5-60.0 [facility] Comment on above: Performed By: #### C BC #### [facility] [address] [place], [place] [phone] Steverosy Guerraen MANUAL DIFF REQ NO Normal [facility] Comment on above: Performed By: #### C BC #### [facility] [address], [place] [address] Steve Alyssia MCH (RBC) [Entitic mass] 26.6 pg Critically low 26.7-34.0 [facility] Comment on above: Performed By: #### C BC #### [facility] [address] [place], [place] [address] Steve Alyssia MCHC (RBC) [Mass/Vol] 31.3 g/dL Normal 29.9-35.2 [facility] Comment on above: Performed By: #### C BC #### [facility] [address] [place], [place] [address] Steve Alyssia MCV (RBC) [Entitic vol] 85.0 fL Normal 79.1-95.6 [facility] Comment on above: Performed By: #### C BC #### [facility] [address] [place] [address] Steve Alyssia Monocytes (Bld) [#/Vol] 0.5 103/ul Normal 0.3-0.8 [facility] Comment on above: Performed By: #### C BC #### [facility] [address] [place] [address] Steve Alyssia Monocytes/100 WBC (Bld) 7.6 % Normal 1.7-12.0 [facility] Comment on above: Performed By: #### C BC #### [facility] [address] [place] [address] Steve Alyssia Neutrophils (Bld) [#/Vol] 4.0 103/ul Normal 1.4-6.5 [facility] Comment on above: Performed By: #### C BC #### [facility] [address] [place] [address] Steve Alyssia Neutrophils/100 WBC (Bld) 58.6 % Normal 43.0-75.0 [facility] Comment on above: Performed By: #### C BC #### [facility] [address] [place] [address] Steve Alyssia Platelet mean volume (Bld) [Entitic vol] 11.9 fL Normal 9.5-13.5 [facility] Comment on above: Performed By: #### C BC #### [facility] [address] [place], [place] [phone] Steverosy Cade Platelets (Bld) [#/Vol] 300 103/ul Normal 150-450 [facility] Comment on above: Performed By: #### C BC #### [facility] [address] [place], [place] [phone] Steverosy Cade RBC (Bld) [#/Vol] 4.32 106/ul Normal 3.40-5.30 [facility] Comment on above: Performed By: #### C BC #### [facility] [address] [place], [place] [phone] Steverosy Guerraen WBC (Bld) [#/Vol] 6.9 103/ul Normal 4.0-11.0 [facility] Comment on above: Performed By: #### C BC #### [facility] [address] [place] [address] Steve Cade GLYCOHEMOGLOBIN A1Con 2020 ADA RECOMMENDATION ADA THERAPEUTIC TARG ET 6.0 - 7.0 ACTION SUGGESTED > 7.0 Normal [facility] Comment on above: Performed By: #### A 1C #### [facility] [address] [place], [place] [phone] Steve Alyssia Glucose [Mass/Vol] 117 mg/dL Normal [facility] Comment on above: Performed By: #### A 1C #### [facility] [address] [place] [address] Steve Cade HbA1c (Bld) [Mass fraction] 5.7 % Normal <=6.0 [facility] Comment on above: Performed By: #### A 1C #### [facility] [address] [place], [place] [phone] Steve Alyssia PROF CHEM 8 (BAS METB)on Anion gap [Moles/Vol] 13.2 mmol/L Normal [facility] Comment on above: Performed By: #### T SH, BMP #### [facility] [address] [place], [place] [address] Steve Alyssia Calcium [Mass/Vol] 9.0 mg/dL Normal 8.4-10.2 [facility] Comment on above: Performed By: #### T DARRYL, BMP #### [facility] [address] [place] [address] Steve Alyssia Chloride [Moles/Vol] 102 mmol/L Normal 98-107 [facility] Comment on above: Performed By: #### T DARRYL, BMP #### [facility] [address] [place] [address] Steve Alyssia CO2 [Moles/Vol] 28.1 mmol/L Normal 22.0-30.0 [facility] Comment on above: Performed By: #### T DARRYL, BMP #### [facility] [address] [place] [address] Steve Alyssia Creatinine [Mass/Vol] 0.70 mg/dL Normal 0.52-1.04 [facility] Comment on above: Performed By: #### T DARRYL, BMP #### [facility] [address] [place] [address] Steve Alyssia Glucose [Mass/Vol] 89 mg/dL Normal 74-106 [facility] Comment on above: Performed By: #### T DARRYL, BMP #### [facility] [address] [place] [address] Steve Alyssia Potassium [Moles/Vol] 4.3 mmol/L Normal 3.4-5.0 [facility] Comment on above: Performed By: #### T DARRYL, BMP #### [facility] [address] [place] [address] Steve Alyssia Sodium [Moles/Vol] 139 mmol/L Normal 137-145 [facility] Comment on above: Performed By: #### T DARRYL, BMP #### [facility] [address] [place] [address] Steve Alyssia Urea nitrogen [Mass/Vol] 12.0 mg/dL Normal 6.4-19.3 [facility] Comment on above: Performed By: #### T DARRYL, BMP #### [facility] [address] [place] [address] Steve Alyssia Urea nitrogen/Creatinine [Mass ratio] 17.1 mg/mg Normal [facility] Comment on above: Performed By: #### T DARRYL, NORBERT #### [facility] [address] [place] [address] Steve Cade TSHon 12-12-2020 TSH Qn 0.468 uIU/mL Normal 0.430-3.750 [facility] Comment on above: Performed By: #### T DARRYL, NORBERT #### [facility] [address] [place] [address] Steve Cade TSH Qn SEE BELOW Normal [facility] Comment on above: Result Comment: <0.3 4 UIU/ml HYPERTHYROID 0.34-5.60 UIU/ml EUTHYROID >5.60 UIU/ml HYPOTHYROID Performed By: #### T DARRYL, NORBERT #### [facility] [address] [place] [address] Steve Cade US PELVISon 02-07-2020 US PELVIS [...] WOODROW VASQUEZ Date: 2020-02-07 10:08 Normal [facility] Vital Signs Date Time Vital Sign Value Performing Clinician Rowena singh 03-26-2025 14:16-0400 Body weight 87.1 kg Omid Hastings MD Work Phone: [facility] 03-26-2025 14:16-0400 Diastolic blood pressure 76 mm[Hg] Omid Hastings MD Work Phone: [facility] 03-26-2025 14:16-0400 Heart rate 80 /min Omid Hastings MD Work Phone: [facility] 03-26-2025 14:16-0400 Systolic blood pressure 132 mm[Hg] Omid Hastings MD Work Phone: [facility] 03-06-2025 15:01-0400 Blood Pressure Location Fredi NILL [facility] [place] 03-06-2025 15:01-0400 Diastolic blood pressure 76 mm[Hg] Fredi NILL [facility] [place] 03-06-2025 15:01-0400 Heart rate 72 /min Fredi NILL [facility] [place] 03-06-2025 15:01-0400 Respiratory rate 16 /min Fredi NILL [facility] [place] 03-06-2025 15:01-0400 Systolic blood pressure 126 mm[Hg] Fredi NILL [facility] [place] 02-19-2025 09:05-0400 Body height 175.26 cm [facility] 02-19-2025 09:05-0400 Body mass index (BMI) [Ratio] 27.8 kg/m2 [facility] 02-19-2025 09:05-0400 Body weight 85.72 kg [facility] 02-19-2025 09:05-0400 Diastolic blood pressure 81 mm[Hg] [facility] 02-19-2025 09:05-0400 Heart rate 73 /min [facility] 02-19-2025 09:05-0400 Systolic blood pressure 126 mm[Hg] [facility] 01-21-2025 09:06-0400 Body height 175.26 cm [facility] 01-21-2025 09:06-0400 Body mass index (BMI) [Ratio] 27.3 kg/m2 [facility] 01-21-2025 09:06-0400 Body weight 83.91 kg [facility] 01-21-2025 09:06-0400 Diastolic blood pressure 81 mm[Hg] [facility] 01-21-2025 09:06-0400 Heart rate 81 /min [facility] 01-21-2025 09:06-0400 Systolic blood pressure 123 mm[Hg] [facility] 12-25-2024 09:02-0500 Body height 175.26 cm [facility] 12-25-2024 09:02-0500 Body mass index (BMI) [Ratio] 26.7 kg/m2 [facility] 12-25-2024 09:02-0500 Body weight 82.1 kg [facility] 12-25-2024 09:02-0500 Diastolic blood pressure 79 mm[Hg] [facility] 12-25-2024 09:02-0500 Heart rate 79 /min [facility] 12-25-2024 09:02-0500 Systolic blood pressure 118 mm[Hg] [facility] 04-06-2024 10:15-0400 Body height 175.26 cm [facility] 04-06-2024 10:15-0400 Body mass index (BMI) [Percentile] Per age and sex 76.3 % [facility] 04-06-2024 10:15-0400 Body mass index (BMI) [Ratio] 24.5 kg/m2 [facility] 04-06-2024 10:15-0400 Body weight 75.46 kg [facility] 04-06-2024 10:15-0400 Diastolic blood pressure 79 mm[Hg] [facility] 04-06-2024 10:15-0400 Heart rate 70 /min [facility] 04-06-2024 10:15-0400 Systolic blood pressure 115 mm[Hg] [facility] Encounters Encounter Date Encounter Type Care Provider Facility Start: 04-05-2025 End: 04-09-2025 ambulatory [facility] Provider Endocrinology Comment on above: Labs Drawn Start: 03-26-2025 End: 03-26-2025 Office outpatient new 45 minutes Omid Hastings MD Work Phone: Endocrinology Comment on above: Autonomic dysfunctio n (Primary Dx); Hyperglycemia; Malaise and fatigue; Arthralgia, unspecified joint Start: 03-26-2025 End: 03-26-2025 ambulatory OMID HASTINGS Facility:[facility] Start: 03-20-2025 End: 03-20-2025 ambulatory [facility] Work Phone: Start: 03-20-2025 End: 03-20-2025 [facility]: Start: 03-06-2025 End: 03-06-2025 ambulatory Fredi BARLOW Facility:[facility] [place] Start: 03-06-2025 End: 03-06-2025 Patient encounter procedure Fredi BARLOW [facility] [place] Start: 03-06-2025 End: 03-06-2025 ambulatory PIPECHRISTEN TRAVIS [facility] Start: 03-04-2025 ambulatory Fredi BARLOW Facility:[facility] Start: 02-19-2025 End: 02-19-2025 ambulatory [facility] Work Phone: Start: 02-19-2025 End: 02-19-2025 Patient encounter procedure [facility] Work Phone: Start: 01-24-2025 ambulatory PIPECHRISTEN TRAVIS [facility] Start: 01-21-2025 End: 01-21-2025 ambulatory [facility] Work Phone: Start: 01-21-2025 End: 01-21-2025 Patient encounter procedure [facility] Work Phone: Start: 01-16-2025 Non-patient / Non-visit [facility] Work Phone: Start: 01-16-2025 End: 01-16-2025 ambulatory [facility] Start: 12-25-2024 End: 12-25-2024 ambulatory [facility] Work Phone: Start: 12-25-2024 End: 12-25-2024 [facility] Start: 12-08-2024 End: 12-08-2024 Clinisync Result Encounter Papito Kayla DO Work Phone: [facility] Unsolicited Start: 12-08-2024 End: 12-08-2024 Clinisync Result Encounter Papito Kayla DO Work Phone: [facility] External [facility] Unsolicited Start: 12-08-2024 Non-patient / Non-visit [facility] Work Phone: Start: 11-16-2024 End: 11-16-2024 ambulatory [facility] Start: 07-02-2024 End: 07-02-2024 ambulatory [facility] Start: 07-02-2024 ambulatory [facility] Start: 04-06-2024 End: 04-06-2024 ambulatory [facility] Work Phone: Start: 04-06-2024 End: 04-06-2024 Patient encounter procedure [facility] Work Phone: Start: 03-27-2024 Non-patient / Non-visit [facility] Work Phone: Start: 11-25-2023 End: 11-25-2023 ambulatory [facility] Start: 09-23-2023 End: 09-23-2023 ambulatory [facility] Start: 12-19-2020 End: 12-20-2020 Patient encounter procedure JUAN JOSE ACKERMAN Facility: Start: 12-12-2020 End: 12-13-2020 Patient encounter procedure JUAN JOSE ACKERMAN Facility:[facility] Start: 02-07-2020 End: 02-08-2020 Patient encounter procedure PAPITO GARZA Facility:[facility] Procedures Date Procedure Procedure Detail Performing Clinician Start: 03-26-2025 Hemoglobin A1c/Hemoglobin.total in Blood Omid Hastings MD Work Phone: Start: 12-08-2024 ALL CBC WITH AUTO DIFF Papito Kayla DO Work Phone: Tonsillectomy and adenoidectomy Fredi BARLOW Plan of Treatment Date Care Activity Detail Author Start: 06-24-2025 Influenza vaccination Influenz a Vaccine (Season Ended) [facility] Start: 03-26-2025 End: 06-25-2025 Corticotropin [Mass/volume] in Plasma ACTH BLD Lab Routine Autonomic dysfunction Hyperglycemia Malaise and fatigue Arthralgia, unspecified joint Expected: 03/26/2025, Expires: 06/25/2025 [facility] Comment on above: Expected: 03/26/2025 , Expires: 06/25/2025 Start: 03-26-2025 End: 06-25-2025 Cortisol [Mass/volume] in Serum or Plasma CORTISOL, SERUM Lab Routine Autonomic dysfunction Hyperglycemia Malaise and fatigue Arthralgia, unspecified joint Expected: 03/26/2025, Expires: 06/25/2025 [facility] Work Phone: Comment on above: Expected: 03/26/2025 , Expires: 06/25/2025 Start: 03-26-2025 End: 06-25-2025 DHEA-S BLD DHEA-S BLD Lab Routine Autonomic dysfunction Hyperglycemia Malaise and fatigue Arthralgia, unspecified joint Expected: 03/26/2025, Expires: 06/25/2025 [facility] Comment on above: Expected: 03/26/2025 , Expires: 06/25/2025 Start: 03-26-2025 End: 06-25-2025 Fasting glucose [Mass/volume] in Serum or Plasma GLUCOSE, FASTING Lab Routine Autonomic dysfunction Hyperglycemia Malaise and fatigue Arthralgia, unspecified joint Expected: 03/26/2025, Expires: 06/25/2025 [facility] Comment on above: Expected: 03/26/2025 , Expires: 06/25/2025 Start: 03-26-2025 End: 06-25-2025 Glutamate decarboxylase 65 Ab [Units/volume] in Serum GLUTAMIC AC DECARBOXYLASE AB Lab Routine Autonomic dysfunction Hyperglycemia Malaise and fatigue Arthralgia, unspecified joint Expected: 03/26/2025, Expires: 06/25/2025 [facility] Comment on above: Expected: 03/26/2025 , Expires: 06/25/2025 Start: 03-26-2025 End: 06-25-2025 Insulin [Units/volume] in Serum or Plasma INSULIN, TOTAL, SERUM Lab Routine Autonomic dysfunction Hyperglycemia Malaise and fatigue Arthralgia, unspecified joint Expected: 03/26/2025, Expires: 06/25/2025 [facility] Comment on above: Expected: 03/26/2025 , Expires: 06/25/2025 Start: 03-26-2025 End: 06-25-2025 Pancreatic islet cell Ab [Titer] in Serum ISLET CELL AB Lab Routine Autonomic dysfunction Hyperglycemia Malaise and fatigue Arthralgia, unspecified joint Expected: 03/26/2025, Expires: 06/25/2025 [facility] Comment on above: Expected: 03/26/2025 , Expires: 06/25/2025 Start: 03-26-2025 End: 06-25-2025 THYROID PEROXIDASE ANTIBODY THYROID PEROXIDASE ANTIBODY Lab Routine Autonomic dysfunction Hyperglycemia Malaise and fatigue Arthralgia, unspecified joint Expected: 03/26/2025, Expires: 06/25/2025 [facility] Comment on above: Expected: 03/26/2025 , Expires: 06/25/2025 Start: 03-26-2025 End: 06-25-2025 Thyrotropin [Units/volume] in Serum or Plasma THYROID STIMULATING HORMONE Lab Routine Autonomic dysfunction Hyperglycemia Malaise and fatigue Arthralgia, unspecified joint Expected: 03/26/2025, Expires: 06/25/2025 [facility] Comment on above: Expected: 03/26/2025 , Expires: 06/25/2025 Start: 03-26-2025 End: 06-25-2025 Thyroxine (T4) free [Mass/volume] in Serum or Plasma T4 FREE/FREE THYROXINE Lab Routine Autonomic dysfunction Hyperglycemia Malaise and fatigue Arthralgia, unspecified joint Expected: 03/26/2025, Expires: 06/25/2025 [facility] Comment on above: Expected: 03/26/2025 , Expires: 06/25/2025 Start: 02-19-2025 Patient referral [facility] Work Phone: Start: 06-24-2024 Covid-19 Vaccine ( season) Covid-19 Vaccine ( season) [facility] Start: 2023 Hepatitis B Vaccine (1 of 3 - 19+ 3-dose series) Hepatitis B Vaccine (1 of 3 - 19+ 3-dose series) [facility] Start: 2023 Urine microalbumin profile DTaP,Tdap,Td Vaccine (1 - Tdap) [facility] Start: 2022 Anxiety Screening Anxiety Screening [facility] Start: 2022 Depression Screening Depression Scre ening [facility] Start: 2022 GC (Gonorrhea) Scree derrek (18-24) GC (Gonorrhea) Screening (18-24) [facility] Start: 2022 Hepatitis C screening Hepatitis C Sc reening [facility] Start: 2022 HIV screening HIV Screening [facility] Start: 2022 Screening for Chlamy lucila trachomatis Chlamydia Screening (18) [facility] Start: 2020 Meningococcal B Vacc ine (1 of 2 - Standard) Meningococcal B Vaccine (1 of 2 - Standard) [facility] Start: 2019 HPV Vaccine (1 - 3-d ose series) HPV Vaccine (1 - 3-dose series) [facility] Start: 2018 Peds To Adult Transi tion Annual Assessment Peds To Adult Transition Annual Assessment [facility] Start: 2016 Peds To Adult Transi tion Initial Discussion Peds To Adult Transition Initial Discussion [facility] Cefuroxime free [Mass/volume] in Serum or Plasma [facility] Insulin [Units/volum e] in Serum or Plasma [facility] Patient referral [facility] Work Phone: [facility] Immunizations Immunization Date Immunization Notes Care Provider Fa cility 06-07-2022 meningococcal oligosaccharide (groups A, C, Y and W-135) diphtheria toxoid conjugate vaccine (MCV4O) [facility] 06-06-2017 meningococcal oligosaccharide (groups A, C, Y and W-135) diphtheria toxoid conjugate vaccine (MCV4O) [facility] 02-09-2017 diphtheria, tetanus toxoids and acellular pertussis vaccine, unspecified formulation [facility] Payers Date Payer Category Payer Unknown [id number] 2022 [employer] BLUE ACCE PPO Member Subscriber Plan / Payer (Effective 2022-Present) Name: DAVION UMAÑA Member ID: [id number] Relation to Subscriber: Child Name: BEBE WU Subscriber ID: [id number] Date of : 1974 (Home) Address: [address] [place] [address] Payer ID: [id number] (NAIC) Type: PPO Address: [address] [address] [id number] 2022 Unknown [id number] 2019 Unknown [id number] 2004 Unknown [id number] 2004 Unknown [id number] 2004 Unknown [id number] 1973 Unknown [id number] 1973 Unknown [id number] 1973 Unknown [id number] Social History Date Type Detail Facility Start: 04-06-2024 End: 02-11-2025 Tobacco smoking status NHIS Never smoked tobacco (finding) [facility] Start: 2004 End: 03-26-2025 Sex Assigned At [facility] Tobacco smoking stat us PRIS Tobacco smoking consumption unknown [facility] Start: 2004 Sex assigned at Not on file N [facility] Start: 12-25-2024 End: 03-20-2025 Sex Female (finding) [facility] Start: 2004 Sex Assigned At Female F [facility] Tobacco smoking status Never [facility] [place] Sexual Orientation [facility] [place] Start: 03-26-2025 History of Social function [facility] Functional Status Date Assessment Result Facility 03-06-2025 Functional Status N/A [facility] [place] Clinical Notes 07-02-2024 to 04-09-2025 Telephone Encounter - Saige Reyes RN - 04/09/2025 2:49 PM EDTTelephone Encounter - Saige Reyes RN - 04/09/2025 2:49 PM Omid Galeas MD - 03/26/2025 3:06 PM EDT Note Date & Type Note Facility 04-09-2025 Telephone encounter Note See later encounter. Had more blood drawn yesterday. [facility] 04-09-2025 Miscellaneous Notes See later encounter. Had more blood drawn yesterday. documented in this encounter [facility] 03-26-2025 Note HNO ID: [id number] Author: OMID HASTINGS MD Service: ? Author Type: Physician Type: Progress Notes Filed: 03/26/2025 15:14 Note Text: This note was created using Sistemicriter. Subjective Davion Umaña is a 19 year [...] compression stockings; advised to continue. -follows at [facility] TFT and TPO ordered 2. Hyperglycemia [...] ACTH - GENIE and islet antibodies ordered [facility] 03-26-2025 History of Presen t illness Narrative This note was created using Sistemicriter. Subjective Davion Umaña is a 19 year [...] compression stockings; advised to continue. -follows at [facility] TFT and TPO ordered 2. Hyperglycemia [...] ACTH - GENIE and islet antibodies ordered documented in this encounter [facility] 03-26-2025 Note HNO ID: [id number] Author: OMID HASTINGS MD Service: ? Author Type: Physician Type: Progress Notes Filed: 03/26/2025 15:14 Note Text: [facility] 03-06-2025 Note General Surgery Offi ce/Clinic [...] Tobacco Use:., 03/06/2025 Family History Hypertension: Father. 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 She had commenced ivabradine and a [...] . PCP visit on Tuesday and the balloon pilot (January 29, 2025). SRIKANTH negative. Possible drug [...] Telehealth Visit: 01/16/2025 The visit was conducted [id number] with the use of audio and video technology using HIPAA approved MessageMe WebEX between patient and the provider for [...] the time her symptoms started. Follow with balloon pilot. Dr. Rodrigues, January, She will call balloon pilot to determine if any monitoring for now. SOB. Will order echocardiogram to r/o pericarditis. 2. Syncope and collapse Chronic. Unstable. Possible underlying illness. Rtc one month Pipe Travis APRN PhD [facility] Nurse Practitioner Division of Cardiovascular Medicine [facility]. ' [facility] 12-25-2024 Evaluation note Diagnosis Onset Date Resolution Anemia acute December 25 8:54am Dysautonomia acute December 25, 025 8:54am Fatigue acute December 25 8:54am Dysautonomia acute January 21, 2025 9:06am Hypoglycemia acute January 21, 2025 9:06am Syncopal episodes acute December 242024 9:06am [facility] Work Phone: 1(746) 699-339503-04-2025 Evaluation note* Diagnosis Onset Date Resolution Status [...] tachycardia syndrome) acute January 8:56am [facility] Work Phone: 1(990) 297-940303-04-2025 Evaluation note* Diagnosis Onset Date Resolution Status [...] acute January 8:56am Hyperglycemia acute March 20, 025 12:49pm Hypoglycemia acute March 20 12:49pm [facility] Work Phone: 1(271) 651-943101-24-2025 Rebeccabev Umaña is a pleasant 19 year old female 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 I [...] intolerance, near syncope. Diagnostic evaluation: Osman Browning: core sucker: no evaluation. Then referred to [facility]. Echocardiogram, EKG reported normal. No tilt. Treated based on symptoms. Fludrocortisone: not effective Midodrine: headaches (continues the medication). Helped initially with syncope. Improved. Chief Complaint: Telemedicine visit. Patient located in [place], [place]. Telemed follow up for ivabradine. Added last visit. Corlanor has worked wonders . Only 4 episodes of syncope since June. Previous multiple times weekly. No side effects. Four episodes from stress, menses . LOC brief. No trauma. Last episode mid September 2025. [facility]. Attends all classes. 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 Carley Gao CPhT [facility] 07/02/24 12:55 [facility]Un[facility]-2024 NoteWe received a copy of the letter that was sent to Pipe Travis in the mail from the clinic. I wanted to attach it to the patient's note for record keeping purposes. Angela Armenta, TreovrD, BCACP, CSP 11/08/24 11:11 AM [facility] [id number] Hospital09-09-2024 NotePA initiated via CM. Called and spoke with pt. She is aware of PA process, will wait for updates from us. F/U upon determination. Parrish Calvin, [facility] [id number] 07/02/24 at 3:15 PMBarn[facility]ville [facility]09-09-2024 Note Attestation signed by Tish Killian PharmD, ARJUN at 07/05/2024 1:28 PM Tish Killian PharmD, JENNIFER 07/05/24 1:28 PM [facility] [phone] Checked on PA status, no response as of yet. Follow up early next week. BENITEZ Wesley PharmD Candidate 202407/05/24 10:51 AM [facility] [phone] Hospital09-09-2024 NoteI called [facility] and was told our external review had been denied. I requested that they fax us the determination, but was told they can't because a separate company handled it. The passenger relations representative did read me the denial letter and the next step would be a lawsuit, which we do not handle. I contacted the patient and provided her an update. I advised that she reach out to the office to discuss obtaining the medication from [facility]. Carley Gao [facility] 11/01/24 3:38 PMBarn[facility]ville Hospital09-09-2024 NoteMom called to verify we had received the form. I told her we hadn't and gave her our fax and email. I told her to call to make sure they were received. Tish Killian PharmD, JENNIFER 09/10/24 4:25 PM [facility] [phone] Hospital09-09-2024 NoteI called the patient and left her the final message, we will no longer follow-up. Jenifer Farrell, [facility] 09/07/24 9:39 [facility]09-09-2024 NoteLM for mom to make sure she received our email with the consent forms. Asked she let us know if she didn't receive. Tish Killian PharmD, JENNIFER 07/30/24 2:47 PM [facility] [phone] Hospital09-09-2024 NoteConsent forms emailed to mom @ [email or web address] Fani Arroyo PharmD Outpatient Clinical Pharmacist [facility] [phone] 07/26/24 4:27 PMUnMartins Ferry Hospital09-09-2024 NoteMom called back- she would like to pursue 2nd level appeal. We will email consent forms to [email or web address]. Once signed and returned, we can submit 2nd level appeal. Fani Arroyo PharmD Outpatient Clinical Pharmacist [facility] [phone] 07/26/24 4:05 PMBarn[facility]ville Hospital09-09-2024 NoteThe appeal has been faxed to [employer]. We will continue to follow up for a determination. Also faxed with the appeal was the clinic note and Corlanor studies. I have the signatures saved in my email just in case insurance says they don't receive them and the one's scanned in are illegible.[facility] 07-02-2024 NoteThe prior authorization for the ivabradine has been denied. We do have an option to appeal, but the patient will need to sign an Authorized Cattle Rancher Form before we can proceed. I have emailed the forms to the patient. The appeal letter has been written and is saved in the appeals folder. We will submit the appeal once we receive the signed forms back from the patient. Carley Gao [facility] 07/11/24 10:58 [facility]09-09-2024 NoteI contacted the insurance company at to verify if our external review was received. I was told our external review has been received and a determination will be made by 10/26/2024. Carley Gao [facility] 09/18/24 3:17 PMBarnesville Hospital09-09-2024 NoteReceived needed documents. Faxed to external review. Follow-up to make sure they received and for determination. Tish Killian, PharmD, BCACP 09/11/24 4:27 PM [facility] [phone] Hospital09-09-2024 NoteLVM to make sure patient received the e-mail with the form she needed to sign to proceed with external review, or if she had any issues getting it back to us. Follow up later in week. Cuco Livingston [facility] 08/21/24 11:05 [facility]09-09-2024 NoteSecond level appeal for ivabradine has been denied due to not medically necessary, pt does not have heart failure (HFrEF). Case ID/Authorization Number:[id number] Filling out attached external review form, will need 3 pt signatures. Called pt, emailing form to pt at [email or web address]. Insurance company info: Fax [phone] F/U upon signed external review form, fax form with updated appeal packet in media tab, clinic notes, and Corlanor literature. Parrish Calvin, [facility] [id number] 08/17/24 at 9:22 [facility]09-09-2024 NoteCalled [facility] and they stated that the appeal was received and has a determination date of 08/17. Follow up then for determination. Cuco Livingston [facility] 08/07/24 1:10 PMBarn[facility] Hospital09-09-2024 NoteReceived representation forms for appeal. Scanning in faxes for que. Venu Kothari scale adjuster [facility] 07/31/24 2:21 PMBarnesville Hospital09-09-2024 NotePrior Authorization for Corlanor Appeal has been denied. Case ID/Authorization Number:[id number] Called patient and LVM we will need signatures on representation forms in order to appeal any further if patient wants to pursue 2nd level appeal. Scanned in full denial and scanned appeal forms seperately as well. Venu Kothari [facility] 07/26/24 1:40 PMBarnesville Hospital09-09-2024 NoteInsurance received the appeal. F/U in 15 business days per document. Kanwal Morales PharmD, [facility] Outpatient Clinical Pharmacist [facility] [phone] 07/13/24 8:29 [facility]09-09-2024 NoteI contacted the insurance company at to check status. I was told a determination will be made by 10/26/2024. Saige Santizo PharmD, [facility] Outpatient Clinical Pharmacist [place] [facility] [phone] 10/02/24 4:06 [facility]09-09-2024 NoteI tried reaching the patient again to verify if she received the external review forms that we emailed her - no answer, LVMTCB. Carley Gao, [facility] 08/24/24 2:57 [facility]09-09-2024 NoteWe received a fax stating that [facility] has a received our appeal and it can take up to 15 days. Jenifer Farrell [facility] 08/02/24 2:35 [facility]09-09-2024 NoteSubmitted second level appeal to insurance with signed representation forms awaiting determination. LVM saying we are awaiting the determination and will call when we hear from insurance. 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 Mother, who attends the visit reports Kennethin a C section . No delays, met all milestones. No childhood seizures, syncope. Good exercise tolerance. Travel softball.No migraines, asthma. Menses age 13. No PCOS no endometriosis. HPI: September 2019, very ill with Covid suspected illness. Cough caused severe rib subluxation. Viral pneumonia . Then developed lightheaded, short of breath. Trying out for softball, exercise intolerance, near syncope. Diagnostic evaluation: Osman Browning: core sucker: no evaluation. Then referred to Syncope Clinic. [...] syndrome POTS/ orthostatic intolerance OI) which developed [id number] infection. We postulate that these patients possess [...] compression (waist high compressi (more content not included)...[facility] Evaluation + Plan note No data available for this section [facility] General Surgery [place] Evaluation noteNo assessment information available [facility] Work Phone: Evaluation note* Diagnosis Onset Date Resolution Status Admit Date Anemia acute December 25 8:54am Dysautonomia acute December 25, 025 8:54am Fatigue acute December 25 8:54am [facility] Work Phone: Evaluation note* Diagnosis Autonomic dysfunction- Primary Unspecified disorder of autonomic nervous system Hyperglycemia Other abnormal glucose Malaise and fatigue Other malaise and fatigue Arthralgia, unspecified joint [facility] instructions[facility]ulatory Orders* Referral to Cardiology Location: None Selected * Referral to Cardiology Location: None Selected [facility] Work Phone: Hospital Discharge instructions No data available for this section [facility] General Surgery [place] Progress note No data available for this section [facility] Surgery [place] Summary Purpose Family History Relationship Condition Age [...] Date/ Time Advance Directives No February 11 025 9:54am Chief Complaint and Reason for Visit [...] section and content) DATE CREATED AUTHOR 12/20/2020 Jorge Aponte [facility] DATE CREATED AUTHOR AUTHOR'S ORGANIZ ATION 11/28/2023 [facility] DATE CREATED AUTHOR AUTHOR'S ORGANIZ ATION 03/08/2025 [facility] DATE CREATED AUTHOR AUTHOR'S ORGANIZ ATION 03/10/2025 [facility] DATE CREATED AUTHOR AUTHOR'S ORGANIZ ATION 04/09/2025 [facility] Care Teams (unrecognized sec tion and [...] Provider Active Start : December 08, 2024 Shipping Point Inspector Relationship Specialty Start Date End Date Juan Jose Ackerman MD [address] [place] [address] Referring Family Medicine 02/22/25 Shipping Point Inspector Relationship Specialty Start Date End Date Juan Jose Ackerman MD [address] [place] [address] Referring Family Medicine 02/22/25 Goals (unrecognized section and content) Goals may be documented in a n alternate sectionGoals may be documented in an alternate sectionGoals may be documented in an alternate sectionGoals may be documented in an alternate section No data available for this sectionGoals may be documented in an alternate section Source Comments (unrecognize d section and content) In the event this informatio n is protected by the Federal Confidentiality of Alcohol and Drug Abuse Patient Records regulations: The Federal rules restrict any use of the information to criminally investigate or prosecute any alcohol or drug abuse patient.[facility] HospitalIn the event this information is protected by the Federal Confidentiality of Alcohol and Drug Abuse Patient Records regulations: The Federal rules restrict any use of the information to criminally investigate or prosecute any alcohol or drug abuse patient.[facility] Reason for Visit (unrecogniz ed section and content) Reason Comments New Patient FOR RECORDS PERTAINING TO PATIENTS WHO ARE [...] BE BASED ON THE PRIMARY CLINICAL RECORDS. [employer] [facility]. provides no warranty or guarantee of the accuracy or completeness of information in this document.
== END 2025-04-10 08:37 | disposition home or self-care (01) ==
LOC: LAB 08:38
PROVIDERS: PCP Family Medicine; Visit Provider Internal Medicine Hematology & Oncology
DX: D68.62 Lupus anticoagulant syndrome (principal)
CPT/HCPCS: 36415; 86148

== ENCOUNTER 2025-06-04 11:02 | Emergency (ER) | payer BC, SELFPAY ==
[2025-06-04] VITALS (11 sets, daily range): BP systolic 97–143; BP diastolic 55–95; PULSE 69–98; TEMP 36.7; O2SAT 93–100; BMI 25.8
--- NOTE | 2025-06-04 11:20 | ECG_ITS ---
[facility] Test Date: 2025-06-04 Pat Name: DEB VILLA Department: Room: - Gender: Female Applications Packager: : 2005 Requested By: JUAN JOSE ACKERMAN Order Number: [id number] [place] MD: JOE PRADO M.D. Measurements Intervals [place] Rate: 76 P: 58 VT: 152 QRS: 87 QRSD: 90 T: 54 QT: 360 QTc: 391 Interpretive Statements 1100 Sinus rhythm 9110 normal ECG Compared to ECG 08/13/2024 08:05:31 Sinus bradycardia no longer present Electronically Signed On 06-04-2025 13:57:43 EDT by JOE PRADO M.D.
--- NOTE | 2025-06-04 11:21 | ED_ITS ---
HPI HPI - General Adult General Chief complaint: Weakness Stated complaint: POTS LOW BLOOD SUGAR Time Seen by Provider: 06/04/25 11:04 Source: patient Mode of arrival: walk-in Limitations: no limitations History of Present Illness HPI narrative: 19-year-old female presented to the emergency department for low blood sugar. She was started on metformin a month ago by an plumbers and top helpers and is on 500 mg twice a day. Her sugar was low and staying low and she has a transcutaneous glucose monitor. She ate multiple foods as well as glucose gel and it was not coming up appropriately. Her mother was worried so they came in to get checked. Related Data Home Medications ?Medication ?Instructions ?Recorded ?Confirmed levonorgestrel 0.1 mg-ethinyl 1 tab PO Q24H 06/30/24 0 06/30/24 estradiol 0.02 mg (21)/iron (7) tablet (Elidaaux) midodrine 2.5 mg tablet 5 mg PO TID 06/30/24 4 ondansetron HCl 4 mg tablet 4 mg PO Q6H PRN nausea and vomiting 06/30/24 06/30/24 sertraline 25 mg tablet 25 mg PO Q24H 06/30/2406/30 Allergies Allergy/AdvReac Type Severity Reaction Status Date / Time No Known Drug Allergies Allergy Verified 06/30/24 17:29 Opioid HPI Opioid Management Most Recent Opioid Data: Last Pain Scale 2 06/30/24, 17:54 Review of Systems ROS Narrative A ten point review of systems is negative except as noted above. PFSH PFSH Social History Little interest or pleasure in doing things: not at all Feeling down, depressed, or hopeless: not at all Exam Narrative Exam Narrative: Nurses note and vital signs reviewed and patient is not hypoxic. General: The patient appears well and in no apparent distress. Patient is resting comfortably on cart. Skin: Warm, dry, no pallor noted. There is no rash noted. Head: Normocephalic, atraumatic Eye: Normal conjunctiva, no drainage Ears, Nose, Mouth, and Throat: oral mucosa is moist. Nares patent. Cardiovascular: Regular Rate and Rhythm Respiratory: Patient is in no distress, no accessory muscle use, lungs are clear to auscultation, no wheezing, rales or rhonchi Back: non-tender GI: Soft and nontender Musculoskeletal: The patient has no evidence of calf tenderness, no pitting edema, symmetrical pulses noted bilaterally Neurological: A&O, normal speech Psychiatric: Cooperative Constitutional Vital Signs, click to edit/add: Last Vital Signs Temp 98.1 F 06/04/25 11:06 Pulse 98 H 06/04/25 11:06 Resp 16 06/04/25 11:06 BP 143/95 H 06/04/25 11:06 Pulse Ox 100 06/04/25 11:06 O2 Del Method Room Air 06/04/25 11:06 Course Vital Signs Vital signs: Vital Signs Temperature 98.1 F 06/04/25 11:06 Pulse Rate 98 H 06/04/25 11:06 Respiratory Rate 16 06/04/25 11:06 Blood Pressure 143/95 H 06/04/25 11:06 Pulse Oximetry 100 06/04/25 11:06 Oxygen Delivery Method Room Air 06/04/25 11:06 Temperature 98.1 F 06/04/25 11:06 Pulse Rate 98 H 06/04/25 11:06 Respiratory Rate 16 06/04/25 11:06 Blood Pressure 143/95 H 06/04/25 11:06 Pulse Oximetry 100 06/04/25 11:06 Oxygen Delivery Method Room Air 06/04/25 11:06 Medical Decision Making MDM Narrative Medical decision making narrative: Her workup here is negative and she was given IV fluids. The patient had several episodes of hypoglycemia earlier today as recorded by her transcutaneous glucose monitor. She was recommended to discontinue the metformin and to speak to her plumbers and top helpers regarding next steps. Mother and patient are comfortable going home at this point. Treatment diagnosis and follow-up were discussed thoroughly. Differential Diagnosis Differential Diagnosis: Hypoglycemia, dehydration, anemia, Lab Data Lab results reviewed: Yes I reviewed the patient's lab results Labs: Lab Results 06/04/25 06/04/25 Range/Units 11:12 11:24 WBC 8.9 (4.0-11.0) 10^3/uL RBC 4.56 (4.20-5.40) 10^6/uL Hgb 13.5 (12.0-16.0) g/dL Hct 39.9 (36.0-48.0) % MCV 87.5 (81.0-99.0) fL MCH 29.6 (26.7-34.0) pg MCHC 33.8 (29.9-35.2) g/dL RDW 12.4 (11.0-15.0) % Plt Count 305 (150-450) 10^3/uL MPV 11.7 (9.5-13.5) fL Neut % (Auto) 62.7 (43.0-75.0) % Lymph % (Auto) 28.9 (20.5-60.0) % Lassen % (Auto) 6.4 (1.7-12.0) % Eos % (Auto) 0.9 (0.9-7.0) % Baso % (Auto) 0.4 (0.2-2.0) % Neut # (Auto) 5.6 (1.4-6.5) 10^3/uL Lymph # (Auto) 2.6 (1.2-3.8) 10^3/uL Lassen # (Auto) 0.6 (0.3-0.8) 10^3/uL Eos # (Auto) 0.1 (0.0-0.7) 10^3/uL Baso # (Auto) 0.0 (0.0-0.1) 10^3/uL Abs Immat Gran (auto) 0.06 H (0.00-0.03) 10^3/uL Imm/Tot Granulo (auto) 0.7 H (0.0-0.5) % Sodium 140 (136-145) mmol/L Potassium 3.9 (3.5-5.1) mmol/L Chloride 102 (98-107) mmol/L Carbon Dioxide 25.9 (21.0-32.0) mmol/L Anion Gap 16.0 BUN 12.0 (7.0-18.0) mg/dL Creatinine 0.69 (0.55-1.02) mg/dL Est GFR ( Amer) >60 (>=60 mL/min/1.73m^2) Est GFR (Non-Af Amer) >60 (>=60 mL/min/1.73m^2) BUN/Creatinine Ratio 17.4 Glucose 95 (74-106) mg/dL Calcium 9.5 (8.5-10.1) mg/dL Serum HCG, Qual Negative (NEGATIVE) POC Glucose 102 (74-106) mg/dL ECG Data Attestation: I personally reviewed and interpreted this ECG as follows: (EKG on my interpretation shows sinus rhythm with rate of 76 and no acute change.) Discharge Plan Discharge Chief Complaint: Weakness Clinical Impression: Hypoglycemia Patient Disposition: Home, Self-Care Time of Disposition Decision: 12:28 Condition: Good Mode of Transportation: Private Vehicle Prescriptions / Home Meds: No Action levonorgest-eth.estradiol-iron [Joyeaux] 0.1 mg-0.02 mg (21)/iron (7) tablet 1 tab PO Q24H midodrine 2.5 mg tablet 5 mg PO TID sertraline 25 mg tablet 25 mg PO Q24H ondansetron HCl 4 mg tablet 4 mg PO Q6H PRN (Reason: nausea and vomiting) Print Language: Slovenian Instructions: Non-diabetic Hypoglycemia (ED) Additional Instructions: Discontinue the metformin and speak to your plumbers and top helpers. Referrals: Aleisha Brownlee MD [Primary Care Provider, Family Practice] - 1 week
[2025-06-04 11:33] LABS: Hematocrit 39.9 % (36.0-48.0); Hemoglobin 13.5 g/dL (12.0-16.0); Immature Granulocytes Abs Auto 0.06 10^3/uL (0.00-0.03); Immature Granulocytes Pct Auto 0.7 % (0.0-0.5); Lymphocytes Absolute Auto 2.6 10^3/uL (1.2-3.8); Mean Corpuscular HGB Conc 33.8 g/dL (29.9-35.2); Mean Corpuscular Hemoglobin 29.6 pg (26.7-34.0); Mean Corpuscular Volume 87.5 fL (81.0-99.0); Platelet Count 305 10^3/uL (150-450); Red Blood Count 4.56 10^6/uL (4.20-5.40); White Blood Count 8.9 10^3/uL (4.0-11.0)
[2025-06-04] MEDS: 0.9 % SODIUM CHLORIDE 1,000 ML 1000 ML IV (11:39)
[2025-06-04 11:53] LABS: Anion Gap 16.0; Blood Urea Nitrogen 12.0 mg/dL (7.0-18.0); Calcium 9.5 mg/dL (8.5-10.1); Carbon Dioxide 25.9 mmol/L (21.0-32.0); Chloride 102 mmol/L (98-107); Estimated GFR (African America >60 (>=60 mL/min/1.73m^2); Estimated GFR (Non-African Ame >60 (>=60 mL/min/1.73m^2); Glucose 95 mg/dL (74-106); Potassium 3.9 mmol/L (3.5-5.1); Sodium 140 mmol/L (136-145)
== END 2025-06-04 13:03 | disposition home or self-care (01) ==
PROVIDERS: Emergency Provider Emergency Medicine; PCP Family Medicine
DX: E16.2 Hypoglycemia, unspecified (principal)
CPT/HCPCS: 36415; 80048; 81001; 84703; 85025; 93005; 99284

== ENCOUNTER 2025-09-24 06:51 | Outpatient (OUT) | payer BC, SELFPAY ==
--- OUTSIDE RECORDS SUMMARY | 2025-09-18 19:24 | XMS_ITS | Continuity of Care Document ---
Author Organization [facility] Address [address] [place] [address] Phone Care Team Providers Care Biofuels Production Associate Name Role Phone Aleisha Brownlee MD Primary Care Provider Aleisha Brownlee MD Attending Provider Care Teams Visit Care Team Team Status: Inactive Member Role/Relationship Status Dates Aleisha Brownlee MD Primary Care Provider Active Start: September 18, 2025 End: September 18, 2025Aleisha Brownlee MDAttending ProviderActiveStart: September 18, 2025 End: September 18, 2025 Patient Care Team Team Status: Inactive Member Role/Relationship Status Dates Aleisha Brownlee MD Attending Provider Active St art: September 18, 2025 End: September 18, 2025 Chief Complaint and Reason for Visit Chief Complaint Admit Date POTS/Stomach Issues September 18, 2025 9:20am Reason for Visit Admit Date Abdominal pain September 18, 2025 9:20am Abnormal urine September 18, 2025 9:20am Dysautonomia September 18, 2025 9:20am Hyperglycemia September 18, 2025 9:20am Hypoglycemia September 18, 2025 9:20am Nausea vomiting and diarrhea September 182024 9:20am Paroxysmal tachycardia, unspecified Sharon malave 2024 9:20am POTS (postural orthostatic tachycardia s yndrome) September 18, 2025 9:20am Reason for Referral Type Reason(s) Provider Provider Contact Information P rovider Address Start Date Nausea, Vomiting, and Diarrhea Abdominal painR11.2 - Nausea with vomiting, unspecified,R19.7 - Diarrhea, unspecified,R10.9 - Unspecified abdominal painFredi Lewis MD FACSWork Phone: [phone] [place] [address]Errimxcl 2024 Allergies, Adverse Reactions, Alerts Allergen Type Severity Reaction Last Updated Verified Status No Known Allergies Allergy Unknown September 18, 2025 9:27amYesActive Social History Smoking Status Status Start Date End Date Date of Observa tion Never smoked tobacco (finding) February 11, 2025 9:54am Observation Status Observation Response Date of Response Legal Sex Female (finding) [facility] Family History Relationship Condition Age at Onset Recorded Date/T yomi aunt Hypertension Unknown grandparentHypertensionUnknowngrandparentHypertensionUnknownMalignant neoplasm UnknowngrandparentHypertensionUnknown Problems Active Problems Problem Diagnosis/Recorded Date Onset Date Stat us Nausea vomiting and diarrhea September 18, 2025 10:02 am Unknown Active Abnormal urine September 18, 2025 10:01am Unknown Active 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) January 11, 2025 12:23pm Unknown Active Fatigue December 25, 2024 9:30am Unknown Activ e Anemia December 25, 2024 9:30am Unknown Activ e Anxiety January 21, 2025 9:00am Unknown Acti ve Dysautonomia April 06, 2024 9:20am Unknown Activ e Hyperglycemia February 19, 2025 1:14pm Unknown Act titus Hypoglycemia January 21, 2025 8:29am Unknown Acti ve Syncopal episodes April 13, 2024 8:47am Unknown Active Paroxysmal tachycardia, unspecified September 18 12:26pm Unknown Active POTS (postural orthostatic t achycardia syndrome) February 19, 2025 8:34am Unknown Active Abdominal pain September 18, 2025 10:02am Unknown Active Medications Medication Status Dose Units Route Directions Qty Days Refills S tart Date Stop Date End Date Reason(s) Instructions Adherence Sertraline 25 mg tablet Discontinued 25 MG PO Gabbie ly 90 0July 2023 8:34amOctober 2023 9:58amSertraline 25 mg tablet Discontinued0.ROUTE.PMKXTKS323Hhfudut 2023 9:58amDecember 2023 1:09pm TAKE 1 TABLET BY MOUTH EVERY DAYSertraline 25 mg tabletDiscontinued0.ROUTE .ILJJBZE210Zfkdirkv 2023 1:09pmMarch 2024 8:28amTAKE 1 TABLET BY MOUTH EVERY DAYBlood-Glucose Sensor (Dexcom G7 Sensor) deviceActive0.Eejra456 January 24, 2025 11:00pmAs directedBlood-Glucose,New Grad Rn,Cont (Dexcom G7 New Grad Rn) miscDiscontinued0.Pmjws39Akhhw 2024 11:00pmApril 2024 8:22amAs directedSertraline 25 mg tabletDiscontinued0.ROUTE.AJVHLPM305Gqeb 2024 11:09amOctober 2024 8:33amTAKE 1 TABLET BY MOUTH EVERY DAYSertraline 25 mg tabletActive0.ROUTE.RXZPAKQ441Dtgthvm 2024 8:32amTAKE 1 TABLET BY MOUTH EVERY DAYUnknownSertraline 25 mg tabletDiscontinued0.ROUTE.PFNXVKE132Vmqsl 2024 8:28amJune 2024 11:09amTAKE 1 TABLET BY MOUTH EVERY DAYBlood- Glucose,New Grad Rn,Cont miscDiscontinued0.Lemsb82Eapax 2024 11:00pmApril 2024 10:03amHypoglycemia Dysautonomia Hypoglycemia, unspecified Familial dysautonomia [Singh-Day]As directedHydroxychloroquine (Plaquenil) 200 mg kosnmcGtubwe328OINNYldmp dailySeptember 18, 2025 12:00amUnknownOmeprazole 40 mg capsule,delayed release(DR/EC)Nbtldv68UZQXZhmuz486Jhdkcchk 26th, 2025 12:00amUnknownSertraline 25 mg wpxldtHdfwrhmtuzkb03CJFQSgsubQfgj 2023 11:00pmJuly 2023 8:34amMidodrine 10 mg tcjrnvLfbsmg14OLFUCdsli times daily March 26, 2024 11:00pmUnknownLevonorgest-Eth.Estradiol-Iron (Balcoltra) 0.1 mg- 0.02 mg (21)/iron (7) ibqgegUsiswu9KBAEQFswhjWqpl 2023 11:00pmUnknown Ondansetron Hcl 4 mg qnwplzGpnkdb8SKEQNwdnu 8 hoursJune 2023 11:00pm UnknownIvabradine 5 mg mrkeqjSjwtezcbjwxj9ZLQGWfezp dailyMarch 2024 12:00am January 21, 2025 8:26ammust administer with a meal/food Immunizations Immunization Event Date Not Given Reason Dose Number Lead Data Entry Operator Lot Number Reason(s) Given Vaccine Information Statement (VIS) Detail Administration Location DTap, unspecified February 09, 2017 Meningococcal YLL9ARgbrwy 2016Meningococcal EDW1CJqkuxe 2021 Procedures Procedure Date Performed Status Urine Culture September 18, 2025 active Relevant Diagnostic Tests and/or Laboratory Data Laboratory Results Test Collection Date/Time Result Date/Time Result Interpretation Reference Range Result Comment Performing Site Urine Color September 18, 2025 10:15am September 18, 2025 9:10pm Dark-yellow Abnormal (applies to non-numeric results) [facility] [id number] [address] [facility] [address]Egavo AppearanceNovember 2024 10:15amNove2024 9:10pmCloudyAbnormal (applies to non-numeric results)[facility] [id number] [address] [facility] [address]Noahy Specific GravityNovember 2024 10:152024 9:10pm1.0261.001-1.030[facility] [id number] [address] [facility] [address]Wsngo pHNovember 2024 10:15amNove2024 9:10pm 7.05.0-9.0[facility] [id number] [address] [facility] [address]Qyrji Leukocyte EsteraseNovember 2024 10:15amNove2024 9:10pmNegativeNegativeMercy Health [facility] [id number] [address] [facility] [address]Xtpjf NitriteNovember 2024 10:15amNovemb2024 9:10pmNegativeNegativeMercy Health [facility] [id number] [address] [place] [id number] ProteinNovember 2024 10:15amNovember 2024 9:10pm50 mg/dLAbove high normalNegFostoria City Hospital [facility] [id number] [address] [facility] [address]Uwgov Glucose (UA)September 18, 2025 10:15amNovemb2024 9:10pmNormal mg/dLNormalMercy Health [facility] [id number] [address] [facility] [address]Qyolv KetonesNovember 2024 10:15amNovember 2024 9:10pmNegativeNegativeMercy Health [facility] [id number] [address] [facility] [address]Tnnqq UrobilinogenNovember 2024 10:15amNovember 2024 9:10pmNormal mg/dLNormDayton [facility] Medical [facility] [id number] [address] [facility] [address]Jtewx BilirubinNovember 2024 10:15amNovember 2024 9:10pmNegativeNegFostoria City Hospital [facility]tr [id number] [address] [facility] [address]Dhgwt Occult BloodNovember 2024 10:15amNovember 2024 9:10pmNegativeNegFostoria City Hospital [facility] [id number] [address] [facility] [address]Ndeyf RBCNovember 2024 10:15ove2024 9:14pm 5-9 [HPF]Above high normal0-4FNew[facility] [id number] [address] [facility] [address]Igiyg WBCNovember 2024 10:15amNovember 2024 9:14pm 5-9 [HPF]Above high normal0-4FNewark Hospital [facility] [id number] [address] [facility] [address]Yvbxy WBC ClumpsNovember 2024 10:15amNovemb2024 9:14pmMany [LPF]Above high normalNone SeenMer[facility] [id number] [address] [facility] [address]Giowj Squamous Epithelial CellsSeptember 18, 2025 10:15am September 18, 2025 9:92xk53-90 [HPF]Above high normal0-2FNewark Hospital [facility] [id number] [address] [facility] [address]Hgtky BacteriaSeptember 18, 2025 10:15amN2024 9:14pmRare [HPF]None [facility]enMer[facility] [id number] [address] [facility] [address]Zbbcj Hyaline CastsNov2024 10:15amNove2024 9:14pmNone [LPF]0-8[facility] [id number] [address] [facility] [address]Goqmv MucusSeptember 18, 2025 10:15amN2024 9:14pm2+ [LPF]Abnormal (applies to non-numeric results)[facility] [id number] [address] [facility] [address]Mrats Microalbumin mg/dlSeptember 18, 2025 10:15amN2024 9:31pm1.3 mg/dL0.0-1.8[facility] [id number] [address] [facility] [address]Hpzxj Random CreatinineSeptember 18, 2025 10:152024 9:96pb394.00 mg/dLNo reference range establishedMercy Health [facility] [id number] [address] [facility] [address]Ozkgi Microalbumin/Creatinine RatioNove2024 10:15am September 18, 2025 9:31pm4.4 mg/g0.0-30.030-300 mg/g indicates an increased risk for diabetic nephropathy. Greater than 300 mg/g is consistent with clinical nephropathy. (Am. J. Kidney Disease 1995, 25:107)[facility] [id number] [address] [facility] [address] Vital Signs Vital Reading Result Reference Range Collection Date/Time Height 70 [in_i] September 18, 2025 9:89tgYdrwcr44.91 kgSeptember 18, 2025 9:23amHeart Rate79 /dyz29-138UqfblxvdSeptember 18, 2025 9:23amOxygen saturation by Pulse egwufxgu45 % 95-100September 18, 2025 9:23amBP Hurkcvhn687 mm[Hg]100-140September 18, 2025 9:23amBP Myhvtibtq75 mm[Hg]60-100September 18, 2025 9:23amBMI (Body Mass Index) 26.5 kg/h5CrlztmloSeptember 18, 2025 9:23am Advance Directives Advance Directive Response Recorded Date/ Time Advance Directives No February 11 8:54am Insurance Providers Guarantor Davion Umaña Address [address] [address]Mddvocq Info.Home Phone: Payer Group Member ID Coverage Type Subscriber Relationship to Subscriber Effective Date Expiration Date Earnestine ROGERS [id number] Maximiliano Id: [id number] [address] [address] Home Phone: Encounters Encounter Location(s) Arrival/Admit Date Discharge/Departure Date Discharge/Departure Disposition Provider(s) Departed Physician/ Provider Office Visit -[facility] September 18, 2025 9:20am September 18, 2025 9:58am Discharged to home care or self care (routine discharge) Aleisha Brownlee MD Departed Referred -[facility] September 18, 2025 10:15am September 18, 2025 10:16am Discharged to home care or self care (routine discharge) Aleisha Brownlee MD Recent Diagnosis Onset Date Admit Date Abdominal pain Unknown September 18 9:20am Abnormal urine Unknown September 18 9:20am Dysautonomia Unknown September 18 9:20am Hyperglycemia Unknown September 18 9:20am Hypoglycemia Unknown September 18 9:20am Nausea vomiting and diarrhea Unknown Aug 9:20am Paroxysmal tachycardia, unspecified Unknown September 18, 2025 9:20am POTS (postural orthostatic t achycardia syndrome) Unknown September 18, 2025 9:20am Assessments Diagnosis Onset Date Resolution Status Admit Date Abdominal pain acuteSeptember 18, 2025 9:20amAbnormal urineacuteNovember 2024 9:20am DysautonomiaacuteNoveer 2024 9:20amHyperglycemiaacuteNovember 2024 9:20amHypoglycemiaacuteNovember 2024 9:20amNausea vomiting and diarrhea acuteNovember 2024 9:20amParoxysmal tachycardia, unspecifiedacuteNovember 2024 9:20amPOTS (postural orthostatic tachycardia syndrome)acuteNov2024 9:20am Plan of Treatment Author Aleisha Brownlee [facility] CenterAuthoredGood [facility] 2024 12:36pmWill check UA, protein and culture if indicated. Followup w [facility] as scheduled. as above. as above Check CT a/p to assess stomach and pancreas with her variable glucose readings. Referral to Dr Lewis for EGD to assess for ulcer. Future Tests Future scheduled test information is unavailable Pending Tests Test Name Ordered Date Scheduled Date Urine Color September 18, 2025 10:01am Urine AppearanceNov2024 10:01amUrine CultureNovcarondelet st. [facility] 2024 10:15amUrine CultureNovcarondelet st. [facility] 2024 10:01amUrine Specific GravityGood Samaritan Hospital 2024 10:01amUrine pHNovcarondelet st. [facility]oseph's hospital 2024 10:01amUrine Leukocyte Esterase September 18, 2025 [address] [facility]ose[facility]'s hospital 2024 10:01amUrine Protein September 18, 2025 10:01amUrine Glucose (UA)September 18, 2025 10:[address] [facility]ose[facility]'s hospital 2024 10:01[address] UrobilinogenNovcarondelet st. [facility]ose[facility]'s hospital 2024 10:01am Urine BilirubinNovcarondelet [address]. [facility]'s [facility] 2024 10:01amUrine Occult BloodGood Samaritan Hospital 2024 10:01amUrine Microalbumin mg/dlNovcarondelet st. [facility]oseph's hospital 2024 10:01amUrine Random CreatinineGood Samaritan Hospital 2024 10:01amUrine Microalbumin/Creatinine RatioNoveaurora west hospital 2024 10:01amCT abdomen pelvis w conNove2024 10:01am Future Visits Future appointment information is unavailable Future Procedures Procedure Name Ordered Date Scheduled Date Urine Culture September 18, 2025 8:38pm Novem penelope 2024 10:15am Urine Culture September 18, 2025 10:00am Nove mber 2024 10:01am MicroAlb Creat Ratio,U September 18, 2025 10:00 am September 18, 2025 10:01am Urinalysis September 18, 2025 10:00am Nove mber 2024 10:01am Urine Culture September 18, 2025 10:01am MicroAlb Creat Ratio,UNoveaurora west hospital 20[address] [facility] 2024 10:01am Future Medications Future medication information is unavailable Patient Instructions Patient instructions are unavailable
--- OUTSIDE RECORDS SUMMARY | 2025-09-24 06:54 | XMS_ITS | Clinical Summary ---
Author Organization [facility] Address [address] [place] [address] Care Team Providers Care Regulator Operator Name Role Phone Aleisha Brownlee MD Primary Care Provider [phone] Kyra Rodrigues MD Unavailable [phone] Allergies No known active allergies Medications MedicationSigDispense QuantityRefillsLast FilledStart DateEnd DateStatus sertraline (Zoloft) 25 mg tablet Take 25 mg by mouth in the morning.Active Joyeaux 0.1 mg-0.02 mg (21)/iron (7) tablet TAKE 1 TABLET BY MOUTH DAILY FOR 28 DAYSActive sod.chlorid-potassium chloride 287-180-15 mg tablet Take 2 tablets by mouth twice a day.06/30/2022ctive magnesium aspart,citrate,oxide (Triple Magnesium Complex) 400 mg magnesium capsule Take by mouth.Active riboflavin (Vitamin B2) tablet Take 200 mg by mouth in the morning.Active cranberry fruit extract (CRANBERRY CONCENTRATE ORAL) Take by mouth once daily as directed.Active midodrine (Proamatine) 5 mg tablet Indications:POTS (postural orthostatic tachycardia syndrome)Take 1 tablet (5 mg) by mouth three times daily. Every breakfast, noon and dinner time. Do not lie f lat four hours after dose. 270 tablet 301//[id number]/6Active Active Problems ProblemNoted DateDiagnosed DateSyncope and wpfpxmge82/05/2024 Family History Medical HistoryRelationNameCommentsHypertensionFatherHypertensionMaternal GrandfatherLarry RhoadesNo Known ProblemsMotherNo Known ProblemsMother's Sister Diabetes type IOtherpaternal great uncle.ArrhythmiaPaternal GrandmotherKathy SeamonHeart attackPaternal GrandmotherKaren SeamonStrokePaternal Grandmother Karen SeamonAneurysmNeg HxAutoimmune diseaseNeg HxSudden deathNeg HxRelationName StatusCommentsFatherMaternal GrandfatherLarry RhoadesMotherMother's SisterOther AlivePaternal GrandmotherKaren Umaña Social History Tobacco UseTypesPacks/DayYears UsedDateSmoking Tobacco: NeverPassive Smoke Exposure: NeverSmokeless Tobacco: Never Tobacco Cessation:Counseling Given: Not Answered Alcohol UseStandard Drinks/WeekCommentsNever0 (1 standard drink = 0.6 oz pure alcohol)Humiliation, Afraid, Rape, and Kick questionnaireAnswerDate Recorded Within the last year, have you been afraid of your partner or ex-partner?No 01/16/2025Emotionally AbusedNot on file01/16/2025Physically AbusedNot on file 01/16/2025Sexually AbusedNot on file01/16/2025PHQ-2AnswerDate RecordedPatient Health Questionnaire-2 Iscgc680UT Safety & EnvironmentAnswerDate RecordedFear of Current or Ex-PartnerNot on file04/17/2024Emotionally AbusedNot on file04/17/2024hysically AbusedNot on file04/17/2024Sexually AbusedNot on file04/17/2024hysically or Sexually AbusedNot on file04/17/2024Comments UnknownSex and Gender InformationValueDate RecordedSex Assigned at BirthFemale 07/28/2024 10:55 PM EDTLegal XqiYwsacm06/30/2022 12:35 AM EDTGender Identity Mrrqtf1907/28/2024 10:55 PM EDTSexual OrientationHeterosexual or Straight 07/28/2024 10:55 PM EDT Last Filed Vital Signs Vital SignReadingTime TakenCommentsBlood Sawhtutp309/6909 10:08 AM EDT Xtiyq0628 10:08 AM EDTTemperature--Respiratory Rate--Oxygen Saturation-- Inhaled Oxygen Concentration--Nhcfrt82.4 kg (175 lb)01/16/2025 11:36 AM EDT Xhsfvh694.8 cm (5' 10 )01/16/2025 11:36 AM EDTBody Mass Index25.11001/16/2025 11:36 AM EDT Plan of Treatment Health MaintenanceDue DateLast DoneCommentsChlamydia Jrncsmorp2004 DTaP/Tdap/Td Vaccines (1 - Tdap)2011Varicella Vaccines (1 of 2 - 13+ 2- dose series)2017HPV Vaccines (1 - 3-dose series)2019Meningococcal B Vaccine (1 of 2 - Standard)2020COVID-19 Vaccine (1 - 2024- season) 2025Influenza Vaccine (#1)2025Depression Xlsseqqfx41/26/2026 01/16/2025Zoster Vaccines (1 of 2)2054HIB VaccinesAged OutNo longer eligible based on patient's age to complete this topicIPV VaccinesAged OutNo longer eligible based on patient's age to complete this topicMeningococcal VaccineAged OutNo longer eligible based on patient's age to complete this topic Pneumococcal Vaccine: Pediatrics (0 to 5 Years) and At-Risk Patients (6 to 64 Years)Aged OutNo longer eligible based on patient's age to complete this topic Rotavirus VaccinesAged OutNo longer eligible based on patient's age to complete this topic Insurance Care Teams Team MemberRelationshipSpecialtyStart DateEnd Date Aleisha Brownlee MD [address] [facility] #A PCP - General07/02/24 Kyra Rodrigues MD [address] [place] [address] Consulting PhysicianOncology01/24/25
--- OUTSIDE RECORDS SUMMARY | 2025-09-24 06:54 | XMS_ITS | CCD ---
Author Organization [facility] Care Team Providers Care Calculating Machine Operator Name Role Phone JUAN JOSE ACKERMAN Consulting [...] Attending Unavailable Juan Jose Ackerman MD Unavailable [phone] OMID HASTINGS Attending Unavailable JUAN JOSE ACKERMAN Referring Unavailable HANNAH ALLEN Attending Unavailable MARLI PASCAL Referring Unavailable JUAN JOSE ACKERMAN Primary Care Unavailable Juan Jose Ackerman MD Primary Care Provider Allergies Allergy ClassificationReported Allergen(s)Allergy TypeDate of OnsetReaction(s) Facility (1 source)No Known Medication Allergies; Translations: [No Known Medication Allergies]Propensity to adverse reactions (disorder)[facility] Medications Current Medications MedicationDrug Class(es)DatesSig (Normalized)Sig (Original)Blood-Glucose Meter,Continuous misc (1 source)Start: 51-96-3925Fihun-Glucose Meter,Continuous misc Active 0 .Route 1 January 21, 2025 12:00am As directedBlood-Glucose Sensor (Dexcom G7 Sensor) device (2 sources)Start: 81-55-4913Wenhm-Glucose Sensor (Dexcom G7 Sensor) device Active 0 .Route 3 January 25, 2025 12:00am As directedcranberry fruit concentrate (AZO CRANBERRY ORAL) (2 sources)take 500 mg by mouth in the morningcranberry fruit concentrate (AZO CRANBERRY ORAL) Take 500 mg by mouth in the morning. ActiveDEXCOM G7 SENSOR jose (4 sources)Start: 13-97-9196PVDJJW G7 SENSOR jose as directed. 03/11/2025 Active Levonorgest-Eth.Estradiol-Iron (5 sources)Progestin, Estrogen, Progestin-containing Intrauterine DeviceStart: 61-77-8348znnk 1 tablet by mouth once dailyLevonorgest-Eth.Estradiol-Iron (Balcoltra) 0.1 mg-0.02 mg (21)/iron (7) tablet Active 1 TAB PO Daily March 26, 2024 11:00pmStart: 92-60-8097jztv 1 tablet by mouth once daily Levonorgest-Eth.Estradiol-Iron (Balcoltra) 0.1 mg-0.02 mg (21)/iron (7) tablet Active 1 TAB PO Daily March 27, 2024 12:00amhydroxychloroquine sulfate 200 mg oral tablet (2 sources)Antimalarial, Antirheumatic AgentStart: 56-50-0250iedt 1 tablet by mouth in the morning, then take 1 tablet by mouth at bedtimehydroxychloroquine (PLAQUENIL) 200 mg tablet Take 1 tablet (200 mg total) by mouth in the morning and 1 tablet (200 mg total) before bedtime. 05/14/2025 ActiveJOYEAUX 0.1 mg-0.02 mg (21)/iron (7) tab (4 sources)take 1 tablet by mouth once dailyJOYEAUX 0.1 mg-0.02 mg (21)/iron (7) tab take 1 tablet by mouth daily for 28 days ActiveJOYEAUX 0.1 mg-0.02 mg (21)/iron (7) tablet (2 sources)take 1 tablet by mouth in the morningJOYEAUX 0.1 mg-0.02 mg (21)/iron (7) tablet Take 1 tablet by mouth in the morning. Activeloratadine 10 mg oral tablet (2 sources)Start: 79-69-5393rlxt 1 tablet by mouth in the morningloratadine (CLARITIN) 10 mg tablet Take 1 tablet (10 mg total) by mouth in the morning. 01/10/2025 Activemagnesium oxide 400 mg oral tablet (2 sources)take 1 tablet by mouth in the morningmagnesium oxide (MAGOX) 400 mg tablet Take 1 tablet (400 mg total) by mouth in the morning. ActivemetFORMIN hydrochloride 500 mg oral tablet (1 source)BiguanideStart: 55-57-4664abug 1 tablet by mouth twice daily at mealtimemetFORMIN (GLUCOPHAGE) 500 mg tablet Take 1 tablet by mouth two times a day with meals. 180 tablet 1 04/25/2025 Activemidodrine hydrochloride 5 mg oral tablet (8 sources)alpha-Adrenergic AgonistStart: 20-78-1174ysbx 1 tablet by mouth three times dailymidodrine 5 mg Tab 5 mg = 1 tab(s), Oral, TID, Refills(s) 0 Start Date: 03/01/25 Status: Ordered Repeat number: 1Start: 88-61-5863jndi 1 tablet by mouth three times dailyMidodrine 10 mg tablet Active 10 MG PO Three times daily March 27, 2024 12:00amomega 1-srm-fst-fish oil (Fish OiL) 1,200 (144-216) mg capsule (2 sources)take 1 capsule by mouth in the morningomega 0-tye-zzi-fish oil (Fish OiL) 1,200 (144-216) mg capsule Take 1 capsule by mouth in the morning. Active ondansetron 4 mg oral tablet (6 sources)Serotonin-3 Receptor AntagonistStart: 60-11-6033pfxc 1 tablet by mouth every eight hoursOndansetron Hcl 4 mg tablet Active 4 MG PO Every 8 hours April 06, 2024 12:00amtake 1 tablet by mouth every eight hours as needed for nausea and vomitingondansetron ODT (ZOFRAN ODT) 4 mg disintegrating tablet Dissolve 1 tablet (4 mg total) on tongue every 8 (eight) hours as needed for nausea or vomiting. Activeriboflavin 400 mg oral tablet (2 sources)take 1 capsule by mouth in the morningriboflavin, vitamin B2, 400 mg tablet Take 1 capsule by mouth in the morning. Activesertraline 25 mg oral tablet (20 sources)Serotonin Reuptake InhibitorStart: 43-55-6476advt 1 tablet by mouth once dailysertraline 25 mg Tab 25 mg = 1 tab(s), Oral, Daily, Refills(s) 0 Start Date: 03/01/25 Status: OrderedRepeat number: 1Start: 07-24-2024 End: 06-11-0749cdfv 1 tablet by mouth once dailySertraline 25 mg tablet Discontinued 0 .ROUTE .COMPLEX October 22, 2024 2:09pm January 21, 2025 9:28am TAKE 1 TABLET BY MOUTH EVERY DAYStart: 03-27-2024 End: 28-92-2793uoay 1 tablet by mouth once dailySertraline 25 mg tablet Discontinued 25 MG PO Daily April 23, 2024 9:34am July 24, 2024 10:58am thiamine 100 mg oral tablet (2 sources)take 1 tablet by mouth in the morningthiamine HCl (vitamin B-1) 100 mg tablet Take 1 tablet (100 mg total) by mouth in the morning. Active{21 (ethinyl estradiol 0.02 MG / levonorgestrel 0.1 MG Oral Tablet) / 7 (inert ingredients 1 MG Oral Tablet) } Pack [] (1 source)Start: 44-91-1177sies 1 tablet by mouth once dailyJoyeaux with iron 20 mcg-100 mcg oral tablet 1 tab(s), Oral, Daily, Refill(s) 0 Start Date: 03/01/25 S tatus: Ordered Repeat number: 1 Completed/Discontinued Medications MedicationDrug Class(es)DatesSig (Normalized)Sig (Original)Blood- Glucose,Time Study Observer,Cont (Dexcom G7 Time Study Observer) misc (2 sources)Start: 01-25-2025 End: 88-09-4450Kzlhp-Glucose,Time Study Observer,Cont (Dexcom G7 Time Study Observer) misc Discontinued 0 .Route January 25, 2025 12:00am February 19, 2025 9:22am As directedBlood-Glucose,Time Study Observer,Cont misc (2 sources)Start: 01-21-2025 End: 26-72-0649Zwstz-Glucose,Time Study Observer,Cont misc Discontinued 0 .Route 1 January 21, 2025 12:00am January 23, 2025 11:03am As directedivabradine 5 mg oral tablet (4 sources)Hyperpolarization-activated Cyclic Nucleotide-gated Channel Hunter Start: 12-25-2024 End: 05-09-1885rfgt 1 tablet by mouth twice daily at mealtimeIvabradine 5 mg tablet Discontinued 5 MG PO Twice daily December 25, 2024 1:00am January 21, 2025 9:26am must administer with a meal/food Problems Problem ClassificationProblemDateDocumented DateEpisodic/ChronicAbdominal pain (4 sources)Pelvic and perineal pain; Translations: [PELVIC AND PERINEAL PAIN] Onset: 15-68-0706Xburfet disorders (4 sources)Anxiety; Translations: [Anxiety disorder, unspecified]01-21-2025 ChronicCardiac dysrhythmias (7 sources)Postural orthostatic tachycardia syndrome ; Translations: [Postural orthostatic tachycardia syndrome]Onset: 068902-93-3069XeclmqbOizfdzbtqqm and hemorrhagic disorders (2 sources)Lupus anticoagulant syndrome; Translations: [Lupus anticoagulant syndrome]Onset: 12-82-8239KigqxffJrxopoobcm and other anemia (4 sources)Anemia; Translations: [Anemia, unspecified]08-27-7703Qieztwuk Deficiency and other anemia (4 sources)Anemia, unspecified; Translations: [Anemia, unspecified]12-25-2024 EpisodicDiabetes mellitus without complication (9 sources)Impaired fasting glucose; Translations: [Hyperglycemia]Onset: 630431-46-9568LwawhwwbRlhmabb and fatigue (11 sources)Fatigue; Translations: [Other fatigue]Onset: EpisodicNervous system congenital anomalies (16 sources)Disorder of autonomic nervous system; 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]]Onset: 330489-84-0080NrvukmeJmmro circulatory disease (4 sources)Postural orthostatic tachycardia syndrome ; Translations: [Postural orthostatic tachycardia syndrome (POTS)]Onset: 162603-92-5870UksitqrrXwvre endocrine disorders (3 sources)Hypoglycemia; Translations: [Hypoglycemia, unspecified]01-21-2025 ChronicOther endocrine disorders (4 sources)Hypoglycemia, unspecified; Translations: [Hypoglycemia, unspecified] 15-80-4130PhaaoaxTsiwg lower respiratory disease (2 sources)Shortness of breath; Translations: [Shortness of breath]Onset: 59-30-4809PuhcsnswIigps nervous system disorders (1 source)Disorder of the autonomic nervous system, unspecified; Translations: [Autonomic dysfunction]Onset: 03-08-7422YwiuwqnQnvoo non-traumatic joint disorders (1 source)Joint pain; Translations: [Pain in unspecified joint]03-26-2025 EpisodicOther non-traumatic joint disorders (1 source)Pain in unspecified joint; Translations: [Arthralgia, unspecified joint]Onset: 44-13-6167YklmflxtKvjay nutritional; endocrine; and metabolic disorders (1 source)Bcedsgncbx57-13-1206TxljqbpwMwnab nutritional; endocrine; and metabolic disorders (1 source)Overweight in adulthood with body mass index of 25 or more but less than 6236-73-8607PfpjkhkiDmzxi screening for suspected conditions (not mental disorders or infectious disease) (3 sources)Coag./bleeding tests abnormal; Translations: [Abnormal coagulation profile]74-86-1194AwmjhekiYhupo skin disorders (1 source)Mass of trunk; Translations: [Localized swelling, mass and lump, trunk]Onset: 14-33-3207WvxmzahjAqinn skin disorders (1 source)Mass of subcutaneous tissue of hzvi40-41-2049TxhamjrkXzgjmpn (10 sources)Syncope and collapse; Translations: [Syncope]Onset: 12-16-2020 46-65-8987GlwfqviqOoyaokicsqtd (1 source)New PatientOnset: 08-19-2025 Results Test NameValueInterpretationReference RangeFacilityC3 AND C4on 08-06-2025 3154 MG/DLNormal(88 - 165)[place] ClinicComment on above:Performed By: #### CBC/D2, MSIEP, C3-C4, ESRCRP, T4FTSH, VD25, TTG/A, CK, B12, FERIT, HBC-M, HBCA, HBSAB, HBSAG, PHOS, PTH-I, HCV, URCA #### [facility] [address] [facility], [address] C 444 MG/DLNormal(14 - 44)[facility] ClinicComment on above: Performed By: #### CBC/D2, MSIEP, C3-C4, ESRCRP, T4FTSH, VD25, TTG/A, CK, B12, FERIT, HBC-M, HBCA, HBSAB, HBSAG, PHOS, PTH-I, HCV, URCA #### [facility] [address] [facility], [address] CBC WITH DIFFon 26-16-5050JUHVKKPE CT0.04 x10^3ulNormal (0.00 - 0.16)[facility] ClinicComment on above:Order Comment: FACILITY: [facility] [id number] By: #### CBC/D2, MSIEP, C3-C4, ESRCRP, T4FTSH, VD25, TTG/A, CK, B12, FERIT, HBC-M, HBCA, HBSAB, HBSAG, PHOS, PTH-I, HCV, URCA #### [facility] [address] [facility], [address] Basophils/100 WBC (Bld)0.6 %Normal()[facility] ClinicComment on above:Order Comment: FACILITY: [facility] [id number] By: #### CBC/D2, MSIEP, C3-C4, ESRCRP, T4FTSH, VD25, TTG/A, CK, B12, FERIT, HBC-M, HBCA, HBSAB, HBSAG, PHOS, PTH-I, HCV, URCA #### [facility] [address] [facility], [address] [address]0.10 x10^3ulNormal(0.00 - 0.40)[facility] ClinicComment on above:Order Comment: FACILITY: [facility] [id number] By: #### CBC/D2, MSIEP, C3-C4, ESRCRP, T4FTSH, VD25, TTG/A, CK, B12, FERIT, HBC-M, HBCA, HBSAB, HBSAG, PHOS, PTH-I, HCV, URCA #### [facility] [address] [facility], [address] Eosinophils/100 WBC (Bld)1.4 %Normal()[facility] Comment on above:Order Comment: FACILITY: [facility] [id number] By: #### CBC/D2, MSIEP, C3-C4, ESRCRP, T4FTSH, VD25, TTG/A, CK, B12, FERIT, HBC-M, HBCA, HBSAB, HBSAG, PHOS, PTH-I, HCV, URCA #### [facility] [address] [facility], [address] Hematocrit (Bld) [Volume fraction]42.0 %Normal(37.0 - 47.0)[place] ClinicComment on above:Order Comment: FACILITY: [facility] [id number] By: #### CBC/D2, MSIEP, C3-C4, ESRCRP, T4FTSH, VD25, TTG/A, CK, B12, FERIT, HBC-M, HBCA, HBSAB, HBSAG, PHOS, PTH-I, HCV, URCA #### [facility] [facility], [id number] Hemoglobin (Bld) [Mass/Vol]13.9 g/dLNormal(12.0 - 16.0) [place] ClinicComment on above:Order Comment: FACILITY: [facility] [id number] By: #### CBC/D2, MSIEP, C3-C4, ESRCRP, T4FTSH, VD25, TTG/A, CK, B12, FERIT, HBC-M, HBCA, HBSAB, HBSAG, PHOS, PTH-I, HCV, URCA #### [facility] [address] [place], [id number] IMMATURE GRAN CT0.05 x10^3ulNormal(0.00 - 0.11)[facility] ClinicComment on above:Order Comment: FACILITY: [facility] [id number] By: #### CBC/D2, MSIEP, C3-C4, ESRCRP, T4FTSH, VD25, TTG/A, CK, B12, FERIT, HBC-M, HBCA, HBSAB, HBSAG, PHOS, PTH-I, HCV, URCA #### [facility] [facility], [address] IMMATURE GRANS (IG)0.7 %Normal()[facility] ClinicComment on above:Order Comment: FACILITY: [facility] [id number] By: #### CBC/D2, MSIEP, C3-C4, ESRCRP, T4FTSH, VD25, TTG/A, CK, B12, FERIT, HBC-M, HBCA, HBSAB, HBSAG, PHOS, PTH-I, HCV, URCA #### [facility] [facility], [id number] LYMPHOCYTE CT2.39 x10^3ulNormal(0.96 - 5.40)[facility] ClinicComment on above:Order Comment: FACILITY: [facility] [id number] By: #### CBC/D2, MSIEP, C3-C4, ESRCRP, T4FTSH, VD25, TTG/A, CK, B12, FERIT, HBC-M, HBCA, HBSAB, HBSAG, PHOS, PTH-I, HCV, URCA #### [facility] [facility], [address] LYMPS33.3 %Normal()[facility] ClinicComment on above:Order Comment: FACILITY: [facility] [id number] By: #### CBC/D2, MSIEP, C3-C4, ESRCRP, T4FTSH, VD25, TTG/A, CK, B12, FERIT, HBC-M, HBCA, HBSAB, HBSAG, PHOS, PTH-I, HCV, URCA #### [facility] [address] [facility], [id number] MCH (RBC) [Entitic mass]29.6 pgNormal(27.0 - 33.0)[facility] ClinicComment on above:Order Comment: FACILITY: [facility] [id number] By: #### CBC/D2, MSIEP, C3-C4, ESRCRP, T4FTSH, VD25, TTG/A, CK, B12, FERIT, HBC-M, HBCA, HBSAB, HBSAG, PHOS, PTH-I, HCV, URCA #### [facility] [address] [facility], [id number] MC (RBC) [Mass/Vol]33.1 g/dLNormal(30.0 - 37.0)[facility] ClinicComment on above:Order Comment: FACILITY: [facility] [id number] By: #### CBC/D2, MSIEP, C3-C4, ESRCRP, T4FTSH, VD25, TTG/A, CK, B12, FERIT, HBC-M, HBCA, HBSAB, HBSAG, PHOS, PTH-I, HCV, URCA #### [facility] [address] [facility], [facility] MCV (RBC) [Entitic vol]89.4 fLNormal(81.0 - 99.0)[facility] ClinicComment on above:Order Comment: FACILITY: [facility] [id number] By: #### CBC/D2, MSIEP, C3-C4, ESRCRP, T4FTSH, VD25, TTG/A, CK, B12, FERIT, HBC-M, HBCA, HBSAB, HBSAG, PHOS, PTH-I, HCV, URCA #### [facility] [address] [facility], [address] [address]0.70 x10^3ulNormal(0.10 - 0.90)[facility] Comment on above:Order Comment: FACILITY: [facility] [id number] By: #### CBC/D2, MSIEP, C3-C4, ESRCRP, T4FTSH, VD25, TTG/A, CK, B12, FERIT, HBC-M, HBCA, HBSAB, HBSAG, PHOS, PTH-I, HCV, URCA #### [facility] [address] [facility], [address] MONOS9.8 %Normal()[facility] ClinicComment on above:Order Comment: FACILITY: [facility] [id number] By: #### CBC/D2, MSIEP, C3-C4, ESRCRP, T4FTSH, VD25, TTG/A, CK, B12, FERIT, HBC-M, HBCA, HBSAB, HBSAG, PHOS, PTH-I, HCV, URCA #### [facility] [address] [facility], [facility] NEUTROPHIL CT3.89 x10^3ulNormal(1.50 - 7.00)[facility] ClinicComment on above:Order Comment: FACILITY: [facility] [id number] By: #### CBC/D2, MSIEP, C3-C4, ESRCRP, T4FTSH, VD25, TTG/A, CK, B12, FERIT, HBC-M, HBCA, HBSAB, HBSAG, PHOS, PTH-I, HCV, URCA #### [facility] [address] [facility], [address] PLT277 x10^3ulNormal(130 - 400)[facility] ClinicComment on above:Order Comment: FACILITY: [facility] [id number] By: #### CBC/D2, MSIEP, C3-C4, ESRCRP, T4FTSH, VD25, TTG/A, CK, B12, FERIT, HBC-M, HBCA, HBSAB, HBSAG, PHOS, PTH-I, HCV, URCA #### [facility] [address] [facility], [address] RBC4.70 x10^6ulNormal(4.20 - 5.40)[facility] ClinicComment on above:Order Comment: FACILITY: [facility] [id number] By: #### CBC/D2, MSIEP, C3-C4, ESRCRP, T4FTSH, VD25, TTG/A, CK, B12, FERIT, HBC-M, HBCA, HBSAB, HBSAG, PHOS, PTH-I, HCV, URCA #### [facility] [address] [facility], [address] [phone]-AD37.1 flNormal(37.0 - 49.0)[facility] ClinicComment on above:Order Comment: FACILITY: [facility] [id number] By: #### CBC/D2, MSIEP, C3-C4, ESRCRP, T4FTSH, VD25, TTG/A, CK, B12, FERIT, HBC-M, HBCA, HBSAB, HBSAG, PHOS, PTH-I, HCV, URCA #### [facility] [address] [facility], [id number] SEGS54.2 %Normal()[facility] ClinicComment on above:Order Comment: FACILITY: [facility] [id number] By: #### CBC/D2, MSIEP, C3-C4, ESRCRP, T4FTSH, VD25, TTG/A, CK, B12, FERIT, HBC-M, HBCA, HBSAB, HBSAG, PHOS, PTH-I, HCV, URCA #### [facility] [address] [facility], [id number] WBC7.17 x10^3ulNormal(3.80 - 10.60)[facility] ClinicComment on above:Order Comment: FACILITY: [facility] [id number] By: #### CBC/D2, MSIEP, C3-C4, ESRCRP, T4FTSH, VD25, TTG/A, CK, B12, FERIT, HBC-M, HBCA, HBSAB, HBSAG, PHOS, PTH-I, HCV, URCA #### [facility] [address] [place], [address] COMP MET PANEL w GFR(EPI)on 63-23-2161Russedu [Mass/Vol] 4.9 g/dLNormal(3.5 - 5.0)[facility] ClinicComment on above:Performed By: #### CBC/D2, MSIEP, C3-C4, ESRCRP, T4FTSH, VD25, TTG/A, CK, B12, FERIT, HBC-M, HBCA, HBSAB, HBSAG, PHOS, PTH-I, HCV, URCA #### [facility] [place], [address] ALK PHOS63 U/LNormal(38 - 126)[facility] ClinicComment on above:Performed By: #### CBC/D2, MSIEP, C3-C4, ESRCRP, T4FTSH, VD25, TTG/A, CK, B12, FERIT, HBC-M, HBCA, HBSAB, HBSAG, PHOS, PTH-I, HCV, URCA #### [facility] [place], [address] ALT [Catalytic activity/Vol]14 U/LNormal(1 - 35)[facility] ClinicComment on above:Performed By: #### CBC/D2, MSIEP, C3-C4, ESRCRP, T4FTSH, VD25, TTG/A, CK, B12, FERIT, HBC-M, HBCA, HBSAB, HBSAG, PHOS, PTH-I, HCV, URCA #### [facility] [address] [place], [address] AST [Catalytic activity/Vol]27 U/LNormal(15 - 46)[facility] ClinicComment on above:Performed By: #### CBC/D2, MSIEP, C3-C4, ESRCRP, T4FTSH, VD25, TTG/A, CK, B12, FERIT, HBC-M, HBCA, HBSAB, HBSAG, PHOS, PTH-I, HCV, URCA #### [facility] [address] [place], [id number] Bilirubin [Mass/Vol]0.9 mg/dLNormal(0.2 - 1.3)[facility] ClinicComment on above:Performed By: #### CBC/D2, MSIEP, C3-C4, ESRCRP, T4FTSH, VD25, TTG/A, CK, B12, FERIT, HBC-M, HBCA, HBSAB, HBSAG, PHOS, PTH-I, HCV, URCA #### [facility] [address] [place], [id number] Calcium [Mass/Vol]10.0 mg/dLNormal(8.6 - 10.6)[facility] ClinicComment on above:Performed By: #### CBC/D2, MSIEP, C3-C4, ESRCRP, T4FTSH, VD25, TTG/A, CK, B12, FERIT, HBC-M, HBCA, HBSAB, HBSAG, PHOS, PTH-I, HCV, URCA #### [facility] [address] [place], [id number] Chloride [Moles/Vol]101 mmol/LNormal(98 - 110)[facility] ClinicComment on above:Performed By: #### CBC/D2, MSIEP, C3-C4, ESRCRP, T4FTSH, VD25, TTG/A, CK, B12, FERIT, HBC-M, HBCA, HBSAB, HBSAG, PHOS, PTH-I, HCV, URCA #### [facility] [address] [place], [address] CO2 [Moles/Vol]28 mmol/LNormal(22 - 30)[facility] Comment on above:Performed By: #### CBC/D2, MSIEP, C3-C4, ESRCRP, T4FTSH, VD25, TTG/A, CK, B12, FERIT, HBC-M, HBCA, HBSAB, HBSAG, PHOS, PTH-I, HCV, URCA #### [facility] [address] [facility], [id number] Creatinine [Mass/Vol]0.70 mg/dLNormal(0.52 - 1.04)[facility]:Performed By: #### CBC/D2, MSIEP, C3-C4, ESRCRP, T4FTSH, VD25, TTG/A, CK, B12, FERIT, HBC-M, HBCA, HBSAB, HBSAG, PHOS, PTH-I, HCV, URCA #### [facility] [address] [facility], [address] GFR by CKD-KGI449.9 ML/M1.7Normal(60.0)[facility] Comment on above:Performed By: #### CBC/D2, MSIEP, C3-C4, ESRCRP, T4FTSH, VD25, TTG/A, CK, B12, FERIT, HBC-M, HBCA, HBSAB, HBSAG, PHOS, PTH-I, HCV, URCA #### [facility] [address] [facility], [address] Glucose [Mass/Vol]78 mg/dLNormal(74 - 106)[facility] Comment on above:Performed By: #### CBC/D2, MSIEP, C3-C4, ESRCRP, T4FTSH, VD25, TTG/A, CK, B12, FERIT, HBC-M, HBCA, HBSAB, HBSAG, PHOS, PTH-I, HCV, URCA #### [facility] [address] [facility], [phone] Potassium [Moles/Vol]4.8 mmol/LNormal(3.5 - 5.1)[facility] HospitalComment on above:Performed By: #### CBC/D2, MSIEP, C3-C4, ESRCRP, T4FTSH, VD25, TTG/A, CK, B12, FERIT, HBC-M, HBCA, HBSAB, HBSAG, PHOS, PTH-I, HCV, URCA #### [facility] [address] [facility], [address] Protein [Mass/Vol]8.5 g/dLHigh(6.3 - 8.2)[facility] Comment on above:Performed By: #### CBC/D2, MSIEP, C3-C4, ESRCRP, T4FTSH, VD25, TTG/A, CK, B12, FERIT, HBC-M, HBCA, HBSAB, HBSAG, PHOS, PTH-I, HCV, URCA #### [facility] [address] [facility], [address] Sodium [Moles/Vol]140 mmol/LNormal(135 - 145)[facility] ClinicComment on above:Performed By: #### CBC/D2, MSIEP, C3-C4, ESRCRP, T4FTSH, VD25, TTG/A, CK, B12, FERIT, HBC-M, HBCA, HBSAB, HBSAG, PHOS, PTH-I, HCV, URCA #### [facility] [address] [facility], [address] Urea nitrogen [Mass/Vol]12 mg/dLNormal(4 - 25)[facility] ClinicComment on above:Performed By: #### CBC/D2, MSIEP, C3-C4, ESRCRP, T4FTSH, VD25, TTG/A, CK, B12, FERIT, HBC-M, HBCA, HBSAB, HBSAG, PHOS, PTH-I, HCV, URCA #### [facility] [address] [facility], [address] IgM, TOTALon [id number], [id number] MG/DLHigh(40 - 230) [facility] ClinicComment on above:Result Comment: RESULT VERIFIED BY DILUTION Performed By: #### CBC/D2, MSIEP, C3-C4, ESRCRP, T4FTSH, VD25, TTG/A, CK, B12, FERIT, HBC-M, HBCA, HBSAB, HBSAG, PHOS, PTH-I, HCV, URCA #### [facility] [address] [facility], [address] SED RATE - CRPon [id number] EXTENDED RANGE3.57 MG/L Normal(0.00 - 5.00)[facility] ClinicComment on above:Performed By: #### CBC/D2, MSIEP, C3-C4, ESRCRP, T4FTSH, VD25, TTG/A, CK, B12, FERIT, HBC-M, HBCA, HBSAB, HBSAG, PHOS, PTH-I, HCV, URCA #### [facility] [address] [facility], [address] SED RATE WEST.17 MM/HRNormal(0 - 25)[facility] ClinicComment on above:Performed By: #### CBC/D2, MSIEP, C3-C4, ESRCRP, T4FTSH, VD25, TTG/A, CK, B12, FERIT, HBC-M, HBCA, HBSAB, HBSAG, PHOS, PTH-I, HCV, URCA #### [facility] [address] [facility], [address] T3 FREE, T4 FREE AND TSHon [id number] T3 [Mass/Vol] 3.95 pg/mLNormal(2.32 - 6.09)[facility] ClinicComment on above:Performed By: #### CBC/D2, MSIEP, C3-C4, ESRCRP, T4FTSH, VD25, TTG/A, CK, B12, FERIT, HBC-M, HBCA, HBSAB, HBSAG, PHOS, PTH-I, HCV, URCA #### [facility] [address] [facility], [address] T4 - FREE1.10 UG/DLNormal(0.78 - 2.35)[facility] Comment on above:Performed By: #### CBC/D2, MSIEP, C3-C4, ESRCRP, T4FTSH, VD25, TTG/A, CK, B12, FERIT, HBC-M, HBCA, HBSAB, HBSAG, PHOS, PTH-I, HCV, URCA #### [facility] [address] [facility], [address] TSH Qn0.458 m[IU]/LLow(0.470 - 4.680)[facility] Comment on above:Performed By: #### CBC/D2, MSIEP, C3-C4, ESRCRP, T4FTSH, VD25, TTG/A, CK, B12, FERIT, HBC-M, HBCA, HBSAB, HBSAG, PHOS, PTH-I, HCV, URCA #### [facility] [address] [facility], [id number] Basic Metabolic Panelon [id number] [Mass/Vol] 0.6 mg/dL0.5 - 1.0 mg/dLProvidence HospitalC3 AND C4on 05-14-2025 3159 MG/DLNormal(88 - 165)[facility] HospitalComment on above:Performed By: #### CBC/D2, MSIEP, C3-C4, ESRCRP, T4FTSH, VD25, TTG/A, CK, B12, FERIT, HBC-M, HBCA, HBSAB, HBSAG, PHOS, PTH-I, HCV, URCA #### [facility] [address] [facility], [address] C 447 MG/DLHigh(14 - 44)[place] ClinicComment on above: Performed By: #### CBC/D2, MSIEP, C3-C4, ESRCRP, T4FTSH, VD25, TTG/A, CK, B12, FERIT, HBC-M, HBCA, HBSAB, HBSAG, PHOS, PTH-I, HCV, URCA #### [facility] [address] [facility], [address] CBC WITH AUTO DIFFon [id number] CT0.02 x10^3ul Normal(0.00 - 0.16)[place] ClinicComment on above:Performed By: #### CBC/D2, MSIEP, C3-C4, ESRCRP, T4FTSH, VD25, TTG/A, CK, B12, FERIT, HBC-M, HBCA, HBSAB, HBSAG, PHOS, PTH-I, HCV, URCA #### [facility] [address] [facility], [id number] EOSINOPHIL CT0.09 x10^3ulNormal(0.00 - 0.40)[place] ClinicComment on above:Performed By: #### CBC/D2, MSIEP, C3-C4, ESRCRP, T4FTSH, VD25, TTG/A, CK, B12, FERIT, HBC-M, HBCA, HBSAB, HBSAG, PHOS, PTH-I, HCV, URCA #### [facility] [address] [facility], [id number] Hematocrit (Bld) [Volume fraction]43.8 %Normal(37.0 - 47.0)[place] ClinicComment on above:Performed By: #### CBC/D2, MSIEP, C3-C4, ESRCRP, T4FTSH, VD25, TTG/A, CK, B12, FERIT, HBC-M, HBCA, HBSAB, HBSAG, PHOS, PTH-I, HCV, URCA #### [facility] [address] [facility], [id number] Hemoglobin (Bld) [Mass/Vol]14.4 g/dLNormal(12.0 - 16.0) [place] ClinicComment on above:Performed By: #### CBC/D2, MSIEP, C3-C4, ESRCRP, T4FTSH, VD25, TTG/A, CK, B12, FERIT, HBC-M, HBCA, HBSAB, HBSAG, PHOS, PTH-I, HCV, URCA #### [facility] [address] [facility], [id number] IMMATURE GRAN CT0.04 x10^3ulNormal(0.00 - 0.11)[facility] ClinicComment on above:Performed By: #### CBC/D2, MSIEP, C3-C4, ESRCRP, T4FTSH, VD25, TTG/A, CK, B12, FERIT, HBC-M, HBCA, HBSAB, HBSAG, PHOS, PTH-I, HCV, URCA #### [facility] [address] [facility], [id number] LYMPHOCYTE CT2.32 x10^3ulNormal(0.96 - 5.40)[facility] ClinicComment on above:Performed By: #### CBC/D2, MSIEP, C3-C4, ESRCRP, T4FTSH, VD25, TTG/A, CK, B12, FERIT, HBC-M, HBCA, HBSAB, HBSAG, PHOS, PTH-I, HCV, URCA #### [facility] [address] [facility], [id number] MCH (RBC) [Entitic mass]29.1 pgNormal(27.0 - 33.0)[facility] ClinicComment on above:Performed By: #### CBC/D2, MSIEP, C3-C4, ESRCRP, T4FTSH, VD25, TTG/A, CK, B12, FERIT, HBC-M, HBCA, HBSAB, HBSAG, PHOS, PTH-I, HCV, URCA #### [facility] [address] [facility], [id number] MCHC (RBC) [Mass/Vol]32.9 g/dLNormal(30.0 - 37.0)[facility] ClinicComment on above:Performed By: #### CBC/D2, MSIEP, C3-C4, ESRCRP, T4FTSH, VD25, TTG/A, CK, B12, FERIT, HBC-M, HBCA, HBSAB, HBSAG, PHOS, PTH-I, HCV, URCA #### [facility] [address] [facility], [id number] MCV (RBC) [Entitic vol]88.7 fLNormal(81.0 - 99.0)[place] ClinicComment on above:Performed By: #### CBC/D2, MSIEP, C3-C4, ESRCRP, T4FTSH, VD25, TTG/A, CK, B12, FERIT, HBC-M, HBCA, HBSAB, HBSAG, PHOS, PTH-I, HCV, URCA #### [facility] [address] [facility], [id number] MONOCYTE CT0.59 x10^3ulNormal(0.10 - 0.90)[facility] Comment on above:Performed By: #### CBC/D2, MSIEP, C3-C4, ESRCRP, T4FTSH, VD25, TTG/A, CK, B12, FERIT, HBC-M, HBCA, HBSAB, HBSAG, PHOS, PTH-I, HCV, URCA #### [facility] [address] [facility], [id number] NEUTROPHIL CT3.58 x10^3ulNormal(1.50 - 7.00)[place] ClinicComment on above:Performed By: #### CBC/D2, MSIEP, C3-C4, ESRCRP, T4FTSH, VD25, TTG/A, CK, B12, FERIT, HBC-M, HBCA, HBSAB, HBSAG, PHOS, PTH-I, HCV, URCA #### [facility] [address] [facility], [id number] NRBC #0.00Normal(0.00 - 0.08)[place] ClinicComment on above:Performed By: #### CBC/D2, MSIEP, C3-C4, ESRCRP, T4FTSH, VD25, TTG/A, CK, B12, FERIT, HBC-M, HBCA, HBSAB, HBSAG, PHOS, PTH-I, HCV, URCA #### [facility] [address] [facility], [address] PLT217 x10^3ulNormal(130 - 400)[facility] ClinicComment on above:Result Comment: Performed at: [facility] [address] [place] [address] PH: FX: Performed By: #### CBC/D2, MSIEP, C3-C4, ESRCRP, T4FTSH, VD25, TTG/A, CK, B12, FERIT, HBC-M, HBCA, HBSAB, HBSAG, PHOS, PTH-I, HCV, URCA #### [facility] [address] [facility], [address] RBC4.94 x10^6ulNormal(4.20 - 5.40)[facility] ClinicComment on above:Performed By: #### CBC/D2, MSIEP, C3-C4, ESRCRP, T4FTSH, VD25, TTG/A, CK, B12, FERIT, HBC-M, HBCA, HBSAB, HBSAG, PHOS, PTH-I, HCV, URCA #### [facility] [address] [facility], [address] ([phone]-ZU12.8 flNormal(37.0 - 49.0)[facility] ClinicComment on above:Performed By: #### CBC/D2, MSIEP, C3-C4, ESRCRP, T4FTSH, VD25, TTG/A, CK, B12, FERIT, HBC-M, HBCA, HBSAB, HBSAG, PHOS, PTH-I, HCV, URCA #### [facility] [address] [facility], [address] WBC6.64 x10^3ulNormal(3.80 - 10.60)[facility] ClinicComment on above:Performed By: #### CBC/D2, MSIEP, C3-C4, ESRCRP, T4FTSH, VD25, TTG/A, CK, B12, FERIT, HBC-M, HBCA, HBSAB, HBSAG, PHOS, PTH-I, HCV, URCA #### [facility] [address] [facility], [id number] COMP MET PANEL w GFR(EPI)on [id number] [Mass/Vol] 4.8 g/dLNormal(3.5 - 5.0)[facility] ClinicComment on above:Order Comment: FACILITY: [facility] [id number] By: #### CBC/D2, MSIEP, C3-C4, ESRCRP, T4FTSH, VD25, TTG/A, CK, B12, FERIT, HBC-M, HBCA, HBSAB, HBSAG, PHOS, PTH-I, HCV, URCA #### [facility] [address] [facility], [address] ALK PHOS74 U/LNormal(38 - 126)[facility] ClinicComment on above:Order Comment: FACILITY: [facility] [id number] By: #### CBC/D2, MSIEP, C3-C4, ESRCRP, T4FTSH, VD25, TTG/A, CK, B12, FERIT, HBC-M, HBCA, HBSAB, HBSAG, PHOS, PTH-I, HCV, URCA #### [facility] [facility], [address] ALT [Catalytic activity/Vol]14 U/LNormal(1 - 35)[facility] ClinicComment on above:Order Comment: FACILITY: [facility] [id number] By: #### CBC/D2, MSIEP, C3-C4, ESRCRP, T4FTSH, VD25, TTG/A, CK, B12, FERIT, HBC-M, HBCA, HBSAB, HBSAG, PHOS, PTH-I, HCV, URCA #### [facility] [facility], [id number] AST [Catalytic activity/Vol]26 U/L15 - 46 U/LToledo ClinicComment on above:Order Comment: FACILITY: [facility] [id number] By: #### CBC/D2, MSIEP, C3-C4, ESRCRP, T4FTSH, VD25, TTG/A, CK, B12, FERIT, HBC-M, HBCA, HBSAB, HBSAG, PHOS, PTH-I, HCV, URCA #### [facility] [address] [facility], [id number] Bilirubin [Mass/Vol]0.5 mg/dL0.2 - 1.3 mg/dLToledo ClinicComment on above:Order Comment: FACILITY: [facility] [id number] By: #### CBC/D2, MSIEP, C3-C4, ESRCRP, T4FTSH, VD25, TTG/A, CK, B12, FERIT, HBC-M, HBCA, HBSAB, HBSAG, PHOS, PTH-I, HCV, URCA #### [facility] [address] [facility], [id number] Calcium [Mass/Vol]9.8 mg/dLNormal(8.6 - 10.6)[facility] ClinicComment on above:Order Comment: FACILITY: [facility] [id number] Comment: Performed at: [facility] [address] [place] [address] PH: FX: Performed By: #### CBC/D2, MSIEP, C3-C4, ESRCRP, T4FTSH, VD25, TTG/A, CK, B12, FERIT, HBC-M, HBCA, HBSAB, HBSAG, PHOS, PTH-I, HCV, URCA #### [facility] [address] [place], [id number] Chloride [Moles/Vol]106 mmol/LNormal(98 - 110)[facility] ClinicComment on above:Order Comment: FACILITY: [facility] [id number] By: #### CBC/D2, MSIEP, C3-C4, ESRCRP, T4FTSH, VD25, TTG/A, CK, B12, FERIT, HBC-M, HBCA, HBSAB, HBSAG, PHOS, PTH-I, HCV, URCA #### [facility] [address] [facility], [id number] CO2 [Moles/Vol]26 mmol/LNormal(22 - 30)[facility] Comment on above:Order Comment: FACILITY: [facility] [id number] By: #### CBC/D2, MSIEP, C3-C4, ESRCRP, T4FTSH, VD25, TTG/A, CK, B12, FERIT, HBC-M, HBCA, HBSAB, HBSAG, PHOS, PTH-I, HCV, URCA #### [facility] [facility], [id number] Creatinine [Mass/Vol]0.60 mg/dLNormal(0.52 - 1.04)[facility] HospitalComment on above:Order Comment: FACILITY: [facility] [id number] By: #### CBC/D2, MSIEP, C3-C4, ESRCRP, T4FTSH, VD25, TTG/A, CK, B12, FERIT, HBC-M, HBCA, HBSAB, HBSAG, PHOS, PTH-I, HCV, URCA #### [facility] [facility], [id number] GFR by CKD-PCS511.7 ML/M1.7Normal(60.0)[facility] Comment on above:Order Comment: FACILITY: [facility] [id number] By: #### CBC/D2, MSIEP, C3-C4, ESRCRP, T4FTSH, VD25, TTG/A, CK, B12, FERIT, HBC-M, HBCA, HBSAB, HBSAG, PHOS, PTH-I, HCV, URCA #### [facility] [address] [facility], [address] Glucose [Mass/Vol]92 mg/dL74 - 106 mg/dLProtestant Hospital Comment on above:Order Comment: FACILITY: [facility] [id number] By: #### CBC/D2, MSIEP, C3-C4, ESRCRP, T4FTSH, VD25, TTG/A, CK, B12, FERIT, HBC-M, HBCA, HBSAB, HBSAG, PHOS, PTH-I, HCV, URCA #### [facility] [address] [facility], [address] Potassium [Moles/Vol]4.0 mmol/L3.5 - 5.1 mmol/LToledo ClinicComment on above:Order Comment: FACILITY: [facility] [id number] By: #### CBC/D2, MSIEP, C3-C4, ESRCRP, T4FTSH, VD25, TTG/A, CK, B12, FERIT, HBC-M, HBCA, HBSAB, HBSAG, PHOS, PTH-I, HCV, URCA #### [facility] [facility], [address] Protein [Mass/Vol]8.9 g/dLHigh(6.3 - 8.2)[facility] Comment on above:Order Comment: FACILITY: [facility] [id number] By: #### CBC/D2, MSIEP, C3-C4, ESRCRP, T4FTSH, VD25, TTG/A, CK, B12, FERIT, HBC-M, HBCA, HBSAB, HBSAG, PHOS, PTH-I, HCV, URCA #### [facility] [address] [facility], [address] Sodium [Moles/Vol]139 mmol/L135 - 145 mmol/LToledo ClinicComment on above:Order Comment: FACILITY: [facility] [id number] By: #### CBC/D2, MSIEP, C3-C4, ESRCRP, T4FTSH, VD25, TTG/A, CK, B12, FERIT, HBC-M, HBCA, HBSAB, HBSAG, PHOS, PTH-I, HCV, URCA #### [facility] [address] [facility], [address] Urea nitrogen [Mass/Vol]13 mg/dL4 - 25 mg/dLToledo ClinicComment on above:Order Comment: FACILITY: [facility] [id number] By: #### CBC/D2, MSIEP, C3-C4, ESRCRP, T4FTSH, VD25, TTG/A, CK, B12, FERIT, HBC-M, HBCA, HBSAB, HBSAG, PHOS, PTH-I, HCV, URCA #### [facility] [address] [facility], [address] IgM, TOTALon [id number], PQOAN183 MG/DLHigh(40 - 230) [facility] ClinicComment on above:Performed By: #### CBC/D2, MSIEP, C3-C4, ESRCRP, T4FTSH, VD25, TTG/A, CK, B12, FERIT, HBC-M, HBCA, HBSAB, HBSAG, PHOS, PTH-I, HCV, URCA #### [facility] [address] [facility], [address] Liver panelon [id number] [Catalytic activity/Vol]74 U/L38 - 126 U/LProMedica Fayette County Memorial Hospital SystemALT No additional P-5'-P [Catalytic activity/Vol]14 U/L1 - 35 U/LProMedica Health SystemNo Panel Informationon [id number] Health SystemSED RATE - CRPon [id number] EXTENDED RANGE 10.21 MG/LHigh(0.00 - 5.00)[facility] ClinicComment on above:Performed By: #### CBC/D2, MSIEP, C3-C4, ESRCRP, T4FTSH, VD25, TTG/A, CK, B12, FERIT, HBC-M, HBCA, HBSAB, HBSAG, PHOS, PTH-I, HCV, URCA #### [facility] [address] [facility], [address] SED RATE WEST.15 MM/HRNormal(0 - 25)[facility] HospitalComment on above:Performed By: #### CBC/D2, MSIEP, C3-C4, ESRCRP, T4FTSH, VD25, TTG/A, CK, B12, FERIT, HBC-M, HBCA, HBSAB, HBSAG, PHOS, PTH-I, HCV, URCA #### [facility] [address] [facility], [address] T3 FREE, T4 FREE AND TSHon [id number] T3 [Mass/Vol] 4.33 pg/mLNormal(2.32 - 6.09)[facility] HospitalComment on above:Order Comment: FACILITY: [facility] [id number] By: #### CBC/D2, MSIEP, C3-C4, ESRCRP, T4FTSH, VD25, TTG/A, CK, B12, FERIT, HBC-M, HBCA, HBSAB, HBSAG, PHOS, PTH-I, HCV, URCA #### [facility] [address] [facility], [address] T4 - FREE1.28 UG/DLNormal(0.78 - 2.35)[facility] Comment on above:Order Comment: FACILITY: [facility] [id number] By: #### CBC/D2, MSIEP, C3-C4, ESRCRP, T4FTSH, VD25, TTG/A, CK, B12, FERIT, HBC-M, HBCA, HBSAB, HBSAG, PHOS, PTH-I, HCV, URCA #### [facility] [address] [facility], [address] TSH Qn0.407 m[IU]/LLow(0.470 - 4.680)[facility] Comment on above:Order Comment: FACILITY: [facility] [id number] By: #### CBC/D2, MSIEP, C3-C4, ESRCRP, T4FTSH, VD25, TTG/A, CK, B12, FERIT, HBC-M, HBCA, HBSAB, HBSAG, PHOS, PTH-I, HCV, URCA #### [facility] [address] [facility], [id number] T3, freeon [id number] T3 Free4.332.32 - 6.09 [facility] HospitalT[facility], freeon 27-40-2017Y0 Free Free T41.280.78 - 2.35 [facility] HospitalTSHon 25-43-2299Wlvndbjvbzjaea and review of laboratory resultsAbScotland Memorial Hospital Qn0.41 m[IU]/LAbnoGranville Medical CenterANTI-TTG, IGAon [id number]-TTG, IGA<0.2Normal(0.0 - 10.0)[facility] HospitalComment on above:Result Comment: REFERENCE RANGE ANTI-TTG, IGA: < 7.0 U/mL = NEGATIVE 7.0 - 10.0 U/mL = BORDERLINE > 10.0 U/mL = POSITIVE PERFORMED ON [employer] EFFECTIVE [id number] By: #### CBC/D2, MSIEP, C3-C4, ESRCRP, T4FTSH, VD25, TTG/A, CK, B12, FERIT, HBC-M, HBCA, HBSAB, HBSAG, PHOS, PTH-I, HCV, URCA #### [facility] [address] [facility], [address] C3 AND C4on 05-01-2025 3160 MG/DLNormal(88 - 165)[place] ClinicComment on above:Result Comment: SPECIMEN SLIGHTLY HEMOLYZEDPerformed By: #### CBC/D2, MSIEP, C3-C4, ESRCRP, T4FTSH, VD25, TTG/A, CK, B12, FERIT, HBC-M, HBCA, HBSAB, HBSAG, PHOS, PTH-I, HCV, URCA #### [facility] [address] [facility], [address] C 454 MG/DLHigh(14 - 44)[place] ClinicComment on above: Performed By: #### CBC/D2, MSIEP, C3-C4, ESRCRP, T4FTSH, VD25, TTG/A, CK, B12, FERIT, HBC-M, HBCA, HBSAB, HBSAG, PHOS, PTH-I, HCV, URCA #### [facility] [address] [facility], [address] CBC WITH M-DIFFon [id number] BANDS0.11 x10^3ulNormal (0.00 - 0.30)[facility] HospitalComment on above:Order Comment: FACILITY: [facility] [id number] By: #### CBC/D2, MSIEP, C3-C4, ESRCRP, T4FTSH, VD25, TTG/A, CK, B12, FERIT, HBC-M, HBCA, HBSAB, HBSAG, PHOS, PTH-I, HCV, URCA #### [facility] [facility], [address] ABS BASOPHIL0.00 x10^3ulNormal(0.00 - 0.16)[facility] Comment on above:Order Comment: FACILITY: [facility] [id number] By: #### CBC/D2, MSIEP, C3-C4, ESRCRP, T4FTSH, VD25, TTG/A, CK, B12, FERIT, HBC-M, HBCA, HBSAB, HBSAG, PHOS, PTH-I, HCV, URCA #### [facility] [address] [facility], [address] ABS BLAST0.00 x10^3ulNormal(0.00 - 0.01)[facility] Comment on above:Order Comment: FACILITY: [facility] [id number] By: #### CBC/D2, MSIEP, C3-C4, ESRCRP, T4FTSH, VD25, TTG/A, CK, B12, FERIT, HBC-M, HBCA, HBSAB, HBSAG, PHOS, PTH-I, HCV, URCA #### [facility] [address] [facility], [address] ABS EOSINOPHIL0.22 x10^3ulNormal(0.00 - 0.40)[facility] ClinicComment on above:Order Comment: FACILITY: [facility] [id number] By: #### CBC/D2, MSIEP, C3-C4, ESRCRP, T4FTSH, VD25, TTG/A, CK, B12, FERIT, HBC-M, HBCA, HBSAB, HBSAG, PHOS, PTH-I, HCV, URCA #### [facility] [facility], [id number] ABS IMMATURE GRANS0.00 x10^3ulNormal(0.00 - 0.11)[facility] ClinicComment on above:Order Comment: FACILITY: [facility] [id number] By: #### CBC/D2, MSIEP, C3-C4, ESRCRP, T4FTSH, VD25, TTG/A, CK, B12, FERIT, HBC-M, HBCA, HBSAB, HBSAG, PHOS, PTH-I, HCV, URCA #### [facility] [facility], [address] ABS LYMPHOCYTE3.04 x10^3ulNormal(0.96 - 5.40)[facility] ClinicComment on above:Order Comment: FACILITY: [facility] [id number] By: #### CBC/D2, MSIEP, C3-C4, ESRCRP, T4FTSH, VD25, TTG/A, CK, B12, FERIT, HBC-M, HBCA, HBSAB, HBSAG, PHOS, PTH-I, HCV, URCA #### [facility] [address] [facility], [id number] ABS METAMYELOCYTE0.00 x10^3ulNormal(0.00 - 0.01)[facility] ClinicComment on above:Order Comment: FACILITY: [facility] [id number] By: #### CBC/D2, MSIEP, C3-C4, ESRCRP, T4FTSH, VD25, TTG/A, CK, B12, FERIT, HBC-M, HBCA, HBSAB, HBSAG, PHOS, PTH-I, HCV, URCA #### [facility] [address] [facility], [address] ABS MONOCYTE0.76 x10^3ulNormal(0.10 - 1.00)[facility] Comment on above:Order Comment: FACILITY: [facility] [id number] By: #### CBC/D2, MSIEP, C3-C4, ESRCRP, T4FTSH, VD25, TTG/A, CK, B12, FERIT, HBC-M, HBCA, HBSAB, HBSAG, PHOS, PTH-I, HCV, URCA #### [facility] [address] [facility], [address] ABS MYELOYCYTE0.00 x10^3ulNormal(0.00 - 0.01)[facility] ClinicComment on above:Order Comment: FACILITY: [facility] [id number] By: #### CBC/D2, MSIEP, C3-C4, ESRCRP, T4FTSH, VD25, TTG/A, CK, B12, FERIT, HBC-M, HBCA, HBSAB, HBSAG, PHOS, PTH-I, HCV, URCA #### [facility] [address] [facility], [id number] ABS NEUTROPHIL6.72 x10^3ulNormal(1.50 - 7.00)[facility] ClinicComment on above:Order Comment: FACILITY: [facility] [id number] By: #### CBC/D2, MSIEP, C3-C4, ESRCRP, T4FTSH, VD25, TTG/A, CK, B12, FERIT, HBC-M, HBCA, HBSAB, HBSAG, PHOS, PTH-I, HCV, URCA #### [facility] [address] [facility], [id number] ABS PROMYELOCYTE0.00 x10^3ulNormal(0.00 - 0.01)Adhikari ClinicComment on above:Order Comment: FACILITY: [facility] [id number] By: #### CBC/D2, MSIEP, C3-C4, ESRCRP, T4FTSH, VD25, TTG/A, CK, B12, FERIT, HBC-M, HBCA, HBSAB, HBSAG, PHOS, PTH-I, HCV, URCA #### [facility] [address] [place], [place] [address] [facility], [id number] ABS REAC LYMPH0.00 x10^3ulNormal(0.00 - 0.01)Adhikari ClinicComment on above:Order Comment: FACILITY: [facility] [id number] By: #### CBC/D2, MSIEP, C3-C4, ESRCRP, T4FTSH, VD25, TTG/A, CK, B12, FERIT, HBC-M, HBCA, HBSAB, HBSAG, PHOS, PTH-I, HCV, URCA #### [facility] [address] [facility], [id number] BANDS1 %Normal()Adhikari ClinicComment on above:Order Comment: FACILITY: [facility] [id number] By: #### CBC/D2, MSIEP, C3-C4, ESRCRP, T4FTSH, VD25, TTG/A, CK, B12, FERIT, HBC-M, HBCA, HBSAB, HBSAG, PHOS, PTH-I, HCV, URCA #### [facility] [address] [place], [place] [address] [facility], [id number] Basophils/100 WBC (Bld)0 %Normal()Adhikari ClinicComment on above:Order Comment: FACILITY: [facility] [id number] By: #### CBC/D2, MSIEP, C3-C4, ESRCRP, T4FTSH, VD25, TTG/A, CK, B12, FERIT, HBC-M, HBCA, HBSAB, HBSAG, PHOS, PTH-I, HCV, URCA #### [facility] [address] [facility], [id number] BLASTS0 %Normal()Adhikari ClinicComment on above:Order Comment: FACILITY: [facility] [id number] By: #### CBC/D2, MSIEP, C3-C4, ESRCRP, T4FTSH, VD25, TTG/A, CK, B12, FERIT, HBC-M, HBCA, HBSAB, HBSAG, PHOS, PTH-I, HCV, URCA #### [facility] [address] [facility], [id number] Eosinophils/100 WBC (Bld)2 %Normal()Adhikari ClinicComment on above:Order Comment: FACILITY: [facility] [id number] By: #### CBC/D2, MSIEP, C3-C4, ESRCRP, T4FTSH, VD25, TTG/A, CK, B12, FERIT, HBC-M, HBCA, HBSAB, HBSAG, PHOS, PTH-I, HCV, URCA #### [facility] [facility], [id number] Hematocrit (Bld) [Volume fraction]40.3 %Normal(37.0 - 47.0)Adhikari ClinicComment on above:Order Comment: FACILITY: [facility] [id number] By: #### CBC/D2, MSIEP, C3-C4, ESRCRP, T4FTSH, VD25, TTG/A, CK, B12, FERIT, HBC-M, HBCA, HBSAB, HBSAG, PHOS, PTH-I, HCV, URCA #### [facility] [address] [facility], [id number] Hemoglobin (Bld) [Mass/Vol]13.0 g/dLNormal(12.0 - 16.0) Adhikari ClinicComment on above:Order Comment: FACILITY: [facility] [id number] By: #### CBC/D2, MSIEP, C3-C4, ESRCRP, T4FTSH, VD25, TTG/A, CK, B12, FERIT, HBC-M, HBCA, HBSAB, HBSAG, PHOS, PTH-I, HCV, URCA #### [facility] [address] [facility], [id number] IMMATURE GRANS (IG)0 %Normal()Adhikari ClinicComment on above:Order Comment: FACILITY: [facility] [id number] By: #### CBC/D2, MSIEP, C3-C4, ESRCRP, T4FTSH, VD25, TTG/A, CK, B12, FERIT, HBC-M, HBCA, HBSAB, HBSAG, PHOS, PTH-I, HCV, URCA #### [facility] [address] [facility], [id number] LYMPS28 %Normal()Adhikari ClinicComment on above:Order Comment: FACILITY: [facility] [id number] By: #### CBC/D2, MSIEP, C3-C4, ESRCRP, T4FTSH, VD25, TTG/A, CK, B12, FERIT, HBC-M, HBCA, HBSAB, HBSAG, PHOS, PTH-I, HCV, URCA #### [facility] [address] [facility], [id number] MCH (RBC) [Entitic mass]29.1 pgNormal(27.0 - 33.0)[place] ClinicComment on above:Order Comment: FACILITY: [facility] [id number] By: #### CBC/D2, MSIEP, C3-C4, ESRCRP, T4FTSH, VD25, TTG/A, CK, B12, FERIT, HBC-M, HBCA, HBSAB, HBSAG, PHOS, PTH-I, HCV, URCA #### [facility] [address] [facility], [id number] MCHC (RBC) [Mass/Vol]32.3 g/dLNormal(30.0 - 37.0)[place] ClinicComment on above:Order Comment: FACILITY: [facility] [id number] By: #### CBC/D2, MSIEP, C3-C4, ESRCRP, T4FTSH, VD25, TTG/A, CK, B12, FERIT, HBC-M, HBCA, HBSAB, HBSAG, PHOS, PTH-I, HCV, URCA #### [facility] [address] [place], [place] [address] Rd. [facility], [facility] MCV (RBC) [Entitic vol]90.2 fLNormal(81.0 - 99.0)[place] ClinicComment on above:Order Comment: FACILITY: [facility] [id number] By: #### CBC/D2, MSIEP, C3-C4, ESRCRP, T4FTSH, VD25, TTG/A, CK, B12, FERIT, HBC-M, HBCA, HBSAB, HBSAG, PHOS, PTH-I, HCV, URCA #### [facility] [address] [facility], [facility] META0 %Normal()[place] ClinicComment on above:Order Comment: FACILITY: [facility] [id number] By: #### CBC/D2, MSIEP, C3-C4, ESRCRP, T4FTSH, VD25, TTG/A, CK, B12, FERIT, HBC-M, HBCA, HBSAB, HBSAG, PHOS, PTH-I, HCV, URCA #### [facility] [address] [facility], [id number] Metamyelocytes/100 WBC (Bld)0 %Normal()[facility] Comment on above:Order Comment: FACILITY: [facility] [id number] By: #### CBC/D2, MSIEP, C3-C4, ESRCRP, T4FTSH, VD25, TTG/A, CK, B12, FERIT, HBC-M, HBCA, HBSAB, HBSAG, PHOS, PTH-I, HCV, URCA #### [facility] [address] [facility], [id number] MONOS7 %Normal()[place] ClinicComment on above:Order Comment: FACILITY: [facility] [id number] By: #### CBC/D2, MSIEP, C3-C4, ESRCRP, T4FTSH, VD25, TTG/A, CK, B12, FERIT, HBC-M, HBCA, HBSAB, HBSAG, PHOS, PTH-I, HCV, URCA #### [facility] [address] [facility], [address] NRBC/100 WBM3Jrpqnn(0 - 0)[place] ClinicComment on above: Order Comment: FACILITY: [facility] [id number] By: #### CBC/D2, MSIEP, C3-C4, ESRCRP, T4FTSH, VD25, TTG/A, CK, B12, FERIT, HBC-M, HBCA, HBSAB, HBSAG, PHOS, PTH-I, HCV, URCA #### [facility] [facility], [id number] PLT341 x10^3ulNormal(130 - 400)[place] ClinicComment on above:Order Comment: FACILITY: [facility] [id number] By: #### CBC/D2, MSIEP, C3-C4, ESRCRP, T4FTSH, VD25, TTG/A, CK, B12, FERIT, HBC-M, HBCA, HBSAB, HBSAG, PHOS, PTH-I, HCV, URCA #### [facility] [address] [facility], [id number] [phone] %Normal()[place] ClinicComment on above: Order Comment: FACILITY: [facility] [id number] By: #### CBC/D2, MSIEP, C3-C4, ESRCRP, T4FTSH, VD25, TTG/A, CK, B12, FERIT, HBC-M, HBCA, HBSAB, HBSAG, PHOS, PTH-I, HCV, URCA #### [facility] [address] [facility], [id number] RBC4.47 x10^6ulNormal(4.20 - 5.40)[facility] ClinicComment on above:Order Comment: FACILITY: [facility] [id number] By: #### CBC/D2, MSIEP, C3-C4, ESRCRP, T4FTSH, VD25, TTG/A, CK, B12, FERIT, HBC-M, HBCA, HBSAB, HBSAG, PHOS, PTH-I, HCV, URCA #### [facility] [address] [facility], [id number] RDW-SD41.9 flNormal(37.0 - 49.0)[facility] ClinicComment on above:Order Comment: FACILITY: [facility] [id number] By: #### CBC/D2, MSIEP, C3-C4, ESRCRP, T4FTSH, VD25, TTG/A, CK, B12, FERIT, HBC-M, HBCA, HBSAB, HBSAG, PHOS, PTH-I, HCV, URCA #### [facility] [address] [facility], [id number] REACTIVE LYMPH0 %Normal()[facility] ClinicComment on above: Order Comment: FACILITY: [facility] [id number] By: #### CBC/D2, MSIEP, C3-C4, ESRCRP, T4FTSH, VD25, TTG/A, CK, B12, FERIT, HBC-M, HBCA, HBSAB, HBSAG, PHOS, PTH-I, HCV, URCA #### [facility] [address] [facility], [id number] SEGS62 %Normal()[facility] ClinicComment on above:Order Comment: FACILITY: [facility] [id number] By: #### CBC/D2, MSIEP, C3-C4, ESRCRP, T4FTSH, VD25, TTG/A, CK, B12, FERIT, HBC-M, HBCA, HBSAB, HBSAG, PHOS, PTH-I, HCV, URCA #### [facility] [address] [facility], [address] WBC10.84 x10^3ulHigh(3.80 - 10.60)[facility] ClinicComment on above:Order Comment: FACILITY: [facility] [id number] By: #### CBC/D2, MSIEP, C3-C4, ESRCRP, T4FTSH, VD25, TTG/A, CK, B12, FERIT, HBC-M, HBCA, HBSAB, HBSAG, PHOS, PTH-I, HCV, URCA #### [facility] [address] [facility], [id number] CPKon 28-16-0054CJ [Catalytic activity/Vol]45 U/LNormal (30 - 135)[facility] ClinicComment on above:Performed By: #### CBC/D2, MSIEP, C3-C4, ESRCRP, T4FTSH, VD25, TTG/A, CK, B12, FERIT, HBC-M, HBCA, HBSAB, HBSAG, PHOS, PTH-I, HCV, URCA #### [facility] [facility], [id number] FERRITINon 30-41-9377Quxyydtr [Mass/Vol]25.9 ng/mLNormal (6.0 - 137.0)[facility] ClinicComment on above:Performed By: #### CMP, MG #### [place] [facility] [address] [place] [address], [address] HEP B CORE AB, IGMon [id number] B CORE ANTIBODY, IGMNegativeNormal(NEG - NEG)[facility] ClinicComment on above:Performed By: #### CMP, MG #### [facility] [address] [place] [address], [address] HEP B CORE AB, TOTALon 57-51-9702SBF B CORE ABNegative Normal(NEG - NEG)[facility] ClinicComment on above:Performed By: #### CMP, MG #### [facility] [address] [place] [address], [address] HEP B SHORTY AGon 15-91-9361PWA B SHORTY AGNegativeNormal(NEG - NEG)[facility] ClinicComment on above:Performed By: #### CMP, MG #### [facility] [address] [place] [address], [address] HEP B SURF ABon 91-70-5851KXM B SURF ABNegativeNormal (NEG - NEG)[facility] ClinicComment on above:Performed By: #### CMP, MG #### [facility] [address] [place] [address], [address] HEP C ANTIBODYon 63-55-9431PDWHFXLOJ C ANTIBODYNegative Normal(NEG - NEG)[facility] ClinicComment on above:Performed By: #### CMP, MG #### [facility] [address] [place] [address], [address] PHOSPHORUSon 90-98-3745Yievjqwjr [Mass/Vol]3.6 mg/dL Normal(2.5 - 4.5)[facility] ClinicComment on above:Performed By: #### CMP, MG #### [facility] [address] [place] [address], [address] PTH,INTACTon 77-41-0732EUU,NVSDCP54.9 PG/MLNormal(14.2 - 75.2)[facility] ClinicComment on above:Performed By: #### CMP, MG #### [facility] [address], [address] SED RATE - CRPon 57-19-9776GVN EXTENDED RANGE14.47 MG/L High(0.00 - 5.00)[facility] ClinicComment on above:Performed By: #### CBC/D2, MSIEP, C3-C4, ESRCRP, T4FTSH, VD25, TTG/A, CK, B12, FERIT, HBC-M, HBCA, HBSAB, HBSAG, PHOS, PTH-I, HCV, URCA #### [facility] [address] [facility], [id number] SED RATE WEST.32 MM/HRHigh(0 - 25)[facility] ClinicComment on above:Performed By: #### CBC/D2, MSIEP, C3-C4, ESRCRP, T4FTSH, VD25, TTG/A, CK, B12, FERIT, HBC-M, HBCA, HBSAB, HBSAG, PHOS, PTH-I, HCV, URCA #### [facility] [address] [facility], [id number] SERUM IMMFIX(M-PEAK)on 97-60-6663Xhsxhdd [Mass/Vol]5.0 g/dLNormal(3.5 - 5.0)[facility] ClinicComment on above:Performed By: #### CBC/D2, MSIEP, C3-C4, ESRCRP, T4FTSH, VD25, TTG/A, CK, B12, FERIT, HBC-M, HBCA, HBSAB, HBSAG, PHOS, PTH-I, HCV, URCA #### [facility] [address] [facility], [address] Albumin/Globulin [Mass ratio]1.7 {ratio}Normal(1.2 - 2.2)[facility] ClinicComment on above:Performed By: #### CBC/D2, MSIEP, C3-C4, ESRCRP, T4FTSH, VD25, TTG/A, CK, B12, FERIT, HBC-M, HBCA, HBSAB, HBSAG, PHOS, PTH-I, HCV, URCA #### [facility] [address] [facility], [id number] ALPHA 10.3 G/DLNormal(0.1 - 0.3)[facility] ClinicComment on above:Performed By: #### CBC/D2, MSIEP, C3-C4, ESRCRP, T4FTSH, VD25, TTG/A, CK, B12, FERIT, HBC-M, HBCA, HBSAB, HBSAG, PHOS, PTH-I, HCV, URCA #### [facility] [address] [facility], [id number] ALPHA 20.9 G/DLNormal(0.2 - 1.1)[facility] ClinicComment on above:Performed By: #### CBC/D2, MSIEP, C3-C4, ESRCRP, T4FTSH, VD25, TTG/A, CK, B12, FERIT, HBC-M, HBCA, HBSAB, HBSAG, PHOS, PTH-I, HCV, URCA #### [facility] [address] [facility], [id number] BETA0.9 G/DLNormal(0.6 - 1.1)[facility] ClinicComment on above:Performed By: #### CBC/D2, MSIEP, C3-C4, ESRCRP, T4FTSH, VD25, TTG/A, CK, B12, FERIT, HBC-M, HBCA, HBSAB, HBSAG, PHOS, PTH-I, HCV, URCA #### [facility] [address] [facility], [address] GAMMA0.9 G/DLNormal(0.5 - 1.5)[facility] ClinicComment on above:Performed By: #### CBC/D2, MSIEP, C3-C4, ESRCRP, T4FTSH, VD25, TTG/A, CK, B12, FERIT, HBC-M, HBCA, HBSAB, HBSAG, PHOS, PTH-I, HCV, URCA #### [facility] [address] [place], [address] Globulin (S) [Mass/Vol]3.0 g/dLNormal(2.3 - 3.5)[facility] ClinicComment on above:Performed By: #### CBC/D2, MSIEP, C3-C4, ESRCRP, T4FTSH, VD25, TTG/A, CK, B12, FERIT, HBC-M, HBCA, HBSAB, HBSAG, PHOS, PTH-I, HCV, URCA #### [facility] [address] [place], [address] IgA, [id number] MG/DLNormal(70 - 400)[facility] ClinicComment on above:Performed By: #### CBC/D2, MSIEP, C3-C4, ESRCRP, T4FTSH, VD25, TTG/A, CK, B12, FERIT, HBC-M, HBCA, HBSAB, HBSAG, PHOS, PTH-I, HCV, URCA #### [facility] [address] [place], [address] IgG, [id number] MG/DLNormal(700 - 1600)[facility] Comment on above:Performed By: #### CBC/D2, MSIEP, C3-C4, ESRCRP, T4FTSH, VD25, TTG/A, CK, B12, FERIT, HBC-M, HBCA, HBSAB, HBSAG, PHOS, PTH-I, HCV, URCA #### [facility] [address] [place], [id number] IgM, [id number] MG/DLHigh(40 - 230)[facility] ClinicComment on above:Performed By: #### CBC/D2, MSIEP, C3-C4, ESRCRP, T4FTSH, VD25, TTG/A, CK, B12, FERIT, HBC-M, HBCA, HBSAB, HBSAG, PHOS, PTH-I, HCV, URCA #### [facility] [address] [facility], [address] IMMUNOFIX, BLDNOTESNormal(NOTES)[place] ClinicComment on above:Result Comment: AN APPARENT NORMAL SERUM ELECTROPHORETIC PATTERN. NO MONOCLONAL IMMUNOGLOBULIN DETECTED BY IMMUNOFIXATION.Performed By: #### CBC/D2, MSIEP, C3-C4, ESRCRP, T4FTSH, VD25, TTG/A, CK, B12, FERIT, HBC-M, HBCA, HBSAB, HBSAG, PHOS, PTH-I, HCV, URCA #### [facility] [address] [facility], [address] Protein [Mass/Vol]8.0 g/dLNormal(6.3 - 8.2)[facility] Comment on above:Performed By: #### CBC/D2, MSIEP, C3-C4, ESRCRP, T4FTSH, VD25, TTG/A, CK, B12, FERIT, HBC-M, HBCA, HBSAB, HBSAG, PHOS, PTH-I, HCV, URCA #### [facility] [address] [facility], [address] Protein [Mass/Vol]0.0 g/dLNormal(0.0 - 0.01)[place] ClinicComment on above:Performed By: #### CBC/D2, MSIEP, C3-C4, ESRCRP, T4FTSH, VD25, TTG/A, CK, B12, FERIT, HBC-M, HBCA, HBSAB, HBSAG, PHOS, PTH-I, HCV, URCA #### [facility] [address] [facility], [address] T4 FREE AND TSHon 10-06-4735R9 - FREE1.24 UG/DLNormal (0.78 - 2.35)[facility] ClinicComment on above:Performed By: #### CBC/D2, MSIEP, C3- C4, ESRCRP, T4FTSH, VD25, TTG/A, CK, B12, FERIT, HBC-M, HBCA, HBSAB, HBSAG, PHOS, PTH-I, HCV, URCA #### [facility] [address] [facility], [address] TSH Qn0.356 m[IU]/LLow(0.470 - 4.680)[facility] Comment on above:Performed By: #### CBC/D2, MSIEP, C3-C4, ESRCRP, T4FTSH, VD25, TTG/A, CK, B12, FERIT, HBC-M, HBCA, HBSAB, HBSAG, PHOS, PTH-I, HCV, URCA #### [facility] [address] [facility], [address] URIC ACIDon 80-36-1326Zkhrn [Mass/Vol]4.4 mg/dLNormal (2.5 - 6.2)[facility] ClinicComment on above:Performed By: #### CMP, MG #### [facility] [address] [place] [address], [id number] VITAMIN B12on 52-62-0849Nesgfqtdi (Vitamin B12) [Mass/Vol]607 pg/mLNormal(239 - 931)[facility] ClinicComment on above:Performed By: #### CMP, MG #### [facility] [address] [place] [address], [address] VITAMIN D, 25 HYDROXYon 30-92-4278SBCSESI D, 39277.6 NG/MLCritically high(30.0 - 100.0)[facility] ClinicComment on above:Result Comment: * * * VITAMIN D, 25 HYDROXY GENERAL GUIDELINE * * * DEFICIENCY = < OR = 20.0 NG/ML INSUFFICIENCY = 20.1 - 29.9 NG/ML SUFFICIENCY = 30.0 - 100.0 NG/ML TOXICITY = > 100.1 NG/MLPerformed By: #### CBC/D2, MSIEP, C3-C4, ESRCRP, T4FTSH, VD25, TTG/A, CK, B12, FERIT, HBC-M, HBCA, HBSAB, HBSAG, PHOS, PTH-I, HCV, URCA #### [facility] [address] [facility], [address] COMP MET PANEL w GFR(EPI)on 97-40-2025Rjgelwb [Mass/Vol] 4.8 g/dLNormal(3.5 - 5.0)[place] ClinicComment on above:Order Comment: PERFORMED AT: [facility] [id number] By: #### CMP, MG #### [facility] [address] [place] [address], [id number] ALK PHOS89 U/LNormal(38 - 126)[place] ClinicComment on above:Order Comment: PERFORMED AT: [facility] [id number] By: #### CMP, MG #### [facility] [address] [place] [address], [address] ALT [Catalytic activity/Vol]16 U/LNormal(1 - 35)[facility] ClinicComment on above:Order Comment: PERFORMED AT: [facility] [id number] By: #### CMP, MG #### [facility] [address] [place] [address], [address] AST [Catalytic activity/Vol]24 U/LNormal(15 - 46)[facility] ClinicComment on above:Order Comment: PERFORMED AT: [facility] [id number] By: #### CMP, MG #### [facility] [address] [place] [address], [id number] Bilirubin [Mass/Vol]0.5 mg/dLNormal(0.2 - 1.3)[facility] ClinicComment on above:Order Comment: PERFORMED AT: [facility] [id number] By: #### CMP, MG #### [facility] [address] [place] [address], [address] Calcium [Mass/Vol]9.6 mg/dLNormal(8.6 - 10.6)[place] ClinicComment on above:Order Comment: PERFORMED AT: [facility] [id number] Comment: Performed at: [facility] [address] [place] [address] PH: FX: Performed By: #### CMP, MG #### [place] [facility] [address] [place] [address], [address] Chloride [Moles/Vol]108 mmol/LNormal(98 - 110)[facility] ClinicComment on above:Order Comment: PERFORMED AT: [facility] [id number] By: #### CMP, MG #### [facility] [address] [place] [address], [address] CO2 [Moles/Vol]23 mmol/LNormal(22 - 30)[facility] Comment on above:Order Comment: PERFORMED AT: [facility] [id number] By: #### CMP, MG #### [place] [facility] [address] [place] [address], [address] Creatinine [Mass/Vol]0.60 mg/dLNormal(0.52 - 1.04)[facility] ClinicComment on above:Order Comment: PERFORMED AT: [facility] [id number] By: #### CMP, MG #### [facility] [address] [place] [address], [address] GFR by CKD-EKD493.7 ML/M1.7Normal(60.0)[facility] Comment on above:Order Comment: PERFORMED AT: [facility] [id number] By: #### CMP, MG #### [facility] [address] [place] [address], [address] Glucose [Mass/Vol]91 mg/dLNormal(74 - 106)[facility] Comment on above:Order Comment: PERFORMED AT: [facility] [id number] By: #### CMP, MG #### [facility] [address] [place] [address], [address] Potassium [Moles/Vol]4.2 mmol/LNormal(3.5 - 5.1)[facility] ClinicComment on above:Order Comment: PERFORMED AT: [facility] [id number] By: #### CMP, MG #### [facility] [address] [place] [address], [address] Protein [Mass/Vol]8.9 g/dLHigh(6.3 - 8.2)[facility] Comment on above:Order Comment: PERFORMED AT: [facility] [id number] By: #### CMP, MG #### [place] [facility] [address] [place] [address], [address] Sodium [Moles/Vol]138 mmol/LNormal(135 - 145)[facility] ClinicComment on above:Order Comment: PERFORMED AT: [facility] [id number] By: #### CMP, MG #### [facility] [address] [place] [address], [address] Urea nitrogen [Mass/Vol]9 mg/dLNormal(4 - 25)[facility] ClinicComment on above:Order Comment: PERFORMED AT: [facility] [id number] By: #### CMP, MG #### [facility] [address] [place] [address], [address] MAGNESIUMon 22-92-5354Bzgoycywo [Mass/Vol]1.7 mg/dL Normal(1.6 - 2.3)[facility] on above:Performed By: #### CMP, MG #### [facility] [address] [place] [address] [place], [id number] ISLET CELL ABon [id number] CELL AB<1:4Normal<1:4 [facility] on above:Order Comment: Specimen Type: BLOOD SPECIMEN [facility] Address: ATTN: LABORATORY, [place], [place] [address]Uxraar Comment: INTERPRETIVE INFORMATION: Islet Cell Ab, IgG Islet cell antibodies (ICAs) are associated with type 1 diabetes (TID), an autoimmune endocrine disorder. ICAs may be present years before the onset of clinical symptoms. To calculate Ju[employer] (JDF) units: multiply the titer x 5 (1:8 8 x 5 = 40 JDF Units). This test was developed and its performance characteristics determined by [facility]. It has not been cleared or approved by the [place] Food and Drug Administration. This test was performed in a CLIA certified laboratory and is intended for clinical purposes. Performed By: [facility] [address] [place] [address] Nonprofit Manager: Asa Tiwari MD, PhD CLIA Number: [id number] By: #### ISLET #### [facility] CLIA [id number] [address] [place], [place] [address]RCLNsn [id number] Visit (ENDOLN) DAVION UMAÑA ([id number]) 3 F Date Time Provider Department 03/26/25 [...] compression stockings; advised to continue. -follows at [email or web address]] TFT and TPO ordered 2. Hyperglycemia (R73.9) [...] antibodies ordered Referring Provider: JUAN JOSE ACKERMAN [[id number]] Allergies As of Date: 03/26/2025 (Not on File) Date Reviewed: Never Reviewed Reason for Visit: New Patient [172] Primary Visit Diagnosis:Autonomic dysfunction [G90.9] Other Visit Diagnoses:Hyperglycemia [R73.9] Malaise and fatigue [R53.81, R53.83] Arthralgia, unspecified joint [M25.50] Order(s):HEMOGLOBIN A1C (POC) [5513195] Order #: [id number]. #:[id number] CORTISOL, SERUM [SQCOR] Order #: [id number] FUTURE ACTH BLD [SQACTH] Order #: [id number] FUTURE DHEA-S BLD [SQDHEAS] Order #: [id number] FUTURE INSULIN, TOTAL, SERUM [SQINSULN] Order #: [id number] FUTURE GLUCOSE, FASTING [SQGLF] Order #: [id number] FUTURE ISLET CELL AB [SQISLET] Order #: [id number] FUTURE THYROID STIMULATING HORMONE [SQTSH] Order #: [id number] FUTURE T4 FREE/FREE THYROXINE [SQFT4] Order #: [id number] FUTURE THYROID PEROXIDASE ANTIBODY [SQMICRO] Order #: [id number] FUTURE GLUTAMIC AC DECARBOXYLASE AB [SQGADCAB] Order #: [id number] FUTURE Prescriptions as of 03/26/2025 - Blitsy G7 SENSOR jose as directed. - sertraline (ZOLOFT) 25 mg tablet Take 25 mg by mouth once daily. - JOYEAUX 0.1 mg-0.02 mg (21)/iron (7) tab take 1 tablet by mouth daily for 28 days Problem List As Of Date: 03/26/2025 (None) Level of Service: OFFICE/OUTPATIENT NEW MODERATE MDM (more content not included)...NormalKettering Health DaytonHEMOGLOBIN A1C (POC)on 03-26-2025 HbA1c (Bld) [Mass fraction]5.4 %4.3 - 5.6 %[facility] HospitalComment on above: Location:[facility], [address] [place] [address], [facility] Point of care (POC) Hemoglobin A1c [...] specific diabetes management situations: The POC device machine puller over provides a normal range of 4.2% to 6.5% for the HGBA1C POC test. However, the [place] [employer] guidelines indicate that patients with [...] anemia) that alter red blood cell lifespan. [facility] HospitalAmbulatory Visit Summaryon [id number] Visit Summary Ambulatory Visit Summary RALPH UMAÑABEV Clarke :2005 Visit Date:03/06/2025 Ambulatory Visit Instructions Your [...] iron 20 mcg-100 mcg oral tablet) 1 TabletsBy Mouth Every day Contact prescribing physician if [...] you for choosing us for your care. [facility] GeneralBETA-2 GLYCOPROTEIN ANTIBODY IGG AND IGMon [id number] 2 GLYCOPROTEIN 1 IGG AB (SGU) IN SERUM1.0 SGUNormal <=19.9UnOhioHealth Shelby HospitalComment on above:Performed By: #### [id number] ####[facility] (BEAKER)[address] [place], [place] [address]RTLV 2 GLYCOPROTEIN 1 IGM ANTIBODY (SMU) IN SERUM12.1 SMUNormal<=19.9UnOhioHealth Shelby HospitalComment on above:Performed By: #### [id number] ####[facility] (BEAKER)[address] [place], [place] [address]CYXVUODVCNU ANTIBODY, IGG AND IGMon 93-95-1937DHFMUYCKQIBEAGO IGG ANTIBODY6.0 GPLNormal<=22.9UnOhioHealth Shelby HospitalComment on above:Performed By: #### [id number] ####[facility] (BEAKER)[address] [place], [place] [address]VPSYAHWNIFWDGFI IGM XBMNDDZU78.0 MPLHigh<10.9UnOhioHealth Shelby HospitalComment on above: Performed By: #### [id number] ####[facility] ([place]STA)[address] [address]KYSID ANTICOAGULANTon [id number] ANTICOAGULANTNegative NormalNegativeUnOhioHealth Shelby HospitalComment on above:Order Comment: Positive results should be repeated after 12 weeks to confirm persistence of LA. Thepresence of DOAC drugs such as apixaban or rivaroxaban, or Vitamin K antagonists, heparin, and acute phase proteins at time of sample collection may interfere with the validity of results.Performed By: #### [id number] #### [facility] ([place]) [address] [place] [id number] Davion Umaña 2005 F Date Provider Department Center 01/24/2025 2[facility] [[email or web address] [[email or web address]] O[facility] Family History Problem Relation Age of Onset [...] Maternal Grandfather Paternal Grandmother Other Alive Neg HxNormalUniversOhio Valley Surgical HospitalPHOSPHATIDYLSERINE ANTIBODIESon [id number] ANTIBODY IGG0 GPSNormal0-15UnOhioHealth Shelby HospitalComment on above:Result Comment: INTERPRETIVE INFORMATION: Phosphatidylserine Ab, IgG IgG [...] clinical manifestations and/or other criteria phospholipid antibody tests.Performed By: #### [id number] ####[facility] ([facility] [place] [address] PHOSPHATIDYLSERINE ANTIBODY IGM6 MPSNormal0-21[facility] Medical CenterComment on above:Result Comment: INTERPRETIVE INFORMATION: Phosphatidylserine Ab, IgM The [...] other criteria phospholipid antibody tests. Performed By: [facility] [address] [place] [address] Nonprofit Manager: Asa Tiwari MD, PhD CLIA Number: [id number] By: #### [id number] ####[facility] ([facility])[address] [place], [place] [address]Bgjnwugjkwqljb 01-16-2025 [id number] Davion Umaña 2005 F Date Provider Department Center 01/16/2025 PIPE VALLADARES [facility] [place] Heart[facility] Family History Problem [...] Grandmother Other Alive Neg Hx Level of Service:27208 ME OFFICE/OUTPATIENT ESTABLISHED LOW MDM 20 MIN Reason for Visit and Comments: Telehealth Audio/video Visit [871]NormalUnOhioHealth Shelby Hospital Estimated glomerular filtration rate (GFR) non- Americanon 12-25-2024 GFR/1.73 sq M.predicted among non-blacks MDRD (S/P/Bld) [Vol rate/Area]Estimated glomerular filtration rate (GFR) non->=60 mL/min/1.73m 2 [facility]Labor[facility] - Chemistry and Chemistry - challengeon 74-51-7805Bgowpwu [Mass/Vol]9.3 mg/dL8.5-10.1FGerman HospitalChloride [Moles/Vol]103 mmol/K72-529GakqstnddWilson HealthCO2 [Moles/Vol]28.1 mmol/L21.0-32.0[facility] Cobalamin (Vitamin B12) [Mass/Vol]340 pg/lC796-8248XcekgykkrWilson HealthComment on above:Performed at: [facility] [id number] Director: Tristan Dean PhD, Phone: [phone] Creatinine [Mass/Vol]0.77 mg/dL0.55-1.02[facility] Ferritin [Mass/Vol]17.0 ng/mL8.0-252.0Wilson HealthGFR/1.73 sq M.predicted MDRD (S/P/Bld) [Vol rate/Area]mL/min/{1.73_m2}>=60 mL/min/1.73m 2 [facility] HealthGlucose [Mass/Vol]87 mg/nW00-222ZetzynyvdWilson HealthPotassium [Moles/Vol]4.4 mmol/L3.5-5.1FHarrison Community Hospitalodium [Moles/Vol]138 mmol/V294-763GitplybywWilson HealthUrea nitrogen [Mass/Vol]7.0 mg/dL7.0-18.0[facility] Urea nitrogen/Creatinine [Mass ratio]9.1 mg/mgWilson Health No Panel Informationon 28-41-6855Guvgxt60.50 ng/mL8.60-58.90Wilson HealthMiscellaneous TestCOMMENT.Wilson HealthComment on above:Test Ordered: [id number] Lupus Anticoag/Cardiolipin AbProthrombin Time 10.3 sec UY Reference Range: .Reference Range:18 years and older: 9.1 - 12.0INR 0.9 ratio UY Reference Range: .Reference Range:>1month: 0.9 - 1.2APTT 28.7 sec UY Reference Range: .This test has not been validated for monitoringunfractionated heparin therapy. aPTT-based therapeuticranges for unfractionated heparin therapy have not beenestablished. Consider ordering Heparin anti- Xa(unfractionated).Reference Range:18 years and older: 22.9 - 30.2APTT 1:1 MATERIAL DISPOSITION INSPECTOR sec UY Reference Range: .Testing Not IndicatedThis test was developed and its performance characteristicsdetermined by [employer]. It has not been cleared or approvedby the US Food and Drug Administration.APTT 1:1 Saline sec UY Reference Range: .Testing Not IndicatedThis test was developed and its performance characteristicsdetermined by [employer]. It has not been cleared or approvedby the US Food and Drug Administration.Thrombin Time 17.0 sec UY Reference Range: .Reference Range:0.0 - 23.0DRVVT Screen Seconds 57.2 [H ] sec UY Reference Range: .Reference Range:<= 47.0DRVVT Confirm Seconds 33.6 sec UY Reference Range: .DRVVT Ratio 1.6 [H ] ratio UY Reference Range:.Testing while the patient is on anticoagulant therapy,including warfarin, dabigatran, or a direct Xa inhibitor maycause a false positive result.Reference Range:0.8 - 1.2Hexagonal Phospholipid Neutral 9 sec UY Reference Range: .This value is NEGATIVE.This is a qualitative assay and is therefore reported aspositive for lupus anticoagulant or negative. Thequantitative value is provided as an aid indiagnosis.Reference Range:0 - 11Anticardiolipin Ab, IgG <10 GPL UY Reference Range: .Reference Ra nge:Negative: <15Indeterminate: 15 - 20Low to medium positive: >20 - 80High positive: >80Anticardiolipin Ab, IgM <10 MPL UY Reference Range: .Reference Range:Negative: <13Indeterminate: 13 - 20Low to medium positive: >20 - 80High positive: >80Beta-2 Glycoprotein I, IgG <10 SGU UY Reference Range: .The reference interval reflects a 3SD or 99th percentileinterval.Reference Ra nge:Negative: <21Beta-2 Glycoprotein I, IgM <10 SMU UY [...] or more weeks to confirm or refute persis tence should beconsidered. All REBECCA-based antiphospholipid antibodiesevaluated are normal. Please contact [employer] Coagulationif further clarification is needed.Performed at: [facility] [employer] [id number] [id number] Director: Nabil Corrales MD, Phone: [phone] at: [address] [place], [place] [id number] Director: Tristan Dean PhD, Phone: [phone]QFTpnhuqrhd Regional Medical CenterSerum or plasma anion gap determinationon 41-52-6905Ntrbz gap [Moles/Vol]Serum or plasma anion gap determinationSelect Medical Specialty Hospital - Cleveland-Fairhillerum or plasma free cefuroxime measurement (mass/volume)on 12-25-2024 Cefuroxime free [Mass/Vol]Serum or plasma free cefuroxime measurement (mass/volume)NegativeWilson HealthComment on above:Performed at: [address] [place], [place] [id number] Director: Tristan Dean PhD, Phone: [phone] or plasma insulin measurement (units/volume)on 51-64-8559Jeugjnu QnSerum or plasma insulin measurement (units/volume)2.6-24.9Wilson HealthComment on above: Performed at: [address] [place], [place] [id number] Director: Tristan Dean PhD, Phone: [phone] CBC WITH AUTO DIFFon 17-96-8718HKSDNANOY ABSOLUTE ESZB1YDOX HealthcareBasophils/100 WBC (Bld)0.5 %0.2 - 2.0 %NOMS HealthcareEosinophils/100 WBC (Bld)3.9 %0.9 - 7.0 %[facility] Erythrocyte distribution width (RBC) [Ratio]12.1 %11.0 - 15.0 %[facility] Hematocrit (Bld) [Volume fraction]42.4 %36.0 - 48.0 %[facility] CenterHemoglobin (Bld) [Mass/Vol]14.2 g/dL12.0 - 16.0 g/dLHedrick Medical CenterIMMATURE GRANULOCYTES ABS AUTO0.07HighNOME HealthcareImmature granulocytes/100 WBC (Bld)0.9 %High0.0 - 0.5 %[facility] CenterInterpretation and review of laboratory resultsAbnormalNOME HealthcareLYMPHOCYTES ABSOLUTE AUTO3.1NOMS HealthcareLymphocytes/100 WBC (Bld) 38.6 %20.5 - 60.0 %[facility] CenterH (RBC) [Entitic mass]29.7 pg26.7 - 34.0 pg [facility] CenterMCHC (RBC) [Mass/Vol]33.5 g/dL29.9 - 35.2 g/dLHedrick Medical CenterMCV (RBC) [Entitic vol]88.7 fL81.0 - 99.0 fLHedrick Medical CenterMONOCYTES ABSOLUTE AUTO 0.6NOMS HealthcareMonocytes/100 WBC (Bld)7.4 %1.7 - 12.0 %[facility] NEUTROPHILS ABSOLUTE DTJC6MFGC HealthcareNeutrophils/100 WBC (Bld)48.7 %43.0 - 75.0 %[facility] Medical CenterPlatelet mean volume (Bld) [Entitic vol]11.5 fL9.5 - 13.5 fLNORipley County Memorial HospitalTBH EO #0.3NOMS [facility] MemorialTB LGX002CYTB [facility] MemorialTB RBC4.78 NOMSt. Joseph Medical CenterTB WBC8.1NOMS HealthcareCLINISYNCNCEDAR RIDGE HOSPITAL – [facility] HealthcareBasophils Auto (Bld) [#/Vol]on 44-48-3496Osniaqwex (Bld) [#/Vol]Automated basophil count0.0-0.1 Wilson HealthBasophils/100 WBC Auto (Bld)on 12-08-2024 Basophils/100 WBC (Bld)Automated basophil %0.2-2.0Wilson HealthEosinophils/100 WBC Auto (Bld)on 73-14-7515Satyllhkfrt/100 WBC (Bld) Automated eosinophil %0.9-7.0Wilson HealthErythrocyte distribution width Auto (RBC) [Ratio]on 61-09-8516Pavrzzbpghn distribution width (RBC) [Ratio]Erythrocyte distribution width [Ratio] by Automated count11.0-15.0 [facility] HealthGlucose mean value [Mass/volume] in Blood Estimated from glycated hemoglobinon 73-91-1480Qblozra glucose Estimated from glycated hemoglobin (Bld) [Mass/Vol]Glucose mean value [Mass/volume] in Blood Estimated from glycated hemoglobinWilson HealthHematocrit Auto (Bld) [Volume fraction]on 08-06-9420Twhclzrcqx (Bld) [Volume fraction] Hematocrit [Volume Fraction] of Blood by Automated count36.0-48.0Wilson HealthHemoglobin A1c percentageon 17-98-3453UyA1n (Bld) [Mass fraction]Hemoglobin A1c percentage4.5-6.2FGerman Hospital Comment on above:ADA RECOMMENDED LIMIT 4.0 - 6.0ADA THERAPEUTIC TARGET < 7.0ACTION SUGGESTED> 7.0Hemoglobin [Mass/volume] in Bloodon 92-45-2620Oxuhjwkvxf (Bld) [Mass/Vol]Hemoglobin [Mass/volume] in Blood12.0-16.0[facility] HealthLaboratory - Chemistry and Chemistry - challengeon 12-08-2024 Calcium [Mass/Vol]9.4 mg/dL8.5-10.1FGerman HospitalChloride [Moles/Vol]102 mmol/D02-572NowumeytjWilson HealthCO2 [Moles/Vol]26.6 mmol/L21.0-32.0Wilson HealthFree T4 [Mass/Vol]0.95 ng/dL 0.76-1.46Wilson HealthGlucose [Mass/Vol]90 mg/rN19-425 [facility] HealthMagnesium [Mass/Vol]1.8 mg/dL1.8-2.4FGerman HospitalPotassium [Moles/Vol]3.9 mmol/L3.5-5.1FHarrison Community Hospitalodium [Moles/Vol]139 mmol/R845-335DrpdhdkcbWilson HealthTSH Qn1.090 m[IU]/L0.358-3.740[facility] HealthLaboratory - Hematology and Cell countson 29-44-3811Mtyvxflg granulocytes/100 WBC (Bld)0.9 %High0.0-0.5FGerman HospitalLeukocytes [#/volume] corrected for nucleated erythrocytes in Blood by Automated counon 29-79-1479YPQ corrected for nucl RBC Auto (Bld) [#/Vol]Leukocytes [#/volume] corrected for nucleated erythrocytes in Blood by Automated coun4.0-11.0[facility] Lymphocytes Auto (Bld) [#/Vol]on 07-76-7028Vpwgdhulpye (Bld) [#/Vol]Lymphocytes [#/volume] in Blood by Automated count1.2-3.8[facility] Lymphocytes/100 WBC Auto (Bld)on 54-43-8646Jfbveborvux/100 WBC (Bld) Lymphocytes/100 leukocytes in Blood by Automated count20.5-60.0[facility] HospitalH Auto (RBC) [Entitic mass]on 14-18-5078WLS (RBC) [Entitic mass]MCH [Entitic mass] by Automated count26.7-34.0Wilson HealthMCHC Auto (RBC) [Mass/Vol]on 09-09-1755JFNH (RBC) [Mass/Vol]MCHC [Mass/volume] by Automated count29.9-35.2FGerman HospitalMCV Auto (RBC) [Entitic vol]on 53-02-1512SQK (RBC) [Entitic vol]MCV [Entitic volume] by Automated count81.0-99.0Wilson HealthMonocytes Auto (Bld) [#/Vol]on 78-48-1957Yesjataxr (Bld) [#/Vol]Automated blood monocyte count0.3-0.8 [facility] HealthMonocytes/100 WBC Auto (Bld)on 12-08-2024 Monocytes/100 WBC (Bld)Automated monocyte %1.7-12.0Wilson HealthNeutrophils Auto (Bld) [#/Vol]on 96-71-6724Etqkatvyzyz (Bld) [#/Vol] Neutrophils [#/volume] in Blood by Automated count1.4-6.5FGerman HospitalNeutrophils/100 WBC Auto (Bld)on 77-57-8568Kerlwzcyrdl/100 WBC (Bld)Automated neutrophil %43.0-75.0Wilson HealthNo Panel Informationon 08-66-3453Xorpynzgizn # (Auto)0.3 10 3/uL0.0-0.7FGerman HospitalHuman Chorionic Gonadotropin, Quant<1 mIU/mLWilson HealthComment on above:5-50 0.2-1 TYXW72-071 1-2 JNMQV101-2,000 2-3 VFKWJ928-75,000 3-4 WEEKS1,000-50,000 4-5 WEEKS10,000-100,000 5-6 WEEKS15,000- 200,000 6-8 WEEKS10,000-100,000 2-3 MONTHSImmature Granulocyte # (Auto)0.07 10 3/uLHigh0.00-0.03Wilson HealthPlatelet mean volume Auto (Bld) [Entitic vol]on 15-07-7528Ctgttxnv mean volume (Bld) [Entitic vol]Platelet mean volume [Entitic volume] in Blood by Automated count9.5-13.5FGerman HospitalPlatelets Auto (Bld) [#/Vol]on 70-76-7478Cilimqefn (Bld) [#/Vol]Platelets [#/volume] in Blood by Automated -400AooxlderkWilson HealthRBC Auto (Bld) [#/Vol]on 68-97-2248DXZ (Bld) [#/Vol]Erythrocytes [#/volume] in Blood by Automated count4.20-5.40[facility] Patient Messageon 97-99-0787Ujmbndp [id number] Ronel Umañakendrabev E 2005 Date Provider Department Center 11/27/2024 PIPE VALLADARES [facility] [place] [place] HeartVAS Family History Problem Relation Age of Onset No Known Problems Mother Hypertension Father No Known Problems Mother's Sister Hypertension Maternal Grandfather Heart attack Paternal Grandmother Arrhythmia Paternal Grandmother Stroke Paternal Grandmother 40 Autoimmune disease Neg Hx Sudden Neg Hx Aneurysm Neg Hx Family Status - Relation Status Age at Mother Father Mother's Sister Maternal Grandfather Paternal Grandmother Neg HxNormalUniversOhio Valley Surgical HospitalTelemedicine 11-16-2024 [id number] Davion Umaña E 2005 Provider Department Center 11/16/2024 PIPE VALLADARES [facility] [place] [facility] Family History Problem [...] Grandfather Paternal Grandmother Neg Hx Level of Service:47694 ME OFFICE/OUTPATIENT ESTABLISHED MDM 10 MIN Reason for Visit and Comments: Telehealth Audio/video Visit [871][place] [address]on 29-38-221681Lqgrpiwi by: PIPE TRAVIS on: 07/02/2024 11:16 AM Modules accepted: OrdersNormalUniversOhio Valley Surgical HospitalDocumentationon [id number] Davion Umaña E 2005 Date Provider Department Center 07/02/2024 3976-DONTE, [facility] Spe Pha Comprehensiv Family History [...] Visit and Comments: Specialty Pharmacy Note: ivabradine [Other]NormalUnOhioHealth Shelby HospitalOffice Visiton 89-04-8125Iczlrs-up [id number] Davion Umaña 2005 F Date Provider Department Center 07/02/2024 ZoePIPE HAJI [facility] CARD [place] Heart[facility] Family History Problem [...] Grandfather Paternal Grandmother Neg Hx Level of Service:84611 ME OFFICE/OUTPATIENT NEW LOW MDM 30 MINUTES Reason for Visit and Comments: New Patient [632] - Patient in our office for Dysautonomia. Patient light headed, palpitations and edema when about to have episodesNormalUniversOhio Valley Surgical HospitalProgress Noteon 36-86-0643Modtxqcjaulmi Authentication Interface Message [facility] History of Present [...] changes in medications. Goes to school at [employer] and lives on campus. Is doing well [...] Elastic Bandages & Supports (MEDICAL COMPRESSION STOCKINGS) [facility] Waist high compression stockings 20mmHg-30mmHg. To be [...] family. Social History: [employer] in [employer] at [employer]. Studying education. Physical Exam: The Physical Exam is limited due to Telehealth General: Patient appears healthy, well developed, well nourished, non-toxic, and in no acute distress HEENT: atraumatic and normocephalic Chest: Respirations are easy, non-labored with symmetric chest rise. Skin: [place], without obvious rashes or lesions. Neuro: Awake [...] Total encounter time: 30 minutes Delores Mora APRN-[employer] Pediatric Nurse Practitioner [facility] 11/25/2023NoWright-Patterson Medical CenterProess Noteon 10-32-2721Exipzrxrjkwvj Authentication Interface Message TextSalem City [facility]- [facility] History of Present Illness [...] month. 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 Passed out. LOC < 2 minutes. No head injury. -shortness of breath when she feels like she is going to pass out -sweating without fever -fatigue/ lack of sleep. (Feels her head spinning) No recent changes in medications. Goes to school at [employer] and lives on campus. Is doing well with her fluid intake. Eats well. Review of systems All other systems reviewed and are negative except as detailed above. Prior Cardiac Testing: ECG (9/9/22): normal ECHO (12/13/19-Osman Browning. Read by Gilbert [...] family. Social History: Freshman in college at [employer]. Physical Exam: 1. General: Alert, active, well [...] Total encounter time: 60 minutes Delores Mora, GURJIT-[employer] Pediatric N (more content not included)...NormalAdena Health System AUTO DIFFon 39-49-0079Sbybokizb (Bld) [#/Vol]0.0 103/ulNormal0.0-0.1The [facility] Jewish HospitalComment on above:Performed By: #### CBC #### [facility] [address], [place] [address] Steve KarenBasophils/100 WBC (Bld)0.4 %Normal0.2-2.0The [facility] Comment on above:Performed By: #### CBC #### [facility] [address], [place] [address] Steve KarenEosinophils (Bld) [#/Vol]0.1 103/ulNormal0.0-0.7The [facility] HospitalComment on above:Performed By: #### CBC #### [facility] [address] [place] [id number] Steve KarenEosinophils/100 WBC (Bld)2.0 %Normal0.9-7.0The [facility] Comment on above:Performed By: #### CBC #### [facility] [address] [place] [address] Steve KarenErythrocyte distribution width (RBC) [Ratio]14.6 %Xgqtal30.0-15.0The [facility] HospitalComment on above:Performed By: #### CBC #### [facility] [address] [place] [address] Steve KarenHematocrit (Bld) [Volume fraction]36.7 %Azvgfy85.0-48.0The [facility] Jewish HospitalComment on above:Performed By: #### CBC #### [facility] [address] [place] [address] Steve KarenHemoglobin (Bld) [Mass/Vol]11.5 g/dLCritically low12.0-16.0The [facility] HospitalComment on above:Performed By: #### CBC #### [facility] [address] [place] [address] Steve KarenIG #0.03 10e3/ulNormal0.00-0.03The [facility] HospitalComment on above:Performed By: #### CBC #### [facility] [address] [place] [address] Steve KarenIG %0.4 %Normal0.0-0.5The [facility] HospitalComment on above: Performed By: #### CBC #### [facility] [address] [place] [address] Steve KarenLymphocytes (Bld) [#/Vol]2.1 103/ulNormal1.2-3.8The [facility] HospitalComment on above:Performed By: #### CBC #### [facility] [address] [place] [address] Steve KarenLymphocytes/100 WBC (Bld)31.0 %Zglruz79.5-60.0The [facility] Comment on above:Performed By: #### CBC #### [facility] [address] [place] [address] Steve KarenMANUAL DIFF REQNONormalThe [facility] HospitalComment on above: Performed By: #### CBC #### [facility] [address] [place] [address] Steve KarenMCH (RBC) [Entitic mass]26.6 pgCritically low26.7-34.0The [facility] HospitalComment on above:Performed By: #### CBC #### [facility] [address] [place] [address] Steve KarenMCHC (RBC) [Mass/Vol]31.3 g/rCKlcgnp87.9-35.2[facility] Comment on above:Performed By: #### CBC #### [facility] [address] [place] [address] Steve KarenMCV (RBC) [Entitic vol]85.0 jHDhxkex64.1-95.6The [facility] Comment on above:Performed By: #### CBC #### [facility] [address] [place] [address] Steve KarenMonocytes (Bld) [#/Vol]0.5 103/ulNormal0.3-0.8The [facility] Comment on above:Performed By: #### CBC #### [facility] [address] [place] [address] Steve KarenMonocytes/100 WBC (Bld)7.6 %Normal1.7-12.0[facility] Comment on above:Performed By: #### CBC #### [facility] [address] [place] [address] Steve KarenNeutrophils (Bld) [#/Vol]4.0 103/ulNormal1.4-6.5The [facility] HospitalComment on above:Performed By: #### CBC #### [facility] [address] [place] [address] Steve KarenNeutrophils/100 WBC (Bld)58.6 %Ohnfvz54.0-75.0The [facility] Comment on above:Performed By: #### CBC #### [facility] [address] [place] [address] Steve KarenPlatelet mean volume (Bld) [Entitic vol]11.9 fLNormal9.5-13.5The [facility] HospitalComment on above:Performed By: #### CBC #### [facility] [address] [place] [address] Steve KarenPlatelets (Bld) [#/Vol]300 103/xaXofhgx659-307XavCincinnati Children'S Hospital Medical Center Comment on above:Performed By: #### CBC #### [facility] [address] [place] [address] Steve KarenRBC (Bld) [#/Vol]4.32 106/ulNormal3.40-5.30[facility] Comment on above:Performed By: #### CBC #### [facility] [address] [place] [address] Steve KarenWBC (Bld) [#/Vol]6.9 103/ulNormal4.0-11.0[facility] Comment on above:Performed By: #### CBC #### [facility] [address] [place] [address] Steve KarenGLYCOHEMOGLOBIN A1Con 03-69-4276XFI RECOMMENDATIONADA THERAPEUTIC TARGET 6.0 - 7.0 ACTION SUGGESTED > 7.0NoLake County Memorial Hospital - WestComment on above:Performed By: #### A1C #### [facility] [address] [place] [address] Steve KarenGlucose [Mass/Vol]117 mg/dLNoLake County Memorial Hospital - WestComment on above:Performed By: #### A1C #### [facility] [address] [place] [address] Steve SbftrXvI7f (Bld) [Mass fraction]5.7 %Normal<=6.0[facility] Comment on above:Performed By: #### A1C #### [facility] [address] [place] [address] Steve KarenPROF CHEM 8 (BAS METB)on 42-15-2728Fiyyk gap [Moles/Vol]13.2 mmol/L NormalCincinnati Children'S Hospital Medical CenterComment on above:Performed By: #### TSH, BMP #### [facility] [address] [place] [address] Steve KarenCalcium [Mass/Vol]9.0 mg/dLNormal8.4-10.2[facility] Comment on above:Performed By: #### TSH, BMP #### [facility] [address] [place] [address] Steve KarenChloride [Moles/Vol]102 mmol/XJwldcm49-038GozCincinnati Children'S Hospital Medical Center Comment on above:Performed By: #### TSH, BMP #### [facility] [address] [place] [address] Steve KarenCO2 [Moles/Vol]28.1 mmol/WJokwgo48.0-30.0[facility] Comment on above:Performed By: #### TSH, BMP #### [facility] [address] [place] [address] Steve KarenCreatinine [Mass/Vol]0.70 mg/dLNormal0.52-1.04[facility] Comment on above:Performed By: #### TSH, BMP #### [facility] [address] [place] [address] Steve KarenGlucose [Mass/Vol]89 mg/lELtgjnp37-831Xox [facility] HospitalComment on above:Performed By: #### TSH, BMP #### [facility] [address] [place] [address] Steve KarenPotassium [Moles/Vol]4.3 mmol/LNormal3.4-5.0The [facility] Comment on above:Performed By: #### TSH, BMP #### [facility] [address] [place] [address] Steve KarenSodium [Moles/Vol]139 mmol/ETlkwxo903-713PciCincinnati Children'S Hospital Medical Center Comment on above:Performed By: #### TSH, BMP #### [facility] [address] [place] [address] Steve GuerraenUrea nitrogen [Mass/Vol]12.0 mg/dLNormal6.4-19.3The [facility] Jewish HospitalComment on above:Performed By: #### TSH, BMP #### [facility] [address] [place] [address] Steve GuerraenUrea nitrogen/Creatinine [Mass ratio]17.1 mg/mgNoLake County Memorial Hospital - WestComment on above:Performed By: #### TSH, BMP #### [facility] [address] [place] [address] Steve GuerraenTSHon 45-17-0993NWM Qn0.468 uIU/mLNormal0.430-3.750The [facility] HospitalComva medical center on above:Performed By: #### TSH, BMP #### [facility] [address] [place] [address] Steve GuerraenTSH QnSEE BELOWBluffton HospitalComment on above:Result Comment: <0.34 UIU/ml HYPERTHYROID 0.34-5.60 UIU/ml EUTHYROID >5.60 UIU/ml HYPOTHYROIDPerformed By: #### TSH, BMP #### [facility] [address] [place] [address] Steve CadeUS PELVISon 91-43-3831DV PELVISEXAMINATION: US PELVIS HISTORY: Pelvic and perineal pain [...] Electronically authenticated by: WOODROW VASQUEZ Date: 2020-02-07 10:08[facility] Vital Signs Date TimeVital SignValuePerforming AcxcturitWwpgqecf90-46-4870 11:23-0400 Diastolic blood pdbattui67 mm[Hg]Hannah Allen [employer] Work Phone: [facility]10-27-2025 11:040Heart rate 74 /minPatricia Tiffany [employer] Work Phone: [facility]10-27-2025 11:23-4067TeL2% (BldA) [Mass fraction]99 %Hannah Zamoraice [employer] Work Phone: [facility]10-27-2025 11:040Systolic blood ivbivyjd303 mm[Hg]Hannah Allen [employer] Work Phone: [facility]10-27-2025 11:19-0400Body wyunls935.8 cmPatricia Tiffany [employer] Work Phone: [facility]10-27-2025 11:19-0400Body mass index (BMI) [Ratio]26.69 kg/f9Bhxtzwpn Noahice [employer] Work Phone: [facility]10-27-2025 11:19-0400Body pwwgyj11.37 kgPatricmohinder Zamoraice [employer] Work Phone: [facility]10-27-2025 11:19-0400 Respiratory rate16 /minPatricia Noahice [employer] Work Phone: [facility]06-03-2025 14:16-0400Body qavmjj67.1 kgOmid Hastings MD Work Phone: [facility]06-03-2025 14:16-0400Diastolic blood isxwxvif84 mm[Hg]Omid Hastings MD Work Phone: [facility]06-03-2025 14:16-0400Heart rate80 /min Omid Hastings MD Work Phone: [facility]06-03-2025 14:16-0400Systolic blood xesqhqxr327 mm[Hg]Omid Hastings MD Work Phone: [facility]05-14-2025 15:01-0400Blood Pressure LocationMichael NILL [phone]-EeyfoCommunity [facility] [place] 03-06-2025 15:01-0400Diastolic blood ocdoilst97 mm[Hg]Fredi NILL [phone]-TtdlbCommunity [facility] Hospital [facility] [place] 03-06-2025 15:01-0400Heart rate72 /minMichael NILL [phone]-BfubbCommunity [facility] Hospital [facility] [place] 03-06-2025 15:01-0400Respiratory rate16 /minMichael NILL [phone]-GzztdCommunity [facility] [place] 03-06-2025 15:01-0400Systolic blood ykxedljl389 mm[Hg]Fredi NILL [phone]-GgstdCommunity [facility] [place] 02-19-2025 09:05-0400Body .26 cm[facility] 02-19-2025 09:05-0400Body mass index (BMI) [Ratio]27.8 kg/r5AoflmhprrWilson Health04-29-2025 09:05-0400Body .72 kgWilson [facility]04-29-2025 09:05-0400Diastolic blood czgldfol63 mm[Hg][facility]04-29-2025 09:05-0400Heart rate73 /minWilson Health04-29-2025 09:05-0400Systolic blood tyuwohja474 mm[Hg][facility]03-31-2025 09:06-0400Body ijgpjw102.26 cmWilson [facility]03-31-2025 09:06-0400Body mass index (BMI) [Ratio]27.3 kg/m2 [facility]03-31-2025 09:06-0400Body rawmqq76.91 kg [facility]03-31-2025 09:06-0400Diastolic blood gqygotoj83 mm[Hg][facility]03-31-2025 09:06-0400Heart rate81 /min [facility]03-31-2025 09:06-0400Systolic blood rtlnaiak589 mm[Hg][facility]03-04-2025 09:02-0500Body mqeyyy872.26 cmWilson [facility]03-04-2025 09:02-0500Body mass index (BMI) [Ratio]26.7 kg/n0ZvwyvkgtkWilson Health03-04-2025 09:02-0500Body emuygx36.1 kgWilson [facility]03-04-2025 09:02-0500Diastolic blood udxdvbjq23 mm[Hg][facility]03-04-2025 09:02-0500 Heart rate79 /[facility]03-04-2025 09:02-0500Systolic blood flwpaiwk212 mm[Hg][facility]06-14-2024 10:15-0400 Body .26 cmWilson [facility]06-14-2024 10:15-0400Body mass index (BMI) [Percentile] Per age and sex76.3 %[facility]06-14-2024 10:15-0400Body mass index (BMI) [Ratio]24.5 kg/g6YhnznhylnWilson Health06-14-2024 10:15-0400Body ksirpp61.46 kgWilson [facility]06-14-2024 10:15-0400Diastolic blood mm[Hg] [facility]06-14-2024 10:15-0400Heart rate70 /[facility]06-14-2024 10:15-0400Systolic blood bejybjsd605 mm[Hg] [facility] Encounters Encounter DateEncounter TypeCare ProviderFacilityStart: 09-03-2025 End: 39-50-7156Dlxln Hilary Ramirez MD Work Phone: [facility] EndocrinologyStart: 08-19-2025 End: 65-71-2131Ommvxe outpatient new 30 minutesNatemohinder Allen [employer] Work Phone: [facility] CardiologyComment on above: Postural orthostatic tachycardia syndrome (Primary Dx)Start: 08-19-2025 End: 47-96-0159xhmbzjznkmLNWCAGMN Arthur ALLENUniversity [facility] Start: 04-25-2025 End: 95-45-7216IsnbihWsokj Elsheikh MD Work Phone: EndocrinologyStart: 04-08-2025 End: 15-49-6916Iemsct-up encounterSmaira Hastings MD Work Phone: EndocrinologyStart: 04-05-2025 End: 11-94-7355jlpoytsimuHxy ProviderEndocrinologyComment on above:Labs Drawn Start: 03-26-2025 End: 14-92-4820Vfmrlz outpatient new 45 minutesOmid Hastings MD Work Phone: EndocrinologyComment on above:Autonomic dysfunction (Primary Dx); Hyperglycemia; Malaise and fatigue; Arthralgia, unspecified jointStart: 03-26-2025 End: 89-86-2616odcfiqbinzHRTCO ELSHEIKHFacility:[facility] Easttart: 03-20-2025 End: 81-23-4735jyddmgfqeqWealkgasdLima Memorial Hospital Work Phone: Start: 03-20-2025 End: 53-43-7769Asgqnqj encounter procedureCommunity Health Physician Group-[facility] Work Phone: Start: 03-06-2025 End: 38-03-4733mcjdgmjpgbAfpphpr R NILLFacility:[facility] Hospitaltart: 03-06-2025 End: 59-40-1233Uqwziio encounter procedureMichael R NILL [phone]-VbsojMercy Health St[facility] [place] Start: 03-06-2025 End: 45-53-7843bhpjyhznktLKAKSUSLutheran Hospital Start: 17-78-4051xoquhzjbbdEyrmsnf NILLFacility:KYLAH ShannonevueStart: 02-19-2025 End: 03-26-2304zbrjvoqugmFcrlcjgujOhioHealth [facility] Work Phone: Start: 02-19-2025 End: 56-74-2615Pvyxave encounter procedureCommunity Health Physician Group-[facility] Work Phone: Start: 03-42-5258kozqrayfibRCAIZNHMercy Health Anderson Hospitaltart: 01-21-2025 End: 24-48-1167pfdibfixgxAckynmlzrOhioHealth [facility] Hospital Work Phone: Start: 01-21-2025 End: 15-71-3132Gzmenzl encounter procedureMichaelsentara rmh medical center Phys[facility] Work Phone: Start: 18-57-6865Ush-patient / Non-visitCommunity Health Physician Group-[facility] Work Phone: Start: 01-16-2025 End: 85-78-5932wsdjaikeaxIAHFPTVKettering Health Start: 12-25-2024 End: 71-20-8775bshpjnucocVbtazzpumOhioHealth Dublin Methodist Hospital Work Phone: Start: 12-25-2024 End: 57-68-6968Mdytntz encounter procedureCommunity Health Physician Group-[facility] Work Phone: Start: 12-08-2024 End: 30-49-3313Qsjnixlqb Result EncounterCorey Kayla DO Work Phone: noms External Department UnsolicitedStart: 12-08-2024 End: 19-33-8641Cvwwvsuyn Result EncounterCorey Kayla DO Work Phone: noms External Department UnsolicitedStart: 12-08-2024 Non-patient / Non-visitFirwest richlands [facility] Work Phone: Start: 11-16-2024 End: 23-74-0542uvdwskhmstACQTPJVLutheran Hospital Start: 07-02-2024 End: 47-02-9264otsoueuxfbPSCPXTNLutheran Hospital Start: 58-93-1172jmaclbcghvZMDDLIJKettering Health Start: 04-06-2024 End: 40-40-4668ilniyobngiLuoewvmyyOhioHealth [facility] Hospital Work Phone: Start: 04-06-2024 End: 88-21-9412Nxydnqv encounter procedureCommunity Health Physician [facility] Work Phone: Start: 72-87-5687Uaq-patient / Non-visitCommunity Health Physician Group-[facility] Work Phone: Start: 11-25-2023 End: 01-14-2632mhpvvbggtmRXQPHIDMetroHealth Cleveland Heights Medical Centertart: 09-23-2023 End: 29-92-2323zlutxndnjtGMBWYNUPilgrim Psychiatric Centertart: 12-19-2020 End: 24-24-9795Anuxhey encounter procedureMARCIA E BRAUNFacility:R8Xcvnq: 12-12-2020 End: 24-60-6449Owcbidy encounter procedureMARCIA E BRAUNFacility:C9Elfpn: 02-07-2020 End: 07-83-8818Hljhkdl encounter procedureCOREY FAZIOFacility:H1 Procedures DateProcedureProcedure DetailPerforming ClinicianStart: 28-75-6121Nevkm metabolic panel calcium totalMarli Pascal MD Work Phone: Start: 43-08-0079Opsfdlp function panelAmgriselda Pascal MD Work Phone: Start: 44-04-3757Ykobgvmneo A1c/Hemoglobin.total in BloodOmid Hastings MD Work Phone: Start: 31-45-7936JVH CBC WITH AUTO DIFFCorey Akyla DO Work Phone: Tonsillectomy and adenoidectomyMichael NILL Plan of Treatment DateCare ActivityDetailAuthorStart: 83-96-1914Wwiox BMI ScreeningAdult BMI ScreeningProAdams County Hospital SystemStart: 21-17-5329Oseedkn ScreeningTobacco ScreeningProAdams County Hospital SystemStart: 11-27-2025 End: 32-07-3667Uascfxj encounter vamcdkufs46/04/2026 11:30 AM EST Office Visit [facility] [address] [place] [address] Maria E Ramirez MD [address] [place] [address] [facility] EndocrinologyStart: 10-01-2025 End: 89-92-5150Nklhmen encounter crzxzkiic02/09/2025 9:40 AM EST Office Visit [facility] [address] [place] [address] Hannah Allen, [employer] [address] [place] [address] [facility] CardiologyStart: 90-38-2257Ozbcjvwcf vaccinationC[facility] Clinic [facility] Hospital Start: 03-26-2025 End: 03-32-2657Wcthrzduqpgox [Mass/volume] in PlasmaACTH BLD Lab Routine Autonomic dysfunction Hyperglycemia Malaise and fatigue Arthralgia, unspecified joint Expected: 03/26/2025, Expires: 06/25/2025leveland ClinicComment on above: Expected: 03/26/2025, Expires: 06/25/2025Start: 03-26-2025 End: 00-20-3496Wcpejygc [Mass/volume] in Serum or PlasmaCORTISOL, SERUM Lab Routine Autonomic dysfunction Hyperglycemia Malaise and fatigue Arthralgia, unsp ecified joint Expected: 03/26/2025, Expires: 06/25/2025[facility] Work Phone: Comment on above:Expected: 03/26/2025, Expires: 06/25/2025Start: 03-26-2025 End: 69-71-6837YTKR-S BLDDHEA-S BLD Lab Routine Autonomic dysfunction Hyperglycemia Malaise and fatigue Arthralgia, unspecified joint Expected: 03/26/2025, Expires: 06/25/2025[facility] RehabilitationComment on above:Expected: 03/26/2025, Expires: 06/25/2025Start: 03-26-2025 End: 81-46-2170Huixlym glucose [Mass/volume] in Serum or PlasmaGLUCOSE, FASTING Lab Routine Autonomic dysfunction Hyperglycemia Malaise and fatigue Arthralgia, unspecified joint Expected: 03/26/2025, Expires: [address] [place] [address] Comment on above:Expected: 03/26/2025, Expires: 06/25/2025Start: 03-26-2025 End: 34-15-5894Kfhqxhefp decarboxylase 65 Ab [Units/volume] in SerumGLUTAMIC AC DECARBOXYLASE AB Lab Routine Autonomic dysfunction Hyperglycemia Malaise and fatigue Arthralgia, unspecified joint Expected: 03/26/2025, Expires: 06/25/2025 [facility] HospitalComment on above:Expected: 03/26/2025, Expires: 06/25/2025Start: 03-26-2025 End: 23-37-7219Hvkkyih [Units/volume] in Serum or PlasmaINSULIN, TOTAL, SERUM Lab Routine Autonomic dysfunction Hyperglycemia Malaise and fatigue Arthralgia, unspecified joint Expected: 03/26/2025, Expires: [address] [place] [address] Comment on above:Expected: 03/26/2025, Expires: 06/25/2025Start: 03-26-2025 End: 48-41-5788Mppsxvwonb islet cell Ab [Titer] in SerumISLET CELL AB Lab Routine Autonomic dysfunction Hyperglycemia Malaise and fatigue Arthralgia, unspecified joint Expected: 03/26/2025, Expires: [facility]/20[facility] Comment on above:Expected: 03/26/2025, Expires: 06/25/2025Start: 03-26-2025 End: 75-70-9057OTZENFE PEROXIDASE ANTIBODYTHYROID PEROXIDASE ANTIBODY Lab Routine Autonomic dysfunction Hyperglycemia Malaise and fatigue Arthralgia, unspecified joint Expected: 03/26/2025, Expires: 06/25/2025[facility] Comment on above:Expected: 03/26/2025, Expires: 06/25/2025Start: 03-26-2025 End: 56-23-1899Jggysrgntng [Units/volume] in Serum or PlasmaTHYROID STIMULATING HORMONE Lab Routine Autonomic dysfunction Hyperglycemia Malaise and fatigue Arth ralgia, unspecified joint Expected: 03/26/2025, Expires: 06/25/2025[facility] ClinicComment on above:Expected: 03/26/2025, Expires: 06/25/2025Start: 03-26-2025 End: 49-07-6314Ufwxdfcrm (T4) free [Mass/volume] in Serum or PlasmaT4 FREE/FREE THYROXINE Lab Routine Autonomic dysfunction Hyperglycemia Malaise and fatigue Arthralgia, unspecified joint Expected: 03/26/2025, Expires: 06/25/2025[facility] hospitaland ClinicComment on above:Expected: 03/26/2025, Expires: 06/25/2025Start: 67-84-9988Zcbdfvq [facility] Work Phone: Start: 03-35-1469Obyta-19 Vaccine ( season) Covid-19 Vaccine ( season)[facility] Hospitaltart: 80-44-6342ODkI,Tdap and Td Vaccines (1 - Tdap)DTaP,Tdap and Td Vaccines (1 - Tdap)[facility] SystemStart: 42-73-3636Jlecdgtzl B Vaccine (1 of 3 - 19+ 3-dose series)Hepatitis B Vaccine (1 of 3 - 19+ 3-dose series)[facility] Hospitaltart: 30-04-8465Gtefo microalbumin profileDTaP,Tdap,Td Vaccine (1 - Tdap)[facility] Hospitaltart: 40-92-9228Ywnmt BMI Follow Up PlanAdult BMI Follow Up PlanNovant Health Medical Park Hospitaltart: 62-54-7144Iamushs ScreeningAnxiety ScreeningMercy Health St. Elizabeth [facility] Hospitaltart: 83-37-1705Ehsxlmtunq ScreeningDepression ScreeningMercy Health St. Elizabeth [facility] Hospitaltart: 34-78-2975UZ (Gonorrhea) Screening (18-24)GC (Gonorrhea) Screening (18-24) [facility] Hospitaltart: 71-22-5806Eaxescnpn C screeningHepatitis C Screening [facility] Hospitaltart: 86-88-6274HWC screeningHIV ScreeningCleveland Clinic Union Hospital Start: 51-01-1751Snuoxezuq for Chlamydia trachomatisChlamydia Screening (18) [facility]tart: 29-39-0173Xsvihiuhrexsc B Vaccine (1 of 2 - Standard) Meningococcal B Vaccine (1 of 2 - Standard)[facility] Hospitaltart: 15-43-8763NOR Vaccine (1 - 3-dose series)HPV Vaccine (1 - 3-dose series)[facility] Hospitaltart: 00-14-5554Wwkm To Adult Transition Annual AssessmentPeds To Adult Transition Annual AssessmentMercy Health St. [facility] Hospitaltart: 93-92-3384Aohijqvjqt ScreeningDepression ScreeningNovant Health Medical Park Hospitaltart: 14-34-1826Djou To Adult Transition Initial DiscussionPeds To Adult Transition Initial DiscussionCleveland Clinic Union Hospital Cefuroxime free [Mass/volume] in Serum or PlasmaWilson HealthInsulin [Units/volume] in Serum or [facility] Patient referralLancaster Municipal Hospital Work Phone: [facility] Immunizations Immunization DateImmunizationNotesCare SebweoioCftqwhyt59-00-1996rlodllswaunme oligosaccharide (groups A, C, Y and W-135) diphtheria toxoid conjugate vaccine (MCV4O)[facility]08-14-2017meningococcal oligosaccharide (groups A, C, Y and W-135) diphtheria toxoid conjugate vaccine (MCV4O)[facility]04-19-2017diphtheria, tetanus toxoids and acellular pertussis vaccine, unspecified formulationWilson Health Payers DatePayer CategoryPayerPolicy [id number] [id number] Cross Blue ShieldBLUE ACCESS PPO Member Subscriber Plan / Payer (Effective 2022-Present) Name: DAVION UMAÑA Member ID: [id number] Relation to Subscriber: Child Name: RIA WU Subscriber ID: [id number] Date of : 1974 (Home) Address: [address] [place] [address] Payer ID: [id number] (NAIC) Type: PPO Address: [address] [id number] Juan Regional Medical Center Managed [facility] - PPOANTHEM [id number] [id number] [id number] [id number] [id number] [id number] [id number] [id number] Social History DateTypeDetailFacilityStart: 04-06-2024 End: 01-73-7791Zkifdhf smoking status NHISNever smoked tobacco (finding) [facility] 2005 End: 47-42-4779Ebu Assigned At [facility] HospitalTobaintegris bass [facility] smoking status NHISTobacco smoking consumption unknownNOME HealthcareStart: 76-05-0753Vzh assigned at birthNot on fileALTA VIEW HOSPITAL HealthcareStart: 05-01-2020 End: 13-78-9675LetZnqibg (finding)[facility]: 52-70-3620Zjs Assigned At [facility] ChathamFeKettering Health Main CampusTobao smoking statusNeSt. Francis Hospital Surgery Madison Healthexual OrientationMercy Health St[facility] [place] Start: 12-04-2020 End: 26-84-7207Hyuwzka of Social functionMercy Health St. Elizabeth [facility] Hospitaltart: 08-19-2025 End: 22-46-1115Zsjqcsi use and exposureSmokeless tobacco non-userProMedica Health SystemStart: 49-58-9457Yuvbkfyqp beverage intakeLifetime non-drinker (finding)[facility] SystemHow often do you have a drink containing alcohol?NeverProMedica Health SystemNEGATED: Highlighted rowStart: NINFHistory of tobacco usePassive smokerProMedica Health System Functional Status DsptCrfkcmlzwqRbtbyiDputogze97-54-6734Kdjsifnwja StatusN/AFwarren-[facility] Clinical Notes 07-02-2024 to 08-19-2025 Note Date & CuvbBfbzRqunzrky29-86-7543 History of Present illness Narrative* Hannah Gibson Tiffany, [employer] - 08/19/2025 10:40 AM EDT Images from the original note were not included. Janet Lujan MD, [facility] Rudi Cartwright, [employer]IER Yaima Ortegasheridan, [employer]PLIER [address] [place] [address] Name: Davion Umaña PCP: JUAN JOSE ACKERMAN MD : 2005 Gender: female Age: 19 y.o. Primary Care Physician: JUAN JOSE ACKERMAN MD Today's Date: 08/19/25 CHIEF COMPLAINT/HPI: This is a 19 y.o. female presenting to the office today for new patient visit, referred by Dr Ana PEREZ. Accompanied by mom today who is nurse. Saw Jose Angels MATERIAL DISPOSITION INSPECTOR in past, but reporting Rosa Elena has moved and only zoom appts. EKG NSR normal intervals one year ago ([email or web address] Palpitations good control in recent months. Dizzinesswithout recent symptoms aside from hypoglycemic episodes. No recent presyncope or syncope. No CP ordyspnea. Weight stable. No LE edema, orthopnea or PND. No bleeding, TIA or CVA symptoms. Has seen [facility] for alternating hypo/hyperglycemia in past, establishing w/ local endo in future, referral per Franny Kennedy. BPs overall 110/s70s. Resting HRs 70s. Remains on midodrine. Severe side effects w/ corlanor in past (bradycardia, HRs 40s on smart watch). Also intolerant to florinef (syncope, ineffective). Orthostatics without significant drop today. Feeling bad after last dose of midodrine ( last dose around 4 pm) -generalized numbness/tingling also a lot of joint pain, frequent syncope etc On [facility]odrine [facility] -started September 2019 before covid Been focusing on nutrition over the last year, plant based less inflammatory, small meals more frequently ASSESSMENT/PLAN: POTS / NCS - well controlled on midodrine & SSRI but wants to try to wean off since well controlled in recent months. On 5 TID at present - trial decrease mid day dose to 2.5 -IF any worsening, needs to go back up to 5 mg TID. If tolerates, plans to SLOWLY wean further. Reliable - mom and boyfriend both RNs. Ongoing supportive care, liberal na/fluids. Encouraged to wear stockings daily. No further adjustments until f/u 2 mos. Total time spent was >30 minutes and did not include face-to face contact with the patient: Preparing to see the pt (e.g. review of tests) Obtaining and/or reviewing separately obtained history Referring and communicating with other health eye care professional (not separately recorded) Documenting clinical information the electronic or other health record Independently interpreting results (not separately reported) and communicating results to the patient/family/caregiver Return in about 2 months (around 10/19/2025). 1. Postural orthostatic tachycardia syndrome Orders Placed or Reconciled This Encounter Medications midodrine (PROAMATINE) 5 mg tablet Sig: Take 1 tablet (5 mg total) by mouth 3 (three) times a day. sertraline (ZOLOFT) 25 mg tablet Sig: Take 1 tablet (25 mg total) by mouth in the morning. JOYEAUX 0.1 mg-0.02 mg (21)/iron (7) tablet Sig: Take 1 tablet by mouth in the morning. hydroxychloroquine (PLAQUENIL) 200 mg tablet Sig: Take 1 tablet (200 mg total) by mouth in the morning and 1 tablet (200 mg total) before bedtime. cranberry fruit concentrate (AZO CRANBERRY ORAL) Sig: Take 500 mg by mouth in the morning. riboflavin, vitamin B2, 400 mg tablet Sig: Take 1 capsule by mouth in the morning. omega 9-nay-uek-fish oil (Fish OiL) 1,200 (144-216) mg capsule Sig: Take 1 capsule by mouth in the morning. magnesium oxide (MAGOX) 400 mg tablet Sig: Take 1 tablet (400 mg total) by mouth in the morning. loratadine (CLARITIN) 10 mg tablet Sig: Take 1 tablet (10 mg total) by mouth in the morning. thiamine HCl (vitamin B-1) 100 mg tablet Sig: Take 1 tablet (100 mg total) by mouth in the morning. There are no discontinued medications. PAST MED/SURG HISTORY: History reviewed. No pertinent past medical history. History reviewed. No pertinent surgical history. Social Connections: Not on file FAMILY HISTORY: History reviewed. No pertinent family history. CURRENT MEDICATIONS: Current Outpatient Medications: cranberry fruit concentrate (AZO CRANBERRY ORAL), Take 500 mg by mouth in the morning., Disp: , Rfl: hydroxychloroquine (PLAQUENIL) 200 mg tablet, Take 1 tablet (200 mg total) by mouth in the morning and 1 tablet (200 mg total) before bedtime., Disp: , Rfl: JOYEAUX 0.1 mg-0.02 mg (21)/iron (7) tablet, Take 1 tablet by mouth in the morning., Disp: , Rfl: loratadine (CLARITIN) 10 mg tablet, Take 1 tablet (10 mg total) by mouth in the morning., Disp: , Rfl: magnesium oxide (MAGOX) 400 mg tablet, Take 1 tablet (400 mg total) by mouth in the morning., Disp:, Rfl: midodrine (PROAMATINE) 5 mg tablet, Take 1 tablet (5 mg total) by mouth 3 (three) times a day., Disp: , Rfl: omega 3-iif-xly-fish oil (Fish OiL) 1,200 (144-216) mg capsule, Take 1 capsule by mouth in the morning., Disp: , Rfl: riboflavin, vitamin B2, 400 mg tablet, Take 1 capsule by mouth in the morning., Disp: , Rfl: sertraline (ZOLOFT) 25 mg tablet, Take 1 tablet (25 mg total) by mouth in the morning., Disp: , Rfl: thiamine HCl (vitamin B-1) 100 mg tablet, Take 1 tablet (100 mg total) by mouth in the morning., Disp: , Rfl: ALLERGIES: Patient has no known allergies. REVIEW OF SYSTEMS: Review of Systems Constitutional: As above HPI, otherwise negative/noncontributory VITALS: Vitals: 08/19/25 1119 08/19/25 1123 BP: 112/72 112/70 Pulse: 74 74 Resp: 16 SpO2: 99% 99% Weight: 84.4 kg (186 lb) Height: 177.8 cm (5' 10 ) Admit Weight: Weight: 84.4 kg (186 lb) Wt Readings from Last 3 Encounters: 08/19/25 84.4 kg (186 lb) Body mass index is 26.69 kg/m . PHYSICAL EXAM: Physical Exam Constitutional She appears well-developed and well-nourished. She is active and cooperative. HENT Head Normocephalic and atraumatic. Eyes: Lids are normal. Eyelids: Lids normal. Sclera not injected Neck Carotid bruit is not present. . Cardiovascular: Normal rate and regular rhythm. Pulses: Carotid pulses are on the right side with no bruit and on the left side with no bruit. Radial pulses are 2+ on the right side and 2+ on the left side. Posterior tibial pulses are 2+ on the right side and 2+ on the left side. Heart Sounds: normal heart sounds, S1 normal and S2 normal. no JVD Edema: RLE none LLE none Pulmonary/Chest: Effort normal and breath sounds normal. Abdominal: Bowel sounds are normal. She exhibits no abdominal bruit. Soft. Vascular: Right Lower Extremity Right lower extremity pulses PT: 2+ Right lower extremity edema: none Left Lower Extremity Left lower extremity pulses PT: 2+ Left lower extremity edema: none Right Upper Extremity Right upper extremity pulses Radial: 2+ Left Upper Extremity Left upper extremity pulses Radial: 2+ Carotid: Negative for right carotid bruit. Negative for left carotid bruit. Neurological She is alert. Skin: Skin is warm and dry. Psychiatric: Attention, mood and affect normal. 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 [facility] -->referral main [facility] syncope clinic, echo, holter ok (tilt broken at time)---dx dysautonomia April 2020 Side effects w/ Florinef 2020 Midodrine started 05/2024 [facility] [[email or web address]] cardio ---corlanor 07/17 EKG - NSR 67 bpm on corlanor at time --subsequently stopped due to syncope (bradycardia on smart watch) 03/06/2025 ([facility] [[email or web address] Echo complete W/3D Recon Independ wkstn Normal EF 60%, no significant valvular or structural abn All the above was performed/documented and/or discussed today in clinic in conjunction with Dr. Janet Lujan who was present in the clinic as well. Testing and records reviewed in [facility] Everywhere and other outside facilities, and are documented under CV database and testing. The note was completed using EMR. Every effort was made to ensure accuracy; however, inadvertent computerized vice president regulatory errors may be present. RAGHU Wong, ACTUARIAL MANAGER-C, AGACNP-BC RAGHU Herring 08/19/25 1154 [facility] Instructions* Patient Instructions* RAGHU Herring - 08/19/2025 10:40 AM EDT Management of Neurocardiogenic syncope/Dysautonomia/POTS Know your triggers: (Stress) School, family, relationships Illnesses (mono, etc) Pain Environment (heat/lack of air movement/humidity) Performance (Sports/music) Menstrual cycles Bar stools/higher chairs (compress blood flow to back of legs causing blood to pool in feet) To help with dizziness, you should slowly change positions, and sit/lay down at dizziness onset, squeezing hands and pushing feet up and down (like pushing gas pedal) to increase your blood circulation which may help your symptoms. Ice pack to back of neck can also be helpful if available. If you have prolonged dizziness, chest discomfort, shortness of breath, almost passing out, passingout or any concerns your symptoms are emergent or severe, you should seek reevaluation in the Emergency Room. Other supportive care measures to help with dizziness: Routinely wearing compression stockings (open toe if diabetic) or calf sleeves in summer (20-30 mmHg) every day, on during day, off at night--can help reduce number of episodes & severity. Doc Lopez brand on [employer] that seems to have decent therapeutic effects with color choices. There are no medical studies that show the effects of how calf sleeves affect circulation in feet - you should never wear calf sleeves if traveling or if your feet swell (wear full compression stockings in these instances). Make sure you measure maximum calf circumference and look at sizing guides to make sure appropriate size. If they hurt under your knees, often the size is too small. If you cannot handle the 20- 30 mmHg strength, alternatively you can try 15-20 mmHg strength or Tubigrip stockings. Salt Loading/[place] salting of foods. (2-3 grams plus over normal diet/day) Fluid Loading /Increase hydrating fluid intake, cutting down on caffeine and alcohol which can be dehydrating. (64-80 oz non-caffeine fluid/day) or until your pee is clear. Liquid IV (add to bottle of water), LMNT, gatorade zero, or powerade zero in addition to your routine 8-10 eight ounce glasses of water daily. If you have frequent episodes in spite of supportive care, let your provider know, as you may benefit from medical therapy, which can commonly include (Diagnosis Dependent): -Florinef (Fludrocortisone) -Proamatine (Midodrine) -Metoprolol tartrate (Lopressor) or metoprolol succinate (Toprol) To help reduce frequency/severity of symptoms, the following can help: Adequate Sleep Nutrition Exercise (on non-flared days)/as able to safely tolerate Reduce Stress More information can be found online regarding Neurocardiogenic Syncope (NCS)/Dysautonomia/POTS exercise protocols to gradually reintroduce/increase activity : KG Protocol, Jaquan Protocol, German Protocol documented in this encounterTri[facility] HospitalEvery[facility]07-01-2025 Telephone encounter Note* Telephone Encounter - Dahiana Barreto MA - 04/23/2025 10:31 AM EDT Lab results received placed on Dr. Hastings's desk to review [facility]07-01-2025 Miscellaneous Notes* Telephone Encounter - Dahiana Barreto MA - 04/23/2025 10:31 AM EDT Lab results received placed on Dr. Hastings's desk to review documented in this encounterC[facility]06-17-2025 Telephone encounter Note * Telephone Encounter - Saige Reyes RN - 04/09/2025 2:49 PM EDT See later encounter. Had more blood drawn yesterday. [facility]06-17-2025 Miscellaneous Notes* Telephone Encounter - Saige Reyes RN - 04/09/2025 2:49 PM EDT See later encounter. Had more blood drawn yesterday. documented in this encounterCleveland Clinic [facility]06-03-2025 NoteHNO ID: [id number] Author: OMID HASTINGS MD Service: ? Author Type: Physician Type: Progress Notes Filed: 03/26/2025 15:14 Note Text: This note was created using Jugoriter. Subjective Davion Umaña is a 19 year [...] compression stockings; advised to continue. -follows at [facility] [[email or web address]] TFT and TPO ordered 2. Hyperglycemia (R73.9) [...] , ACTH - GENIE and islet antibodies orderedK[facility]06-03-2025 History of Present illness Narrative* Omid Hastings MD - 03/26/2025 3:06 PM EDT [...] compression stockings; advised to continue. -follows at [facility] [[email or web address]] TFT and TPO ordered 2. Hyperglycemia (R73.9) [...] - GENIE and islet antibodies ordered * Omid Hastings MD - 03/26/2025 2:38 PM EDT documented in this encounterCleveland Clinic [facility]06-03-2025 NoteHNO ID: [id number] Author: OMID HASTINGS MD Service: ? Author Type: Physician Type: Progress Notes Filed: 03/26/2025 15:14 Note Text:[facility]05-14[facility]2025 NoteGeneral Surgery Office/Clinic Note Chief Complaint consultation for soft tissue mass HPI Staff 19 year old female presents on self referral consultation for soft tissue mass. Reports noting massto central lower back several months ago. Reports gradual increase in size of mass. Denies sorenessbut reports mass feels numb when pressure is [...] swallowing difficulties, no hearing loss, no ear infection(s),no nose bleeds. Cardiovascular: normal blood pressure, no [...] Smokeless Tobacco Use:., 03/06/2025 Family History Hypertension: Father.Osman Thomas B. 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 She had commenced ivabradine and a marked [...] . PCP visit on Tuesday and the fish and wildlife scientific aid (January 29, 2025). SRIKANTH negative. Possible drug [...] Telehealth Visit: 01/16/2025 The visit was conducted [id number] with the use of audio and video technology using HIPAA approved TaykeyEX between patient and the provider for a [...] the time her symptoms started. Follow with fish and wildlife scientific aid. Dr. Rodrigues, January, She will call fish and wildlife scientific aid to determine if any monitoring for now. SOB. Will order echocardiogram to r/o pericarditis. 2. Syncope and collapse Chronic. Unstable. Possible underlying illness. Rtc one month Pipe Travis APRN PhD [facility]ope [facility] Disorders Clinic Nurse Practitioner Division of Cardiovascular Medicine [facility]. '[facility] 12-25-2024 Evaluation note* Diagnosis Onset Date Resolution Status Admit Date Anemia acuteMarch 2024 8:54amDysautonomiaacuteMarch 2024 8:54amFatigueacute December 25, 2024 8:54amDysautonomiaacuteMarch 2024 9:06amHypoglycemiaacute January 21, 2025 9:06amSyncopal episodesacuteMarch 2024 9:06am [facility] Work Phone: 1(218) 925-746603-04-2025 Evaluation note* Diagnosis Onset Date Resolution Status Admit Date Anemia acuteMarch 2024 8:54amDysautonomiaacuteMarch 2024 8:54amFatigueacute December 25, 2024 8:54amAnxietyacuteMarch 2024 9:06amDysautonomiaacuteMarch 2024 9:06amHypoglycemiaacuteMarch 2024 9:06amSyncopal episodesacute January 21, 2025 9:06amDysautonomiaacuteApril 2024 8:56amPOTS (postural orthostatic tachycardia syndrome)acuteApril 2024 8:56am [facility] Work Phone: 1(982) 435-916403-04-2025 Evaluation note* Diagnosis Onset Date Resolution Status Admit Date Anemia acuteMarch 2024 8:54amDysautonomiaacuteMarch 2024 8:54amFatigueacute December 25, 2024 8:54amAnxietyacuteMarch 2024 9:06amDysautonomiaacuteMarch 2024 9:06amHypoglycemiaacuteMarch 2024 9:06amSyncopal episodesacute January 21, 2025 9:06amDysautonomiaacuteApril 2024 8:56amHyperglycemia acuteApril 2024 8:56amPOTS (postural orthostatic tachycardia syndrome) acuteApril 2024 8:56amHyperglycemiaacuteMay 2024 12:49pmHypoglycemia acuteMay 2024 12:49pm [facility] Work Phone: 1(311) 584-849801-24-2025 Vickie Umaña is a pleasant 19 year old female 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 I copied and pasted my last visit with patient several months ago: Mother, who attends the visit reports Ronelckin a C section . No delays, met all milestones. No childhood seizures, syncope. Good exercise tolerance. Travel softball.No migraines, asthma. Menses age 13. No PCOS no endometriosis. HPI: September 2019, very ill with Covid suspected illness. Cough caused severe rib subluxation. Viral pneumonia . Then developed lightheaded, short of breath. Trying out for softball, exercise intolerance, near syncope. Diagnostic evaluation: Osman Browning: car wash supervisor: no evaluation. Then referred to Syncope Clinic. Echocardiogram, EKG reported normal. No tilt. Treated based on symptoms. Fludrocortisone: not effective Midodrine: headaches (continues the medication). Helped initially with syncope. Improved. Chief Complaint: Telemedicine visit. Patient located in [place], [place]. Telemed follow up for ivabradine. Added last visit. Alisson has worked wonders . Only 4 episodes of syncope since June. Previous multiple times weekly. No side effects. Four episodes from stress, menses . LOC brief. No trauma. Last episode mid September 2025. [employer]. Attends all classes. Secondary Education Major, sophomore, [...] Telehealth Visit: 11/16/2024 The visit was conducted [id number] with the use of audio and video technology using HIPAA approved TaykeyEX between patient and the provider for a [...] Clinic Nurse Practitioner Division of Cardiovascular Medicine [facility] 07-02-2024 Clairee received a new ivabradine prescription for this patient and it is requiring a prior authorization. Carley Gao [facility] 07/02/24 12:55 PMUnOhioHealth Shelby Hospital09-09-2024 NoteWe received a copy of the letter that was sent to Pipe Travis in the mail from the clinic. I wanted to attach it to the patient's note for record keeping purposes. Angela Armenta, PharmD, BCACP, CSP 11/08/24 11:11 AM [facility] [id number] Hospitals [facility] Center09-09-2024 NotePA initiated via CMM. Called and spoke with pt. She is aware of PA process, will wait for updates from us. F/U upon determination. Parrish Calvin [facility] [id number] 07/02/24 at 3:15 PMUnOhioHealth Shelby Hospital09-09-2024 Note Attestation signed by Tish Killian PharmD, ARJUN at 07/05/2024 1:28 PM Tish Killian PharmD, JENNIFER 07/05/24 1:28 PM [facility] [phone] Checked on PA status, no response as of yet. Follow up early next week. BENITEZ Wesley PharmD Candidate 202407/05/24 10:51 AM [facility] [phone] Hospitals Lake West Medical Center09-09-2024 NoteI called [facility] and was told our external review had been denied. I requested that they fax us the determination, but was told they can't because a separate company handled it. The door to door sales representative did read me the denial letter and the next step would be a lawsuit, which we do not handle. I contacted the patient and provided her an update. I advised that she reach out to the office to discuss obtaining the medication from Carla. Carley Gao [facility] 11/01/24 3:38 PMUniversity [facility]09-09-2024 NoteMom called to verify we had received the form. I told her we hadn't and gave her our fax and email. I told her to call to make sure they were received. Tish Killian PharmD, ARJUN 09/10/24 4:25 PM [facility] [phone] Hospitals Lake West Medical Center09-09-2024 Oleg called the patient and left her the final message, we will no longer follow-up. Jenifer Farrell [facility] 09/07/24 9:39 [facility]09-09-2024 NoteLM for mom to make sure she received our email with the consent forms. Asked she let us know if she didn't receive. Tish Killian PharmD, [facility] 07/30/24 2:47 PM [facility] [phone] Shelby Hospital09-09-2024 NoteConsent forms emailed to mom @ [email or web address] Fani Arroyo PharmD Outpatient Clinical Pharmacist [facility] [phone] 07/26/24 4:27 PMUnOhioHealth Shelby Hospital09-09-2024 NoteMom called back- she would like to pursue 2nd level appeal. We will email consent forms to [email or web address]. Once signed and returned, we can submit 2nd level appeal. Fani Arroyo PharmD Outpatient Clinical Pharmacist [facility] [phone] 07/26/24 4:05 PM[facility]09-09-2024 NoteThe appeal has been faxed to [employer]. We will continue to follow up for a determination. Also faxed with the appeal was the clinic note and Corlanor studies. I have the signatures saved in my email just in case insurance says they don't receive them and the one's scanned in are illegible.[facility] 07-02-2024 NoteThe prior authorization for the ivabradine has been denied. We do have an option to appeal, but the patient will need to sign an Authorized Apparel Patternmaker Form before we can proceed. I have emailed the forms to the patient. The appeal letter has been written and is saved in the appeals folder. We will submit the appeal once we receive the signed forms back from the patient. Carley Gao [facility] 07/11/24 10:58 [facility]09-09-2024 NoteI contacted the insurance company at to verify if our external review was received. I was told our external review has been received and a determination will be made by 10/26/2024. Carley Gao [facility] 09/18/24 3:17 PMUnOhioHealth Shelby Hospital09-09-2024 NoteReceived needed documents. Faxed to external review. Follow-up to make sure they received and for determination. Tish Killian, PharmD, BCACP 09/11/24 4:27 PM [facility] [phone] Hospitals Lake West Medical Center09-09-2024 NoteLVM to make sure patient received the e-mail with the form she needed to sign to proceed with external review, or if she had any issues getting it back to us. Follow up later in week. Cuco Livingston [facility] 08/21/24 11:05 [facility]09-09-2024 NoteSecond level appeal for ivabradine has been denied due to not medically necessary, pt does not have heart failure (HFrEF). Case ID/Authorization Number:[id number] Filling out attached external review form, will need 3 pt signatures. Called pt, emailing form to pt at [email or web address]. Insurance company info: Fax [phone] F/U upon signed external review form, fax form with updated appeal packet in media tab, clinic notes, and Corlanor literature. Parrish Calvin, [facility] [id number] 08/17/24 at 9:22 [facility]09-09-2024 NoteCalled [facility] [employer] and they stated that the appeal was received and has a determination date of 08/17. Follow up then for determination. Cuco Livingston [facility] 08/07/24 1:10 PM[facility]09-09-2024 NoteReceived representation forms for appeal. Scanning in faxes for que. Venu Kothari [facility] 07/31/24 2:21 PM[facility]09-09-2024 NotePrior Authorization for Corlanor Appeal has been denied. Case ID/Authorization Number:[id number] Called patient and LVM we will need signatures on representation forms in order to appeal any further if patient wants to pursue 2nd level appeal. Scanned in full denial and scanned appeal forms seperately as well. Venu Kothari [facility] 07/26/24 1:40 PMUniversity [facility]als [facility]09-09-2024 NoteInsurance received the appeal. F/U in 15 business days per document. Kanwal Morales PharmD, [facility] Outpatient Clinical Pharmacist [facility] [id number] 07/13/24 8:29 [facility]09-09-2024 NoteI contacted the insurance company at to check status. I was told a determination will be made by 10/26/2024. Saige Santizo PharmD, [facility] Outpatient Clinical Pharmacist [facility] [facility] [id number] 10/02/24 4:06 [facility]09-09-2024 NoteI tried reaching the patient again to verify if she received the external review forms that we emailed her - no answer, LVMTCB. Carley Gao, [facility] 08/24/24 2:57 [facility]09-09-2024 NoteWe received a fax stating that [facility] has a received our appeal and it can take up to 15 days. Jenifer Farrell, [facility] 08/02/24 2:35 [facility]09-09-2024 NoteSubmitted second level appeal to insurance with signed representation forms awaiting determination. LVM saying we are awaiting the determination and will call when we hear from insurance. 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 Mother, who [...] intolerance, near syncope. Diagnostic evaluation: Osman Browning: car wash supervisor: no evaluation. Then referred to Syncope Clinic. 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 We postulate that these patients possess [...] compression (waist high compressi (more content not included)...[facility] Evaluation + Plan note No data available for this section [facility] General Surgery Raimundo Evaluation noteNo assessment information available [facility] Work Phone: Evaluation note* Diagnosis Onset Date Resolution Status Admit Date Anemia acuteMarch 2024 8:54amDysautonomiaacuteMarch 2024 8:54amFatigueacute December 25, 2024 8:54am [facility] Work Phone: Evaluation note* Diagnosis Autonomic dysfunction- Primary Unspecified disorder of autonomic nervous system Hyperglycemia Other abnormal glucose Malaise and fatigue Other malaise and fatigue Arthralgia, unspecified joint documented [facility] this encounter [facility]* Diagnosis Postural orthostatic tachycardia syndrome- Primary Unspecified tachycardia documented [facility] this encounter [facility] instructionsAmbulatory Orders* Referral to Cardiology Location: None Selected * Referral to Cardiology Location: None Selected [facility] Work Phone: Hospital Discharge instructions No data available for this section [facility] General Surgery [place] InstructionsNot on filedocumented in this encounter [facility] SystemProgress note No data available for this section [facility] Surgery [place] Summary Purpose Family History Relationship Condition Age at Onset Recorded Date/T yomi family member Hypertension Unknown grandparentHypertensionUnknownMalignant neoplasmUnknown Relationship Condition Age at Onset Recorded Date/T yomi aunt Hypertension Unknown grandparentHypertensionUnknownMalignant neoplasmUnknown Advance Directives Advance Directive Response Recorded Date/ [...] section and content) DATE CREATED AUTHOR 12/20/2020 [facility] DATE CREATED AUTHOR AUTHOR'S ORGANIZ ATION 11/28/2023 [facility] DATE CREATED AUTHOR AUTHOR'S ORGANIZ ATION 03/08/2025 [facility] DATE CREATED AUTHOR AUTHOR'S ORGANIZ ATION 03/10/2025 [facility] DATE CREATED AUTHOR AUTHOR'S ORGANIZ ATION 04/09/2025 [facility] DATE CREATED AUTHOR AUTHOR'S ORGANIZ ATION 08/08/2025 [facility] DATE CREATED AUTHOR AUTHOR'S ORGANIZ ATION 08/20/2025 [facility] Care Teams (unrecognized sec tion and content) [...] Active Start: January 16, 2025 Iman Merrill CMAAttending ProviderActiveStart: January 16, 2025 Team Status: Inactive Member [...] Start: March 20, 2025 End: March 20, 2025Vaughn Warren RNAttalexsandra ProviderActiveStart: March 20, 2025 End: March 20, 2025 Team Status: Active Member Role Status Dates Juan Jose Ackerman MD Primary Care Provider Active Start: March 27, 2024 Jenny Bradley ProviderActiveStart: March 27, 2024 Team Status: Inactive Member Role Status Dates Juan Jose Ackerman MD Primary Care Provide r, Attending Provider Active Start: April 06, 2024 End: April 06, 2024 Team Status: Active Member Role Status Dates Juan Jose Ackerman MD Primary Care Provider Active Start: December 08, 2024 Papito Garza DOAttending ProviderActiveStart: December 08, 2024 Team MemberRelationshipSpecialtyStart DateEnd Date Juan Jose Ackerman MD [address] [place] [address] [facility]02/22/25Team MemberRelationshipSpecialtyStart DateEnd Date Juan Jose Ackerman MD [address] [place] [address] [facility]02/22/25Team MemberRelationshipSpecialtyStart DateEnd Date Juan Jose Ackerman MD [address] [facility] [place] [address] PCP - [facility] Wvfnjdfu49/23/25Team MemberRelationshipSpecialtyStart Date End Date Juan Jose Ackerman MD [address] [facility] [place] [address] PCP - [facility]08/15/25 Goals (unrecognized section and content) Goals may be documented in a n alternate sectionGoals may be documented in an alternate sectionGoals may be documented in an alternate sectionGoals may be documented in an alternate section No data available for this sectionGoals may be documented in an alternate sectionNot on filedocumented as of this encounterNot on filedocumented as of this encounter Source Comments (unrecognize d section and content) In the event this informatio n is protected by the Federal Confidentiality of Alcohol and Drug Abuse Patient Records regulations: The Federal rules restrict any use of the information to criminally investigate or prosecute any alcohol or drug abuse patient.[facility] HospitalIn the event this information is protected by the Federal Confidentiality of Alcohol and Drug Abuse Patient Records regulations: The Federal rules restrict any use of the information to criminally investigate or prosecute any alcohol or drug abuse patient.[facility]In the event this information is protected by the Federal Confidentiality of Alcohol and Drug Abuse Patient Records regulations: The Federal rules restrict any use of the information to criminally investigate or prosecute any alcohol or drug abuse patient.[facility] HospitalIn the event this information is protected by the Federal Confidentiality of Alcohol and Drug Abuse Patient Records regulations: The Federal rules restrict any use of the information to criminally investigate or prosecute any alcohol or drug abuse patient.[facility] Reason for Visit (unrecogniz ed section and content) ReasonCommentsNew PatientReasonCommentsNew PatientPatient has history POTS SpecialtyDiagnoses / ProceduresReferred By ContactReferred To ContactCardiology Diagnoses POTS (postural orthostatic tachycardia syndrome) Marli Pascal MD [address] [place] [address] [address] [place] [address] Phone: tel: fax: [facility] [address] [place] [address] Phone: tel: fax: Referral IDStatusReasonStart DateExpiration DateVisits RequestedVisits [id number] Review Specialty Services Required FOR RECORDS PERTAINING TO PATIENTS WHO ARE [...] BE BASED ON THE PRIMARY CLINICAL RECORDS. [facility]. provides no warranty or guarantee of the accuracy or completeness of information in this document.
--- OUTSIDE RECORDS SUMMARY | 2025-09-24 06:54 | XMS_ITS | Clinical Summary ---
Author Organization [employer] tem Address [id number] [address] [place] [address] Care Team Providers Care Cinder Block Mason Name Role Phone Aleisha Brownlee MD Primary Care Provider [phone] Allergies No known active allergies Medications MedicationSigDispense QuantityRefillsLast FilledStart DateEnd DateStatus midodrine (PROAMATINE) 5 mg tablet Take 1 tablet (5 mg total) by mouth 3 (three) times a day.Active sertraline (ZOLOFT) 25 mg tablet Take 1 tablet (25 mg total) by mouth in the morning.Active JOYEAUX 0.1 mg-0.02 mg (21)/iron (7) tablet Take 1 tablet by mouth in the morning.Active hydroxychloroquine (PLAQUENIL) 200 mg tablet Take 1 tablet (200 mg total) by mouth in the morning and 1 tablet (200 mg total) before bedtime.5Active cranberry fruit concentrate (AZO CRANBERRY ORAL) Take 500 mg by mouth in the morning.Active riboflavin, vitamin B2, 400 mg tablet Take 1 capsule by mouth in the morning.Active omega 9-avj-lvf-fish oil (Fish OiL) 1,200 (144-216) mg capsule Take 1 capsule by mouth in the morning.Active magnesium oxide (MAGOX) 400 mg tablet Take 1 tablet (400 mg total) by mouth in the morning.Active loratadine (CLARITIN) 10 mg tablet Take 1 tablet (10 mg total) by mouth in the morning.5Active thiamine HCl (vitamin B-1) 100 mg tablet Take 1 tablet (100 mg total) by mouth in the morning.Active ondansetron ODT (ZOFRAN ODT) 4 mg disintegrating tablet Dissolve 1 tablet (4 mg total) on tongue every 8 (eight) hours as needed for nausea or vomiting.Active Active Problems ProblemNoted DateDiagnosed DatePostural orthostatic tachycardia syndrome 08/19/2025 Encounters DateTypeDepartmentCare SpnuXatgqjghrfg73/11/2025bstract [facility] [address] [place] [address] Maria E Ramirez MD 08/19/2025 10:40 AM EDTOffice Visit [facility] [address] [place] [address] Karissa Allen APRN-MARISEL Postural orthostatic tachycardia syndrome (Primary Dx)08/19/20254221Jihrpa73/23/2025 [facility] [address] [facility] [place] [address] External, Scanning Provider 08/07/2025Orders Only [facility] [address] [facility] [place] [address] Ref Prov, Not In System from Last 3 Months Social History Tobacco UseTypesPacks/DayYears UsedDateSmoking Tobacco: NeverPassive Smoke Exposure: NeverSmokeless Tobacco: Never Tobacco Cessation:Counseling Given: Not Answered Alcohol UseStandard Drinks/WeekCommentsNever0 (1 standard drink = 0.6 oz pure alcohol)AUDIT-CAnswerDate RecordedQ1: How often do you have a drink containing alcohol?Never08/19/2025verage Number of DrinksNot on file08/19/2025Q3: How often do you have six or more drinks on one occasion?Never08/19/2025hildcare AnswerDate AcwmlexfLidvvcprjAatfxku70/09/2020EmploymentAnswerDate Recorded OblakelowoFlipbyg06/09/2020Hunger ScreeningAnswerDate RecordedWithin the past 12 months we worried whether our food would run out before we got money to buy more.Never True08/19/2025Within the past 12 months the food we bought just didn't last and we didn't have money to get more.Never True08/19/2025Purpose - LifeAnswerDate RecordedPurpose and direction in gtigSixzkzq99/11/2021 CommentsUnknownSex and Gender InformationValueDate RecordedSex Assigned at Not on fileLegal LdzHwfsof36/09/2020 10:25 AM EDTGender IdentityNot on file Sexual OrientationNot on file Last Filed Vital Signs Vital SignReadingTime TakenCommentsBlood Xpvgsema121/7008/19/2025 11:23 AM EDT Mvwyb654008/19/2025 11:23 AM EDTTemperature--Respiratory Gmqm3211 11:19 AM EDTOxygen Tsxvobwibl02%08/19/2025 11:23 AM EDTInhaled Oxygen Concentration-- Pqukgg96.4 kg (186 lb)08/19/2025 11:19 AM UBAWcpqqq054.8 cm (5' 10 )08/19/2025 11:19 AM EDTBody Mass Index26.6908/19/2025 11:19 AM EDT Plan of Treatment DateTypeDepartmentCare Team (Latest Contact Info)Zgdgekzoxmj54/09/2025 9:40 AM ESTOffice Visit [facility] [address] [place] [address] Karissa Allen, UNDERGROUND MINE MACHINERY MECHANIC-MOTOR VEHICLE ASSEMBLY SUPERVISOR [address] [facility] [address] [place] [address] 11/27/2025 11:30 AM ESTOffice Visit [facility] [address] [facility] [address] [address] [place] [address] Maria E Ramirez MD [address] [facility] [address] [place] [address] Health MaintenanceDue DateLast DoneCommentsChlamydia Qlhudhope2004 Depression Ybbyqkufc11/15/2016Adult BMI Follow Up Plan2DTaP,Tdap and Td Vaccines (1 - Tdap)2023Influenza Djxzzwg7406/24/2025dult BMI Screening Tobacco Ceaodcvbx86 Medical Devices Not on file Procedures Procedure NamePriorityDate/TimeAssociated DiagnosisCommentsMULTIPLE LABSRoutine 08/07/2025 8:40 AM EDTfrom Last 3 Months Results * Multiple labs (08/07/2025 8:40 AM EDT) Narrative Authorizing ProviderResult TypeResult StatusNot In System Ref ProvPR IMAGING Final Result from Last 3 Months Insurance Care Teams Team MemberRelationshipSpecialtyStart DateEnd Aleisha Brownlee MD [address] [place] [address] PCP - GeneralFamily Fgntqmoo78/23/25
--- OUTSIDE RECORDS SUMMARY | 2025-09-24 06:54 | XMS_ITS | Clinical Summary ---
Author Organization [facility] Address [address], [address] [place] [address] Care Team Providers Care Brush Trimming Machine Setter Name Role Phone Unavailable Primary Care Provider Unavailabl e Social History Tobacco UseTypesPacks/DayYears UsedDateSmoking Tobacco: Never Assessed CommentsUnknownSex and Gender InformationValueDate RecordedSex Assigned at Not on fileLegal UtjOvhvmd84/25/2020 10:31 AM ESTGender IdentityNot on file Sexual OrientationNot on file Plan of Treatment Not on file Insurance * Guarantor: Cirilo LONG TypeRelation to PatientDate of BirthPhoneBilling AddressPersonal/FamilyMother [address] [place], [place] [id number]
--- OUTSIDE RECORDS SUMMARY | 2025-09-24 06:54 | XMS_ITS | Clinical Summary ---
Author Organization [facility] Address [address] [place] [address] Care Team Providers Care Rover Tender Name Role Phone Unavailable Primary Care Provider Unavailabl e Social History Tobacco UseTypesPacks/DayYears UsedDateSmoking Tobacco: Never Assessed CommentsUnknownSex and Gender InformationValueDate RecordedSex Assigned at Not on fileLegal NejAxvzmk36/15/2023 7:02 PM EDTGender IdentityNot on fileSexual OrientationNot on file Plan of Treatment Not on file
--- OUTSIDE RECORDS SUMMARY | 2025-09-24 06:54 | XMS_ITS | Clinical Summary ---
Author Organization [facility] Address [address] [place] [address] Care Team Providers Care Compression Molding Machine Operator Name Role Phone Aleisha Brownlee MD Unavailable [phone] Medications MedicationSigDispense QuantityRefillsLast FilledStart DateEnd DateStatus DEXCOM G7 SENSOR jose as directed.5Active sertraline (ZOLOFT) 25 mg tablet Take 25 mg by mouth once daily.Active JOYEAUX 0.1 mg-0.02 mg (21)/iron (7) tab take 1 tablet by mouth daily for 28 daysActive metFORMIN (GLUCOPHAGE) 500 mg tablet Take 1 tablet by mouth two times a day with meals. 180 tablet 5Active Social History Tobacco UseTypesPacks/DayYears UsedDateSmoking Tobacco: Never AssessedArea Deprivation IndexAnswerDate RecordedNational Score (1-100), lower number is lower jjta037803/26/2025State Score (1-10), lower number is lower whjr904 Data from: https://www.neighborhoodatlas.medicine.[facility].edu/. Last address used for [address]/26/2025CommentsUnknownSex and Gender InformationValueDate RecordedSex Assigned at BirthNot on fileLegal SexFemale 02/22/2025 10:10 AM EDTGender IdentityNot on fileSexual OrientationNot on file Last Filed Vital Signs Vital SignReadingTime TakenCommentsBlood Phqvjeea054/76003/26/2025 2:16 PM EDT Gfcyo2258 2:16 PM EDTTemperature--Respiratory Rate--Oxygen Saturation-- Inhaled Oxygen Concentration--Yksykd66.1 kg (192 lb 0.3 oz)03/26/2025 2:16 PM EDTHeight--Body Mass Index-- Plan of Treatment Health MaintenanceDue DateLast DoneCommentsPeds To Adult Transition Initial Creiuqbgsu29/15/2016Peds To Adult Transition Annual Gkgasmflci71/15/2018HPV Vaccine (1 - 3-dose series)2019Meningococcal B Vaccine (1 of 2 - Standard) 2020Anxiety Erblstxkq06/15/2022hlamydia Screening (18-24)2022 Depression Zrkhxxhrz65/15/2022GC (Gonorrhea) Screening (18-24)2022HIV Oizfbnwvp09/15/2022Hepatitis C Crklfyesu18/15/2022DTaP,Tdap,Td Vaccine (1 - Tdap)2023Hepatitis B Vaccine (1 of 3 - 19+ 3-dose series)2023ovid- 19 Vaccine (1 - 2024- season)2025Influenza Vaccine (#1)2025 Insurance Care Teams Team MemberRelationshipSpecialtyStart DateEnd Date Aleisha Brownlee MD [facility]02/22/25
--- OUTSIDE RECORDS SUMMARY | 2025-09-24 06:54 | XMS_ITS | Clinical Summary ---
Author Organization [facility] [place] [address] Care Team Providers Care Electrical Prospecting Operator Name Role Phone Aleisha Brownlee MD Primary Care Provider [phone] Allergies No known active allergies Medications MedicationSigDispense QuantityRefillsLast FilledStart DateEnd DateStatus sertraline (ZOLOFT) 25 MG tablet Take by mouth daily01/14/2021ctive fludrocortisone (FLORINEF) 0.1 MG tablet TAKE 1 TABLET BY MOUTH EVERY DAY 90 Tablet ctive Additional Information Patient not taking.Reported on 09/01/2022 Levonorgest-Eth Estrad-Fe Bisg 0.1-20 MG-MCG(21) TABS Take by mouthActive Oral Electrolytes (THERMOTABS) TABS Take 2 Tablets by mouth 2 times daily 120 Tablet ctive Elastic Bandages & Supports (MEDICAL COMPRESSION STOCKINGS) MISC Waist high compression stockings 20mmHg-30mmHg. To be worn daily while upright. 2 Each 06/30/2022ctive Additional Information Patient not taking.Reported on 09/01/2022 Cranberry-Vitamin C (AZO CRANBERRY URINARY TRACT PO) Take by mouthActive ondansetron (ZOFRAN) 4 MG tablet Take 1 Tablet (4 mg) by mouth every 8 hours as needed for Nausea 10 Tablet ctive Magnesium 400 MG CAPS Take by mouthActive Riboflavin (VITAMIN B2 PO) Take by mouthActive midodrine (PROAMATINE) 2.5 MG tablet TAKE 2 TABLETS BY MOUTH 3 TIMES A DAY *LAST DOSE TO BE TAKEN BEFORE 5PM* 270 Tablet ctive Active Problems ProblemNoted DateDiagnosed DateSyncope and kfydoxba62/07/2021 Family History Medical HistoryRelationCommentsNo known problemsFatherHeart MurmurMotherHeart AttackPaternal GrandmotherHeart FailurePaternal GrandmotherPacemakerPaternal GrandmotherRelationStatusCommentsFatherMotherPaternal Grandmother Social History Tobacco UseTypesPacks/DayYears UsedDateSmoking Tobacco: NeverSmokeless Tobacco: Never Tobacco Cessation:Counseling Given: Yes CommentsUnknownSex and Gender InformationValueDate RecordedSex Assigned at BirthNot on fileLegal OmzBiflay67/24/2020 2:46 PM ESTGender IdentityNot on fileSexual OrientationNot on file Last Filed Vital Signs Vital SignReadingTime TakenCommentsBlood Bpqjcvsf047/7409/23/2023 8:15 AM EST Osefv755109/23/2023 8:15 AM ESTTemperature--Respiratory Wtuc3392 8:15 AM ESTOxygen Saturation--Inhaled Oxygen Concentration--Hnaxpi44.1 kg (158 lb 15.2 oz)09/23/2023 8:15 AM GGNPdqyhl150 cm (5' 7.72 )09/23/2023 8:15 AM ESTBody Mass Index24.37111/24/2022 8:15 AM EST Plan of Treatment Health MaintenanceDue DateLast DoneCommentsVaricella (1 of 2 - 13+ 2-dose series)2017HPV (1 - 3-dose series)2019Vision Rcwuugppy52/15/2019MenB (1 of 2 - MenB 2-Dose Series Bexsero)2020Hearing Ekomjzveh17/15/2022 Hepatitis A (1 of 2 - Risk 2-dose series)3COVID-19 ( - 2024- season) 2025FLU (#1)06/24/2025Pap Smear2025Tetanus Diphtheria and Pertussis Vaccines (8 - Td or Tdap)7002/09/2017, 02/09/2017, 04/13/2010, Additional history existsHepatitis VBratqwnme01/22/2005, 2004, 2004 EBKStqbqbdrs46/15/2006, 04/14/2005, 02/10/2005, Additional history existsMMR Mwtlwohgw47/21/2010, 10/07/20052214JujqeUcjphwpvg92/21/2010, 04/14/2005, 02/10/2005, Additional history zymxnvMzrIBALHwwwjchpc49/15/2022, 06/06/2017NirsevimabAged OutNo longer eligible based on patient's age to complete this topicPneumococcal Aged OutNo longer eligible based on patient's age to complete this topic RotavirusAged OutNo longer eligible based on patient's age to complete this topic Insurance Care Teams Team MemberRelationshipSpecialtyStart DateEnd Date Aleisha Brownlee MD [address] [place] [address] PCP - GeneralFamily Medicine12/12/19
--- NOTE | 2025-09-24 08:13 | CT_ITS ---
The [address] [address] Patient Name: DEB VILLA MRN: [id number] date: 2005 Sex: F Assigned Patient Location: CT Current Patient Location: CT Accession/Order Number: [id number] Exam Date: 09/24/2025 07:55 Report Date: 09/24/2025 09:40 At the request of: JUAN JOSE ACKERMAN MD Procedure: CT abdomen pelvis w con CT ABDOMEN AND PELVIS WITH CONTRAST COMPARISON: None CLINICAL DATA: Abdominal pain with nausea, vomiting and diarrhea. Hyperglycemia. Spiral images were obtained through the abdomen and pelvis following oral and 100 mL of Omnipaque 300. This CT exam was performed using one or more following dose reduction techniques: Automated exposure control, adjustment of the mA and/or kV according to patient size, or use of iterative reconstruction technique. Limited cuts through the lung bases show no contributory findings. No calcified gallstones are identified. No intrahepatic masses are seen. The spleen and, pancreas and adrenal glands show no acute findings. There are symmetric renal nephrograms, without hydronephrosis. The abdominal aorta is normal caliber. There are slightly prominent mesenteric lymph nodes. No ascites is identified. There is a small umbilical hernia containing fat. There is air and fluid within the stomach. The small bowel loops are not dilated. There is stool along the colon. A normal retrocecal appendix is identified. The bony structures are intact. Images through the pelvis show normal caliber small bowel loops. There is stool at the distal colon. No diverticular disease is noted. The uterus is levoverted. No dominant adnexal cysts are seen. The urinary bladder is poorly distended and the wall appears thickened. No ascites is noted. There are inguinal lymph nodes with fatty don. CT/CT abdomen pelvis w con IMPRESSION: NO BOWEL OR URINARY TRACT OBSTRUCTION. NONSPECIFIC MESENTERIC LYMPH NODES. NO ACUTE FINDINGS. Impression dictated by: Alyssia Oliva M.D. 09/24/2025 9:40 AM Dictation Location: [place] [address] Electronically authenticated by: [id number] Y Date: 09/24/2025 09:40
== END 2025-09-24 06:52 | disposition home or self-care (01) ==
LOC: CT 06:51
PROVIDERS: PCP Family Medicine; Visit Provider Family Medicine
DX: R10.9 Unspecified abdominal pain (principal); R11.2 Nausea with vomiting, unspecified; R19.7 Diarrhea, unspecified; R76.9 Abnormal immunological finding in serum, unspecified; E16.2 Hypoglycemia, unspecified
CPT/HCPCS: 74177; Q9967